=== PATIENT | female | born 1970 | race Hispanic/Latino ===

== ENCOUNTER 2018-03-02 02:35 | Emergency (ER) | payer OTHER ==
[~2018-03-02] VITALS: Ht 160 cm; Wt 77.1 kg
--- OUTSIDE RECORDS SUMMARY | 2018-03-02 02:37 | XMS REPORT ---
[facility] Unknown Phone Unavailable Care Team Providers Care Riding Double Name Role Phone Unavailable Unavailable Problems This patient has no known problems. Allergies, Adverse Reactions, Alerts This patient has no known allergies or adverse reactions. Medications This patient has no known medications. Encounters Start Date/Time End Date/Time Encounter Type Admission Type Attending [facility] Care Department Encounter ID 2016-11-28 15:31:27 Inpatient [facility] [id number] 2016-11-28 12:55:59 Inpatient [facility] [id number] 2016-11-28 01:31:51 Inpatient [facility] [id number] 2016-11-27 15:48:52 Inpatient [facility] [id number] 2014-09-29 19:57:12 Inpatient [id number] 2016-12-25 14:12:13 2016-12-25 14:12:13 Outpatient [facility] [id number] 2016-12-24 08:21:22 2016-12-24 08:21:22 Outpatient [facility] [id number] 2016-11-27 00:24:06 2016-11-27 00:24:06 Emergency [facility] [id number]
== END 2018-03-02 03:22 | disposition home or self-care (01) ==
LOC: ER 02:35
DX: S91.101A Unspecified open wound of right great toe without damage to nail, initial encounter (principal); W22.09XA Striking against other stationary object, initial encounter; Y92.008 Other place in unspecified non-institutional (private) residence as the place of occurrence of the external cause; I10 Essential (primary) hypertension; E11.9 Type 2 diabetes mellitus without complications
CPT/HCPCS: 99283

== ENCOUNTER → 2018-04-29 | Outpatient (CLI) | payer OTHER ==
--- NOTE | 2018-04-29 15:05 | Diagnostic Imaging Report ---
PROCEDURE:X-RAY RIGHT FOOT, COMPLETE COMPARISON:None. 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 Bandage material overlies the first digit. There are erosive changes of the subungual tuft of the distal phalanx. Remaining osseous structures are intact. Joint spaces are well-maintained with scattered degenerative changes throughout the midfoot.. No gross soft tissue defect of the first digit. CONCLUSION: Acute osteomyelitis of the subungual tuft of the first distal phalanx. Dictated by: Everardo Jackson M.D. on 04/29/2018 at 10:49 Electronically approved by: Everarod Jackson M.D. on 04/29/2018 at 10:49
== END ==
LOC: RAD 09:41
PROVIDERS: ATTEND Podiatrist Foot & Ankle Surgery
DX: E11.621 Type 2 diabetes mellitus with foot ulcer (principal); L97.411 Non-pressure chronic ulcer of right heel and midfoot limited to breakdown of skin

== ENCOUNTER → 2018-05-27 | Outpatient (RCR) | payer OTHER ==
[~2018-05-27] MED LIST: LIDOCAINE VISC 2% SOLN 15 ML UDC ONE
== END ==
LOC: WCC 04-29 07:46
PROVIDERS: ATTEND Podiatrist Foot & Ankle Surgery
DX: E10.65 Type 1 diabetes mellitus with hyperglycemia (principal); E10.21 Type 1 diabetes mellitus with diabetic nephropathy; E10.621 Type 1 diabetes mellitus with foot ulcer; E11.621 Type 2 diabetes mellitus with foot ulcer; L97.414 Non-pressure chronic ulcer of right heel and midfoot with necrosis of bone; L97.411 Non-pressure chronic ulcer of right heel and midfoot limited to breakdown of skin; M86.671 Other chronic osteomyelitis, right ankle and foot; L27.9 Dermatitis due to unspecified substance taken internally; I10 Essential (primary) hypertension; D50.8 Other iron deficiency anemias; E78.2 Mixed hyperlipidemia

== ENCOUNTER 2018-06-24 07:39 | Outpatient (RCR) | payer OTHER ==
[~2018-06-24 07:39] MED LIST changes: +MUPIROCIN 2% OINT 22 GM TUBE ONE
[2018-06-24] MEDS ORDERED: LIDOCAINE VISC 2% SOLN 15 ML UDC ONE (11:35)
[2018-06-24] MEDS ORDERED: MINERAL OIL/PETROLAT/GLYCERI 6OZ BTL ONE (11:35)
== END 2018-06-27 ==
LOC: WCC 07:39
PROVIDERS: ATTEND Family Medicine Adult Medicine
DX: E11.621 Type 2 diabetes mellitus with foot ulcer (principal); E10.621 Type 1 diabetes mellitus with foot ulcer; E10.65 Type 1 diabetes mellitus with hyperglycemia; L97.521 Non-pressure chronic ulcer of other part of left foot limited to breakdown of skin; L97.411 Non-pressure chronic ulcer of right heel and midfoot limited to breakdown of skin; L27.9 Dermatitis due to unspecified substance taken internally; I10 Essential (primary) hypertension; D50.8 Other iron deficiency anemias; E78.2 Mixed hyperlipidemia

== ENCOUNTER 2018-07-22 09:14 | Outpatient (RCR) | payer OTHER | END 2018-07-27 | LOC: WCC 09:14 | PROVIDERS: ATTEND Family Medicine Adult Medicine | DX: E11.621 Type 2 diabetes mellitus with foot ulcer (principal); E11.622 Type 2 diabetes mellitus with other skin ulcer; E10.21 Type 1 diabetes mellitus with diabetic nephropathy; E10.65 Type 1 diabetes mellitus with hyperglycemia; E10.621 Type 1 diabetes mellitus with foot ulcer; L97.521 Non-pressure chronic ulcer of other part of left foot limited to breakdown of skin; L97.311 Non-pressure chronic ulcer of right ankle limited to breakdown of skin; L97.411 Non-pressure chronic ulcer of right heel and midfoot limited to breakdown of skin; L98.491 Non-pressure chronic ulcer of skin of other sites limited to breakdown of skin; L27.9 Dermatitis due to unspecified substance taken internally; D50.8 Other iron deficiency anemias; E78.2 Mixed hyperlipidemia; I10 Essential (primary) hypertension ==

== ENCOUNTER 2018-08-26 09:15 | Outpatient (RCR) | payer OTHER | END 2018-08-27 | LOC: WCC 09:15 | PROVIDERS: ATTEND Family Medicine Adult Medicine | DX: E11.621 Type 2 diabetes mellitus with foot ulcer (principal); E11.622 Type 2 diabetes mellitus with other skin ulcer; E10.21 Type 1 diabetes mellitus with diabetic nephropathy; E10.65 Type 1 diabetes mellitus with hyperglycemia; E10.621 Type 1 diabetes mellitus with foot ulcer; L97.521 Non-pressure chronic ulcer of other part of left foot limited to breakdown of skin; L97.411 Non-pressure chronic ulcer of right heel and midfoot limited to breakdown of skin; L98.491 Non-pressure chronic ulcer of skin of other sites limited to breakdown of skin; L27.9 Dermatitis due to unspecified substance taken internally; I10 Essential (primary) hypertension; D50.8 Other iron deficiency anemias; E78.2 Mixed hyperlipidemia | CPT/HCPCS: 36415; 82948 ==

== ENCOUNTER 2018-08-29 13:36 | Observation (INO) | payer OTHER ==
[~2018-08-29] VITALS: Ht 160 cm; Wt 87.5 kg
--- OUTSIDE RECORDS SUMMARY | 2018-08-29 13:39 | XMS REPORT | Clinical Summary ---
Author Author [facility] Address Unknown Phone Unavailable Care Team Providers Care Inside Outside Sales Representative Name Role Phone Romel Davis MD PCP Allergies Active Allergy Reactions Severity Noted Date Comments Vancomycin Rash Low 05/07/2018 Current Medications Prescription Sig. Disp. Refills Start End Date Status Date venlafaxine (EFFEXOR) Take 37.5 mg by mouth Active 37.5 MG tablet daily. metoprolol succinate XL Take 25 mg by mouth Active (TOPROL-XL) 25 mg 24 hr daily. tablet gabapentin (NEURONTIN) Take 600 mg by mouth 3 Active 600 mg tablet (three) times a day. lisinopril Take 20 mg by mouth 2 Active (PRINIVIL,ZESTRIL) 20 mg (two) times a day. tablet simvastatin (ZOCOR) 40 MG Take 40 mg by mouth Active tablet nightly. INSULIN ASPART, Inject 50 Units under the Active NIACINAMIDE, SUBQ skin 2 (two) times a day. TRESIBA FLEXTOUCH U-200 03/29/20 Active 200 unit/mL (3 mL) 18 insulin pen ferrous sulfate 325 (65 Take 325 mg by mouth Active FE) MG tablet daily with breakfast. aspirin (ECOTRIN) 81 MG Take 81 mg by mouth Active enteric coated tablet nightly. amLODIPine (NORVASC) 5 mg Take 1 tablet (5 mg 30 tablet 0 05/09/20 06/08/20 tablet total) by mouth daily for 18 18 30 days. Active Problems Problem Noted Date Hyperglycemia 05/04/2018 Encounters Date Type Specialty Care Team Description 05/07/2018 Procedure Pass Procedural Cardiology 05/07/2018 Surgery Procedural Cardiology Liu Urrutia Aortagram abdomen w tanner Gutierrez MD with selective to SFA, angiogram on Rt angiogram [95307 (CPT)] 05/06/2018 Procedure Pass Procedural Cardiology 05/04/2018 [facility] Conrado Pham MD Hyperglycemia (Primary - Encounter Vito Pineda MD Dx); 05/08/2018 Hyponatremia; Lactic acidemia after 08/28/2017 Family History Medical History Relation Name Comments Liver cancer Father Relation Name Status Comments Father Social History Tobacco Use Types Packs/Day Years Used Date Never Smoker Smokeless Tobacco: Never Used Alcohol Use Drinks/Week oz/Week Comments No Sex Assigned at Date Recorded Not on file Last Filed Vital Signs Vital Sign Reading Time Taken Blood Pressure 152/70 05/08/2018 11:38 AM CDT Pulse 79 05/08/2018 11:38 AM CDT Temperature 36.5 C (97.7 F) 05/08/2018 11:38 AM CDT Respiratory Rate 18 05/08/2018 11:38 AM CDT Oxygen Saturation 95% 05/08/2018 11:38 AM CDT Inhaled Oxygen - - Concentration Weight 86.5 kg (190 lb 12.8 oz) 05/04/2018 11:28 AM CDT Height 160 cm (5' 3") 05/04/2018 11:28 AM CDT Body Mass Index 33.8 05/04/2018 11:28 AM CDT Plan of Treatment Health Maintenance Due Date Last Done Comments CERVICAL CANCER SCREENING 1989 INFLUENZA VACCINE 05/28/2018 BREAST CANCER SCREENING 2018 COLON CANCER SCREENING 2018 SHINGRIX VACCINE (#1) 2018 Implants Implanted 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 POC GLUCOSE Routine 05/08/2018 Results for this 7:33 AM CDT procedure are in the results section. ZZESTIMATED GFR Routine 05/08/2018 Results for this 5:00 AM CDT procedure are in the results section. BASIC METABOLIC PANEL Routine 05/08/2018 Results for this 5:00 AM CDT procedure are in the results section. POC GLUCOSE Routine 05/07/2018 Results for this 9:18 PM CDT procedure are in the results section. AORTAGRAM ABDOMEN WITH Routine 05/07/2018 Results for this RUN OFF 6:06 PM CDT procedure are in the results section. POC GLUCOSE Routine 05/07/2018 Results for this 11:40 AM CDT procedure are in the results section. POC GLUCOSE Routine 05/07/2018 Results for this 7:37 AM CDT procedure are in the results section. ZZESTIMATED GFR Routine 05/07/2018 Results for this 5:18 AM CDT procedure are in the results section. BASIC METABOLIC PANEL Routine 05/07/2018 Results for this 5:18 AM CDT procedure are in the results section. VANCOMYCIN LEVEL, RANDOM Routine 05/07/2018 Results for this 5:18 AM CDT procedure are in the results section. OSMOLALITY, URINE Routine 05/06/2018 Results for this 9:35 PM CDT procedure are in the results section. SODIUM LEVEL, URINE, Routine 05/06/2018 Results for this RANDOM 9:35 PM CDT procedure are in the results section. CREATININE LEVEL, URINE, Routine 05/06/2018 Results for this RANDOM 9:35 PM CDT procedure are in the results section. POC GLUCOSE Routine 05/06/2018 Results for this 9:13 PM CDT procedure are in the results section. US RENAL Routine 05/06/2018 Results for this 7:46 PM CDT procedure are in the results section. POC GLUCOSE Routine 05/06/2018 Results for this 6:08 PM CDT procedure are in the results section. POC GLUCOSE Routine 05/06/2018 Results for this 12:02 PM CDT procedure are in the results section. ECHOCARDIOGRAM 2D Routine 05/06/2018 Results for this COMPLETE W MMODE SPECTRAL 8:30 AM CDT procedure are in the COLOR DOPPLER (17896) results section. POC GLUCOSE Routine 05/06/2018 Results for this 8:09 AM CDT procedure are in the results section. VANCOMYCIN LEVEL, TROUGH Timed 05/06/2018 Results for this 5:16 AM CDT procedure are in the results section. ZZESTIMATED GFR Routine 05/06/2018 Results for this 5:16 AM CDT procedure are in the results section. BASIC METABOLIC PANEL Routine 05/06/2018 Results for this 5:16 AM CDT procedure are in the results section. POC GLUCOSE Routine 05/05/2018 Results for this 7:51 PM CDT procedure are in the results section. POC GLUCOSE Routine 05/05/2018 Results for this 6:23 PM CDT procedure are in the results section. US DUPLEX ARTERIAL LOWER Routine 05/05/2018 Results for this EXTREMITY BILATERAL 4:05 PM CDT procedure are in the results section. POC GLUCOSE Routine 05/05/2018 Results for this 12:35 PM CDT procedure are in the results section. POC GLUCOSE Routine 05/05/2018 Results for this 8:18 AM CDT procedure are in the results section. POC GLUCOSE Routine 05/04/2018 Results for this 8:19 PM CDT procedure are in the results section. POC GLUCOSE Routine 05/04/2018 Results for this 4:38 PM CDT procedure are in the results section. POC GLUCOSE Routine 05/04/2018 Results for this 12:11 PM CDT procedure are in the results section. POC GLUCOSE Routine 05/04/2018 Results for this 7:30 AM CDT procedure are in the results section. LACTIC ACID LEVEL, SEPSIS Timed 05/04/2018 Results for this - NOW AND REPEAT 2X EVERY 5:55 AM CDT procedure are in the 3 HOURS results section. POC GLUCOSE Routine 05/04/2018 Results for this 5:37 AM CDT procedure are in the results section. POC GLUCOSE Routine 05/04/2018 Results for this 4:56 AM CDT procedure are in the results section. POC GLUCOSE Routine 05/04/2018 Results for this 4:15 AM CDT procedure are in the results section. POC GLUCOSE Routine 05/04/2018 Results for this 2:43 AM CDT procedure are in the results section. LACTIC ACID LEVEL, SEPSIS Timed 05/04/2018 Results for this - NOW AND REPEAT 2X EVERY 2:15 AM CDT procedure are in the 3 HOURS results section. XR FOOT 3+ VW LEFT STAT 05/04/2018 Results for this 1:57 AM CDT procedure are in the results section. XR FOOT 3+ VW RIGHT STAT 05/04/2018 Results for this 1:56 AM CDT procedure are in the results section. POC GLUCOSE Routine 05/04/2018 Results for this 1:38 AM CDT procedure are in the results section. BLOOD CULTURE, AEROBIC & Routine 05/04/2018 Results for this ANAEROBIC 12:55 AM CDT procedure are in the results section. BLOOD CULTURE, AEROBIC & Routine 05/04/2018 Results for this ANAEROBIC 12:40 AM CDT procedure are in the results section. URINALYSIS SCREEN AND Routine 05/04/2018 Results for this MICROSCOPY, WITH REFLEX 12:30 AM CDT procedure are in the TO CULTURE results section. URINE CULTURE Routine 05/04/2018 Results for this 12:30 AM CDT procedure are in the results section. LACTIC ACID LEVEL Routine 05/04/2018 Results for this 12:25 AM CDT procedure are in the results section. ZZESTIMATED GFR STAT 05/04/2018 Results for this 12:25 AM CDT procedure are in the results section. BETA HYDROXYBUTYRATE Routine 05/04/2018 Results for this 12:25 AM CDT procedure are in the results section. VENOUS BLOOD GAS Routine 05/04/2018 Results for this 12:25 AM CDT procedure are in the results section. COMPREHENSIVE METABOLIC STAT 05/04/2018 Results for this PANEL 12:25 AM CDT procedure are in the results section. HC COMPLETE BLD COUNT STAT 05/04/2018 Results for this W/AUTO DIFF 12:25 AM CDT procedure are in the results section. [place] [facility], E/M Routine 05/04/2018 Results for this 30-74 MINUTES 12:20 AM CDT procedure are in the results section. ECG 12-LEAD STAT 05/04/2018 Results for this 12:15 AM CDT procedure are in the results section. POC GLUCOSE Routine 05/04/2018 Results for this 12:02 AM CDT procedure are in the results section. after 08/28/2017 Results * POC glucose (05/08/2018 11:37 AM) Only the most recent of 23 results within the time period is included. POC glucose 249 (H) 65 - 99 mg/dL [facility] DEPARTMENT OF Comment: PATHOLOGY AND Meter ID: [id number] [employer] [facility] Vinyl Cutter: Isadora Landaverde Performing Organization Address City/State/Zipcode Phone Number [place] [phone] [facility] [address] [place] [address] PATHOLOGY AND GENOMIC MEDICINE * Estimated GFR (05/08/2018 5:00 AM) Only the most recent of 4 results within the time period is included. GFR Non Af Amer 37 (A) mL/min/1.[address] [facility] OF PATHOLOGY AND GENOMIC MEDICINE GFR Af Amer 45 (A) mL/min/1.[address] [facility] OF Comment: PATHOLOGY AND Chronic kidney disease: <60 GENOMIC MEDICINE mL/min/1.73m2 Kidney failure: <15 mL/min/1.73m2 The estimated GFR is calculated from the IDMS-traceable Modification of Diet in Renal Disease Equation. The accuracy of the calculation is poor when the creatinine is normal. Calculated values >90 mL/min/1.73m2 are not reported. This equation has not been validated in children (<18 years), women, the elderly (>70 years), or ethnic groups other than Caucasians and Americans. Specimen Plasma specimen Performing Organization Address [facility] Phone Number [address] [place], [place] [id number] [facility] [employer] * Basic metabolic panel (05/08/2018 5:00 AM) Only the most recent of 3 results within the time period is included. Sodium 136 135 - 148 mEq/L [facility] PATHOLOGY AND [employer] [facility] Potassium 4.1 3.5 - 5.0 mEq/L [facility] OF PATHOLOGY AND [employer] [facility] Chloride 102 99 - 109 mEq/L [facility] OF PATHOLOGY AND [employer] [facility] CO2 25 24 - 31 mEq/L [facility] PATHOLOGY AND [employer] [facility] Anion gap 9@ANIO 7 - 15 mEq/L [facility] OF PATHOLOGY AND [employer] [facility] BUN 22 8 - 24 mg/dL [facility] OF PATHOLOGY AND [employer] [facility] Creatinine 1.5 0.5 - 1.5 mg/dL [facility] PATHOLOGY AND [employer] [facility] Glucose 255 (H) 65 - 99 mg/dL [facility] PATHOLOGY AND [employer] [facility] Calcium 8.7 8.6 - 10.6 mg/dL [facility] PATHOLOGY AND [employer] Specimen Plasma specimen Performing Organization Address City/[facility] Phone Number [facility] [phone] [place] [address]. [address] [place] [phone] [employer] * Cv invasive peripheral vascular procedure (05/07/2018 6:06 PM) Narrative Performed At [facility] DATE OF PROCEDURE:05/07/2018 Procedures performed: Right lower extremity angiogram with contralateral access Indications: PAD with non healing wound Consent obtained. Pt prepped and draped in standard manner. 5F left groin arterial access obtained Omniflush used to engage the right external iliac and then catheter was exchanged for a glide catheter. Torreon catheter was advanced into the right SFA over a wire. Then right lower extremity angiogram was performed. Then the catheter was advanced into the right SFA followed by a pull back recording from the right SFA till the access sheath No gradients were noted. Mynx used for arterial closure Complications:None EBL: < 10 ml Sedation: Conscious sedation under direct supervision and hemodynamic monitoring > 15 mins Findings: No hemodynamic gradients noted in the iliac system bilaterally Rt SFA patent without any gradients. Rt popliteal patent. Rt TYRELL patent beyond the ankle.Dorsalis pedis with focal lesion in proximal foot. Rt Tibioperoneal trunk patent Rt peroneal 70% 10-12 mm diseased area in the mid to distal segment. 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 Foot vasculature appears heavily collateralized with good blush No complications Total dye appox 32 cc Conclusion: PAD as described above Plan: Hydration; mucomyst Bmp am Continue wound care and antibiotics. Feel she has adequate circulatation large vessel circulation at this time.Will discuss and review angiographic findings with Dr. Lupe Urrutia MD Performing Organization Address [facility] Phone Number [facility] [address] [place] [address] * Vancomycin level, random (05/07/2018 5:18 AM) Vancomycin, random 16.2 ug/mL [facility] OF Comment: PATHOLOGY AND Therapeutic Ranges: GENOMIC MEDICINE Peak 30.0 - 40.0 ug/mL Mvyjnl35.0 - 20.0 ug/mL Specimen Blood Performing Organization Address [facility] [place] [address] PATHOLOGY AND GENOMIC MEDICINE * Sodium level, urine, random (05/06/2018 9:35 PM) Sodium, urine, random 80 mEQ/L [facility] OF PATHOLOGY AND GENOMIC MEDICINE Specimen Urine Performing Organization Address [facility] [place] [address] PATHOLOGY AND GENOMIC MEDICINE * Osmolality, urine (05/06/2018 9:35 PM) Osmolality, urine 232 50 - 1,400 mOsm/kg [facility] OF PATHOLOGY AND GENOMIC MEDICINE Specimen Urine Performing Organization Address [facility] Phone Number [facility] [phone] [place], [place] [address]y. [address] [place] [address] PATHOLOGY AND GENOMIC MEDICINE * Creatinine level, urine, random (05/06/2018 9:35 PM) Creatinine, urine, random 17 mg/dL [facility] OF PATHOLOGY AND GENOMIC MEDICINE Specimen Urine Performing Organization Address [facility] Phone Number [facility] [phone] [place], [place] [address]y. [address] [place] [phone] PATHOLOGY AND GENOMIC MEDICINE * US Renal (05/06/2018 7:46 PM) Narrative Performed At EXAMINATION:US RENAL [facility] CLINICAL HISTORY:Eleveted Creatinine COMPARISON:None. TECHNIQUE:Ultrasound evaluation of the kidneys and bladder. Findings: 1.The right kidney measures 12.4 x 5.9 x 5.9 cm.The left kidney measures 13.9 x 7.2 x 6.7 cm.Normal renal cortical echogenicity. 2.No hydronephrosis or solid mass lesions. 3.Bladder is unremarkable. IMPRESSION: 1.Unremarkable renal ultrasound. [id number] Procedure Note Interface, Radiology Results Incoming - 05/06/2018 9:56 PM CDT EXAMINATION: US RENAL CLINICAL HISTORY: Eleveted Creatinine COMPARISON: None. TECHNIQUE: Ultrasound evaluation of the kidneys and bladder. Findings: 1. The right kidney measures 12.4 x 5.9 x 5.9 cm. The left kidney measures 13.9 x 7.2 x 6.7 cm. Normal renal cortical echogenicity. 2. No hydronephrosis or solid mass lesions. 3. Bladder is unremarkable. IMPRESSION: 1. Unremarkable renal ultrasound. [id number] Performing Organization Address [facility] Phone Number [facility] [address] [place] [address] * Echocardiogram complete w contrast and 3D if needed (05/06/2018 8:30 AM) AoV Area, Vmax 2.37 cm2 [facility] AoV Area, VTI 2.60 cm2 [facility] AoV Mean PG 5.00 mmHg [facility] AoV Peak PG 8.00 mmHg [facility] AoV Vmax 1.39 m/s [facility] AoV VTI 0.28 m [facility] IVS,d 1.20 cm [facility] IVS/LVPW,2D 0.92 [facility] Left Atrium Dimension 3.30 cm [facility] Anterior LV,d 4.60 cm [facility] LV EF,2D 74.90 % [facility] LV,s 2.90 cm [facility] LVOT area 3.14 cm2 [facility] LVOT Diam,S 2.00 cm [facility] LVOT Vmax 1.05 m/s [facility] LVOT VTI 0.23 m [facility] LVPWD,d 1.30 cm [facility] MV E A ratio 0.80 mmHg [facility] E wave decelartion time 92.00 msec [facility] MV Peak A Abdias 0.95 m/s [facility] MV Peak E Abdias 0.78 m/s [facility] AV LVOT peak gradient 4.00 mmHg [facility] Ao Root,d,2D 2.90 cm [facility] LV SYS VOL 32.20 ml [facility] LV RAMOS VOL 97.30 ml [facility] LV SV Teich 2D 65.10 ml [facility] AoV Vmn 1.03 [facility] LV FS Teich 2D 37.00 [facility] LV FS Cube 2D 37.00 [facility] LVOT Vmn 0.76 [facility] LVOT mean grad 3.00 mmHg [facility] LV SV Cube 2D 72.90 ml [facility] LV vol d cube 2D 97.30 ml [facility] LV vol s cube 2D 24.40 ml [facility] Velocity Ratio (V1/V2) 0.76 m/s [facility] EF 66.91 % [facility] E/A ratio 0.82 [facility] LA Vol MOD A4C 44.15 ml [facility] Narrative Performed At [facility] Technically adequate study There is mild left ventricular concentric hypertrophy. Left Ventricular ejection fraction is 55 - 60%. Left ventricular systolic function is normal Spectral Doppler shows impaired relaxation pattern of left ventricular diastolic filling. No pericardial effusion seen. Performing Organization Address City/State/Zipcode Phone Number [facility] [address] [place] [address] * Vancomycin level, trough (05/06/2018 5:16 AM) Vancomycin, trough 27.3 (HH) 10.0 - 20.0 ug/mL [facility] OF Comment: PATHOLOGY AND Therapeutic Ranges: GENOMIC MEDICINE Peak 30.0 - 40.0 ug/mL Aawwzm76.0 - 20.0 ug/mL Final results called to and read back by Tanisha Mackye [id number]/06/2018 06:21 [email or web address] Specimen Blood Performing Organization Address City/State/Zipcode Phone Number [facility] [address] [facility] [place] [address] PATHOLOGY AND GENOMIC MEDICINE * Pv duplex arterial lower extremity (05/05/2018 4:05 PM) Narrative Performed At EXAM: US DUPLEX ARTERIAL LOWER EXTREMITY BILATERAL [facility] HISTORY: peripheral arterial occlusive disease TECHNIQUE: Real-time as well as pulsed and color Doppler evaluation of bilateral common femoral, femoral, popliteal, posterior tibial, anterior tibial, and dorsalis pedis arteries are evaluated. The examination includes a full duplex Doppler scan of the blood vessels (real-time P mode grayscale, Doppler spectral analysis, and Doppler color flow imaging). COMPARISON: None. IMPRESSION: 1.Some loss of phasicity in the right lower extremity anterior tibial artery. No velocity gradient identified to suggest flow-limiting stenosis. Waveforms possible secondary to inflammatory mediated vasodilation. 2.Velocities and waveforms are otherwise within normal limits throughout the bilateral lower extremity arteries FINDINGS: RIGHT LEG: PEAK SYSTOLIC VELOCITIES ARE FOLLOWS (CM/S): COMMON FEMORAL:111 FEMORAL: Proximal: 112 Mid:145 Distal:111 POPLITEAL: Proximal:156 Mid:86 Distal: 97 POSTERIOR TIBIAL: Proximal: 64 Mid:61 Distal:59 ANTERIOR TIBIAL: Proximal: 115 Mid:122 Distal:123 DORSALIS PEDIS: 154 DOPPLER WAVEFORMS: COMMON FEMORAL: Triphasic FEMORAL Proximal: Triphasic Mid: Triphasic Distal: Triphasic POPLITEAL Proximal: Triphasic Mid: Triphasic Distal: Triphasic POSTERIOR TIBIAL Proximal: Triphasic Mid: Triphasic Distal: Triphasic ANTERIOR TIBIAL Proximal: Monophasic Mid: Monophasic Distal: Monophasic DORSALIS PEDIS: Monophasic LEFT LEG: PEAK SYSTOLIC VELOCITIES ARE FOLLOWS: COMMON FEMORAL:99 FEMORAL: Proximal: 127 Mid:129 Distal:120 POPLITEAL: Proximal: 118 Mid:74 Distal: 77 POSTERIOR TIBIAL: Proximal: 78 Mid:125 Distal:97 ANTERIOR TIBIAL: Proximal:63 Mid:81 Distal: 61 DORSALIS PEDIS:22 DOPPLER WAVEFORMS: COMMON FEMORAL: Triphasic FEMORAL Proximal: Triphasic Mid: Triphasic Distal: Triphasic POPLITEAL Proximal: Triphasic Mid: Triphasic Distal: Triphasic POSTERIOR TIBIAL Proximal: Triphasic Mid: Triphasic Distal: Triphasic ANTERIOR TIBIAL Proximal: Triphasic Mid: Triphasic Distal: Triphasic DORSALIS PEDIS: Triphasic [id number] Procedure Note Interface, Radiology Results Incoming - 05/05/2018 4:14 PM CDT EXAM: US DUPLEX ARTERIAL LOWER EXTREMITY BILATERAL HISTORY: peripheral arterial occlusive disease TECHNIQUE: Real-time as well as pulsed and color Doppler evaluation of bilateral common femoral, femoral, popliteal, posterior tibial, anterior tibial, and dorsalis pedis arteries are evaluated. The examination includes a full duplex Doppler scan of the blood vessels (real-time P mode grayscale, Doppler spectral analysis, and Doppler color flow imaging). COMPARISON: None. IMPRESSION: 1. Some loss of phasicity in the right lower extremity anterior tibial artery. No velocity gradient identified to suggest flow-limiting stenosis. Waveforms possible secondary to inflammatory mediated vasodilation. 2. Velocities and waveforms are otherwise within normal limits throughout the bilateral lower extremity arteries FINDINGS: RIGHT LEG: PEAK SYSTOLIC VELOCITIES ARE FOLLOWS (CM/S): COMMON FEMORAL: 111 FEMORAL: Proximal: 112 Mid: 145 Distal: 111 POPLITEAL: Proximal: 156 Mid: 86 Distal: 97 POSTERIOR TIBIAL: Proximal: 64 Mid: 61 Distal: 59 ANTERIOR TIBIAL: Proximal: 115 Mid: 122 Distal: 123 DORSALIS PEDIS: 154 DOPPLER WAVEFORMS: COMMON FEMORAL: Triphasic FEMORAL Proximal: Triphasic Mid: Triphasic Distal: Triphasic POPLITEAL Proximal: Triphasic Mid: Triphasic Distal: Triphasic POSTERIOR TIBIAL Proximal: Triphasic Mid: Triphasic Distal: Triphasic ANTERIOR TIBIAL Proximal: Monophasic Mid: Monophasic Distal: Monophasic DORSALIS PEDIS: Monophasic LEFT LEG: PEAK SYSTOLIC VELOCITIES ARE FOLLOWS: COMMON FEMORAL: 99 FEMORAL: Proximal: 127 Mid: 129 Distal: 120 POPLITEAL: Proximal: 118 Mid: 74 Distal: 77 POSTERIOR TIBIAL: Proximal: 78 Mid: 125 Distal: 97 ANTERIOR TIBIAL: Proximal: 63 Mid: 81 Distal: 61 DORSALIS PEDIS: 22 DOPPLER WAVEFORMS: COMMON FEMORAL: Triphasic FEMORAL Proximal: Triphasic Mid: Triphasic Distal: Triphasic POPLITEAL Proximal: Triphasic Mid: Triphasic Distal: Triphasic POSTERIOR TIBIAL Proximal: Triphasic Mid: Triphasic Distal: Triphasic ANTERIOR TIBIAL Proximal: Triphasic Mid: Triphasic Distal: Triphasic DORSALIS PEDIS: Triphasic [facility]-[id number] Performing Organization Address City/State/Zipcode Phone Number TOBY ALTAMIRANO [address] [place] [address] * Lactic acid level, SEPSIS - Now and repeat 2x every 3 hours (05/04/2018 5:55 AM) Only the most recent of 2 results within the time period is included. Lactic acid 2.2 0.5 - 2.2 mmol/L [facility] OF PATHOLOGY AND GENOMIC MEDICINE Specimen Blood Performing Organization Address [facility]/Zipcode Phone Number [place] [phone] [facility] [address] [place] [address] PATHOLOGY AND GENOMIC MEDICINE * XR Foot 3+ Vw Left (05/04/2018 1:57 AM) Narrative Performed At EXAMINATION:XR FOOT 3VW LEFT [facility] CLINICAL HISTORY:R O OSTEO COMPARISON:None. 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 There is swelling and irregularity of overlying soft tissues. Otherwise, no evidence of acute left foot fracture or dislocation. No definite radiographic evidence of osteomyelitis. [id number] Procedure Note Interface, Radiology Results Incoming - 05/04/2018 2:15 AM CDT EXAMINATION: XR FOOT 3 VW LEFT CLINICAL HISTORY: R O OSTEO COMPARISON: None. 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 There is swelling and irregularity of overlying soft tissues. Otherwise, no evidence of acute left foot fracture or dislocation. No definite radiographic evidence of osteomyelitis. [id number] Performing Organization Address [facility]code Phone Number ADARSH [address] [place] [address] * XR Foot 3+ Vw Right (05/04/2018 1:56 AM) Narrative Performed At Examination:XR FOOT 3VW RIGHT RADIANT Clinical History: R O OSTEO Comparison: None. Findings: 3 views of the right foot are obtained. Amputation of the right mid fifth metatarsal bone is noted. Posterior and inferior calcaneal spurring is noted. No acute fracture or dislocation is seen. No cortical bone loss is seen. IMPRESSION: 1. Amputation of the right mid fifth metatarsal bone. 2. No radiographic evidence for osteomyelitis. [id number] Procedure Note Interface, Radiology Results Incoming - 05/04/2018 2:04 AM CDT Examination: XR FOOT 3 VW RIGHT Clinical History: R O OSTEO Comparison: None. Findings: 3 views of the right foot are obtained. Amputation of the right mid fifth metatarsal bone is noted. Posterior and inferior calcaneal spurring is noted. No acute fracture or dislocation is seen. No cortical bone loss is seen. IMPRESSION: 1. Amputation of the right mid fifth metatarsal bone. 2. No radiographic evidence for osteomyelitis. [id number] Performing Organization Address City/[facility]/Zipcode Phone Number [facility] [address] [place] [address] * Blood culture, aerobic & anaerobic (05/04/2018 12:55 AM) Only the most recent of 2 results within the time period is included. Blood culture isolate No growth after 5 days of [facility] DEPARTMENT OF incubation. PATHOLOGY AND Comment: GENOMIC MEDICINE Specimen Information Specimen Source: Blood Specimen Site: Hand, right Specimen Blood - Hand, right Performing Organization Address City/[facility] Phone Number [facility] DEPARTMENT OF [address] [place] [address] PATHOLOGY AND GENOMIC MEDICINE * Urinalysis screen and microscopy, with reflex to culture (05/04/2018 12:30 AM) Specimen site Clean catch [facility] DE[facility] GENOMIC MEDICINE Color, UA Yellow YELLOW [facility] DE[facility] OF PATHOLOGY AND GENOMIC MEDICINE Appearance, UA Clear Clear [facility] DE[facility]MENT OF PATHOLOGY AND GENOMIC MEDICINE Specific gravity, UA 1.022 1.005 - 1.[address] [facility] DEPARTMENT OF PATHOLOGY AND GENOMIC MEDICINE pH, UA 6.0 5.0 - 8.[address] [facility] DEPARTMENT OF PATHOLOGY AND GENOMIC MEDICINE Protein, UA 3+ (A) Negative [facility] DE[facility]MENT OF PATHOLOGY AND GENOMIC MEDICINE Glucose, UA 3+ (A) Negative [facility] DEPARTMENT OF PATHOLOGY AND GENOMIC MEDICINE Ketones, UA Negative Negative [facility] DE[facility]MENT OF PATHOLOGY AND GENOMIC MEDICINE Bilirubin, UA Negative Negative [facility] DEPARTMENT OF PATHOLOGY AND GENOMIC MEDICINE Blood, UA Small (A) Negative [facility] DEPARTMENT OF PATHOLOGY AND GENOMIC MEDICINE Nitrite, UA Negative NEGATIVE [facility] DEPARTMENT OF PATHOLOGY AND GENOMIC MEDICINE Urobilinogen, UA <2.0 <2.0 E.U./dL [facility] DEPARTMENT OF PATHOLOGY AND GENOMIC MEDICINE Leukocyte esterase, UA Negative Negative [facility] DEPARTMENT OF PATHOLOGY AND GENOMIC MEDICINE Epithelial cells, UA <1 0 - 15 /HPF [facility] DEPARTMENT OF PATHOLOGY AND GENOMIC MEDICINE WBC, UA 2 0 - 5 /Hpf [facility] DEPARTMENT OF PATHOLOGY AND GENOMIC MEDICINE RBC, UA <1 0 - 5 /HPF [facility] DEPARTMENT OF PATHOLOGY AND GENOMIC MEDICINE Bacteria, UA None seen None seen [facility] DEPARTMENT OF PATHOLOGY AND GENOMIC MEDICINE Yeast, UA None seen None Seen [facility] DEPARTMENT OF PATHOLOGY AND GENOMIC MEDICINE Yeast with pseudohyphae, None seen [facility] DEPARTMENT OF UA PATHOLOGY AND GENOMIC MEDICINE Specimen Urine Performing Organization Address City/[facility]/[place] [address] PATHOLOGY AND GENOMIC MEDICINE * Urine culture (05/04/2018 12:30 AM) Urine culture SEE COMMENTComment: [facility] DEPARTMENT OF Bacteriuria screen negative. PATHOLOGY AND GENOMIC MEDICINE Specimen Urine Performing Organization Address City/[facility] [place] [address] PATHOLOGY AND GENOMIC MEDICINE * Beta hydroxybutyrate (05/04/2018 12:25 AM) Beta hydroxybutyrate 0.18 0.02 - 0.27 mmol/L [facility] DEPARTMENT OF PATHOLOGY AND GENOMIC MEDICINE Specimen Serum Performing Organization Address City/[facility] [place] [address] PATHOLOGY AND GENOMIC MEDICINE * CBC with platelet and differential (05/04/2018 12:25 AM) WBC 9.1 4.5 - 11.0 k/uL [facility] DEPARTMENT OF PATHOLOGY AND GENOMIC MEDICINE RBC 3.66 (L) 4.20 - 5.50 M/uL [facility] DEPARTMENT OF PATHOLOGY AND GENOMIC MEDICINE HGB 11.1 (L) 14.0 - 18.0 g/dL [facility] DEPARTMENT OF PATHOLOGY AND GENOMIC MEDICINE HCT 32.1 (L) 37.0 - 47.0 % [facility] DEPARTMENT OF PATHOLOGY AND GENOMIC MEDICINE MCV 87.7 82.0 - 100.[address] [facility] DEPARTMENT OF PATHOLOGY AND GENOMIC MEDICINE MCH 30.3 27.0 - 34.[address] [facility] DEPARTMENT OF PATHOLOGY AND GENOMIC MEDICINE MCHC 34.6 31.0 - 37.0 g/dL [facility] DEPARTMENT OF PATHOLOGY AND GENOMIC MEDICINE RDW - SD 39.8 37.0 - 55.[address] [facility] DEPARTMENT OF PATHOLOGY AND GENOMIC MEDICINE MPV 10.7 8.8 - 13.[address] [facility] DEPARTMENT OF PATHOLOGY AND GENOMIC MEDICINE Platelet count 261 150 - 400 K/uL [facility] DEPARTMENT OF PATHOLOGY AND GENOMIC MEDICINE Nucleated RBC 0.00 /[address] [facility] DEPARTMENT OF PATHOLOGY AND GENOMIC MEDICINE Neutrophils 56.9 39.0 - 69.0 % [facility] DEPARTMENT OF PATHOLOGY AND GENOMIC MEDICINE Lymphocytes 34.6 25.0 - 45.0 % [facility] DEPARTMENT OF PATHOLOGY AND GENOMIC MEDICINE Monocytes 6.1 0.0 - 10.0 % [facility] DEPARTMENT OF PATHOLOGY AND GENOMIC MEDICINE Eosinophils 1.8 0.0 - 5.0 % [facility] DEPARTMENT OF PATHOLOGY AND GENOMIC MEDICINE Basophils 0.2 0.0 - 1.0 % [facility] DEPARTMENT OF PATHOLOGY AND GENOMIC MEDICINE Immature granulocytes 0.4Comment: "Immature 0.0 - 1.0 % [facility] DEPARTMENT OF granulocytes" (promyelocytes, PATHOLOGY AND myelocytes, metamyelocytes) GENOMIC MEDICINE Specimen Blood Performing Organization Address City/[facility] [place] [address] PATHOLOGY [facility] [employer] [facility] * Lactic acid level (05/04/2018 12:25 AM) Lactic acid 3.0 (H) 0.5 - 2.2 mmol/L [facility] PATHOLOGY AND GENOMIC MEDICINE Specimen Blood Performing Organization Address City/[facility] [place] [address] PATHOLOGY [facility] [employer] [facility] * Venous blood gas (05/04/2018 12:25 AM) pH, venous 7.31 (L) 7.32 - 7.[address] [facility] DEPARTMENT OF PATHOLOGY AND GENOMIC MEDICINE pCO2, venous 56 (H) 45 - [address] [facility] DEPARTMENT OF PATHOLOGY AND GENOMIC MEDICINE pO2, venous 25 25 - [address] [facility] DEPARTMENT OF PATHOLOGY AND GENOMIC MEDICINE Base excess, venous 1 -2 - 2 mEq/L [facility] DEPARTMENT OF PATHOLOGY AND GENOMIC MEDICINE O2 saturation, venous 40 40 - 70 % [facility] DEPARTMENT OF PATHOLOGY AND GENOMIC MEDICINE Bicarbonate, venous 27.7 21.0 - 28.[address] [facility] DEPARTMENT PATHOLOGY AND GENOMIC MEDICINE Specimen Blood Performing Organization Address City/[facility] [place] [address] PATHOLOGY [facility] [employer] [facility] * Comprehensive metabolic panel (05/04/2018 12:25 AM) Sodium 131 (L) 135 - 148 mEq/L [facility] OF PATHOLOGY AND GENOMIC MEDICINE Potassium 3.9 3.5 - 5.0 mEq/L [facility] DEPARTMENT OF PATHOLOGY AND GENOMIC MEDICINE Chloride 93 (L) 99 - 109 mEq/L [facility] OF PATHOLOGY AND GENOMIC MEDICINE CO2 28 24 - 31 mEq/L [facility] OF PATHOLOGY AND GENOMIC MEDICINE Anion gap 10@ANIO 7 - 15 mEq/L [facility] DEPARTMENT OF PATHOLOGY AND GENOMIC MEDICINE BUN 29 (H) 8 - 24 mg/dL [facility] DEPARTMENT OF PATHOLOGY AND GENOMIC MEDICINE Creatinine 1.3 0.5 - 1.5 mg/dL [facility] DEPARTMENT OF PATHOLOGY AND GENOMIC MEDICINE Glucose 518 (HH) 65 - 99 mg/dL [facility] DEPARTMENT OF Comment: PATHOLOGY AND Final results called to and GENOMIC MEDICINE read back by Dr. Lei/BROOKS at01:30 05/04/2018 ml. Calcium 9.4 8.6 - 10.6 mg/dL [facility] DEPARTMENT OF PATHOLOGY AND GENOMIC MEDICINE Protein 6.6 6.3 - 8.2 g/dL [facility] DEPARTMENT OF PATHOLOGY AND GENOMIC MEDICINE Albumin 1.8 (L) 3.5 - 5.0 g/dL [facility] DEPARTMENT OF PATHOLOGY AND GENOMIC MEDICINE A/G ratio 0.38 (L) 0.70 - 3.[address] [facility] DEPARTMENT OF PATHOLOGY AND GENOMIC MEDICINE Alkaline phosphatase 115 30 - 115 U/L [facility] DEPARTMENT OF PATHOLOGY AND GENOMIC MEDICINE AST SEE COMMENT 15 - 46 U/L [facility] DEPARTMENT OF Comment: PATHOLOGY AND No report GENOMIC MEDICINE Specimen markedly lipemic. Notified Dr. Lei/BROOKS at01: [facility]. ALT SEE COMMENT 10 - 55 U/L [facility] DEPARTMENT OF Comment: PATHOLOGY AND No report GENOMIC MEDICINE Specimen markedly lipemic. Notified Dr. Lei/BROOKS at01: [facility]. Total bilirubin <0.2 0.2 - 1.2 mg/dL [facility] OF PATHOLOGY AND GENOMIC MEDICINE Specimen Plasma specimen Performing Organization Address City/State/Zipcode Phone Number [address] [place] [address] PATHOLOGY AND [employer] MEDICINE * CRITICAL CARE (05/04/2018 12:20 AM) Narrative Performed At Odilia Li NP 05/04/20187:37 AM Critical Care Performed by: ODILIA LI Authorized by: CONRADO PHAM Critical care provider statement: Critical care time (minutes):45 Critical care was necessary to treat or prevent imminent or life-threatening deterioration of the following conditions:Circulatory failure, HA[employer]TER failure or compromise, dehydration, metabolic crisis, sepsis, respiratory failure and renal failure Critical care was time spent personally by me on the following activities:Development of treatment plan with patient or surrogate, discussions with consultants, obtaining history from patient or surrogate, examination of patient, evaluation of patient's response to treatment, review of old charts, re-evaluation of patient's condition, ordering and review of laboratory studies, ordering and review of radiographic studies and ordering and performing treatments and interventions Ozzie 'yes' if you are taking over critical care for this patient from another provider.: no * ECG 12 lead (05/04/2018 12:15 AM) Ventricular rate 98 [facility] Atrial rate 98 [facility] [place] interval 144 [facility] QRSD interval 98 [facility] QT interval 368 [facility] QTC interval 469 [facility] P axis 1 31 [facility] QRS axis 1 -35 [facility] T wave axis 33 [facility] EKG impression Normal sinus rhythm-Left axis [facility] deviation-Incomplete right bundle branch block-Voltage criteria for left ventricular hypertrophy-Abnormal ECG-No previous ECGs available- Performing Organization Address City/State/Zipcode Phone Number [facility] MUSE [address] [place] [address] after 08/28/2017 Insurance Payer Benefit Subscriber ID Type Phone Address Plan / Group [employer] xxxxxxxxx O [facility]
[2018-08-29] MEDS ORDERED: SODIUM CHLORIDE 0.9% 1000ML 1,000 ML IV STA (13:55)
[2018-08-29] MEDS ORDERED: SODIUM CHLORIDE 0.9% 1000ML 2,000 ML ONE (13:57)
--- NOTE | 2018-08-29 14:24 | Diagnostic Imaging Report ---
Examination: Single AP view of the chest. COMPARISON: None. INDICATION: Abdominal pain DISCUSSION: Lines/tubes: None. Lungs: The lungs are well inflated and clear. No pneumonia or pulmonary edema. Pleura: No pleural effusion or pneumothorax. Heart and mediastinum: The heart and the mediastinum are unremarkable. Bones and soft tissues: No acute bony abnormalities. IMPRESSION: 1. No acute cardiopulmonary abnormalities. Signed by: Dr. Landry Smith M.D. on 08/29/2018 2:21 PM
[2018-08-29 14:32] LABS: BASOPHILS % 0.1 % (0.0-1.0); EOSINOPHILS # (AUTO) 0.2 (0.0-0.4); EOSINOPHILS % 1.5 % (0.0-6.0); HEMATOCRIT 36.9 % (34.2-44.1); HEMOGLOBIN 12.6 g/dL (12.0-16.0); LYMPHOCYTES # (AUTO) 4.6 (1.0-3.2); MEAN CORPUSCULAR HEMOGLOBIN 28.8 pg (28-32); MEAN CORPUSCULAR HGB CONC 34.1 g/dL (31-35); MEAN CORPUSCULAR VOLUME 84.4 fL (81-99); MONOCYTES # (AUTO) 0.8 (0.2-0.8); MONOCYTES % 6.2 % (4.4-11.3); NEUTROPHILS # (AUTO) 7.7 (2.1-6.9); NEUTROPHILS % 57.5 % (38.7-80.0); PLATELET COUNT 449 x10e3/uL (140-360); RED BLOOD COUNT 4.37 x10e6/uL (3.6-5.1); RED CELL DISTRIBUTION WIDTH 11.9 % (11.7-14.4)
[2018-08-29 14:40] LABS: INR 0.89; PROTHROMBIN TIME 12.9 seconds (11.9-14.5)
[2018-08-29 14:41] LABS: PARTIAL THROMBOPLASTIN TIME 23.3 seconds (23.8-35.5)
[2018-08-29 14:46] LABS: ALBUMIN 3.7 g/dL (3.5-5.0); ALBUMIN/GLOBULIN RATIO 0.8 (0.8-2.0); ANION GAP 18.6 mmol/L (8-16); CALCIUM 11.5 mg/dL (8.4-10.2); CREATININE, SERUM 2.06 mg/dL (0.57-1.11); POTASSIUM 3.6 mmol/L (3.5-5.1)
[2018-08-29 14:52] LABS: CREATINE KINASE MB 9.3 ng/mL (0-5.0)
[2018-08-29] MEDS ORDERED: DIATRIZOATE MEGL/DIATRIZOA SOD 30 ML BTL PO ONE (15:04)
[2018-08-29 15:20] LABS: BILIRUBIN,URINE NEGATIVE (NEGATIVE); CLARITY,URINE SL CLOUDY (CLEAR); COLOR,URINE YELLOW (YELLOW); KETONES,URINE NEGATIVE (NEGATIVE); LEUKOCYTE ESTERASE ,URINE TRACE (NEGATIVE); NITRITE,URINE NEGATIVE (NEGATIVE); PROTEIN,URINE DIPSTICK 2+ (NEGATIVE); URINE UROBILINOGEN 0.2 mg/dL (0.2 - 1)
[2018-08-29 15:27] LABS: BACTERIA,URINE FEW /HPF
[2018-08-29 15:28] LABS: AMORPHOUS SEDIMENT,URINE MODERATE (FEW)
[2018-08-29] MEDS: CEFTRIAXONE SOD 1 GM VIAL IV SCH (15:59)
[2018-08-29] MEDS ORDERED: ONDANSETRON HCL INJ 2 MG/ML VIAL IV ONE (16:00)
[2018-08-29] MEDS ORDERED: MOTRIN800 MG PO (16:37)
[2018-08-29] MEDS ORDERED: FENOFIBRATE145 MG PO (16:37)
[2018-08-29] MEDS ORDERED: GABAPENTIN600 MG PO (16:37)
[2018-08-29] MEDS ORDERED: OMEGA-3 FISH1000 MG PO (16:37)
[2018-08-29] MEDS ORDERED: METOPROLOL SUCC25 MG PO (16:37)
[2018-08-29] MEDS ORDERED: ASPIRIN CHEW81 MG PO (16:37)
[2018-08-29] MEDS ORDERED: LISINOPRIL20 MG PO (16:37)
[2018-08-29] MEDS ORDERED: BIOTIN800 MCG PO (16:37)
--- NOTE | 2018-08-29 17:33 | Diagnostic Imaging Report ---
EXAMINATION: CT of the abdomen and pelvis without contrast. TECHNIQUE: Spiral CT images of the abdomen and pelvis were performed from the lung bases to the lesser trochanters. No intravenous contrast was given due to history of renal failure. Oral dilute Gastrografin was given. Coronal and sagittal reformatted images were obtained. COMPARISON: CT abdomen and pelvis with contrast 06/02/2009 CLINICAL HISTORY:Abdominal pain DISCUSSION: ABSENCE OF INTRAVENOUS CONTRAST DECREASES SENSITIVITY FOR DETECTION OF FOCAL LESIONS AND VASCULAR PATHOLOGY. ABDOMEN/PELVIS: LOWER THORAX: Minimal bilateral lower lobe dependent atelectasis. 5-6 mm perifissural nodule in the left major fissure (series 2, image 1). HEPATOBILIARY: Hepatic steatosis predominantly involving the right lobe. No focal lesions. No intra or extrahepatic biliary ductal dilation. GALLBLADDER: Cholecystectomy clips. SPLEEN: No splenomegaly. PANCREAS: No focal masses or ductal dilatation. ADRENALS: No adrenal nodules. KIDNEYS/URETERS: No hydronephrosis, stones, or solid mass lesions. PELVIC ORGANS/BLADDER: Bladder is decompressed and there is a Flores catheter in place. No focal lesions. Uterus is unremarkable. No adnexal masses. PERITONEUM/RETROPERITONEUM: No free air or fluid. LYMPH NODES: No intra-abdominal,retroperitoneal, pelvic or inguinal lymphadenopathy. VESSELS: Mild atherosclerotic calcification of the distal abdominal aorta and proximal vessels. GI TRACT: No bowel dilation or evidence of obstruction. No pericolonic inflammatory changes. Stomach is unremarkable. BONES AND SOFT TISSUES: No aggressive lytic lesions. Degenerative disc changes in the lower thoracic and lumbosacral spine, worse at L5-S1. Soft tissues are grossly unremarkable. IMPRESSION: 1. No acute abdominal pelvic abnormalities. No bowel dilation or evidence of obstruction. 2. Hepatic tendinosis, predominantly involving the right lobe. No focal lesions. Signed by: Dr. Isaias Bazzi M.D. on 08/29/2018 5:30 PM
[2018-08-29] MEDS ORDERED: PANTOPRAZOLE 40 MG 10ML VIAL IV ONE (18:21)
[2018-08-29] MEDS ORDERED: MORPHINE SULFATE 2 MG/ML SYR IV PRN (18:30)
[2018-08-29] MEDS ORDERED: ONDANSETRON HCL INJ 2 MG/ML VIAL IV PRN (18:30)
[2018-08-29] MEDS ORDERED: MORPHINE SULFATE INJ 4 MG/ML INJ IV PRN (18:45)
--- OUTSIDE RECORDS SUMMARY | 2018-08-29 18:58 | XMS REPORT | Clinical Summary ---
Author Author [facility] Address Unknown Phone Unavailable Care Team Providers Care Vascular Tech Name Role Phone Romel Davis MD PCP [...] selective to SFA, angiogram on Rt angiogram [96469 (CPT)] 05/06/2018 Procedure Pass Procedural Cardiology 05/04/2018 [facility] General Internal Medicine Conrado Pham MD Hyperglycemia [...] VACCINE (#1) 2018 Implants Implanted Type Area Us Administrative Law Judge Device Expiration Model / Identifier Date Serial / Lot Device Vasclr Clsr Baln Cath 10ml Cardiovasc N/A: N/A CARDINAL 04/26/2020 [id number] / Lkng Syr 6fr [facility] [id number] Implants [id number] Implanted: 05/07/2018 (Quantity not on file) Procedures [...] CDT procedure are in the COLOR DOPPLER (17871) results section. POC GLUCOSE Routine 05/06/2018 Results [...] CDT procedure are in the results section. [place] CRITICAL CARE, E/M Routine 05/04/2018 Results for [...] glucose 249 (H) 65 - 99 mg/dL [facility] DEPARTMENT OF Comment: PATHOLOGY AND Meter ID: [id number] [employer] MEDICINE Fitter And Turner: Isadora Landaverde Performing Organization Address City/State/Zipcode Phone Number [place] [phone] [facility]. [address] [place] [address] PATHOLOGY AND GENOMIC MEDICINE * Estimated GFR (05/08/2018 5:00 AM) Only the most recent of 4 results within the time period is included. GFR Non Af Amer 37 (A) mL/min/1.73 m2 [facility] DEPARTMENT OF PATHOLOGY AND GENOMIC MEDICINE GFR Af Amer 45 (A) mL/min/1.73 m2 [facility] DEPARTMENT OF Comment: PATHOLOGY AND Chronic kidney [...] Americans. Specimen Plasma specimen Performing Organization Address [facility] Phone Number [address] [place], [place] [phone] [facility] [employer] (Wayin) * Basic metabolic panel (05/08/2018 5:00 AM) Only the most recent of 3 results within the time period is included. Sodium 136 135 - 148 mEq/L [facility] PATHOLOGY AND [employer] MEDICINE Potassium 4.1 3.5 - 5.0 mEq/L [facility] OF PATHOLOGY AND [employer] MEDICINE Chloride 102 99 - 109 mEq/L [facility] OF PATHOLOGY AND [employer] MEDICINE CO2 25 24 - 31 mEq/L [facility] PATHOLOGY AND [employer] MEDICINE Anion gap 9@ANIO 7 - 15 mEq/L [facility] OF PATHOLOGY AND [employer] MEDICINE BUN 22 8 - 24 mg/dL [facility] OF PATHOLOGY AND [employer] MEDICINE Creatinine 1.5 0.5 - 1.5 mg/dL [facility] PATHOLOGY AND [employer] MEDICINE Glucose 255 (H) 65 - 99 mg/dL [facility] PATHOLOGY AND [employer] MEDICINE Calcium 8.7 8.6 - 10.6 mg/dL [facility] PATHOLOGY AND [employer] (Wayin) Specimen Plasma specimen Performing Organization Address City/[facility] Phone Number [facility] [id number] [place] [address]. [address] [place] [phone] [employer] * Cv invasive peripheral vascular procedure (05/07/2018 6:06 PM) Narrative Performed At CUP[facility] DATE OF PROCEDURE:05/07/2018 Procedures performed: Right lower extremity angiogram with contralateral access Indications: PAD with non healing wound Consent obtained. Pt prepped and draped in standard manner. 5F left groin arterial access obtained Omniflush used to engage the right external iliac and then catheter was exchanged for a glide catheter. Stanfield catheter was advanced into the right SFA [...] from peroneal and bridging collaterals for proximal RAILROAD CONDUCTOR. Foot vasculature appears heavily collateralized with good blush No complications Total dye appox 32 cc Conclusion: PAD as described above Plan: Hydration; mucomyst Bmp am Continue wound care and antibiotics. Feel she has adequate circulatation large vessel circulation at this time.Will discuss and review angiographic findings with Dr. Lupe Urrutia MD Performing Organization Address [facility] Phone Number [facility] [address] [place] [address] * Vancomycin level, random (05/07/2018 5:18 AM) Vancomycin, random 16.2 ug/mL [facility] DEPARTMENT OF Comment: PATHOLOGY AND Therapeutic Ranges: GENOMIC MEDICINE Peak 30.0 - 40.0 ug/mL Mrxkgj14.0 - 20.0 ug/mL Specimen Blood Performing Organization Address [facility] [place] [address] PATHOLOGY AND GENOMIC MEDICINE * Sodium level, urine, random (05/06/2018 9:35 PM) Sodium, urine, random 80 mEQ/L [facility] DEPARTMENT OF PATHOLOGY AND GENOMIC MEDICINE Specimen Urine Performing Organization Address [facility] [place] [address] PATHOLOGY AND GENOMIC MEDICINE * Osmolality, urine (05/06/2018 9:35 PM) Osmolality, urine 232 50 - 1,400 mOsm/kg [facility] DEPARTMENT OF PATHOLOGY AND GENOMIC MEDICINE Specimen Urine Performing Organization Address [facility] Phone Number [facility] DEPARTMENT [phone] [place], [place] [address]y. [address] [place] [address] PATHOLOGY AND GENOMIC MEDICINE * Creatinine level, urine, random (05/06/2018 9:35 PM) Creatinine, urine, random 17 mg/dL [facility] DEPARTMENT OF PATHOLOGY AND GENOMIC MEDICINE Specimen Urine Performing Organization Address [facility] Phone Number [facility] [id number] [place], [place] [address]y. [address] [place] [phone] PATHOLOGY AND GENOMIC MEDICINE * US Renal (05/06/2018 7:46 PM) Narrative Performed At EXAMINATION:US RENAL [facility] CLINICAL HISTORY:Eleveted Creatinine COMPARISON:None. TECHNIQUE:Ultrasound evaluation of the kidneys and bladder. Findings: 1.The right kidney measures 12.4 x 5.9 x 5.9 cm.The left kidney measures 13.9 x 7.2 x 6.7 cm.Normal renal cortical echogenicity. 2.No hydronephrosis or solid mass lesions. 3.Bladder is unremarkable. IMPRESSION: 1.Unremarkable renal ultrasound. [facility]-[id number] Procedure Note Interface, Radiology Results Incoming - [...] is unremarkable. IMPRESSION: 1. Unremarkable renal ultrasound. [facility]-[id number] Performing Organization Address [facility] Phone Number [facility] [address] [place] [address] * Echocardiogram complete w contrast and 3D [...] City/State/Zipcode Phone Number [facility] [address] [place] [address] * Vancomycin level, trough (05/06/2018 5:16 AM) Vancomycin, trough 27.3 (HH) 10.0 - 20.0 ug/mL [facility] DEPARTMENT OF Comment: PATHOLOGY AND Therapeutic Ranges: GENOMIC MEDICINE Peak 30.0 - 40.0 ug/mL Ocrnfw66.0 - 20.0 ug/mL Final results called to and read back by Tanisha Mackey RN/[email or web address]/06/2018 06:21 [email or web address] Specimen Blood Performing Organization Address City/State/Zipcode Phone Number [facility] [address] [facility]. [address] [place] [address] PATHOLOGY AND GENOMIC MEDICINE * Pv duplex [...] Mid: Triphasic Distal: Triphasic DORSALIS PEDIS: Triphasic [id number] Procedure Note Interface, Radiology Results Incoming - [...] Mid: Triphasic Distal: Triphasic DORSALIS PEDIS: Triphasic [facility]-[id number] Performing Organization Address City/State/Zipcode Phone Number TOBY ALTAMIRANO [address] [place] [address] * Lactic acid level, SEPSIS - Now and repeat 2x every 3 hours (05/04/2018 5:55 AM) Only the most recent of 2 results within the time period is included. Lactic acid 2.2 0.5 - 2.2 mmol/L [facility] DEPARTMENT OF PATHOLOGY AND GENOMIC MEDICINE Specimen Blood Performing Organization Address [facility]/Zipcode Phone Number [place] [phone] [facility] [address] [place] [address] PATHOLOGY AND GENOMIC MEDICINE * XR Foot [...] dislocation. No definite radiographic evidence of osteomyelitis. [facility]-[id number] Procedure Note Interface, Radiology Results Incoming - [...] dislocation. No definite radiographic evidence of osteomyelitis. [facility]-[id number] Performing Organization Address [facility] Phone Number ADARSH [address] [place] [address] * XR Foot 3+ Vw Right (05/04/2018 [...] bone. 2. No radiographic evidence for osteomyelitis. [facility]-[id number] Procedure Note Interface, Radiology Results Incoming - [...] bone. 2. No radiographic evidence for osteomyelitis. [facility]-[id number] Performing Organization Address City/[facility]/Zipcode Phone Number [facility] [address] [place] [address] * Blood culture, aerobic & anaerobic (05/04/2018 12:55 AM) Only the most recent of 2 results within the time period is included. Blood culture isolate No growth after 5 days of [facility] DEPARTMENT OF incubation. PATHOLOGY AND Comment: GENOMIC MEDICINE Specimen Information Specimen Source: Blood Specimen Site: Hand, right Specimen Blood - Hand, right Performing Organization Address City/[facility] Phone Number [facility] DEPARTMENT OF [address] [place] [address] PATHOLOGY AND GENOMIC MEDICINE * Urinalysis screen and microscopy, with reflex to culture (05/04/2018 12:30 AM) Specimen site Clean catch [facility] AND GENOMIC MEDICINE Color, UA Yellow YELLOW [facility] DE[facility] OF PATHOLOGY AND GENOMIC MEDICINE Appearance, UA Clear Clear [facility] DE[facility] OF PATHOLOGY AND GENOMIC MEDICINE Specific gravity, UA 1.022 1.005 - 1.030 [facility] DEPARTMENT OF PATHOLOGY AND GENOMIC MEDICINE pH, UA 6.0 5.0 - 8.0 [facility] DEPARTMENT OF PATHOLOGY AND GENOMIC MEDICINE Protein, UA 3+ (A) Negative [facility] PATHOLOGY AND GENOMIC MEDICINE Glucose, UA 3+ (A) Negative [facility] DE[facility] OF PATHOLOGY AND GENOMIC MEDICINE Ketones, UA Negative Negative [facility] DE[facility] OF PATHOLOGY AND GENOMIC MEDICINE Bilirubin, UA Negative Negative [facility] DE[facility] OF PATHOLOGY AND GENOMIC MEDICINE Blood, UA Small (A) Negative [facility] DE[facility] OF PATHOLOGY AND GENOMIC MEDICINE Nitrite, UA Negative NEGATIVE [facility] DE[facility] OF PATHOLOGY AND GENOMIC MEDICINE Urobilinogen, UA <2.0 <2.0 E.U./dL [facility] DEPARTMENT OF PATHOLOGY AND GENOMIC MEDICINE Leukocyte esterase, UA Negative Negative [facility] DE[facility] OF PATHOLOGY AND GENOMIC MEDICINE Epithelial cells, UA <1 0 - 15 /HPF [facility] DEPARTMENT OF PATHOLOGY AND GENOMIC MEDICINE WBC, UA 2 0 - 5 /Hpf [facility] DEPARTMENT OF PATHOLOGY AND GENOMIC MEDICINE RBC, UA <1 0 - 5 /HPF [facility] DEPARTMENT OF PATHOLOGY AND GENOMIC MEDICINE Bacteria, UA None seen None seen [facility] DEPARTMENT OF PATHOLOGY AND GENOMIC MEDICINE Yeast, UA None seen None Seen [facility] DEPARTMENT OF PATHOLOGY AND GENOMIC MEDICINE Yeast with pseudohyphae, None seen [facility] DEPARTMENT OF UA PATHOLOGY AND GENOMIC MEDICINE Specimen Urine Performing Organization Address City/[facility]/[place] [address] PATHOLOGY AND GENOMIC MEDICINE * Urine culture (05/04/2018 12:30 AM) Urine culture SEE COMMENTComment: [facility] DEPARTMENT OF Bacteriuria screen negative. PATHOLOGY AND GENOMIC MEDICINE Specimen Urine Performing Organization Address City/[facility] [place] [address] PATHOLOGY AND GENOMIC MEDICINE * Beta hydroxybutyrate (05/04/2018 12:25 AM) Beta hydroxybutyrate 0.18 0.02 - 0.27 mmol/L [facility] DEPARTMENT OF PATHOLOGY AND GENOMIC MEDICINE Specimen Serum Performing Organization Address City/[facility] [place] [address] PATHOLOGY AND GENOMIC MEDICINE * CBC with platelet and differential (05/04/2018 12:25 AM) WBC 9.1 4.5 - 11.0 k/uL [facility] DEPARTMENT OF PATHOLOGY AND GENOMIC MEDICINE RBC 3.66 (L) 4.20 - 5.50 M/uL [facility] DEPARTMENT OF PATHOLOGY AND GENOMIC MEDICINE HGB 11.1 (L) 14.0 - 18.0 g/dL [facility] DEPARTMENT OF PATHOLOGY AND GENOMIC MEDICINE HCT 32.1 (L) 37.0 - 47.0 % [facility] DEPARTMENT OF PATHOLOGY AND GENOMIC MEDICINE MCV 87.7 82.0 - 100.0 fL [facility] DEPARTMENT OF PATHOLOGY AND GENOMIC MEDICINE MCH 30.3 27.0 - 34.0 pg [facility] DEPARTMENT OF PATHOLOGY AND GENOMIC MEDICINE MCHC 34.6 31.0 - 37.0 g/dL [facility] DEPARTMENT OF PATHOLOGY AND GENOMIC MEDICINE RDW - SD 39.8 37.0 - 55.0 fL [facility] DEPARTMENT OF PATHOLOGY AND GENOMIC MEDICINE MPV 10.7 8.8 - 13.2 fL [facility] DEPARTMENT OF PATHOLOGY AND GENOMIC MEDICINE Platelet count 261 150 - 400 K/uL [facility] DEPARTMENT OF PATHOLOGY AND GENOMIC MEDICINE Nucleated RBC 0.00 /100 WBC [facility] DEPARTMENT OF PATHOLOGY AND GENOMIC MEDICINE Neutrophils 56.9 39.0 - 69.0 % [facility] DEPARTMENT OF PATHOLOGY AND GENOMIC MEDICINE Lymphocytes 34.6 25.0 - 45.0 % [facility] DEPARTMENT OF PATHOLOGY AND GENOMIC MEDICINE Monocytes 6.1 0.0 - 10.0 % [facility] DEPARTMENT OF PATHOLOGY AND GENOMIC MEDICINE Eosinophils 1.8 0.0 - 5.0 % [facility] DEPARTMENT OF PATHOLOGY AND GENOMIC MEDICINE Basophils 0.2 0.0 - 1.0 % [facility] DEPARTMENT OF PATHOLOGY AND GENOMIC MEDICINE Immature granulocytes 0.4Comment: "Immature 0.0 - 1.0 % [facility] DEPARTMENT OF granulocytes" (promyelocytes, PATHOLOGY AND myelocytes, metamyelocytes) GENOMIC MEDICINE Specimen Blood Performing Organization Address City/[facility] [place] [address] PATHOLOGY [employer] [facility] [employer] [facility] * Lactic acid level (05/04/2018 12:25 AM) Lactic acid 3.0 (H) 0.5 - 2.2 mmol/L [facility] PATHOLOGY AND GENOMIC MEDICINE Specimen Blood Performing Organization Address City/[facility] [place] [address] PATHOLOGY [employer] [facility] [employer] [facility] [facility] [employer] [facility] * Venous blood gas (05/04/2018 12:25 AM) pH, venous 7.31 (L) 7.32 - 7.42 [facility] DEPARTMENT OF PATHOLOGY AND GENOMIC MEDICINE pCO2, venous 56 (H) 45 - 51 mmHg [facility] DEPARTMENT OF PATHOLOGY AND GENOMIC MEDICINE pO2, venous 25 25 - 40 mmHg [facility] DEPARTMENT OF PATHOLOGY AND GENOMIC MEDICINE Base excess, venous 1 -2 - 2 mEq/L [facility] DEPARTMENT OF PATHOLOGY AND GENOMIC MEDICINE O2 saturation, venous 40 40 - 70 % [facility] DEPARTMENT OF PATHOLOGY AND GENOMIC MEDICINE Bicarbonate, venous 27.7 21.0 - 28.0 [facility] DEPARTMENT PATHOLOGY AND GENOMIC MEDICINE Specimen Blood Performing Organization Address City/[facility] [place] [address] PATHOLOGY [employer] [facility] [facility] [employer] [facility] * Comprehensive metabolic panel (05/04/2018 12:25 AM) Sodium 131 (L) 135 - 148 mEq/L [facility] OF PATHOLOGY AND GENOMIC MEDICINE Potassium 3.9 3.5 - 5.0 mEq/L [facility] DEPARTMENT OF PATHOLOGY AND GENOMIC MEDICINE Chloride 93 (L) 99 - 109 mEq/L [facility] OF PATHOLOGY AND GENOMIC MEDICINE CO2 28 24 - 31 mEq/L [facility] OF PATHOLOGY AND GENOMIC MEDICINE Anion gap 10@ANIO 7 - 15 mEq/L [facility] DEPARTMENT OF PATHOLOGY AND GENOMIC MEDICINE BUN 29 (H) 8 - 24 mg/dL [facility] DEPARTMENT OF PATHOLOGY AND GENOMIC MEDICINE Creatinine 1.3 0.5 - 1.5 mg/dL [facility] DEPARTMENT OF PATHOLOGY AND GENOMIC MEDICINE Glucose 518 (HH) 65 - 99 mg/dL [facility] DEPARTMENT OF Comment: PATHOLOGY AND Final results called to and GENOMIC MEDICINE read back by Dr. Lei/BROOKS at01:30 05/04/2018 ml. Calcium 9.4 8.6 - 10.6 mg/dL [facility] DEPARTMENT OF PATHOLOGY AND GENOMIC MEDICINE Protein 6.6 6.3 - 8.2 g/dL [facility] DEPARTMENT OF PATHOLOGY AND GENOMIC MEDICINE Albumin 1.8 (L) 3.5 - 5.0 g/dL [facility] DEPARTMENT OF PATHOLOGY AND GENOMIC MEDICINE A/G ratio 0.38 (L) 0.70 - 3.80 [facility] DEPARTMENT OF PATHOLOGY AND GENOMIC MEDICINE Alkaline phosphatase 115 30 - 115 U/L [facility] DEPARTMENT OF PATHOLOGY AND GENOMIC MEDICINE AST SEE COMMENT 15 - 46 U/L [facility] DEPARTMENT OF Comment: PATHOLOGY AND No report GENOMIC MEDICINE Specimen markedly lipemic. Notified Dr. Lei/BROOKS at01: [facility]. ALT SEE COMMENT 10 - 55 U/L [facility] DEPARTMENT OF Comment: PATHOLOGY AND No report GENOMIC MEDICINE Specimen markedly lipemic. Notified Dr. Lei/BROOKS at01: [facility]. Total bilirubin <0.2 0.2 - 1.2 mg/dL [facility] OF PATHOLOGY AND GENOMIC MEDICINE Specimen Plasma specimen Performing Organization Address City/State/Zipcode Phone Number [address] [place] [address] PATHOLOGY AND [employer] MEDICINE * CRITICAL CARE (05/04/2018 12:20 AM) Narrative Performed At Odilia Li NP 05/04/20187:37 AM Critical Care Performed by: ODILIA LI Authorized by: CONRADO PHAM Critical care provider statement: Critical care time (minutes):45 Critical care was necessary to treat or prevent imminent or life-threatening deterioration of the following conditions:Circulatory failure, CLINICAL DERMATOLOGIST failure or compromise, dehydration, metabolic crisis, sepsis, [...] [facility] Atrial rate 98 [facility] VT interval 144 [facility] QRSD interval 98 [...] available- Performing Organization Address City/State/Zipcode Phone Number [facility] M[facility] [address] [place] [address] after 08/28/2017 Insurance Payer Benefit Subscriber ID Type Phone Address Plan / Group [employer] TEX[employer] xxxxxxxxx O [facility]
[2018-08-29] MEDS: SODIUM CHLORIDE 0.9% 1000ML 1,000 ML IV SCH (19:28)
[2018-08-29 19:44] VITALS: BP 174/74
[2018-08-29 20:09] VITALS: BP 174/74
[2018-08-29] MEDS ORDERED: ATORVASTATIN CA20 MG PO (20:48)
[2018-08-29] MEDS ORDERED: NOVOLIN N100 UNIT/1 SQ (20:50)
[2018-08-29] MEDS ORDERED: NOVOLIN R100 UNIT/1 (20:50)
[2018-08-29 20:55] VITALS: BP 155/70
[2018-08-29] MEDS: ACETAMINOPHEN 325 MG TAB PO PRN (21:01)
[2018-08-29] MEDS ORDERED: DEXTROSE 50% SYRINGE 50 ML IV PRN (23:00)
[2018-08-29 23:47] LABS: CREATINE KINASE MB 9.8 ng/mL (0-5.0)
[2018-08-29] MEDS: NPH, HUMAN INSULIN ISOPHANE 100 UNIT/1 ML 3ML VIAL SQ SCH (23:48)
[2018-08-29] MEDS: METOPROLOL SUCCINATE 25 MG TAB XL PO SCH (23:50)
[2018-08-29] MEDS: LISINOPRIL 20 MG TAB PO SCH (23:50)
[2018-08-30] VITALS (9 sets, daily range): BP systolic 93–147; BP diastolic 50–66
[2018-08-30] MEDS: CEFTRIAXONE SOD 1 GM VIAL IV SCH ×2 (04:41→16:32)
[2018-08-30 05:32] LABS: BASOPHILS % 0.2 % (0.0-1.0); EOSINOPHILS # (AUTO) 0.2 (0.0-0.4); EOSINOPHILS % 1.8 % (0.0-6.0); HEMOGLOBIN 10.8 g/dL (12.0-16.0); LYMPHOCYTES # (AUTO) 1.8 (1.0-3.2); LYMPHOCYTES % 17.3 % (18.0-39.1); MEAN CORPUSCULAR HEMOGLOBIN 29.2 pg (28-32); MEAN CORPUSCULAR HGB CONC 33.8 g/dL (31-35); MEAN CORPUSCULAR VOLUME 86.5 fL (81-99); MONOCYTES # (AUTO) 0.7 (0.2-0.8); MONOCYTES % 7.1 % (4.4-11.3); NEUTROPHILS # (AUTO) 7.5 (2.1-6.9); NEUTROPHILS % 73.2 % (38.7-80.0); PLATELET COUNT 301 x10e3/uL (140-360)
[2018-08-30 05:49] LABS: ALBUMIN 2.8 g/dL (3.5-5.0); CREATININE, SERUM 1.83 mg/dL (0.57-1.11)
[2018-08-30 06:08] LABS: CREATINE KINASE MB 6.8 ng/mL (0-5.0)
[2018-08-30 06:20] LABS: ALBUMIN/GLOBULIN RATIO 0.7 (0.8-2.0); ANION GAP 13.5 mmol/L (8-16); CALCIUM 9.5 mg/dL (8.4-10.2); POTASSIUM 4.5 mmol/L (3.5-5.1)
[2018-08-30] MEDS: LISINOPRIL 20 MG TAB PO SCH ×2 (08:52→17:00)
[2018-08-30] MEDS: SODIUM CHLORIDE 0.9% 1000ML 1,000 ML IV SCH (08:52)
[2018-08-30] MEDS: INSULIN REGULAR, HUMAN 100 UNIT/1 ML 3ML VIAL SQ SCH ×4 (08:53→21:49)
[2018-08-30] MEDS ORDERED: PANTOPRAZOLE 40 MG 10ML VIAL IV SCH (09:00)
[2018-08-30] MEDS: NPH, HUMAN INSULIN ISOPHANE 100 UNIT/1 ML 3ML VIAL SQ SCH ×2 (11:18→22:30)
[2018-08-30] MEDS: ACETAMINOPHEN 325 MG TAB PO PRN (11:20)
[2018-08-30] MEDS: METOCLOPRAMIDE HCL 10 MG TAB PO SCH ×3 (11:30→21:12)
--- NOTE | 2018-08-30 13:08 | History and Physical ---
Patient is in observation. CHIEF COMPLAINT: Abdominal pain, dehydration, and abdominal spasm. HISTORY OF PRESENT ILLNESS: A 48 years of female, disabled, due to profound diabetes with complication. The patient has osteomyelitis on the right foot, recently finished antibiotics approximately 1 week ago. She also has bilateral plantar surface diabetic pressure ulcer clean and dry. No sign of infection surrounding the ulcer. She came in with severe abdominal spasm and pain affecting in the lower quadrant area with her lower extremity spasm as well. The patient was dehydrated. BUN and creatinine on admission was elevated. The BUN was 47, creatinine was 2.0. The patient's calcium level was 11.5. Magnesium was 2.5. Patient is otherwise stable. because of her spasm. The patient is comfortable on IV fluids, antibiotics given. Urinalysis showed 2+ protein, 2+ glucose, and trace leukocyte esterase with WBC of 20. Patient is otherwise stable. PAST MEDICAL HISTORY: History of diabetes type II on insulin therapy with multiple complication, peripheral vascular disease, multiple pressure ulcers, toe infection, hypertension, dyslipidemia, reflux history, possible early gastroparesis. 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 PHYSICAL EXAMINATION VITAL SIGNS: Temperature is 98. Blood pressure 113/60, pulse rate of , and respirations 18. GENERAL: The patient is not in acute distress. She is awake. HEENT: Normocephalic, atraumatic, anicteric. NECK: Supple grossly. PULMONARY: Clear. CARDIOVASCULAR: Regular rate and rhythm. ABDOMEN: Soft, nontender, and non-distention. EXTREMITIES: No clubbing or cyanosis. Bilateral foot plantar ulcer dry and clean. Multiple toe amputations as described. NEUROLOGIC: Diabetic neuropathy without any focal deficits. LABORATORY DATA: Sodium 137, potassium 4.5, chloride 104, bicarb 24, BUN 44, creatinine 2.06, and glucose 178. WBC is 13.4, hemoglobin 12.6, hematocrit 36.7, and platelets is 449,000. Urinalysis 2+ protein, 2+ glucose, trace leukocyte esterase. IMAGING: Chest x-ray unremarkable. Abdominal and pelvic CT without contrast due to renal insufficiency showing that no acute abdominopelvic abnormality. No bowel dilatation or evidence of obstruction. Hepatic tendinosis. It is predominately in the right lobe. No focal lesion. IMPRESSION 1. Abdominal spasm and pain, most likely possibly secondary to gastroparesis giving long outstanding history of diabetes on insulin and neuropathy with lower extremity multiple pressure ulcer. 2. Dehydration, most likely from diabetes. 3. Stable bilateral diabetic foot ulcer. 4. Recent right foot osteolytic, completion of IV antibiotic treatment. PLAN: IV fluid rehydration. Trial of Reglan. Continue with home medication. Continue with antibiotics for now. Job#: [id number] DWIGHT
[2018-08-30] MEDS: FAMOTIDINE 20 MG TAB PO SCH (16:32)
[2018-08-30] MEDS: METOPROLOL SUCCINATE 25 MG TAB XL PO SCH (21:12)
[2018-08-31 00:16] VITALS: BP 110/56
[2018-08-31] MEDS: SODIUM CHLORIDE 0.9% 1000ML 1,000 ML IV SCH ×4 (00:21→13:47)
[2018-08-31] MEDS: CEFTRIAXONE SOD 1 GM VIAL IV SCH (03:03)
[2018-08-31 04:00] VITALS: BP 107/55
[2018-08-31 05:21] LABS: BASOPHILS % 0.3 % (0.0-1.0); EOSINOPHILS # (AUTO) 0.3 (0.0-0.4); EOSINOPHILS % 3.8 % (0.0-6.0); HEMATOCRIT 29.1 % (34.2-44.1); HEMOGLOBIN 9.7 g/dL (12.0-16.0); LYMPHOCYTES # (AUTO) 2.4 (1.0-3.2); LYMPHOCYTES % 35.8 % (18.0-39.1); MEAN CORPUSCULAR HEMOGLOBIN 29.1 pg (28-32); MEAN CORPUSCULAR HGB CONC 33.3 g/dL (31-35); MEAN CORPUSCULAR VOLUME 87.4 fL (81-99); MONOCYTES # (AUTO) 0.6 (0.2-0.8); MONOCYTES % 8.9 % (4.4-11.3); NEUTROPHILS # (AUTO) 3.4 (2.1-6.9); NEUTROPHILS % 50.9 % (38.7-80.0); PLATELET COUNT 254 x10e3/uL (140-360); RED BLOOD COUNT 3.33 x10e6/uL (3.6-5.1)
[2018-08-31 05:35] LABS: ANION GAP 12.3 mmol/L (8-16); CALCIUM 8.6 mg/dL (8.4-10.2); CREATININE, SERUM 1.38 mg/dL (0.57-1.11); POTASSIUM 4.3 mmol/L (3.5-5.1)
[2018-08-31 08:07] VITALS: BP 168/70
[2018-08-31] MEDS: FAMOTIDINE 20 MG TAB PO SCH (08:07)
[2018-08-31] MEDS: INSULIN REGULAR, HUMAN 100 UNIT/1 ML 3ML VIAL SQ SCH ×2 (08:07→12:15)
[2018-08-31] MEDS: METOCLOPRAMIDE HCL 10 MG TAB PO SCH ×2 (08:07→12:12)
[2018-08-31] MEDS: LISINOPRIL 20 MG TAB PO SCH (08:07)
[2018-08-31 08:21] VITALS: BP 168/70
[2018-08-31] MEDS: NPH, HUMAN INSULIN ISOPHANE 100 UNIT/1 ML 3ML VIAL SQ SCH (12:14)
[2018-08-31 12:27] VITALS: BP 176/80
[2018-08-31] MEDS ORDERED: CIPRO500 MG PO (14:29)
[2018-08-31] MEDS ORDERED: REGLAN5 MG PO (14:30)
[2018-08-31] MEDS ORDERED: INFLUENZA VIRUS VAC SPLIT INJ 0.5 ML SYR IM NR (15:00)
--- NOTE | 2018-09-01 00:30 | Discharge Summary ---
PCP: Dr. Romel Davis FINAL DIAGNOSES 1. Status post abdominal pain, dehydration. 2. Mild urinary tract infection. 3. Baseline multiple medical problems including diabetes type 2, on insulin therapy with diabetic neuropathy and diabetic foot ulcer. SUMMARY: A 48-year-old female had a sudden onset of abdominal spasm and pain. CT scan of abdomen and pelvis showed no acute abdominopelvic abnormalities. Patient is, otherwise, stable. She did have a slight elevation of WBC of 13.4 and down to 6.200 thousand today. The patient is stable. Urinalysis showed 1+ blood, 2+ glucose, 2+ protein, trace leukocyte esterase. Few bacteria. Microbiology was not done. The patient is otherwise stable. Pain resolved. Dehydration resolved with IV fluid. The patient will go home today with Cipro 500 mg twice a day for 7 days and Reglan 5 mg before meals as needed for nausea. Patient will resume her home medication. Patient stable. Discharged home today. Job#: [id number] CQ
== END 2018-08-31 15:07 | disposition home or self-care (01) ==
LOC: ER 13:36 → ERHOLD 18:54 → MED/SURG 19:46
PROVIDERS: ADMIT Internal Medicine; ATTEND Internal Medicine
DX: E86.0 Dehydration (principal); R10.13 Epigastric pain; N17.9 Acute kidney failure, unspecified; E83.52 Hypercalcemia; R07.9 Chest pain, unspecified; Z87.891 Personal history of nicotine dependence; I10 Essential (primary) hypertension; E11.69 Type 2 diabetes mellitus with other specified complication; M86.8X7 Other osteomyelitis, ankle and foot; Z79.4 Long term (current) use of insulin; R25.2 Cramp and spasm; E11.42 Type 2 diabetes mellitus with diabetic polyneuropathy; E11.621 Type 2 diabetes mellitus with foot ulcer; L97.419 Non-pressure chronic ulcer of right heel and midfoot with unspecified severity; L97.429 Non-pressure chronic ulcer of left heel and midfoot with unspecified severity; N39.0 Urinary tract infection, site not specified
CPT/HCPCS: 36415 ×3; 51700; 71045; 74176; 80048; 80053 ×2; 81001; 82150; 82550 ×2; 82553 ×2; 82948 ×3; 83690; 83735; 84484 ×2; 85025 ×3; 85610; 85730; 93005; 99284; G0378 ×3; J0696 ×3; J1817; J2405; J7030 ×3; Q9663

== ENCOUNTER 2018-09-16 07:35 | Outpatient (RCR) | payer OTHER ==
[~2018-09-16 07:35] MED LIST changes: +ASPIRIN CHEW81 MG PO; +ATORVASTATIN CA20 MG PO; +BIOTIN800 MCG PO; +CIPRO500 MG PO; +FENOFIBRATE145 MG PO; +GABAPENTIN600 MG PO; -LIDOCAINE VISC 2% SOLN 15 ML UDC ONE; +LISINOPRIL20 MG PO; +METOPROLOL SUCC25 MG PO; +MOTRIN800 MG PO; -MUPIROCIN 2% OINT 22 GM TUBE ONE; +NOVOLIN N100 UNIT/1 SQ; +NOVOLIN R100 UNIT/1; +OMEGA-3 FISH1000 MG PO; +REGLAN5 MG PO
[2018-09-21] MEDS ORDERED: ATORVASTATIN CA20 MG PO (01:08)
[2018-09-21] MEDS ORDERED: LEVAQUIN500 MG PO (01:08)
== END 2018-09-26 ==
LOC: WCC 07:35
PROVIDERS: ATTEND Family Medicine Adult Medicine
DX: E11.621 Type 2 diabetes mellitus with foot ulcer (principal); E10.621 Type 1 diabetes mellitus with foot ulcer; E10.21 Type 1 diabetes mellitus with diabetic nephropathy; E10.65 Type 1 diabetes mellitus with hyperglycemia; L97.521 Non-pressure chronic ulcer of other part of left foot limited to breakdown of skin; L97.411 Non-pressure chronic ulcer of right heel and midfoot limited to breakdown of skin; L27.9 Dermatitis due to unspecified substance taken internally; I10 Essential (primary) hypertension; D50.8 Other iron deficiency anemias; E78.2 Mixed hyperlipidemia
CPT/HCPCS: 87071; 87075; 87186; 87205

== ENCOUNTER 2018-09-20 14:32 | Inpatient (IN) | payer OTHER ==
[~2018-09-20] VITALS: Ht 157.5 cm; Wt 88.1 kg
--- OUTSIDE RECORDS SUMMARY | 2018-09-20 14:34 | XMS REPORT | Clinical Summary ---
Author Author [facility] Organization [facility] Address Unknown Phone Unavailable Care Team Providers Care Utility Locator Name Role Phone Romel Davis MD PCP Allergies Comments Active Allergy Reactions Severity Noted Date Vancomycin Rash Low 05/07/2018 Medications End Date Status Medication Sig Dispensed Refills Start Date Active venlafaxine (EFFEXOR) Take 37.5 mg 0 37.5 MG tablet by mouth daily. Active metoprolol succinate XL Take 25 mg by 0 (TOPROL-XL) 25 mg 24 hr mouth daily. tablet Active gabapentin (NEURONTIN) Take 600 mg 0 600 mg tablet by mouth 3 (three) times a day. Active lisinopril Take 20 mg by 0 (PRINIVIL,ZESTRIL) 20 mg mouth 2 (two) tablet times a day. Active simvastatin (ZOCOR) 40 MG Take 40 mg by 0 tablet mouth nightly. Active INSULIN ASPART, Inject 50 0 NIACINAMIDE, SUBQ Units under the skin 2 (two) times a day. Active TRESIBA FLEXTOUCH U-200 0 200 unit/mL (3 mL) 8 insulin pen Active ferrous sulfate 325 (65 Take 325 mg 0 FE) MG tablet by mouth daily with breakfast. Active aspirin (ECOTRIN) 81 MG Take 81 mg by 0 enteric coated tablet mouth nightly. 06/08/2018 amLODIPine (NORVASC) 5 mg Take 1 tablet 30 tablet 0 tablet (5 mg total) 8 by mouth daily for 30 days. Active Problems Problem Noted Date Hyperglycemia 05/04/2018 Encounters Care Team Description Date Type Specialty Liu Urrutia MD Aortagram abdomen w run with selective to SFA, angiogram on Rt angiogram [75883 (CPT)] 05/07/2018 Surgery Procedural Cardiology Vero, MD Miriam Jaramillo Imran Sattar, MD Hyperglycemia (Primary Dx); Hyponatremia; Lactic acidemia 05/04/2018 [facility] General Internal Medicine - Encounter 05/08/2018 after 09/19/2017 Family History Medical History Relation Name Comments Liver cancer Father Relation Name Status Comments Father Social History Date Tobacco Use Types Packs/Day Years Used Never Smoker Smokeless Tobacco: Never Used Alcohol Use Drinks/Week oz/Week Comments No Sex Assigned at Date Recorded Not on file Industry Job Start Date Occupation Not on file Not on file Not on file Travel End Travel History Travel Start No recent travel history available. Last Filed Vital Signs Time Taken Vital Sign Reading 05/08/2018 11:38 AM CDT Blood Pressure 152/70 05/08/2018 11:38 AM CDT Pulse 79 05/08/2018 11:38 AM CDT Temperature 36.5 C (97.7 F) 05/08/2018 11:38 AM CDT Respiratory Rate 18 05/08/2018 11:38 AM CDT Oxygen Saturation 95% - Inhaled Oxygen - Concentration 05/04/2018 11:28 AM CDT Weight 86.5 kg (190 lb 12.8 oz) 05/04/2018 11:28 AM CDT Height 160 cm (5' 3") 05/04/2018 11:28 AM CDT Body Mass Index 33.8 Plan of Treatment Health Maintenance Due Date Last Done Comments MMR VACCINES (1 of - 1969 Standard series) VARICELLA VACCINES (1 of 1981 2 - 2-dose adolescent series) CERVICAL CANCER SCREENING 1989 INFLUENZA VACCINE 05/28/2018 BREAST CANCER SCREENING 2018 COLON CANCER SCREENING 2018 SHINGRIX VACCINE (1 of 2) 2018 HEPATITIS B VACCINES Aged Out No longer eligible based on patient's age to complete this topic IPV VACCINES Aged Out No longer eligible based on patient's age to complete this topic MENINGOCOCCAL VACCINE Aged Out No longer eligible based on patient's age to complete this topic Implants Device Identifier Shelf Expiration Date Model / Serial / Lot Implanted Type Area Manufactur er 04/26/2020 [id number] / / [id number] Device Vasclr Clsr Baln Cath 10ml Cardiovasc N/A: N/A CARDINAL Lkng Syr 6fr 7fr nxip [facility] [id number] Implants Implanted: 05/07/2018 (Quantity not on file) Procedures Comments Procedure Name Priority Date/Time Associated Diagnosis POC GLUCOSE Routine 05/08/2018 11:37 AM CDT POC GLUCOSE Routine 05/08/2018 7:33 AM CDT ZZESTIMATED GFR Routine 05/08/2018 5:00 AM CDT BASIC METABOLIC PANEL Routine 05/08/2018 5:00 AM CDT POC GLUCOSE Routine 05/07/2018 9:18 PM CDT AORTAGRAM ABDOMEN WITH Routine 05/07/2018 RUN OFF 6:06 PM CDT POC GLUCOSE Routine 05/07/2018 11:40 AM CDT POC GLUCOSE Routine 05/07/2018 7:37 AM CDT ZZESTIMATED GFR Routine 05/07/2018 5:18 AM CDT BASIC METABOLIC PANEL Routine 05/07/2018 5:18 AM CDT VANCOMYCIN LEVEL, RANDOM Routine 05/07/2018 5:18 AM CDT OSMOLALITY, URINE Routine 05/06/2018 9:35 PM CDT SODIUM LEVEL, URINE, Routine 05/06/2018 RANDOM 9:35 PM CDT CREATININE LEVEL, URINE, Routine 05/06/2018 RANDOM 9:35 PM CDT POC GLUCOSE Routine 05/06/2018 9:13 PM CDT US RENAL Routine 05/06/2018 7:46 PM CDT POC GLUCOSE Routine 05/06/2018 6:08 PM CDT POC GLUCOSE Routine 05/06/2018 12:02 PM CDT ECHOCARDIOGRAM 2D Routine 05/06/2018 COMPLETE W MMODE SPECTRAL 8:30 AM CDT COLOR DOPPLER (77219) POC GLUCOSE Routine 05/06/2018 8:09 AM CDT VANCOMYCIN LEVEL, TROUGH Timed 05/06/2018 5:16 AM CDT ZZESTIMATED GFR Routine 05/06/2018 5:16 AM CDT BASIC METABOLIC PANEL Routine 05/06/2018 5:16 AM CDT POC GLUCOSE Routine 05/05/2018 7:51 PM CDT POC GLUCOSE Routine 05/05/2018 6:23 PM CDT US DUPLEX ARTERIAL LOWER Routine 05/05/2018 EXTREMITY BILATERAL 4:05 PM CDT POC GLUCOSE Routine 05/05/2018 12:35 PM CDT POC GLUCOSE Routine 05/05/2018 8:18 AM CDT POC GLUCOSE Routine 05/04/2018 8:19 PM CDT POC GLUCOSE Routine 05/04/2018 4:38 PM CDT POC GLUCOSE Routine 05/04/2018 12:11 PM CDT POC GLUCOSE Routine 05/04/2018 7:30 AM CDT LACTIC ACID LEVEL, SEPSIS Timed 05/04/2018 - NOW AND REPEAT 2X EVERY 5:55 AM CDT 3 HOURS POC GLUCOSE Routine 05/04/2018 5:37 AM CDT POC GLUCOSE Routine 05/04/2018 4:56 AM CDT POC GLUCOSE Routine 05/04/2018 4:15 AM CDT POC GLUCOSE Routine 05/04/2018 2:43 AM CDT LACTIC ACID LEVEL, SEPSIS Timed 05/04/2018 - NOW AND REPEAT 2X EVERY 2:15 AM CDT 3 HOURS XR FOOT 3+ VW LEFT STAT 05/04/2018 1:57 AM CDT XR FOOT 3+ VW RIGHT STAT 05/04/2018 1:56 AM CDT POC GLUCOSE Routine 05/04/2018 1:38 AM CDT BLOOD CULTURE, AEROBIC & Routine 05/04/2018 ANAEROBIC 12:55 AM CDT BLOOD CULTURE, AEROBIC & Routine 05/04/2018 ANAEROBIC 12:40 AM CDT URINALYSIS SCREEN AND Routine 05/04/2018 MICROSCOPY, WITH REFLEX 12:30 AM CDT TO CULTURE URINE CULTURE Routine 05/04/2018 12:30 AM CDT LACTIC ACID LEVEL Routine 05/04/2018 12:25 AM CDT ZZESTIMATED GFR STAT 05/04/2018 12:25 AM CDT BETA HYDROXYBUTYRATE Routine 05/04/2018 12:25 AM CDT VENOUS BLOOD GAS Routine 05/04/2018 12:25 AM CDT COMPREHENSIVE METABOLIC STAT 05/04/2018 PANEL 12:25 AM CDT HC COMPLETE BLD COUNT STAT 05/04/2018 W/AUTO DIFF 12:25 AM CDT NM CRITICAL CARE, E/M Routine 05/04/2018 30-74 MINUTES 12:20 AM CDT ECG 12-LEAD STAT 05/04/2018 12:15 AM CDT POC GLUCOSE Routine 05/04/2018 12:02 AM CDT after 09/19/2017 Results * POC glucose (05/08/2018 11:37 AM CDT) Only the most recent of 23 results within the time period is included. POC glucose 249 (H) 65 - 99 mg/dL [facility] DEPARTMENT OF Comment: PATHOLOGY AND Meter ID: [id number] [employer] MEDICINE Finish Saw Operator: Isadora GarciaAustynREDUCING SALON ATTENDANT Performing Organization Address [facility] Centercode Phone Number [address] [place], [place] [id number] PATHOLOGY AND [employer] [facility] * Estimated GFR (05/08/2018 5:00 AM CDT) Only the most recent of 4 results within the time period is included. GFR Non Af Amer 37 (A) mL/min/1.73 m2 [facility] DEPARTMENT OF PATHOLOGY AND [employer] MEDICINE GFR Af Amer 45 (A) mL/min/1.73 m2 [facility] DEPARTMENT OF Comment: PATHOLOGY AND Chronic kidney [...] Americans. Specimen Plasma specimen Performing Organization Address [facility] Centercode Phone Number [address] [place], [place] [id number] PATHOLOGY AND [employer] [facility] * Basic metabolic panel (05/08/2018 5:00 AM CDT) Only the most recent of 3 results within the time period is included. Sodium 136 135 - 148 mEq/L [facility] DEPARTMENT OF PATHOLOGY AND [employer] MEDICINE Potassium 4.1 3.5 - 5.0 mEq/L [facility] DEPARTMENT OF PATHOLOGY AND GENOMIC MEDICINE Chloride 102 99 - 109 mEq/L [facility] DEPARTMENT OF PATHOLOGY AND GENOMIC MEDICINE CO2 25 24 - 31 mEq/L [facility] DEPARTMENT OF PATHOLOGY AND GENOMIC MEDICINE Anion gap 9@ANIO 7 - 15 mEq/L [facility] DEPARTMENT OF PATHOLOGY AND GENOMIC MEDICINE BUN 22 8 - 24 mg/dL [facility] DEPARTMENT OF PATHOLOGY AND GENOMIC MEDICINE Creatinine 1.5 0.5 - 1.5 mg/dL [facility] DEPARTMENT OF PATHOLOGY AND GENOMIC MEDICINE Glucose 255 (H) 65 - 99 mg/dL [facility] DEPARTMENT OF PATHOLOGY AND GENOMIC MEDICINE Calcium 8.7 8.6 - 10.6 mg/dL [facility] DEPARTMENT OF PATHOLOGY AND [employer] MEDICINE Specimen Plasma specimen Performing Organization Address City/[facility]/Zipcode Phone Number [address] [place] [address] PATHOLOGY AND GENOMIC MEDICINE * Cv invasive peripheral vascular procedure (05/07/2018 6:06 PM CDT) Narrative Performed At [facility] DATE OF PROCEDURE:05/07/2018 Procedures performed: Right lower extremity angiogram with contralateral access Indications: PAD with non healing wound Consent obtained. Pt prepped and draped in standard manner. 5F left groin arterial access obtained Omniflush used to engage the right external iliac and then catheter was exchanged for a glide catheter. 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 Foot vasculature appears heavily collateralized with good blush No complications Total dye appox 32 cc Conclusion: PAD as described above Plan: Hydration; mucomyst Bmp am Continue wound care and antibiotics. Feel she has adequate circulatation large vessel circulation at this time.Will discuss and review angiographic findings with Dr. Lupe Urrutia MD Performing Organization Address City/[facility]/Zipcode Phone Number [facility] [address] [place] [address] * Vancomycin level, random (05/07/2018 5:18 AM CDT) Vancomycin, random 16.2 ug/mL [facility] DEPARTMENT OF Comment: PATHOLOGY AND Therapeutic Ranges: GENOMIC MEDICINE Peak 30.0 - 40.0 ug/mL Dnoeot35.0 - 20.0 ug/mL Specimen Blood Performing Organization Address City/[facility]/Zipcode Phone Number [place] [phone] [facility]. [address] [place] [address] PATHOLOGY AND GENOMIC MEDICINE * Sodium level, urine, random (05/06/2018 9:35 PM CDT) Sodium, urine, random 80 mEQ/L [facility] DEPARTMENT OF PATHOLOGY AND GENOMIC MEDICINE Specimen Urine Performing Organization Address City/[facility] Centercode Phone Number [facility]PART[facility] [address] [place] [address] PATHOLOGY AND GENOMIC MEDICINE * Osmolality, urine (05/06/2018 9:35 PM CDT) Osmolality, urine 232 50 - 1,400 mOsm/kg [facility] DEPARTMENT OF PATHOLOGY AND GENOMIC MEDICINE Specimen Urine Performing Organization Address City/[facility] Centercode Phone Number [facility] [place] [address] PATHOLOGY AND GENOMIC MEDICINE * Creatinine level, urine, random (05/06/2018 9:35 PM CDT) Creatinine, urine, random 17 mg/dL [facility] DEPARTMENT OF PATHOLOGY AND GENOMIC MEDICINE Specimen Urine Performing Organization Address [facility] [place] [address] PATHOLOGY AND GENOMIC MEDICINE * US Renal (05/06/2018 7:46 PM CDT) Narrative Performed At EXAMINATION:US RENAL [facility] CLINICAL HISTORY:Eleveted Creatinine COMPARISON:None. TECHNIQUE:Ultrasound evaluation of the kidneys and bladder. Findings: 1.The right kidney measures 12.4 x 5.9 x 5.9 cm.The left kidney measures 13.9 x 7.2 x 6.7 cm.Normal renal cortical echogenicity. 2.No hydronephrosis or solid mass lesions. 3.Bladder is unremarkable. IMPRESSION: 1.Unremarkable renal ultrasound. [facility]-[id number] Procedure Note Interface, Radiology Results Incoming - [...] is unremarkable. IMPRESSION: 1. Unremarkable renal ultrasound. [facility]-[id number] Performing Organization Address City/[facility]/Zipcode Phone Number [facility] [address] [place] [address] * Echocardiogram complete w contrast and 3D if needed (05/06/2018 8:30 AM CDT) AoV Area, Vmax 2.37 cm2 [facility] [...] seen. Performing Organization Address City/State/Zipcode Phone Number [facility] [address] [place] [address] * Vancomycin level, trough (05/06/2018 5:16 AM CDT) Vancomycin, trough 27.3 (HH) 10.0 - 20.0 ug/mL [facility] DEPARTMENT OF Comment: PATHOLOGY AND Therapeutic Ranges: GENOMIC MEDICINE Peak 30.0 - 40.0 ug/mL Mewgtn76.0 - 20.0 ug/mL Final results called to and read back by Tanisha Mackey RN/[id number]/06/2018 06:21 [email or web address] Specimen Blood Performing Organization Address [facility] Centercode Phone Number [facility] [address] [facility]. [address] [place] [address] PATHOLOGY AND GENOMIC MEDICINE * Pv duplex arterial lower extremity (05/05/2018 4:05 PM CDT) Narrative Performed At EXAM: US DUPLEX ARTERIAL LOWER EXTREMITY BILATERAL [facility] HISTORY: peripheral arterial occlusive disease TECHNIQUE: [...] Mid: Triphasic Distal: Triphasic DORSALIS PEDIS: Triphasic [id number] Procedure Note Hm Interface, Radiology Results Incoming - 05/05/2018 4:14 [...] Mid: Triphasic Distal: Triphasic DORSALIS PEDIS: Triphasic [facility]-[id number] Performing Organization Address [facility] Centerconv Phone Number [facility] [address] [place] [address] * Lactic acid level, SEPSIS - Now and repeat 2x every 3 hours (05/04/2018 5:55 AM CDT) Only the most recent of 2 results within the time period is included. Lactic acid 2.2 0.5 - 2.2 mmol/L [facility] DEPARTMENT OF PATHOLOGY AND GENOMIC MEDICINE Specimen Blood Performing Organization Address [facility] Phone Number [address] [place] [address] PATHOLOGY AND GENOMIC MEDICINE * XR Foot 3+ Vw Left (05/04/2018 1:57 AM CDT) Narrative Performed At EXAMINATION:XR FOOT 3VW LEFT [facility] CLINICAL HISTORY:R O OSTEO COMPARISON:None. 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 There is swelling and irregularity of overlying soft tissues. Otherwise, no evidence of acute left foot fracture or dislocation. No definite radiographic evidence of osteomyelitis. [facility]-[id number] Procedure Note Interface, Radiology Results Incoming - [...] dislocation. No definite radiographic evidence of osteomyelitis. [facility]-[id number] Performing Organization Address [facility] Centerconv Phone Number [facility] [address] [place] [address] * XR Foot 3+ Vw Right (05/04/2018 1:56 AM CDT) Narrative Performed At Examination:XR FOOT 3VW RIGHT [...] bone. 2. No radiographic evidence for osteomyelitis. [facility]-[id number] Procedure Note Interface, Radiology Results Incoming - [...] bone. 2. No radiographic evidence for osteomyelitis. [facility]-[id number] Performing Organization Address City/[facility] Centercode Phone Number [facility] [address] [place] [address] * Blood culture, aerobic & anaerobic (05/04/2018 12:55 AM CDT) Only the most recent of 2 results within the time period is included. Blood culture isolate No growth after 5 days of [facility] DEPARTMENT OF incubation. PATHOLOGY AND Comment: GENOMIC MEDICINE Specimen Information Specimen Source: Blood Specimen Site: Hand, right Specimen Blood - Hand, right Performing Organization Address [facility] Centercode Phone Number [facility] DEPARTMENT OF [address] [place] [address] PATHOLOGY AND GENOMIC MEDICINE * Urinalysis screen and microscopy, with reflex to culture (05/04/2018 12:30 AM CDT) Specimen site Clean catch [facility] DEPARTMENT OF PATHOLOGY AND GENOMIC MEDICINE Color, UA Yellow YELLOW [facility] DEPARTMENT OF PATHOLOGY AND GENOMIC MEDICINE Appearance, UA Clear Clear [facility] DEPARTMENT OF PATHOLOGY AND GENOMIC MEDICINE Specific gravity, UA 1.022 1.005 - 1.030 [facility] AND GENOMIC MEDICINE pH, UA 6.0 5.0 - 8.0 [facility] DE[facility] OF PATHOLOGY AND GENOMIC MEDICINE Protein, UA 3+ (A) Negative [facility] DEPARTMENT OF PATHOLOGY AND GENOMIC MEDICINE Glucose, UA 3+ (A) Negative [facility] DEPARTMENT OF PATHOLOGY AND GENOMIC MEDICINE Ketones, UA Negative Negative [facility] DEPARTMENT OF PATHOLOGY AND GENOMIC MEDICINE Bilirubin, UA Negative Negative [facility] DEPARTMENT OF PATHOLOGY AND GENOMIC MEDICINE Blood, UA Small (A) Negative [facility] DEPARTMENT OF PATHOLOGY AND GENOMIC MEDICINE Nitrite, UA Negative NEGATIVE [facility] DEPARTMENT OF PATHOLOGY AND GENOMIC MEDICINE Urobilinogen, UA <2.0 <2.0 E.U./dL [facility] DEPARTMENT OF PATHOLOGY AND GENOMIC MEDICINE Leukocyte esterase, UA Negative Negative [facility] DEPARTMENT OF PATHOLOGY AND GENOMIC MEDICINE Epithelial cells, UA <1 0 - 15 /HPF [facility] DEPARTMENT OF PATHOLOGY AND GENOMIC MEDICINE WBC, UA 2 0 - 5 /Hpf [facility] DEPARTMENT OF PATHOLOGY AND GENOMIC MEDICINE RBC, UA <1 0 - 5 /HPF [facility] DEPARTMENT OF PATHOLOGY AND GENOMIC MEDICINE Bacteria, UA None seen None seen [facility] DEPARTMENT OF PATHOLOGY AND GENOMIC MEDICINE Yeast, UA None seen None Seen [facility] DEPARTMENT OF PATHOLOGY AND GENOMIC MEDICINE Yeast with pseudohyphae, None seen [facility] DEPARTMENT OF UA PATHOLOGY AND GENOMIC MEDICINE Specimen Urine Performing Organization Address City/[facility] [place] [address] PATHOLOGY AND GENOMIC MEDICINE * Urine culture (05/04/2018 12:30 AM CDT) Urine culture SEE COMMENTComment: [facility] DEPARTMENT OF Bacteriuria screen negative. PATHOLOGY AND GENOMIC MEDICINE Specimen Urine Performing Organization Address [facility] [place] [address] PATHOLOGY AND GENOMIC [facility] * Beta hydroxybutyrate (05/04/2018 12:25 AM CDT) Beta hydroxybutyrate 0.18 0.02 - 0.27 mmol/L [facility] OF PATHOLOGY AND GENOMIC MEDICINE Specimen Serum Performing Organization Address City/[facility] [place] [address] PATHOLOGY AND GENOMIC MEDICINE * CBC with platelet and differential (05/04/2018 12:25 AM CDT) WBC 9.1 4.5 - 11.0 k/uL [facility] DEPARTMENT OF PATHOLOGY AND GENOMIC MEDICINE RBC 3.66 (L) 4.20 - 5.50 M/uL [facility] DEPARTMENT OF PATHOLOGY AND GENOMIC MEDICINE HGB 11.1 (L) 14.0 - 18.0 g/dL [facility] DEPARTMENT OF PATHOLOGY AND GENOMIC MEDICINE HCT 32.1 (L) 37.0 - 47.0 % [facility] DEPARTMENT OF PATHOLOGY AND GENOMIC MEDICINE MCV 87.7 82.0 - 100.0 fL [facility] DEPARTMENT OF PATHOLOGY AND GENOMIC MEDICINE MCH 30.3 27.0 - 34.0 pg [facility] DEPARTMENT OF PATHOLOGY AND GENOMIC MEDICINE MCHC 34.6 31.0 - 37.0 g/dL [facility] DEPARTMENT OF PATHOLOGY AND GENOMIC MEDICINE RDW - SD 39.8 37.0 - 55.0 fL [facility] DEPARTMENT OF PATHOLOGY AND GENOMIC MEDICINE MPV 10.7 8.8 - 13.2 fL [facility] DEPARTMENT OF PATHOLOGY AND GENOMIC MEDICINE Platelet count 261 150 - 400 K/uL [facility] DEPARTMENT OF PATHOLOGY AND GENOMIC MEDICINE Nucleated RBC 0.00 /100 WBC [facility] DEPARTMENT OF PATHOLOGY AND GENOMIC MEDICINE Neutrophils 56.9 39.0 - 69.0 % [facility] DEPARTMENT OF PATHOLOGY AND GENOMIC MEDICINE Lymphocytes 34.6 25.0 - 45.0 % [facility] DEPARTMENT OF PATHOLOGY AND GENOMIC MEDICINE Monocytes 6.1 0.0 - 10.0 % [facility] DEPARTMENT OF PATHOLOGY AND GENOMIC MEDICINE Eosinophils 1.8 0.0 - 5.0 % [facility] DEPARTMENT OF PATHOLOGY AND GENOMIC MEDICINE Basophils 0.2 0.0 - 1.0 % [facility] DEPARTMENT OF PATHOLOGY AND GENOMIC MEDICINE Immature granulocytes 0.4Comment: "Immature 0.0 - 1.0 % [facility] DEPARTMENT OF granulocytes" (promyelocytes, PATHOLOGY AND myelocytes, metamyelocytes) [facility] MEDICINE Specimen Blood Performing Organization Address City/[facility]/[place] [address] PATHOLOGY AND GENOMIC [facility] * Lactic acid level (05/04/2018 12:25 AM CDT) Lactic acid 3.0 (H) 0.5 - 2.2 mmol/L [facility] OF PATHOLOGY AND GENOMIC MEDICINE Specimen Blood Performing Organization Address [facility]/[place] [address] PATHOLOGY AND GENOMIC [facility] * Venous blood gas (05/04/2018 12:25 AM CDT) pH, venous 7.31 (L) 7.32 - 7.42 [facility] DEPARTMENT OF PATHOLOGY AND GENOMIC MEDICINE pCO2, venous 56 (H) 45 - 51 mmHg [facility] DEPARTMENT OF PATHOLOGY AND GENOMIC MEDICINE pO2, venous 25 25 - 40 mmHg [facility] DEPARTMENT OF PATHOLOGY AND GENOMIC MEDICINE Base excess, venous 1 -2 - 2 mEq/L [facility] DEPARTMENT OF PATHOLOGY AND GENOMIC MEDICINE O2 saturation, venous 40 40 - 70 % [facility] DEPARTMENT OF PATHOLOGY AND GENOMIC MEDICINE Bicarbonate, venous 27.7 21.0 - 28.[address] [facility] PATHOLOGY AND GENOMIC MEDICINE Specimen Blood Performing Organization Address City/State/Zipcode Phone Number [facility] [address] [facility] [address] [place] [address] PATHOLOGY AND GENOMIC MEDICINE * Comprehensive metabolic panel (05/04/2018 12:25 AM CDT) Sodium 131 (L) 135 - 148 mEq/L [facility] DEPARTMENT OF PATHOLOGY AND GENOMIC MEDICINE Potassium 3.9 3.5 - 5.0 mEq/L [facility] DEPARTMENT OF PATHOLOGY AND GENOMIC MEDICINE Chloride 93 (L) 99 - 109 mEq/L [facility] DEPARTMENT OF PATHOLOGY AND GENOMIC MEDICINE CO2 28 24 - 31 mEq/L [facility] DEPARTMENT OF PATHOLOGY AND GENOMIC MEDICINE Anion gap 10@ANIO 7 - 15 mEq/L [facility] DEPARTMENT OF PATHOLOGY AND GENOMIC MEDICINE BUN 29 (H) 8 - 24 mg/dL [facility] DEPARTMENT OF PATHOLOGY AND GENOMIC MEDICINE Creatinine 1.3 0.5 - 1.5 mg/dL [facility] DEPARTMENT PATHOLOGY AND GENOMIC MEDICINE Glucose 518 (HH) 65 - 99 mg/dL [facility] DEPARTMENT OF Comment: PATHOLOGY AND Final results called to and GENOMIC MEDICINE read back by Dr. Lei/BROOKS at01:30 05/04/2018 ml. Calcium 9.4 8.6 - 10.6 mg/dL [facility] DEPARTMENT OF PATHOLOGY AND GENOMIC MEDICINE Protein 6.6 6.3 - 8.2 g/dL [facility] DEPARTMENT OF PATHOLOGY AND GENOMIC MEDICINE Albumin 1.8 (L) 3.5 - 5.0 g/dL [facility] DEPARTMENT OF PATHOLOGY AND GENOMIC MEDICINE A/G ratio 0.38 (L) 0.70 - 3.80 [facility] DEPARTMENT OF PATHOLOGY AND GENOMIC MEDICINE Alkaline phosphatase 115 30 - 115 U/L [facility] DEPARTMENT OF PATHOLOGY AND GENOMIC MEDICINE AST SEE COMMENT 15 - 46 U/L [facility] DEPARTMENT OF Comment: PATHOLOGY AND No report GENOMIC MEDICINE Specimen markedly lipemic. Notified Dr. Lei/BROOKS at01: [facility]. ALT SEE COMMENT 10 - 55 U/L [facility] DEPARTMENT OF Comment: PATHOLOGY AND No report GENOMIC MEDICINE Specimen markedly lipemic. Notified Dr. Lei/BROOKS at01: [facility]. Total bilirubin <0.2 0.2 - 1.2 mg/dL [facility] DEPARTMENT OF PATHOLOGY AND GENOMIC MEDICINE Specimen Plasma specimen Performing Organization Address [facility] Centercode Phone Number [place] [phone] [facility] [address] [place] [address] PATHOLOGY AND GENOMIC MEDICINE * CRITICAL CARE (05/04/2018 12:20 AM CDT) Narrative Performed At Odilia Li NP 05/04/20187:37 AM Critical Care Performed by: ODILIA LI Authorized by: JUAN RANDALL Critical care provider statement: Critical care time (minutes):45 Critical care was necessary to treat or prevent imminent or life-threatening deterioration of the following conditions:Circulatory failure, BONE CHAR OPERATOR failure or compromise, dehydration, metabolic crisis, sepsis, [...] no * ECG 12 lead (05/04/2018 12:15 AM CDT) Ventricular rate 98 [facility] Atrial rate 98 [facility] NM interval 144 [facility] QRSD interval 98 [facility] QT interval 368 [facility] QTC interval 469 [facility] P axis 1 31 [facility] QRS axis 1 -35 [facility] T wave axis 33 [facility] EKG impression Normal sinus rhythm-Left axis [facility] deviation-Incomplete right bundle branch block-Voltage criteria for left ventricular hypertrophy-Abnormal ECG-No previous ECGs available- Performing Organization Address City/[facility] Centercode Phone Number [facility] MUSE [address] [place] [address] after 09/19/2017 Insurance Payer Benefit Subscriber ID Type Phone Address Plan / Group TEXANPLUS TEXANPLUS xxxxxxxxx O [facility] Advance Directives Patient has advance care planning documents on file. For more information, raul mane contact: Avinash Allison [address] [place] [address]
[2018-09-20] MEDS ORDERED: SODIUM CHLORIDE 0.9% 1000ML 1,000 ML IV STA (15:27)
[2018-09-20] MEDS ORDERED: CEFEPIME HCL 2 GM VIAL IV ONE (16:00)
[2018-09-20] MEDS ORDERED: CLINDAMYCIN PHOS 900MG/ 50ML 50 ML IV ONE (16:00)
[2018-09-20] MEDS ORDERED: ACETAMINOPHEN 325 MG TAB PO ONE (16:00)
[2018-09-20 16:07] LABS: BASOPHILS % 0.2 % (0.0-1.0); EOSINOPHILS # (AUTO) 0.2 (0.0-0.4); EOSINOPHILS % 1.3 % (0.0-6.0); HEMATOCRIT 29.9 % (34.2-44.1); LYMPHOCYTES # (AUTO) 2.4 (1.0-3.2); LYMPHOCYTES % 19.4 % (18.0-39.1); MEAN CORPUSCULAR HGB CONC 33.4 g/dL (31-35); MEAN CORPUSCULAR VOLUME 86.7 fL (81-99); MONOCYTES # (AUTO) 0.9 (0.2-0.8); MONOCYTES % 6.9 % (4.4-11.3); NEUTROPHILS % 71.9 % (38.7-80.0); PLATELET COUNT 363 x10e3/uL (140-360); RED BLOOD COUNT 3.45 x10e6/uL (3.6-5.1)
[2018-09-20 16:26] LABS: ALBUMIN 2.8 g/dL (3.5-5.0); ALBUMIN/GLOBULIN RATIO 0.5 (0.8-2.0); ANION GAP 14.9 mmol/L (8-16); CALCIUM 9.8 mg/dL (8.4-10.2); CREATININE, SERUM 1.45 mg/dL (0.57-1.11); POTASSIUM 3.9 mmol/L (3.5-5.1)
[2018-09-20 17:44] LABS: CLARITY,URINE HAZY (CLEAR); COLOR,URINE YELLOW (YELLOW)
--- NOTE | 2018-09-20 17:44 | Diagnostic Imaging Report ---
Examination: Single AP view of the chest. COMPARISON: AP chest 08/29/2018 INDICATION: Status post fall, chest pain IMPRESSION: 1. Lines and Tubes: None 2. Lungs are grossly clear. No consolidation or effusion. 3. Cardiomediastinal silhouette is normal. Pulmonary vasculature is normal. 4. No acute bony abnormalities. Signed by: Dr. Isaias Bazzi M.D. on 09/20/2018 5:40 PM
[2018-09-20 17:45] LABS: BILIRUBIN,URINE NEGATIVE (NEGATIVE); KETONES,URINE NEGATIVE (NEGATIVE); LEUKOCYTE ESTERASE ,URINE NEGATIVE (NEGATIVE); NITRITE,URINE NEGATIVE (NEGATIVE); PROTEIN,URINE DIPSTICK 3+ (NEGATIVE); URINE UROBILINOGEN 0.2 mg/dL (0.2 - 1)
[2018-09-20 17:56] LABS: BACTERIA,URINE MODERATE /HPF; EPITHELIAL CELLS,URINE MODERATE /LPF; WBC,URINE (MAN) 0-5 /HPF (0-5)
[2018-09-20] MEDS ORDERED: ZOLPIDEM TARTRATE 5 MG TAB PO PRN (18:15)
[2018-09-20] MEDS ORDERED: ONDANSETRON HCL INJ 2 MG/ML VIAL IV PRN ×2 (18:15)
[2018-09-20] MEDS ORDERED: IBUPROFEN 200 MG TAB PO PRN (18:15)
[2018-09-20] MEDS ORDERED: ENALAPRILAT IV INJ 1.25 MG/ML VIAL IV PRN (18:15)
[2018-09-20] MEDS ORDERED: MORPHINE SULFATE INJ 4 MG/ML INJ IV PRN (18:15)
[2018-09-20] MEDS ORDERED: DEXTROSE 50% SYRINGE 50 ML IV PRN (18:15)
[2018-09-20] MEDS: CEFEPIME HCL 2 GM VIAL IV SCH (18:38)
--- OUTSIDE RECORDS SUMMARY | 2018-09-20 19:31 | XMS REPORT | Clinical Summary ---
Author Author [facility] Organization [facility] Address Unknown Phone Unavailable Care Team Providers Care Strategy Associate Name Role Phone Romel Davis MD PCP [...] selective to SFA, angiogram on Rt angiogram [51083 (CPT)] 05/07/2018 Surgery Procedural Cardiology Vero, MD Miriam Jaramillo Imran Sattar, MD Hyperglycemia (Primary Dx); Hyponatremia; Lactic acidemia 05/04/2018 [facility] General Internal Medicine - Encounter 05/08/2018 after [...] Lot Implanted Type Area Manufactur er 04/26/2020 [id number] / / [id number] Device Vasclr Clsr Baln Cath 10ml Cardiovasc N/A: N/A CARDINAL Lkng Syr 6fr 7fr nxip [facility] [id number] Implants Implanted: 05/07/2018 (Quantity not on file) [...] MMODE SPECTRAL 8:30 AM CDT COLOR DOPPLER ([id number]) POC GLUCOSE Routine 05/06/2018 8:09 AM CDT [...] STAT 05/04/2018 W/AUTO DIFF 12:25 AM CDT MD CRITICAL CARE, E/M Routine 05/04/2018 30-74 MINUTES 12:20 AM CDT ECG 12-LEAD STAT 05/04/2018 12:15 AM CDT POC GLUCOSE Routine 05/04/2018 12:02 AM CDT after 09/19/2017 Results * POC glucose (05/08/2018 11:37 AM CDT) Only the most recent of 23 results within the time period is included. POC glucose 249 (H) 65 - 99 mg/dL [facility] DEPARTMENT OF Comment: PATHOLOGY AND Meter ID: [id number] [employer] MEDICINE Dredge Worker: Isadora GarciaAustynDEICER FINISHER Performing Organization Address [facility] Centercode Phone Number [address] [place], [place] [id number] PATHOLOGY AND ProspX [facility] * Estimated GFR (05/08/2018 5:00 AM CDT) Only the most recent of 4 results within the time period is included. GFR Non Af Amer 37 (A) mL/min/1.73 m2 [facility] DEPARTMENT OF PATHOLOGY AND [employer] MEDICINE GFR Af Amer 45 (A) mL/min/1.73 m2 [facility] DEPARTMENT OF Comment: PATHOLOGY AND Chronic kidney [...] Americans. Specimen Plasma specimen Performing Organization Address [facility] Centercode Phone Number [address] [place], [place] [id number] PATHOLOGY AND ProspX [facility] * Basic metabolic panel (05/08/2018 5:00 AM CDT) Only the most recent of 3 results within the time period is included. Sodium 136 135 - 148 mEq/L [facility] DEPARTMENT OF PATHOLOGY AND [employer] MEDICINE Potassium 4.1 3.5 - 5.0 mEq/L [facility] DEPARTMENT OF PATHOLOGY AND GENOMIC MEDICINE Chloride 102 99 - 109 mEq/L [facility] DEPARTMENT OF PATHOLOGY AND GENOMIC MEDICINE CO2 25 24 - 31 mEq/L [facility] DEPARTMENT OF PATHOLOGY AND GENOMIC MEDICINE Anion gap 9@ANIO 7 - 15 mEq/L [facility] DEPARTMENT OF PATHOLOGY AND GENOMIC MEDICINE BUN 22 8 - 24 mg/dL [facility] DEPARTMENT OF PATHOLOGY AND GENOMIC MEDICINE Creatinine 1.5 0.5 - 1.5 mg/dL [facility] DEPARTMENT OF PATHOLOGY AND GENOMIC MEDICINE Glucose 255 (H) 65 - 99 mg/dL [facility] DEPARTMENT OF PATHOLOGY AND GENOMIC MEDICINE Calcium 8.7 8.6 - 10.6 mg/dL [facility] DEPARTMENT OF PATHOLOGY AND [employer] MEDICINE Specimen Plasma specimen Performing Organization Address City/[facility]/Zipcode Phone Number [address] [place] [address] PATHOLOGY AND GENOMIC MEDICINE * Cv invasive [...] catheter was exchanged for a glide catheter. Valdez catheter was advanced into the right SFA [...] from peroneal and bridging collaterals for proximal HEALTH AND WELLNESS MANAGER. Foot vasculature appears heavily collateralized with good blush No complications Total dye appox 32 cc Conclusion: PAD as described above Plan: Hydration; mucomyst Bmp am Continue wound care and antibiotics. Feel she has adequate circulatation large vessel circulation at this time.Will discuss and review angiographic findings with Dr. Lupe Urrutia MD Performing Organization Address City/[facility]/Zipcode Phone Number [place] [address] [place] [address] * Vancomycin level, random (05/07/2018 5:18 AM CDT) Vancomycin, random 16.2 ug/mL [facility] DEPARTMENT OF Comment: PATHOLOGY AND Therapeutic Ranges: GENOMIC MEDICINE Peak 30.0 - 40.0 ug/mL Sdsarh38.0 - 20.0 ug/mL Specimen Blood Performing Organization Address City/[facility]/Zipcode Phone Number [place] [phone] [facility]. [address] [place] [address] PATHOLOGY AND GENOMIC MEDICINE * Sodium level, urine, random (05/06/2018 9:35 PM CDT) Sodium, urine, random 80 mEQ/L [facility] DEPARTMENT OF PATHOLOGY AND GENOMIC MEDICINE Specimen Urine Performing Organization Address City/[facility] Centercode Phone Number [facility] DEPARTMENT [address] [place] [address] PATHOLOGY AND GENOMIC MEDICINE * Osmolality, urine (05/06/2018 9:35 PM CDT) Osmolality, urine 232 50 - 1,400 mOsm/kg [facility] DEPARTMENT OF PATHOLOGY AND GENOMIC MEDICINE Specimen Urine Performing Organization Address City/[facility] Centercode Phone Number [facility] [place] [address] PATHOLOGY AND GENOMIC MEDICINE * Creatinine level, urine, random (05/06/2018 9:35 PM CDT) Creatinine, urine, random 17 mg/dL [facility] DEPARTMENT OF PATHOLOGY AND GENOMIC MEDICINE Specimen Urine Performing Organization Address [facility] [place] [address] PATHOLOGY AND GENOMIC MEDICINE * US Renal (05/06/2018 7:46 PM CDT) Narrative Performed At EXAMINATION:US RENAL [facility] CLINICAL HISTORY:Eleveted Creatinine COMPARISON:None. TECHNIQUE:Ultrasound evaluation of the kidneys and bladder. Findings: 1.The right kidney measures 12.4 x 5.9 x 5.9 cm.The left kidney measures 13.9 x 7.2 x 6.7 cm.Normal renal cortical echogenicity. 2.No hydronephrosis or solid mass lesions. 3.Bladder is unremarkable. IMPRESSION: 1.Unremarkable renal ultrasound. [facility]-[id number] Procedure Note Interface, Radiology Results Incoming - [...] is unremarkable. IMPRESSION: 1. Unremarkable renal ultrasound. [facility]-[id number] Performing Organization Address City/[facility]/Zipcode Phone Number [facility] [address] [place] [address] * Echocardiogram complete w contrast and 3D [...] City/State/Zipcode Phone Number [place] [address] [place] [address] * Vancomycin level, trough (05/06/2018 5:16 AM CDT) Vancomycin, trough 27.3 (HH) 10.0 - 20.0 ug/mL [facility] DEPARTMENT OF Comment: PATHOLOGY AND Therapeutic Ranges: GENOMIC MEDICINE Peak 30.0 - 40.0 ug/mL Ehvczz32.0 - 20.0 ug/mL Final results called to and read back by Tanisha Mackey [id number]/[email or web address]/06/2018 06:21 [email or web address] Specimen Blood Performing Organization Address [facility] Centercode Phone Number [facility] [address] [facility]. [address] [place] [address] PATHOLOGY AND GENOMIC MEDICINE * Pv duplex [...] Mid: Triphasic Distal: Triphasic DORSALIS PEDIS: Triphasic [id number] Procedure Note Hm Interface, Radiology Results Incoming [...] Mid: Triphasic Distal: Triphasic DORSALIS PEDIS: Triphasic [facility]-[id number] Performing Organization Address [facility] Centercomn Phone Number [facility] [address] [place] [address] * Lactic acid level, SEPSIS - Now and repeat 2x every 3 hours (05/04/2018 5:55 AM CDT) Only the most recent of 2 results within the time period is included. Lactic acid 2.2 0.5 - 2.2 mmol/L [facility] DEPARTMENT OF PATHOLOGY AND GENOMIC MEDICINE Specimen Blood Performing Organization Address [facility] Phone Number [address] [place] [address] PATHOLOGY AND GENOMIC MEDICINE * XR Foot [...] dislocation. No definite radiographic evidence of osteomyelitis. [facility]-[id number] Procedure Note Interface, Radiology Results Incoming - [...] dislocation. No definite radiographic evidence of osteomyelitis. [facility]-[id number] Performing Organization Address [facility] Centercomn Phone Number [facility] [address] [place] [address] * XR Foot 3+ Vw Right (05/04/2018 [...] bone. 2. No radiographic evidence for osteomyelitis. [facility]-[id number] Procedure Note Interface, Radiology Results Incoming - [...] bone. 2. No radiographic evidence for osteomyelitis. [facility]-[id number] Performing Organization Address City/[facility] Centercode Phone Number [facility] [address] [place] [address] * Blood culture, aerobic & anaerobic (05/04/2018 12:55 AM CDT) Only the most recent of 2 results within the time period is included. Blood culture isolate No growth after 5 days of [facility] DEPARTMENT OF incubation. PATHOLOGY AND Comment: GENOMIC MEDICINE Specimen Information Specimen Source: Blood Specimen Site: Hand, right Specimen Blood - Hand, right Performing Organization Address [facility] Centercode Phone Number [facility] DEPARTMENT OF [address] [place] [phone] PATHOLOGY AND GENOMIC MEDICINE * Urinalysis screen and microscopy, with reflex to culture (05/04/2018 12:30 AM CDT) Specimen site Clean catch [facility] DEPARTMENT OF PATHOLOGY AND GENOMIC MEDICINE Color, UA Yellow YELLOW [facility] DEPARTMENT OF PATHOLOGY AND GENOMIC MEDICINE Appearance, UA Clear Clear [facility] DEPARTMENT OF PATHOLOGY AND GENOMIC MEDICINE Specific gravity, UA 1.022 1.005 - 1.030 [facility] DE[facility] OF PATHOLOGY AND GENOMIC MEDICINE pH, UA 6.0 5.0 - 8.0 [facility] DEPARTMENT OF PATHOLOGY AND GENOMIC MEDICINE Protein, UA 3+ (A) Negative [facility] DEPARTMENT OF PATHOLOGY AND GENOMIC MEDICINE Glucose, UA 3+ (A) Negative [facility] DEPARTMENT OF PATHOLOGY AND GENOMIC MEDICINE Ketones, UA Negative Negative [facility] DEPARTMENT OF PATHOLOGY AND GENOMIC MEDICINE Bilirubin, UA Negative Negative [facility] DEPARTMENT OF PATHOLOGY AND GENOMIC MEDICINE Blood, UA Small (A) Negative [facility] DEPARTMENT OF PATHOLOGY AND GENOMIC MEDICINE Nitrite, UA Negative NEGATIVE [facility] DEPARTMENT OF PATHOLOGY AND GENOMIC MEDICINE Urobilinogen, UA <2.0 <2.0 E.U./dL [facility] DEPARTMENT OF PATHOLOGY AND GENOMIC MEDICINE Leukocyte esterase, UA Negative Negative [facility] DEPARTMENT OF PATHOLOGY AND GENOMIC MEDICINE Epithelial cells, UA <1 0 - 15 /HPF [facility] DEPARTMENT OF PATHOLOGY AND GENOMIC MEDICINE WBC, UA 2 0 - 5 /Hpf [facility] DEPARTMENT OF PATHOLOGY AND GENOMIC MEDICINE RBC, UA <1 0 - 5 /HPF [facility] DEPARTMENT OF PATHOLOGY AND GENOMIC MEDICINE Bacteria, UA None seen None seen [facility] DEPARTMENT OF PATHOLOGY AND GENOMIC MEDICINE Yeast, UA None seen None Seen [facility] DEPARTMENT OF PATHOLOGY AND GENOMIC MEDICINE Yeast with pseudohyphae, None seen [facility] DEPARTMENT OF UA PATHOLOGY AND GENOMIC MEDICINE Specimen Urine Performing Organization Address City/[facility] [place] [address] PATHOLOGY AND GENOMIC MEDICINE * Urine culture (05/04/2018 12:30 AM CDT) Urine culture SEE COMMENTComment: [facility] DEPARTMENT OF Bacteriuria screen negative. PATHOLOGY AND GENOMIC MEDICINE Specimen Urine Performing Organization Address [facility] [place] [address] PATHOLOGY AND GENOMIC [facility] * Beta hydroxybutyrate (05/04/2018 12:25 AM CDT) Beta hydroxybutyrate 0.18 0.02 - 0.27 mmol/L [facility] OF PATHOLOGY AND GENOMIC MEDICINE Specimen Serum Performing Organization Address City/[facility] [place] [address] PATHOLOGY AND GENOMIC MEDICINE * CBC with platelet and differential (05/04/2018 12:25 AM CDT) WBC 9.1 4.5 - 11.0 k/uL [facility] DEPARTMENT OF PATHOLOGY AND GENOMIC MEDICINE RBC 3.66 (L) 4.20 - 5.50 M/uL [facility] DEPARTMENT OF PATHOLOGY AND GENOMIC MEDICINE HGB 11.1 (L) 14.0 - 18.0 g/dL [facility] DEPARTMENT OF PATHOLOGY AND GENOMIC MEDICINE HCT 32.1 (L) 37.0 - 47.0 % [facility] DEPARTMENT OF PATHOLOGY AND GENOMIC MEDICINE MCV 87.7 82.0 - 100.0 fL [facility] DEPARTMENT OF PATHOLOGY AND GENOMIC MEDICINE MCH 30.3 27.0 - 34.0 pg [facility] DEPARTMENT OF PATHOLOGY AND GENOMIC MEDICINE MCHC 34.6 31.0 - 37.0 g/dL [facility] DEPARTMENT OF PATHOLOGY AND GENOMIC MEDICINE RDW - SD 39.8 37.0 - 55.0 fL [facility] DEPARTMENT OF PATHOLOGY AND GENOMIC MEDICINE MPV 10.7 8.8 - 13.2 fL [facility] DEPARTMENT OF PATHOLOGY AND GENOMIC MEDICINE Platelet count 261 150 - 400 K/uL [facility] DEPARTMENT OF PATHOLOGY AND GENOMIC MEDICINE Nucleated RBC 0.00 /100 WBC [facility] DEPARTMENT OF PATHOLOGY AND GENOMIC MEDICINE Neutrophils 56.9 39.0 - 69.0 % [facility] DEPARTMENT OF PATHOLOGY AND GENOMIC MEDICINE Lymphocytes 34.6 25.0 - 45.0 % [facility] DEPARTMENT OF PATHOLOGY AND GENOMIC MEDICINE Monocytes 6.1 0.0 - 10.0 % [facility] DEPARTMENT OF PATHOLOGY AND GENOMIC MEDICINE Eosinophils 1.8 0.0 - 5.0 % [facility] DEPARTMENT OF PATHOLOGY AND GENOMIC MEDICINE Basophils 0.2 0.0 - 1.0 % [facility] DEPARTMENT OF PATHOLOGY AND GENOMIC MEDICINE Immature granulocytes 0.4Comment: "Immature 0.0 - 1.0 % [facility] DEPARTMENT OF granulocytes" (promyelocytes, PATHOLOGY AND myelocytes, metamyelocytes) [facility] MEDICINE Specimen Blood Performing Organization Address City/[facility]/[place] [address] PATHOLOGY AND GENOMIC [facility] * Lactic acid level (05/04/2018 12:25 AM CDT) Lactic acid 3.0 (H) 0.5 - 2.2 mmol/L [facility] OF PATHOLOGY AND GENOMIC MEDICINE Specimen Blood Performing Organization Address [facility]/[place] [address] PATHOLOGY AND GENOMIC [facility] * Venous blood gas (05/04/2018 12:25 AM CDT) pH, venous 7.31 (L) 7.32 - 7.42 [facility] DEPARTMENT OF PATHOLOGY AND GENOMIC MEDICINE pCO2, venous 56 (H) 45 - 51 mmHg [facility] DEPARTMENT OF PATHOLOGY AND GENOMIC MEDICINE pO2, venous 25 25 - 40 mmHg [facility] DEPARTMENT OF PATHOLOGY AND GENOMIC MEDICINE Base excess, venous 1 -2 - 2 mEq/L [facility] DEPARTMENT OF PATHOLOGY AND GENOMIC MEDICINE O2 saturation, venous 40 40 - 70 % [facility] DEPARTMENT OF PATHOLOGY AND GENOMIC MEDICINE Bicarbonate, venous 27.7 21.0 - 28.0 [facility] PATHOLOGY AND GENOMIC MEDICINE Specimen Blood Performing Organization Address City/State/Zipcode Phone Number [facility] [address] [facility] [address] [place] [address] PATHOLOGY AND GENOMIC MEDICINE * Comprehensive metabolic panel (05/04/2018 12:25 AM CDT) Sodium 131 (L) 135 - 148 mEq/L [facility] DEPARTMENT OF PATHOLOGY AND GENOMIC MEDICINE Potassium 3.9 3.5 - 5.0 mEq/L [facility] DEPARTMENT OF PATHOLOGY AND GENOMIC MEDICINE Chloride 93 (L) 99 - 109 mEq/L [facility] DEPARTMENT OF PATHOLOGY AND GENOMIC MEDICINE CO2 28 24 - 31 mEq/L [facility] DEPARTMENT OF PATHOLOGY AND GENOMIC MEDICINE Anion gap 10@ANIO 7 - 15 mEq/L [facility] DEPARTMENT OF PATHOLOGY AND GENOMIC MEDICINE BUN 29 (H) 8 - 24 mg/dL [facility] DEPARTMENT OF PATHOLOGY AND GENOMIC MEDICINE Creatinine 1.3 0.5 - 1.5 mg/dL [facility] DEPARTMENT PATHOLOGY AND GENOMIC MEDICINE Glucose 518 (HH) 65 - 99 mg/dL [facility] DEPARTMENT OF Comment: PATHOLOGY AND Final results called to and GENOMIC MEDICINE read back by Dr. Lei/BROOKS at01:30 05/04/2018 ml. Calcium 9.4 8.6 - 10.6 mg/dL [facility] DEPARTMENT OF PATHOLOGY AND GENOMIC MEDICINE Protein 6.6 6.3 - 8.2 g/dL [facility] DEPARTMENT OF PATHOLOGY AND GENOMIC MEDICINE Albumin 1.8 (L) 3.5 - 5.0 g/dL [facility] DEPARTMENT OF PATHOLOGY AND GENOMIC MEDICINE A/G ratio 0.38 (L) 0.70 - 3.80 [facility] DEPARTMENT OF PATHOLOGY AND GENOMIC MEDICINE Alkaline phosphatase 115 30 - 115 U/L [facility] DEPARTMENT OF PATHOLOGY AND GENOMIC MEDICINE AST SEE COMMENT 15 - 46 U/L [facility] DEPARTMENT OF Comment: PATHOLOGY AND No report GENOMIC MEDICINE Specimen markedly lipemic. Notified Dr. Lei/BROOKS at01: [facility]. ALT SEE COMMENT 10 - 55 U/L [facility] DEPARTMENT OF Comment: PATHOLOGY AND No report GENOMIC MEDICINE Specimen markedly lipemic. Notified Dr. Lei/BROOKS at01: [facility]. Total bilirubin <0.2 0.2 - 1.2 mg/dL [facility] DEPARTMENT OF PATHOLOGY AND GENOMIC MEDICINE Specimen Plasma specimen Performing Organization Address [facility] Centercode Phone Number [place] [phone] [facility]. 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 [employer] STORAGE failure or compromise, dehydration, metabolic crisis, sepsis, [...] [facility] Atrial rate 98 [facility] MD interval 144 [facility] QRSD interval 98 [facility] QT interval 368 [facility] QTC interval 469 [facility] P axis 1 31 [facility] QRS axis 1 -35 [facility] T wave axis 33 [facility] EKG impression Normal sinus rhythm-Left axis [facility] deviation-Incomplete right bundle branch block-Voltage criteria for left ventricular hypertrophy-Abnormal ECG-No previous ECGs available- Performing Organization Address City/[facility] Centercode Phone Number [facility] MUSE [address] [place] [address] after 09/19/2017 Insurance Payer Benefit Subscriber ID Type Phone Address Plan / Group [employer] TEX[employer] xxxxxxxxx O [facility] Guarantor Name Account Relation to Date of Phone Billing Address Type Patient ClintonJavid walsh Personal/F Self 1970 [address] [facility] (Home) [place] [address] Advance Directives Patient has advance care planning documents on file. For more information, raul mane contact: Avinash Allison [address] [place] [address]
[2018-09-20 21:55] VITALS: BP 186/78
[2018-09-20] MEDS: CLINDAMYCIN PHOS 900MG/ 50ML 50 ML IV SCH ×2 (22:00→23:05)
[2018-09-20] MEDS: INSULIN REGULAR, HUMAN 100 UNIT/1 ML 3ML VIAL SQ SCH (22:35)
[2018-09-20 22:45] VITALS: BP 186/78
[2018-09-20] MEDS: CLONIDINE HCL 0.1 MG TAB PO PRN (22:50)
[2018-09-20 23:00] VITALS: BP 186/78
[2018-09-20] MEDS ORDERED: SODIUM CHLORIDE 0.9% 250ML 250 ML ONE (23:24)
[2018-09-21] VITALS (7 sets, daily range): BP systolic 98–179; BP diastolic 52–75
[2018-09-21] MEDS ORDERED: LEVAQUIN500 MG PO (01:08)
[2018-09-21] MEDS ORDERED: ATORVASTATIN CA20 MG PO (01:08)
[2018-09-21 05:45] LABS: BASOPHILS % 0.1 % (0.0-1.0); EOSINOPHILS # (AUTO) 0.2 (0.0-0.4); EOSINOPHILS % 2.1 % (0.0-6.0); HEMATOCRIT 25.3 % (34.2-44.1); HEMOGLOBIN 8.3 g/dL (12.0-16.0); LYMPHOCYTES # (AUTO) 1.2 (1.0-3.2); LYMPHOCYTES % 14.6 % (18.0-39.1); MEAN CORPUSCULAR HEMOGLOBIN 28.8 pg (28-32); MEAN CORPUSCULAR HGB CONC 32.8 g/dL (31-35); MEAN CORPUSCULAR VOLUME 87.8 fL (81-99); MONOCYTES # (AUTO) 0.7 (0.2-0.8); MONOCYTES % 9.1 % (4.4-11.3); NEUTROPHILS # (AUTO) 5.9 (2.1-6.9); NEUTROPHILS % 73.6 % (38.7-80.0); PLATELET COUNT 304 x10e3/uL (140-360); RED BLOOD COUNT 2.88 x10e6/uL (3.6-5.1); RED CELL DISTRIBUTION WIDTH 12.1 % (11.7-14.4)
[2018-09-21 05:59] LABS: CALCIUM 9.1 mg/dL (8.4-10.2); CREATININE, SERUM 1.42 mg/dL (0.57-1.11)
[2018-09-21] MEDS: CEFEPIME HCL 2 GM VIAL IV SCH ×2 (06:15→18:19)
[2018-09-21] MEDS: CLINDAMYCIN PHOS 900MG/ 50ML 50 ML IV SCH ×3 (06:30→22:00)
[2018-09-21] MEDS: INSULIN REGULAR, HUMAN 100 UNIT/1 ML 3ML VIAL SQ SCH ×4 (08:00→21:00)
[2018-09-21] MEDS: FAMOTIDINE 20 MG TAB PO SCH ×2 (08:00→16:45)
[2018-09-21] MEDS ORDERED: METOCLOPRAMIDE HCL 10 MG TAB PO PRN (12:30)
[2018-09-21] MEDS ORDERED: NPH, HUMAN INSULIN ISOPHANE 100 UNIT/1 ML 3ML VIAL SQ SCH (13:00)
--- NOTE | 2018-09-21 13:53 | History and Physical ---
PRIMARY CARE PROVIDER: Dr. Romel Davis. CHIEF COMPLAINT: Left greater toe swelling. HISTORY OF PRESENT ILLNESS: Patient is a 48-year-old female, basically has a left greater toe swelling and some redness. Apparently, as per the patient, hit her left foot. There is no gross drainage. She does have a diabetic foot ulcer dry and clean on both foot. One is on the under surface of the left greater toe and then the other one near the heel area on the right foot. Patient is otherwise stable. No fever. WBC is normal. Patient had an MRI of the left foot done, pending result. The imaging of the chest x-ray is negative. PAST MEDICAL HISTORY 1. Diabetes type 2 on insulin therapy with multiple diabetic complications including peripheral vascular disease, multiple pressure wounds in toe and foot wounds. 2. Hypertension. 3. Dyslipidemia. 4. Reflux. 5. Early gastroparesis. PAST SURGICAL HISTORY 1. Appendectomy. 2. Cholecystectomy. 3. Tonsillectomy. 4. Multiple toe amputation on both foot. 5. Diabetic foot ulcer management. SOCIAL HISTORY: Patient does not smoke or use alcohol. ALLERGIES: TO VANCOMYCIN, BACTRIM, AND HYDROXYZINE. HOME MEDICATIONS: List is reviewed. REVIEW OF SYSTEMS: As mentioned. PHYSICAL EXAMINATION VITAL SIGNS: Temperature is 97, blood pressure 98/52, pulse rate is 72, respirations 18. GENERAL: Patient is not in acute distress. She is awake. HEENT: Normocephalic, atraumatic, anicteric. NECK: Supple grossly. PULMONARY: Diminished breath sounds without any wheezing or rales. CARDIOVASCULAR: S1 and S2. Regular rate and rhythm. ABDOMEN: Soft. Positive bowel sounds. Grossly nontender, nondistended. EXTREMITIES: Left greater toe, some swelling and distal redness, but no pus, no drainage. The ulcer of the left greater toe on the bottom seem clean without any drainage. No redness. Right foot diabetic ulcer also seem clean without any infection. IMPRESSION 1. Left greater toe which was amputated previously with some swelling, but nontender. The patient does have severe neuropathy, however. MRI of the left foot is pending at this time. 2. Diabetes with insulin therapy. 3. Multiple chronic ulcer without any sign of infection of the ulcers themselves. PLAN: Continue with the management for now. Observation. MRI of the left greater toe. We will follow up with Dr. Blu Lau on his recommendations. There is no fever, no drainage, and no elevation of WBC. Job#: [id number] PUN
[2018-09-21] MEDS: GABAPENTIN 300 MG CAP PO SCH ×2 (15:02→20:45)
[2018-09-21] MEDS: METOPROLOL SUCCINATE 25 MG TAB XL PO SCH (16:46)
[2018-09-21] MEDS: LISINOPRIL 20 MG TAB PO SCH (18:19)
[2018-09-21] MEDS: ACETAMINOPHEN 325 MG TAB PO PRN (19:38)
[2018-09-21] MEDS: NPH, HUMAN INSULIN ISOPHANE 100 UNIT/1 ML 3ML VIAL SQ SCH (20:30)
[2018-09-21] MEDS: FENOFIBRATE 145 MG TAB PO SCH (20:45)
[2018-09-21] MEDS: ATORVASTATIN 20 MG TAB PO SCH (20:45)
[2018-09-21] MEDS: CLONIDINE HCL 0.1 MG TAB PO PRN (20:46)
[2018-09-22] VITALS (7 sets, daily range): BP systolic 95–189; BP diastolic 52–96
[2018-09-22] MEDS: CLINDAMYCIN PHOS 900MG/ 50ML 50 ML IV SCH ×3 (06:00→22:25)
[2018-09-22] MEDS: CEFEPIME HCL 2 GM VIAL IV SCH ×2 (06:08→17:06)
--- NOTE | 2018-09-22 07:49 | Consultation ---
DATE OF CONSULTATION: September 22, 2018 REASON FOR CONSULTATION: Infected left foot ulcer. HISTORY OF PRESENT ILLNESS: Thank you, Dr. Pandey, for this consultation. This is a 48-year-old female. She is well known to me from the wound care center. She presented to the emergency room with a 1-week history of worsening swelling, redness and drainage along her left foot wound. The patient states on Saturday she fell and injured her left knee as well. Her left great toe has been swollen for the past week. She was seen in my office last Saturday. She was prescribed oral Bactrim. White blood cell count in the emergency room was 12.45. She denies any nausea or vomiting. No fever or chills. She had a chronic wound along her left and right foot for the past 4-5 months. She was recently treated with IV antibiotics due to osteomyelitis along her left foot. PAST MEDICAL HISTORY: Diabetes mellitus, hypertension, hyperlipidemia, GERD. PAST SURGICAL HISTORY: Appendectomy, cholecystectomy, tonsillectomy, multiple toe amputations. ALLERGIES: VANCOMYCIN, BACTRIM AND HYDROXYZINE. SOCIAL HISTORY: Patient lives along. No alcohol, tobacco or illicit drug use. FAMILY HISTORY: Noncontributory. REVIEW OF SYSTEMS: All systems were reviewed and negative, except as above. PHYSICAL EXAMINATION VITAL SIGNS: Temperature was 96.3, heart rate 62, respiratory rate 18, blood pressure 106/54. GENERAL: The patient is alert and oriented times 3 and in no acute distress. EXTREMITIES: Dorsalis pedis and posterior tibial pulses were palpable. Cap refill time is less than 3 seconds. Skin warm to touch. History of partial left great toe amputation. Ulcer on the plantar aspect of the left great toe amputation stump site with a granular layer of fibrotic base. Tunneling about 7-8 mm. Draining with some seropurulent discharge. Severe erythema and edema. Ulcer on the plantar lateral aspect of the right foot with a granular fibrotic base. No discharge. No elevation. Light touch and pinprick sensation is reduced. History of multiple toe amputations. LABS: White blood cells 7.95, hemoglobin 8.3, hematocrit 25.3, and platelets 304,000. ASSESSMENT 1. Infected ulceration, left great toe amputation stump site. 2. Cellulitis, left foot. 3. Chronic neuropathic ulceration, right foot. 4. Diabetes mellitus with peripheral neuropathy. PLAN: I discussed with the nursing staff. Get wound cultures, aerobic and anaerobic for culture and sensitivity of the left foot wound. I did discuss with radiology as well. Awaiting MRI results of the left foot. Radiology to call me this morning with the results. Local care along the left and right foot wounds with Aquacel IV. Continue IV antibiotics of cefepime and clindamycin. P.o. gabapentin for neuropathic pain. Will check the sed rate. Will follow clinically. Thank you for letting me assist in the patient's care. Job#: [id number] GLADYS
--- NOTE | 2018-09-22 08:08 | Diagnostic Imaging Report ---
TECHNIQUE: Magnetic resonance imaging of the LEFT foot was performed WITHOUT injected contrast. HISTORY: Left foot infection COMPARISON: None available. DISCUSSION: Prior amputation across the first through third metatarsal heads. Soft tissue ulceration with sinus tract extending distal to the first metatarsal.. Ill-defined soft tissue phlegmon/abscess measuring approximately 3.8 cm in greatest dimension. Bone marrow edema and mild T1 replacement involving the medial sesamoid and distal tip of the metatarsal stump. The remainder of the bone marrow signal is unremarkable. Atrophy of the foot musculature. IMPRESSION: Soft tissue phlegmon/abscess distal to the first metatarsal stump. Probable osteomyelitis involving the medial sesamoid and tip of the first metatarsal stump. Signed by: Dr. Landry Smith M.D. on 09/22/2018 8:04 AM
[2018-09-22] MEDS: GABAPENTIN 300 MG CAP PO SCH ×3 (09:12→20:33)
[2018-09-22] MEDS: ASPIRIN 81 MG CHEW TAB PO SCH (09:12)
[2018-09-22] MEDS: FAMOTIDINE 20 MG TAB PO SCH ×2 (09:12→17:06)
[2018-09-22] MEDS: METOPROLOL SUCCINATE 25 MG TAB XL PO SCH (09:13)
[2018-09-22] MEDS: LISINOPRIL 20 MG TAB PO SCH ×2 (09:13→17:06)
[2018-09-22] MEDS: INSULIN REGULAR, HUMAN 100 UNIT/1 ML 3ML VIAL SQ SCH ×4 (09:20→20:32)
[2018-09-22] MEDS: NPH, HUMAN INSULIN ISOPHANE 100 UNIT/1 ML 3ML VIAL SQ SCH ×2 (09:20→20:32)
[2018-09-22] MEDS: ATORVASTATIN 20 MG TAB PO SCH (20:33)
[2018-09-22] MEDS: FENOFIBRATE 145 MG TAB PO SCH (20:33)
[2018-09-22] MEDS: ACETAMINOPHEN 325 MG TAB PO PRN (20:33)
[2018-09-23] VITALS (7 sets, daily range): BP systolic 113–182; BP diastolic 57–94
[2018-09-23] MEDS: CEFEPIME HCL 2 GM VIAL IV SCH (05:31)
[2018-09-23] MEDS: CLINDAMYCIN PHOS 900MG/ 50ML 50 ML IV SCH ×2 (05:31→14:10)
[2018-09-23] MEDS: MUPIROCIN 2% OINT 22 GM TUBE TOP SCH (08:35)
[2018-09-23] MEDS: GABAPENTIN 300 MG CAP PO SCH ×3 (08:35→20:45)
[2018-09-23] MEDS: FAMOTIDINE 20 MG TAB PO SCH ×2 (08:35→16:58)
[2018-09-23] MEDS: ASPIRIN 81 MG CHEW TAB PO SCH (08:35)
[2018-09-23] MEDS: LISINOPRIL 20 MG TAB PO SCH ×2 (08:35→17:13)
[2018-09-23] MEDS: INSULIN REGULAR, HUMAN 100 UNIT/1 ML 3ML VIAL SQ SCH ×4 (08:36→20:30)
[2018-09-23] MEDS: METOPROLOL SUCCINATE 25 MG TAB XL PO SCH (08:36)
[2018-09-23] MEDS: NPH, HUMAN INSULIN ISOPHANE 100 UNIT/1 ML 3ML VIAL SQ SCH ×2 (08:37→20:30)
--- NOTE | 2018-09-23 08:53 | Progress Note ---
DATE: September 23, 2018 SUBJECTIVE: Patient was seen for a followup this morning for infected left foot ulcer. She is very anxious. She had an MRI done yesterday. Denies any nausea or vomiting. No fever or chills. OBJECTIVE VITAL SIGNS: Temperature 97.4, heart rate 62, respiratory rate 18, blood pressure 113/57. GENERAL: The patient is alert and oriented times 3. No acute distress. EXTREMITIES: Dorsalis pedis and posterior tibials are palpable. Skin is warm to touch. Infected ulcer on the plantar aspect of the left great toe amputation stump site with some erythema and edema. Some fluctuance. Some seropurulent discharge. Ulcer along the plantar lateral aspect of the right foot with a granular fibrotic base. Light touch and pinprick sensation is reduced. MRI of the left foot showed a soft tissue phlegmon abscess distal to the 1st metatarsal stump. Osteomyelitis along the medial sesamoid tip of the 1st metatarsal stump. ASSESSMENT 1. Infected ulceration, left great toe amputation stump site with acute osteomyelitis. 2. Abscess and cellulitis of left foot. 3. Chronic neuropathic ulceration, right foot. 4. Diabetes mellitus with peripheral neuropathy. PLAN: Discussed MRI results with the patient. Decision for surgery was made. Will plan on debridement and washout of the infected ulcer and bone of the left foot tomorrow. All questions were answered to the patient's satisfaction. All risks and benefits of the procedure were explained. No guarantees were given. Informed consent was obtained. N.p.o. after midnight. Continue IV antibiotics. Consult infectious disease for likely long-term IV antibiotics. Will see the patient for surgery tomorrow. Job#: [id number] [place]
[2018-09-23] MEDS: ACETAMINOPHEN 325 MG TAB PO PRN (14:29)
--- NOTE | 2018-09-23 16:19 | Consultation ---
DATE OF CONSULTATION: REASON FOR CONSULTATION: Osteomyelitis of the 1st metatarsal. This patient is a 48-year-old female with history of diabetes mellitus and history of neuropathy. She is known to Dr. Ginny Kauffman as an outpatient. History of diabetes mellitus type 2, hypertension, hyperlipidemia, reflux disease, gastroparesis, neuropathy. Past surgical history of appendectomy, cholecystectomy, tonsillectomy, multiple toe amputations on both feet, status post right 1st toe amputation. Patient was recently on IV antibiotic and finished 6 weeks plus 2 weeks of oral. The patient comes into the hospital with an ulcer at the base of her 1st toe on the left foot toe at the site of the amputation of the left 1st toe. There is an ulcer which has been draining for the last few days. The patient has redness and swelling along her left foot wound. The patient is being admitted. The patient has a history of diabetes mellitus, hypertension, hyperlipidemia, appendectomy, cholecystectomy, multiple toe amputations followed by IV antibiotics. She had an x-ray and MRI. Her white count on admission was 12.45, today 7.95. Hemoglobin 8.3. That was on September 21. Her sodium is 139, potassium 4.0, creatinine 1.42 with calcium 9.1. Glucose 132. Patient is on Neurontin, Tylenol, clindamycin, Prinivil, aspirin and cefepime. Patient had an MRI of the foot that showed phlegmon of the 1st metatarsal stump with osteomyelitis. The wound grew Staphylococcus aureus. Sensitivity is still pending. PHYSICAL EXAMINATION GENERAL: She is currently alert and oriented, does not seem to be in acute distress. VITALS: Stable, afebrile. HEENT: She does not appear icteric. NECK: Supple. CHEST: Clear. HEART: S1 and S2. No S3 or S4. No murmur. ABDOMEN: Soft. Bowel sounds present. No tenderness. EXTREMITIES: On the foot, there are erythema and edema of the left foot at the big toe site amputation. There is an ulcer at the plantar aspect. IMPRESSION AND PLAN 1. Abscess at the metatarsal site. The patient is status post amputation of the big toe due to osteomyelitis. ALLERGIC TO VANCOMYCIN. Will put her on linezolid, or Zyvox, 600 mg IV piggyback q.12 h. Discontinue clindamycin and cefepime. 2. Chronic kidney disease. 3. Diabetes mellitus with neuropathy. 4. Patient is going for surgery tomorrow. Hopefully, we can get culture and sensitivity. 5. Anemia of chronic disease. 6. Will follow. Job#: [id number]
[2018-09-23] MEDS: LINEZOLID 600 MG/D5W 300ML 300 ML IV SCH (16:58)
[2018-09-23] MEDS: FENOFIBRATE 145 MG TAB PO SCH (20:45)
[2018-09-23] MEDS: ATORVASTATIN 20 MG TAB PO SCH (20:45)
[2018-09-23] MEDS: CLONIDINE HCL 0.1 MG TAB PO PRN (20:45)
[2018-09-24] VITALS (8 sets, daily range): BP systolic 108–195; BP diastolic 52–83
[2018-09-24] MEDS: LINEZOLID 600 MG/D5W 300ML 300 ML IV SCH ×2 (04:30→17:11)
[2018-09-24 04:59] LABS: BASOPHILS % 0.2 % (0.0-1.0); EOSINOPHILS # (AUTO) 0.3 (0.0-0.4); EOSINOPHILS % 3.4 % (0.0-6.0); HEMOGLOBIN 8.8 g/dL (12.0-16.0); LYMPHOCYTES # (AUTO) 2.8 (1.0-3.2); LYMPHOCYTES % 34.1 % (18.0-39.1); MEAN CORPUSCULAR HEMOGLOBIN 28.4 pg (28-32); MEAN CORPUSCULAR HGB CONC 32.6 g/dL (31-35); MEAN CORPUSCULAR VOLUME 87.1 fL (81-99); MONOCYTES # (AUTO) 0.7 (0.2-0.8); MONOCYTES % 8.9 % (4.4-11.3); NEUTROPHILS # (AUTO) 4.3 (2.1-6.9); NEUTROPHILS % 52.3 % (38.7-80.0); PLATELET COUNT 363 x10e3/uL (140-360); RED CELL DISTRIBUTION WIDTH 11.9 % (11.7-14.4)
[2018-09-24 05:40] LABS: ANION GAP 10.1 mmol/L (8-16); CALCIUM 9.5 mg/dL (8.4-10.2); CREATININE, SERUM 1.5 mg/dL (0.57-1.11); POTASSIUM 4.1 mmol/L (3.5-5.1)
[2018-09-24] MEDS: INSULIN REGULAR, HUMAN 100 UNIT/1 ML 3ML VIAL SQ SCH ×4 (07:30→21:00)
[2018-09-24] MEDS: NPH, HUMAN INSULIN ISOPHANE 100 UNIT/1 ML 3ML VIAL SQ SCH ×2 (08:00→21:00)
[2018-09-24] MEDS: ASPIRIN 81 MG CHEW TAB PO SCH (08:24)
[2018-09-24] MEDS: FAMOTIDINE 20 MG TAB PO SCH ×2 (08:24→17:11)
[2018-09-24] MEDS: METOPROLOL SUCCINATE 25 MG TAB XL PO SCH (08:25)
[2018-09-24] MEDS: LISINOPRIL 20 MG TAB PO SCH ×2 (08:25→16:38)
[2018-09-24] MEDS: GABAPENTIN 300 MG CAP PO SCH ×3 (08:25→20:37)
[2018-09-24] MEDS: MUPIROCIN 2% OINT 22 GM TUBE TOP SCH (08:26)
[2018-09-24] MEDS ORDERED: FENTANYL CITRATE/PF 100MCG/2 ML INJ ONE ×2 (09:01→17:51)
[2018-09-24] MEDS ORDERED: BACITRACIN 50,000 UNIT VIAL ONE (13:19)
[2018-09-24] MEDS ORDERED: BUPIVACAINE HCL 0.5% INJ 30 ML VIAL INJ ONE (13:19)
--- NOTE | 2018-09-24 15:01 | Operative Report ---
DATE OF PROCEDURE: September 24, 2018 VIDEO NEWS EDITOR: None. PREOPERATIVE DIAGNOSES 1. Infected ulceration, left great toe amputation stump site with acute osteomyelitis. 2. Abscess, cellulitis left foot. 3. Diabetes mellitus with peripheral neuropathy. POSTOPERATIVE DIAGNOSES 1. Infected ulceration, left great toe amputation stump site with acute osteomyelitis. 2. Abscess, cellulitis left foot. 3. Diabetes mellitus with peripheral neuropathy. PROCEDURE PERFORMED: Incisional and excisional debridement and washout of infected ulceration, left foot, including subcutaneous tissue, fascia, muscle and bone measuring 60 mm x 25 mm. ANESTHESIA: General. HEMOSTASIS: Achieved with ankle tourniquet inflated to 250 mmHg. ESTIMATED BLOOD LOSS: Minimal. MATERIALS USED: 3-0 nylon. INJECTABLES: None. PATHOLOGY: Bone, left foot. MICROBIOLOGY: Wound culture, aerobic, anaerobic for culture and sensitivity. ANTIBIOTICS: Patient currently on Zyvox. INDICATIONS FOR PROCEDURE: This is a 48-year-old female. She came to the emergency room with worsening infected left foot ulcer. MRI of the left foot revealed osteomyelitis along the distal stump with soft tissue phlegmon and abscess. We discussed surgical options. We decided on bringing the patient to the operating room today for debridement and washout. All questions were answered to the patient's satisfaction. All risks and benefits of the procedure were explained. No guarantees were given. Informed consent was obtained. DESCRIPTION OF PROCEDURE: After the patient's preop workup was completed, the patient was brought into the operating room, placed in the supine position upon the surgical table, and at this time general anesthesia was administered. The patient's left foot was prepped and draped in the usual sterile manner. After an appropriate time out was performed, we were ready to begin our surgical procedure. Attention was directed to the left lower extremity which was elevated to a 45-degree angle. The pneumatic ankle tourniquet was inflated. Attention was directed to the plantar aspect of the left foot. A full thickness ulcer along the left great toe amputation stump site was draining with some seropurulent discharge. Utilizing a #15 blade, I was able to make an incision proximal and distal to the wound cavity. The incision was about 60 mm. The wound was about 25 mm in width. Incision was carried down to the subfascial and muscle tissue. I was able to obtain the wound cultures at this time. Some serosanguineous discharge was expressed and drained. At this time, utilizing depression between the blade I was able to sharply debride and excise all devitalized fibrotic tissue including subcutaneous tissue, fascia, muscle, and tendon. I was able to sharply debride some of the first metatarsal bone for pathological studies. At this time, utilizing the pulse sql programmer analyst machine I used about 3 liters of normal sterile saline mixed with 78916 units Bacitracin to irrigate the wound cavity. At this time, no further purulent discharge was expressed or drained. The wound cavity was now free of any kind of devitalized tissue. The most proximal and distal portions of the wound were reapproximated utilizing 3-0 nylon in a simple interrupted suture technique. The central portion was left open for any residual drainage. This was packed with 0.25 inch Iodoform. The left foot was then dressed with 4 x 4 gauze, Kerlix and Migel bandage. The pneumatic ankle tourniquet was deflated and normal vascular status returned to the left foot. The patient was noted to have tolerated the procedure and the anesthesia well. At no time was there a break in sterility. The patient was transferred from the operating room to the recovery room with vital signs stable and neurovascular status intact. After a brief period in the recovery room, the patient was to be discharged back to the floor. COMPLICATIONS: None. All sponge, needle and instrument counts were correct. I was present through all aspects of this procedure. Job#: [id number] GH MTDD
[2018-09-24] MEDS ORDERED: ONDANSETRON HCL INJ 2 MG/ML VIAL ONE (17:46)
[2018-09-24] MEDS ORDERED: LIDOCAINE HCL 2% LOCAL INJ 5 ML SDV VIAL INJ ONE (17:46)
[2018-09-24] MEDS ORDERED: PROPOFOL IV EMULSION 10 MG/ML 20 ML VIAL ONE (17:46)
[2018-09-24] MEDS ORDERED: SEVOFLURANE INHAL SOLN 250 ML PEN BTL ONE (17:46)
[2018-09-24] MEDS ORDERED: MIDAZOLAM HCL 2 MG/2 ML VIAL ONE (17:51)
[2018-09-24] MEDS: FENOFIBRATE 145 MG TAB PO SCH (20:37)
[2018-09-24] MEDS: CLONIDINE HCL 0.1 MG TAB PO PRN (20:37)
[2018-09-24] MEDS: ATORVASTATIN 20 MG TAB PO SCH (20:37)
[2018-09-25] VITALS: BP 195/83
[2018-09-25] MEDS: LINEZOLID 600 MG/D5W 300ML 300 ML IV SCH ×2 (03:55→17:24)
[2018-09-25 04:00] VITALS: BP 103/54
[2018-09-25 07:45] VITALS: BP 121/59
[2018-09-25] MEDS: NPH, HUMAN INSULIN ISOPHANE 100 UNIT/1 ML 3ML VIAL SQ SCH ×2 (08:00→21:30)
[2018-09-25] MEDS: GABAPENTIN 300 MG CAP PO SCH ×3 (08:59→21:22)
[2018-09-25] MEDS: FAMOTIDINE 20 MG TAB PO SCH ×2 (08:59→17:24)
[2018-09-25] MEDS: LISINOPRIL 20 MG TAB PO SCH ×2 (08:59→17:24)
[2018-09-25] MEDS: ASPIRIN 81 MG CHEW TAB PO SCH (08:59)
[2018-09-25] MEDS: METOPROLOL SUCCINATE 25 MG TAB XL PO SCH (09:00)
[2018-09-25] MEDS: MUPIROCIN 2% OINT 22 GM TUBE TOP SCH (09:00)
[2018-09-25] MEDS: INSULIN REGULAR, HUMAN 100 UNIT/1 ML 3ML VIAL SQ SCH ×4 (09:01→21:30)
--- NOTE | 2018-09-25 10:44 | Progress Note ---
DATE: September 25, 2018 SUBJECTIVE: The patient is seen for a followup this morning, status post left foot debridement. She is resting comfortably. Pain is controlled. States she did change her dressing herself yesterday. OBJECTIVE VITAL SIGNS: Temperature was 98.2, heart rate 74, respiratory rate 15, blood pressure 121/59. GENERAL: The patient is alert and oriented times 3. In no acute distress. EXTREMITIES: Dorsalis pedis and posterior tibial pulses were palpable. Skin is warm to touch. Infected ulcer on the plantar aspect of the left great toe with some serous drainage. No purulent discharge. Ulcer on the lateral aspect of the right foot with a granular fibrotic base. Light touch and pinprick sensation were reduced. ASSESSMENT 1. Infected ulceration, left great toe amputation stump site with acute osteomyelitis. 2. Cellulitis, left foot. 3. Chronic neuropathic ulceration, right foot. 4. Diabetes mellitus with peripheral neuropathy. PLAN: Awaiting pathology and microbiology. Wound culture of the left foot upon admission positive for MRSA. Discussed with Dr. Pandey and Dr. Farley. Will order PICC line. Will need long-term IV antibiotics. Local care with Iodoform packing. Nonweightbearing on the left foot. Job#: [id number] GLADYS
[2018-09-25 11:35] VITALS: BP 141/67
[2018-09-25] MEDS ORDERED: SODIUM CHLORIDE 0.9% 1000ML 1,000 ML ONE (15:08)
[2018-09-25] MEDS ORDERED: HEPARIN SOD/SOD CHLORIDE 1,000 ML ONE (15:08)
[2018-09-25] MEDS ORDERED: FENTANYL CITRATE/PF 100MCG/2 ML INJ ONE (15:08)
[2018-09-25] MEDS ORDERED: MIDAZOLAM HCL 2 MG/2 ML VIAL ONE (15:08)
[2018-09-25] MEDS ORDERED: LIDOCAINE HCL 2% LOCAL 20 ML VIAL ONE (15:08)
[2018-09-25] MEDS ORDERED: SODIUM CHLORIDE 0.9% 500ML 500 ML ONE (15:27)
[2018-09-25 15:54] VITALS: BP 157/72
[2018-09-25 20:00] VITALS: BP 164/71
[2018-09-25] MEDS: FENOFIBRATE 145 MG TAB PO SCH (21:22)
[2018-09-25] MEDS: ATORVASTATIN 20 MG TAB PO SCH (21:22)
[2018-09-26] VITALS (7 sets, daily range): BP systolic 98–174; BP diastolic 52–77
[2018-09-26] MEDS: LINEZOLID 600 MG/D5W 300ML 300 ML IV SCH (03:54)
[2018-09-26] MEDS: ACETAMINOPHEN 325 MG TAB PO PRN (03:55)
[2018-09-26] MEDS: FAMOTIDINE 20 MG TAB PO SCH ×2 (07:30→17:00)
[2018-09-26] MEDS: INSULIN REGULAR, HUMAN 100 UNIT/1 ML 3ML VIAL SQ SCH ×4 (08:15→21:00)
[2018-09-26] MEDS: NPH, HUMAN INSULIN ISOPHANE 100 UNIT/1 ML 3ML VIAL SQ SCH ×2 (08:16→21:00)
[2018-09-26] MEDS: ASPIRIN 81 MG CHEW TAB PO SCH (08:28)
[2018-09-26] MEDS: METOPROLOL SUCCINATE 25 MG TAB XL PO SCH (08:29)
[2018-09-26] MEDS: LISINOPRIL 20 MG TAB PO SCH ×2 (08:29→17:01)
[2018-09-26] MEDS: GABAPENTIN 300 MG CAP PO SCH ×3 (08:29→21:08)
[2018-09-26] MEDS: MUPIROCIN 2% OINT 22 GM TUBE TOP SCH (08:29)
[2018-09-26] MEDS ORDERED: DIPHENHYDRAMINE HCL 25 MG CAP PO SCH (11:45)
[2018-09-26] MEDS: VANCOMYCIN 1GM/NS 250 ML 250 ML IV SCH (12:58)
[2018-09-26] MEDS: FENOFIBRATE 145 MG TAB PO SCH (21:08)
[2018-09-26] MEDS: ATORVASTATIN 20 MG TAB PO SCH (21:08)
[2018-09-27] VITALS (7 sets, daily range): BP systolic 114–168; BP diastolic 55–75
[2018-09-27] MEDS: FAMOTIDINE 20 MG TAB PO SCH ×2 (08:19→15:24)
[2018-09-27] MEDS: ASPIRIN 81 MG CHEW TAB PO SCH (08:19)
[2018-09-27] MEDS: GABAPENTIN 300 MG CAP PO SCH ×3 (08:19→21:18)
[2018-09-27] MEDS: INSULIN REGULAR, HUMAN 100 UNIT/1 ML 3ML VIAL SQ SCH ×4 (08:20→21:29)
[2018-09-27] MEDS: NPH, HUMAN INSULIN ISOPHANE 100 UNIT/1 ML 3ML VIAL SQ SCH ×2 (08:21→21:29)
[2018-09-27] MEDS: LISINOPRIL 20 MG TAB PO SCH ×2 (08:34→17:12)
[2018-09-27] MEDS: METOPROLOL SUCCINATE 25 MG TAB XL PO SCH (08:35)
[2018-09-27] MEDS: MUPIROCIN 2% OINT 22 GM TUBE TOP SCH (08:35)
[2018-09-27] MEDS: DIPHENHYDRAMINE HCL INJ 50 MG/ML VIAL IV PRN ×2 (10:02→19:45)
[2018-09-27] MEDS: DIPHENHYDRAMINE HCL 25 MG CAP PO SCH (12:50)
[2018-09-27] MEDS: VANCOMYCIN 1GM/NS 250 ML 250 ML IV SCH (13:23)
[2018-09-27] MEDS: FENOFIBRATE 145 MG TAB PO SCH (21:18)
[2018-09-27] MEDS: ATORVASTATIN 20 MG TAB PO SCH (21:18)
[2018-09-28] VITALS (7 sets, daily range): BP systolic 95–192; BP diastolic 54–74
[2018-09-28 06:57] LABS: BASOPHILS % 0.3 % (0.0-1.0); EOSINOPHILS # (AUTO) 0.3 (0.0-0.4); EOSINOPHILS % 3.5 % (0.0-6.0); HEMOGLOBIN 9.3 g/dL (12.0-16.0); LYMPHOCYTES # (AUTO) 2.7 (1.0-3.2); LYMPHOCYTES % 33.5 % (18.0-39.1); MEAN CORPUSCULAR HEMOGLOBIN 28.6 pg (28-32); MEAN CORPUSCULAR HGB CONC 32.1 g/dL (31-35); MEAN CORPUSCULAR VOLUME 89.2 fL (81-99); MONOCYTES # (AUTO) 0.7 (0.2-0.8); MONOCYTES % 8.7 % (4.4-11.3); NEUTROPHILS # (AUTO) 4.2 (2.1-6.9); NEUTROPHILS % 53.1 % (38.7-80.0); PLATELET COUNT 436 x10e3/uL (140-360); RED BLOOD COUNT 3.25 x10e6/uL (3.6-5.1)
[2018-09-28 07:06] LABS: ANION GAP 12.5 mmol/L (8-16); CALCIUM 9.9 mg/dL (8.4-10.2); CREATININE, SERUM 1.56 mg/dL (0.57-1.11); POTASSIUM 4.5 mmol/L (3.5-5.1)
[2018-09-28] MEDS: GABAPENTIN 300 MG CAP PO SCH ×3 (08:06→22:41)
[2018-09-28] MEDS: FAMOTIDINE 20 MG TAB PO SCH ×2 (08:06→16:22)
[2018-09-28] MEDS: LISINOPRIL 20 MG TAB PO SCH ×2 (08:06→16:46)
[2018-09-28] MEDS: ASPIRIN 81 MG CHEW TAB PO SCH (08:06)
[2018-09-28] MEDS: MUPIROCIN 2% OINT 22 GM TUBE TOP SCH (08:07)
[2018-09-28] MEDS: METOPROLOL SUCCINATE 25 MG TAB XL PO SCH (08:07)
[2018-09-28] MEDS: INSULIN REGULAR, HUMAN 100 UNIT/1 ML 3ML VIAL SQ SCH ×4 (08:07→22:44)
[2018-09-28] MEDS: NPH, HUMAN INSULIN ISOPHANE 100 UNIT/1 ML 3ML VIAL SQ SCH ×2 (08:08→22:44)
[2018-09-28] MEDS: DIPHENHYDRAMINE HCL 25 MG CAP PO SCH (11:54)
[2018-09-28] MEDS: VANCOMYCIN 1GM/NS 250 ML 250 ML IV SCH (13:16)
[2018-09-28] MEDS: DIPHENHYDRAMINE HCL INJ 50 MG/ML VIAL IV PRN ×2 (19:17→19:39)
[2018-09-28] MEDS: ATORVASTATIN 20 MG TAB PO SCH (22:41)
[2018-09-28] MEDS: FENOFIBRATE 145 MG TAB PO SCH (22:41)
[2018-09-29 00:40] VITALS: BP 151/63
[2018-09-29 06:06] VITALS: BP 132/62
[2018-09-29] MEDS: INSULIN REGULAR, HUMAN 100 UNIT/1 ML 3ML VIAL SQ SCH ×3 (07:30→16:30)
[2018-09-29] MEDS: NPH, HUMAN INSULIN ISOPHANE 100 UNIT/1 ML 3ML VIAL SQ SCH ×2 (08:00→20:00)
[2018-09-29 08:10] VITALS: BP 156/70
--- NOTE | 2018-09-29 08:21 | Progress Note ---
DATE: September 29, 2018 SUBJECTIVE: Patient is seen for followup this morning. States her face has been swollen with the antibiotics. She is on Benadryl. Denies any shortness of breath. OBJECTIVE VITAL SIGNS: Temperature is 96.7, heart rate 68, respiratory rate 18, blood pressure 132/62. GENERAL: The patient is alert and oriented times 3. In no acute distress. EXTREMITIES: Dorsalis pedis and posterior tibials were palpable. Skin is warm to touch. Ulcer on the plantar aspect of the left great toe with sutures in place. No discharge. No edema. Ulcer on the lateral aspect of the right foot with a granular fibrotic base. Light touch and pinprick sensation reduced. Wound culture of the left foot positive for MRSA. Pathology pending. ASSESSMENT 1. Infected ulceration, left great toe stump site with acute osteomyelitis. 2. Cellulitis, left foot. 3. Chronic neuropathic ulceration, right foot. 4. Diabetes mellitus with peripheral neuropathy. PLAN: Awaiting pathology. Discharge planning. Local care with Iodoform packing. Nonweightbearing on the left foot. Continue IV antibiotics. Job#: [id number] [place]
[2018-09-29 08:45] VITALS: BP 156/70
[2018-09-29] MEDS: FAMOTIDINE 20 MG TAB PO SCH ×2 (09:38→16:48)
[2018-09-29] MEDS: MUPIROCIN 2% OINT 22 GM TUBE TOP SCH (09:38)
[2018-09-29] MEDS: METOPROLOL SUCCINATE 25 MG TAB XL PO SCH (09:38)
[2018-09-29] MEDS: GABAPENTIN 300 MG CAP PO SCH ×2 (09:38→16:48)
[2018-09-29] MEDS: ASPIRIN 81 MG CHEW TAB PO SCH (09:38)
[2018-09-29] MEDS: LISINOPRIL 20 MG TAB PO SCH ×2 (09:38→16:48)
[2018-09-29] MEDS ORDERED: IBUPROFEN 400 MG TAB PO PRN (12:00)
[2018-09-29 12:21] VITALS: BP 195/84
[2018-09-29] MEDS: DIPHENHYDRAMINE HCL 25 MG CAP PO SCH (13:05)
[2018-09-29] MEDS: CLONIDINE HCL 0.1 MG TAB PO PRN ×2 (13:05→18:29)
[2018-09-29] MEDS: DIPHENHYDRAMINE HCL INJ 50 MG/ML VIAL IV PRN (13:55)
[2018-09-29] MEDS: VANCOMYCIN 1GM/NS 250 ML 250 ML IV SCH (13:55)
[2018-09-29] MEDS ORDERED: DAPTOMYCIN 500 MG in SODIUM CHLORIDE 0.9% 100 ML IV SCH ×2 (15:30→18:00)
[2018-09-29 17:12] VITALS: BP 165/73
--- NOTE | 2018-09-30 16:12 | Diagnostic Imaging Report ---
PROCEDURE: PLACEMENT OF RIGHT IJ TUNNELED SMALL BORE CATHETER WITH FLUOROSCOPIC GUIDANCE INDICATION: Requiring roasterman IV access. OPERATORS: Philip Allen MD RADIATION EXPOSURE: Fluoroscopy Time: 0.5 min, Dose Area Product: 75.5 cGycm2 CONSENT: The patient was informed of the nature of the proposed procedure. The purposes, alternatives, risks, and benefits were explained and discussed. All questions were answered and written consent was obtained. ANESTHESIA: Local sedation. Continuous hemodynamic and respiratory monitoring was performed, including the use of pulse oximetry. MEDICATIONS: 15 cc of 1% subcutaneous lidocaine TECHNIQUE: The patient was brought to the angiography suite, and the right neck and upper chest were prepped and draped in standard sterile fashion. All elements of maximal sterile barrier technique were followed including cap and mask, sterile gown, sterile gloves, large sterile sheet, hand hygiene and 2% chlorhexidine for cutaneous antisepsis. Pre-procedure time-out confirmed the patient identity and the procedure to be performed. Using standard sterile technique, 1 % lidocaine was administered subcutaneously for local anesthesia. Ultrasound demonstrated that the right internal jugular was patent and compressible. Under continuous sonographic guidance, the right internal jugular vein was accessed using a 21 G micropuncture needle. An .018'' microwire was placed to secure access and confirming venous access by advancement into the IVC. A needle was exchanged for the peel away sheath. Appropriate measurements were made using the microwire. Attention was then turned towards the subcutaneous tunnel. After administration of 1% lidocaine subcutaneously for local anesthesia, a 6 Fr cm double lumen tunneled small bore catheter was tunneled in an antegrade direction from skin exit site to venotomy site. The catheter was cut to length. The catheter was then advanced through the peel-away sheath into the superior vena cava. After confirming appropriate position with fluoroscopy the catheter tip at the cavoatrial junction, the peel-away sheath was removed, and the lumen was aspirated, check flushed, and terminally flushed with heparin solution. The catheter was secured using 3-0 Ethilon pursestring suture at the catheter exit site and also 3-0 Ethilon sutures at the catheter hub. The venotomy site was closed with Dermabond and steri-strips. Sterile dressings were applied. The patient tolerated the procedure well without immediate complication and was transported back to the floor in stable condition. FINDINGS: 1. Patent and compressible right IJV accessed with continuous ultrasound guidance. 2. Placement of 6 Fr cm double lumen tunneled right IJV small bore catheter. 3. Post-procedure intraprocedural chest radiograph showed catheter tip at the cavoatrial junction, no kinks along course of catheter, and no pneumothorax. Catheter is ready for use. IMPRESSION: Placement of right IJ tunneled double lumen small bore catheter. Catheter is ready for immediate use. Signed by: Dr. Philip Allen MD on 09/30/2018 4:09 PM
== END 2018-09-29 20:24 | disposition home or self-care (01) | DRG 504 ==
LOC: ER 14:32 → ERHOLD 19:29 → MED/SURG2 21:55
PROVIDERS: ADMIT Internal Medicine; ATTEND Internal Medicine
PROC: 0QBP0ZZ Excision of Left Metatarsal, Open Approach (ICD-10-PCS; principal; 2018-09-24 13:00)
PROC: 02HV33Z Insertion of Infusion Device into Superior Vena Cava, Percutaneous Approach (ICD-10-PCS; 2018-09-25)
PROC: B5181ZA Fluoroscopy of Superior Vena Cava using Low Osmolar Contrast, Guidance (ICD-10-PCS; 2018-09-25)
DX: T87.44 Infection of amputation stump, left lower extremity (principal); T81.42XA Infection following a procedure, deep incisional surgical site, initial encounter; L97.419 Non-pressure chronic ulcer of right heel and midfoot with unspecified severity; L02.612 Cutaneous abscess of left foot; L03.116 Cellulitis of left lower limb; M86.172 Other acute osteomyelitis, left ankle and foot; E11.69 Type 2 diabetes mellitus with other specified complication; E11.628 Type 2 diabetes mellitus with other skin complications; E11.621 Type 2 diabetes mellitus with foot ulcer; L08.89 Other specified local infections of the skin and subcutaneous tissue; N18.9 Chronic kidney disease, unspecified; L97.529 Non-pressure chronic ulcer of other part of left foot with unspecified severity; E11.40 Type 2 diabetes mellitus with diabetic neuropathy, unspecified; E11.22 Type 2 diabetes mellitus with diabetic chronic kidney disease; I12.9 Hypertensive chronic kidney disease with stage 1 through stage 4 chronic kidney disease, or unspecified chronic kidney disease; E78.5 Hyperlipidemia, unspecified; K21.9 Gastro-esophageal reflux disease without esophagitis; E11.43 Type 2 diabetes mellitus with diabetic autonomic (poly)neuropathy; K31.84 Gastroparesis; Z88.1 Allergy status to other antibiotic agents; Z88.8 Allergy status to other drugs, medicaments and biological substances; Z79.4 Long term (current) use of insulin; Z89.412 Acquired absence of left great toe; Z89.422 Acquired absence of other left toe(s); Z89.421 Acquired absence of other right toe(s); B95.62 Methicillin resistant Staphylococcus aureus infection as the cause of diseases classified elsewhere; B96.20 Unspecified Escherichia coli [E. coli] as the cause of diseases classified elsewhere
CPT/HCPCS: 36415; 36558; 71045; 74470; 80048; 80053; 80202; 81001; 82948; 84702; 85025; 85651; 87040; 87071; 87075; 87086; 87186; 87205; 87400; 88305; 88307; 88311; 93005; 99284; J0692; J1200; J2001; J2020; J2250; J2405; J3370; J7030; J7040; J7050

== ENCOUNTER → 2018-10-27 | Outpatient (RCR) | payer OTHER ==
[~2018-10-27] MED LIST changes: +LEVAQUIN500 MG PO
== END ==
LOC: WCC 09-30 10:28
PROVIDERS: ATTEND Podiatrist Foot & Ankle Surgery
DX: E11.621 Type 2 diabetes mellitus with foot ulcer (principal); E10.21 Type 1 diabetes mellitus with diabetic nephropathy; E10.65 Type 1 diabetes mellitus with hyperglycemia; E10.621 Type 1 diabetes mellitus with foot ulcer; L97.521 Non-pressure chronic ulcer of other part of left foot limited to breakdown of skin; L97.411 Non-pressure chronic ulcer of right heel and midfoot limited to breakdown of skin; L27.9 Dermatitis due to unspecified substance taken internally; I10 Essential (primary) hypertension; D50.8 Other iron deficiency anemias; E78.2 Mixed hyperlipidemia

== ENCOUNTER → 2018-11-18 | Outpatient (CLI) | payer OTHER ==
[~2018-11-18] MED LIST changes: +LIDOCAINE HCL 1% LOCAL INJ 20 ML VIAL ONE
--- NOTE | 2018-11-18 15:30 | Diagnostic Imaging Report ---
PROCEDURE: Removal of right IJ tunneled small bore catheter INDICATION: Status post antibiotics for osteomyelitis, no longer requiring central venous access. OPERATORS: Philip Allen MD RADIATION EXPOSURE: None. CONSENT: The patient was informed of the nature of the proposed procedure. The purposes, alternatives, risks, and benefits were explained and discussed. All questions were answered and written consent was obtained. ANESTHESIA: Local sedation MEDICATIONS: 5 cc of 1% subcutaneous lidocaine. TECHNIQUE/FINDINGS: Procedure was performed in the Radiology nursing area. The right neck neck and upper chest were prepped and draped in standard sterile fashion. All elements of maximal sterile barrier technique were followed including cap and mask, sterile gown, sterile gloves, large sterile sheet, hand hygiene and 2% chlorhexidine for cutaneous antisepsis. Pre-procedure time-out confirmed the patient identity and the procedure to be performed. Using standard sterile technique, 1 % lidocaine was administered subcutaneously for local anesthesia. The sutures were cut and with gentle traction, the right IJ tunneled small bore catheter was removed. The catheter was removed intact. Hemostasis was achieved with 2 minutes of manual compression. Sterile dressing was applied. The patient tolerated the procedure well without immediate complication and was discharged in stable condition. IMPRESSION: Removal of right IJ tunneled small bore catheter as above. Signed by: Dr. Philip Allen MD on 11/18/2018 3:27 PM
== END ==
LOC: DX 08:08
PROVIDERS: ATTEND Internal Medicine Infectious Disease
DX: M86.172 Other acute osteomyelitis, left ankle and foot (principal)
CPT/HCPCS: 36589; J2001

== ENCOUNTER 2018-11-25 08:53 | Outpatient (RCR) | payer OTHER ==
[~2018-11-25 08:53] MED LIST changes: -LIDOCAINE HCL 1% LOCAL INJ 20 ML VIAL ONE
== END 2018-11-27 ==
LOC: WCC 08:53
PROVIDERS: ATTEND Podiatrist Foot & Ankle Surgery
DX: E11.621 Type 2 diabetes mellitus with foot ulcer (principal); E10.21 Type 1 diabetes mellitus with diabetic nephropathy; E10.65 Type 1 diabetes mellitus with hyperglycemia; E10.621 Type 1 diabetes mellitus with foot ulcer; L97.526 Non-pressure chronic ulcer of other part of left foot with bone involvement without evidence of necrosis; L97.411 Non-pressure chronic ulcer of right heel and midfoot limited to breakdown of skin; L27.9 Dermatitis due to unspecified substance taken internally; D50.8 Other iron deficiency anemias; E78.2 Mixed hyperlipidemia
CPT/HCPCS: 87071; 87075; 87205

== ENCOUNTER 2018-12-08 15:34 | Inpatient (IN) | payer MEDICARE, OTHER ==
[~2018-12-08] VITALS: Ht 157.5 cm; Wt 88.1 kg
--- OUTSIDE RECORDS SUMMARY | 2018-12-08 15:37 | XMS REPORT | Clinical Summary ---
Author Author [facility] Organization [facility] Address Unknown Phone Unavailable Care Team Providers Care Operating Room Surgical Technologist Name Role Phone Romel Davis MD PCP [...] selective to SFA, angiogram on Rt angiogram [88170 (CPT)] 05/07/2018 Surgery Procedural Cardiology Vero, MD Miriam Jaramillo Imran Sattar, MD Hyperglycemia (Primary Dx); Hyponatremia; Lactic acidemia 05/04/2018 [facility] General Internal Medicine - Encounter 05/08/2018 after 12/07/2017 Family History Medical History Relation Name Comments [...] CANCER SCREENING 2018 COLON CANCER SCREENING 2018 SHINGLES VACCINES (1 of 2018 2) Implants Device Identifier Shelf Expiration Date Model / Serial / Lot Implanted Type Area Manufactur er 04/26/2020 [id number] / / [id number] Device Vasclr Clsr Baln Cath 10ml Cardiovasc N/A: N/A CARDINAL Lkng Syr 6fr 7fr [facility] [id number] Implants Implanted: 05/07/2018 (Quantity not on file) [...] MMODE SPECTRAL 8:30 AM CDT COLOR DOPPLER ([id number]) POC GLUCOSE Routine 05/06/2018 8:09 AM CDT [...] STAT 05/04/2018 W/AUTO DIFF 12:25 AM CDT CA CRITICAL CARE, E/M Routine 05/04/2018 30-74 MINUTES 12:20 AM CDT ECG 12-LEAD STAT 05/04/2018 12:15 AM CDT POC GLUCOSE Routine 05/04/2018 12:02 AM CDT after 12/07/2017 Results * POC glucose (05/08/2018 11:37 AM CDT) Only the most recent of 23 results within the time period is included. POC glucose 249 (H) 65 - 99 mg/dL [facility] DEPARTMENT OF Comment: PATHOLOGY AND Meter ID: [id number] GENOMIC MEDICINE Shipping Specialist: Isadora Landaverde Performing Organization Address City/State/Zipcode Phone Number [facility] [address] [facility] [address] [place] [address] PATHOLOGY AND GENOMIC MEDICINE * Estimated GFR (05/08/2018 5:00 AM CDT) Only the most recent of 4 results within the time period is included. GFR Non Af Amer 37 (A) mL/min/1.[address] [facility] PATHOLOGY AND DICOM Grid MEDICINE GFR Af Amer 45 (A) mL/min/1.73 m2 [facility]MENT OF Comment: PATHOLOGY AND Chronic kidney [...] Americans. Specimen Plasma specimen Performing Organization Address City/[facility]/Zipcode Phone Number [address] [place] [id number] [facility] [employer] * Basic metabolic panel (05/08/2018 5:00 AM CDT) Only the most recent of 3 results within the time period is included. Sodium 136 135 - 148 mEq/L [facility] OF PATHOLOGY AND DICOM Grid MEDICINE Potassium 4.1 3.5 - 5.0 mEq/L [facility] OF PATHOLOGY AND DICOM Grid MEDICINE Chloride 102 99 - 109 mEq/L [facility] PATHOLOGY AND [employer] CO2 25 24 - 31 mEq/L [facility] PATHOLOGY AND [employer] Anion gap 9@ANIO 7 - 15 mEq/L [facility] OF PATHOLOGY AND DICOM Grid MEDICINE BUN 22 8 - 24 mg/dL [facility] OF PATHOLOGY AND DICOM Grid MEDICINE Creatinine 1.5 0.5 - 1.5 mg/dL [facility] PATHOLOGY AND [employer] Glucose 255 (H) 65 - 99 mg/dL [facility] PATHOLOGY AND [employer] Calcium 8.7 8.6 - 10.6 mg/dL [facility] PATHOLOGY AND [employer] Specimen Plasma specimen Performing Organization Address City/[facility]/Zipcode Phone Number [address] [place] [address] [employer] * Cv invasive peripheral vascular procedure (05/07/2018 [...] catheter was exchanged for a glide catheter. Jasper catheter was advanced into the right SFA [...] from peroneal and bridging collaterals for proximal MANAGER SUPPLY CHAIN. Foot vasculature appears heavily collateralized with good blush No complications Total dye appox 32 cc Conclusion: PAD as described above Plan: Hydration; mucomyst Bmp am Continue wound care and antibiotics. Feel she has adequate circulatation large vessel circulation at this time.Will discuss and review angiographic findings with Dr. Lupe Urrutia MD Performing Organization Address [facility] Phone Number [facility] [address] [place] [address] * Vancomycin level, random (05/07/2018 5:18 AM CDT) Vancomycin, random 16.2 ug/mL [facility]MENT OF Comment: PATHOLOGY AND Therapeutic Ranges: GENOMIC MEDICINE Peak 30.0 - 40.0 ug/mL Cukxbj46.0 - 20.0 ug/mL Specimen Blood Performing Organization Address [facility] [place] [address] PATHOLOGY AND GENOMIC MEDICINE * Sodium level, urine, random (05/06/2018 9:35 PM CDT) Sodium, urine, random 80 mEQ/L [facility] OF PATHOLOGY AND GENOMIC MEDICINE Specimen Urine Performing Organization Address [facility] Phone Number [address] [place] [phone] PATHOLOGY AND GENOMIC MEDICINE * Osmolality, urine (05/06/2018 9:35 PM CDT) Osmolality, urine 232 50 - 1,400 mOsm/kg [facility] OF PATHOLOGY AND GENOMIC MEDICINE Specimen Urine Performing Organization Address [facility] Phone Number [address] [place] [address] PATHOLOGY AND GENOMIC MEDICINE * Creatinine level, urine, random (05/06/2018 9:35 PM CDT) Creatinine, urine, random 17 mg/dL [facility] PATHOLOGY AND GENOMIC MEDICINE Specimen Urine Performing Organization Address [facility] Phone Number [address] [place] [address] PATHOLOGY AND GENOMIC MEDICINE * US Renal (05/06/2018 7:46 PM CDT) Narrative Performed At EXAMINATION:US RENAL [facility] CLINICAL HISTORY:Eleveted Creatinine COMPARISON:None. TECHNIQUE:Ultrasound evaluation of the kidneys and bladder. Findings: 1.The right kidney measures 12.4 x 5.9 x 5.9 cm.The left kidney measures 13.9 x 7.2 x 6.7 cm.Normal renal cortical echogenicity. 2.No hydronephrosis or solid mass lesions. 3.Bladder is unremarkable. IMPRESSION: 1.Unremarkable renal ultrasound. [facility]-[id number] Procedure Note Hm Interface, Radiology Results Incoming - 05/06/2018 9:56 [...] is unremarkable. IMPRESSION: 1. Unremarkable renal ultrasound. [facility]-[id number] Performing Organization Address [facility] Cent[facility] Phone Number [facility] [address] [place] [address] * Echocardiogram complete w contrast and 3D if needed (05/06/2018 8:30 AM CDT) AoV Area, Vmax 2.37 cm2 [facility] AoV Area, VTI 2.60 cm2 [facility] AoV Mean PG 5.00 mmHg HM [...] Address City/State/Zipcode Phone Number [facility] [address] [place] [address] * Vancomycin level, trough (05/06/2018 5:16 AM CDT) Vancomycin, trough 27.3 () 10.0 - 20.0 ug/mL [facility]MENT OF Comment: PATHOLOGY AND Therapeutic Ranges: GENOMIC MEDICINE Peak 30.0 - 40.0 ug/mL Pjklvd68.0 - 20.0 ug/mL Final results called to and read back by Tanisha Mackey RN/WN6W05/06/2018 06:21 [email or web address] Specimen Blood Performing Organization Address City/State/Zipcode Phone Number [facility] [address] [facility] [address] [place] [address] PATHOLOGY AND GENOMIC MEDICINE * Pv duplex [...] Mid: Triphasic Distal: Triphasic DORSALIS PEDIS: Triphasic [id number] Procedure Note Hm Interface, Radiology Results Incoming [...] Mid: Triphasic Distal: Triphasic DORSALIS PEDIS: Triphasic [id number] Performing Organization Address [facility] Phone Number [facility] [address] [place] [address] * Lactic acid level, SEPSIS - Now and repeat 2x every 3 hours (05/04/2018 5:55 AM CDT) Only the most recent of 2 results within the time period is included. Lactic acid 2.2 0.5 - 2.2 mmol/L [facility] OF PATHOLOGY AND GENOMIC MEDICINE Specimen Blood Performing Organization Address [facility] Cent[facility]ode Phone [place] [address] [place] [address] PATHOLOGY AND GENOMIC MEDICINE * XR Foot [...] dislocation. No definite radiographic evidence of osteomyelitis. [facility]-[id number] Procedure Note Hm Interface, Radiology Results Incoming - 05/04/2018 2:15 [...] dislocation. No definite radiographic evidence of osteomyelitis. [facility]-[id number] Performing Organization Address [facility] Phone Number [facility] [address] [place] [address] * XR Foot 3+ Vw Right (05/04/2018 [...] bone. 2. No radiographic evidence for osteomyelitis. [facility]-[id number] Procedure Note Interface, Radiology Results Incoming - [...] bone. 2. No radiographic evidence for osteomyelitis. [facility]-[id number] Performing Organization Address [facility] Phone Number [facility] [address] [place] [id number] * Blood culture, aerobic & anaerobic (05/04/2018 12:55 AM CDT) Only the most recent of 2 results within the time period is included. Blood culture isolate No growth after 5 days of [facility] DEPARTMENT OF incubation. PATHOLOGY AND Comment: GENOMIC MEDICINE Specimen Information Specimen Source: Blood Specimen Site: Hand, right Specimen Blood - Hand, right Performing Organization Address [facility] [place] Phone Number [facility] DEPARTMENT OF [address] [place] [address] PATHOLOGY AND GENOMIC MEDICINE * Urinalysis screen and microscopy, with reflex to culture (05/04/2018 12:30 AM CDT) Specimen site Clean catch [facility] OF PATHOLOGY AND GENOMIC MEDICINE Color, UA Yellow YELLOW [facility] GENOMIC MEDICINE Appearance, UA Clear Clear [facility] PATHOLOGY AND GENOMIC MEDICINE Specific gravity, UA 1.022 1.005 - 1.030 [facility] DE[facility] OF PATHOLOGY AND GENOMIC MEDICINE pH, UA 6.0 5.0 - 8.0 [facility] OF PATHOLOGY AND GENOMIC MEDICINE Protein, UA 3+ (A) Negative [facility] OF PATHOLOGY AND GENOMIC MEDICINE Glucose, UA 3+ (A) Negative [facility] DEPARTMENT OF PATHOLOGY AND GENOMIC MEDICINE Ketones, UA Negative Negative [facility] OF PATHOLOGY AND GENOMIC MEDICINE Bilirubin, UA Negative Negative [facility] DE[facility] OF PATHOLOGY AND GENOMIC MEDICINE Blood, UA Small (A) Negative [facility] OF PATHOLOGY AND GENOMIC MEDICINE Nitrite, UA Negative NEGATIVE [facility] DE[facility] OF PATHOLOGY AND GENOMIC MEDICINE Urobilinogen, UA <2.0 <2.0 E.U./dL [facility] DEPARTMENT OF PATHOLOGY AND GENOMIC MEDICINE Leukocyte esterase, UA Negative Negative [facility] OF PATHOLOGY AND GENOMIC MEDICINE Epithelial cells, UA <1 0 - 15 /HPF [facility] DE[facility]MENT OF PATHOLOGY AND GENOMIC MEDICINE WBC, UA 2 0 - 5 /Hpf [facility]MENT OF PATHOLOGY AND GENOMIC MEDICINE RBC, UA <1 0 - 5 /HPF [facility]MENT OF PATHOLOGY AND GENOMIC MEDICINE Bacteria, UA None seen None seen [facility]MENT OF PATHOLOGY AND GENOMIC MEDICINE Yeast, UA None seen None Seen [facility]MENT OF PATHOLOGY AND GENOMIC MEDICINE Yeast with pseudohyphae, None seen [facility] OF UA PATHOLOGY AND GENOMIC MEDICINE Specimen Urine Performing Organization Address City/State/Zipcode Phone Number [address] [place] [address] PATHOLOGY AND GENOMIC MEDICINE * Urine culture (05/04/2018 12:30 AM CDT) Urine culture SEE COMMENTComment: [facility] DEPARTMENT OF Bacteriuria screen negative. PATHOLOGY AND GENOMIC MEDICINE Specimen Urine Performing Organization Address [facility] [place] [address] PATHOLOGY AND GENOMIC MEDICINE * Beta hydroxybutyrate (05/04/2018 12:25 AM CDT) Beta hydroxybutyrate 0.18 0.02 - 0.27 mmol/L [facility] OF PATHOLOGY AND GENOMIC MEDICINE Specimen Serum Performing Organization Address City/[facility] Phone Number [address] [place] [address] PATHOLOGY AND GENOMIC MEDICINE * CBC with platelet and differential (05/04/2018 12:25 AM CDT) WBC 9.1 4.5 - 11.0 k/uL [facility] DEPARTMENT OF PATHOLOGY AND GENOMIC MEDICINE RBC 3.66 (L) 4.20 - 5.50 M/uL [facility]MENT OF PATHOLOGY AND GENOMIC MEDICINE HGB 11.1 (L) 14.0 - 18.0 g/dL [facility]MENT OF PATHOLOGY AND GENOMIC MEDICINE HCT 32.1 (L) 37.0 - 47.0 % [facility]MENT OF PATHOLOGY AND GENOMIC MEDICINE MCV 87.7 82.0 - 100.0 fL [facility]MENT OF PATHOLOGY AND GENOMIC MEDICINE MCH 30.3 27.0 - 34.0 pg [facility]MENT OF PATHOLOGY AND GENOMIC MEDICINE MCHC 34.6 31.0 - 37.0 g/dL [facility] DE[facility]MENT OF PATHOLOGY AND GENOMIC MEDICINE RDW - SD 39.8 37.0 - 55.0 fL [facility]MENT OF PATHOLOGY AND GENOMIC MEDICINE MPV 10.7 8.8 - 13.2 fL [facility]MENT OF PATHOLOGY AND GENOMIC MEDICINE Platelet count 261 150 - 400 K/uL [facility]MENT OF PATHOLOGY AND GENOMIC MEDICINE Nucleated RBC 0.00 /100 WBC [facility] DE[facility]MENT OF PATHOLOGY AND GENOMIC MEDICINE Neutrophils 56.9 39.0 - 69.0 % [facility]MENT OF PATHOLOGY AND GENOMIC MEDICINE Lymphocytes 34.6 25.0 - 45.0 % [facility]MENT OF PATHOLOGY AND GENOMIC MEDICINE Monocytes 6.1 0.0 - 10.0 % [facility]MENT OF PATHOLOGY AND GENOMIC MEDICINE Eosinophils 1.8 0.0 - 5.0 % [facility]MENT OF PATHOLOGY AND GENOMIC MEDICINE Basophils 0.2 0.0 - 1.0 % [facility]MENT OF PATHOLOGY AND GENOMIC MEDICINE Immature granulocytes 0.4Comment: "Immature 0.0 - 1.0 % [facility]MENT OF granulocytes" (promyelocytes, PATHOLOGY AND myelocytes, metamyelocytes) GENOMIC MEDICINE Specimen Blood Performing Organization Address City/[facility] [place] [address] PATHOLOGY [facility] DICOM Grid [facility] * Lactic acid level (05/04/2018 12:25 AM CDT) Lactic acid 3.0 (H) 0.5 - 2.2 mmol/L [facility] OF PATHOLOGY AND GENOMIC MEDICINE Specimen Blood Performing Organization Address [facility] [place] [address] PATHOLOGY [facility] DICOM Grid [facility] * Venous blood gas (05/04/2018 12:25 AM CDT) pH, venous 7.31 (L) 7.32 - 7.42 [facility]MENT OF PATHOLOGY AND GENOMIC MEDICINE pCO2, venous 56 (H) 45 - 51 mmHg [facility]MENT OF PATHOLOGY AND GENOMIC MEDICINE pO2, venous 25 25 - 40 mmHg [facility] OF PATHOLOGY AND GENOMIC MEDICINE Base excess, venous 1 -2 - 2 mEq/L [facility]MENT OF PATHOLOGY AND GENOMIC MEDICINE O2 saturation, venous 40 40 - 70 % [facility]MENT OF PATHOLOGY AND GENOMIC MEDICINE Bicarbonate, venous 27.7 21.0 - 28.0 [facility] PATHOLOGY AND GENOMIC MEDICINE Specimen Blood Performing Organization Address [facility] [place] [address] PATHOLOGY AND GENOMIC MEDICINE * Comprehensive metabolic panel (05/04/2018 12:25 AM CDT) Sodium 131 (L) 135 - 148 mEq/L [facility]MENT OF PATHOLOGY AND GENOMIC MEDICINE Potassium 3.9 3.5 - 5.0 mEq/L [facility]MENT OF PATHOLOGY AND GENOMIC MEDICINE Chloride 93 (L) 99 - 109 mEq/L [facility]MENT OF PATHOLOGY AND GENOMIC MEDICINE CO2 28 24 - 31 mEq/L [facility]MENT OF PATHOLOGY AND GENOMIC MEDICINE Anion gap 10@ANIO 7 - 15 mEq/L [facility] DEPARTMENT OF PATHOLOGY AND GENOMIC MEDICINE BUN 29 (H) 8 - 24 mg/dL [facility]MENT OF PATHOLOGY AND GENOMIC MEDICINE Creatinine 1.3 0.5 - 1.5 mg/dL [facility]MENT OF PATHOLOGY AND GENOMIC MEDICINE Glucose 518 (HH) 65 - 99 mg/dL [facility] DEPARTMENT OF Comment: PATHOLOGY AND Final results called to and GENOMIC MEDICINE read back by Dr. Lei/BROOKS at01:30 05/04/2018 ml. Calcium 9.4 8.6 - 10.6 mg/dL [facility]PARTMENT OF PATHOLOGY AND GENOMIC MEDICINE Protein 6.6 6.3 - 8.2 g/dL [facility]MENT OF PATHOLOGY AND GENOMIC MEDICINE Albumin 1.8 (L) 3.5 - 5.0 g/dL [facility]MENT OF PATHOLOGY AND GENOMIC MEDICINE A/G ratio 0.38 (L) 0.70 - 3.80 [facility] OF PATHOLOGY AND GENOMIC MEDICINE Alkaline phosphatase 115 30 - 115 U/L [facility] DEPARTMENT OF PATHOLOGY AND GENOMIC MEDICINE AST SEE COMMENT 15 - 46 U/L [facility] DEPARTMENT OF Comment: PATHOLOGY AND No report GENOMIC MEDICINE Specimen markedly lipemic. Notified Dr. Lei/BROOKS at01: mlhc. ALT SEE COMMENT 10 - 55 U/L [facility] DEPARTMENT OF Comment: PATHOLOGY AND No report GENOMIC MEDICINE Specimen markedly lipemic. Notified Dr. Trammell at01: ml. Total bilirubin <0.2 0.2 - 1.2 mg/dL [facility] DEPARTMENT OF PATHOLOGY AND GENOMIC MEDICINE Specimen Plasma specimen Performing Organization Address City/State/Zipcode Phone Number 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 For more information, raul e contact: Avinash Allison [address] [place] [address]
--- NOTE | 2018-12-08 17:48 | NUR ---
PATIENT TO ROOM 6
[2018-12-08 18:17] LABS: BASOPHILS % 0.2 % (0.0-1.0); EOSINOPHILS # (AUTO) 0.4 (0.0-0.4); EOSINOPHILS % 3.1 % (0.0-6.0); HEMATOCRIT 29.8 % (34.2-44.1); HEMOGLOBIN 9.7 g/dL (12.0-16.0); LYMPHOCYTES # (AUTO) 2.6 (1.0-3.2); LYMPHOCYTES % 21.1 % (18.0-39.1); MEAN CORPUSCULAR HEMOGLOBIN 28.8 pg (28-32); MEAN CORPUSCULAR HGB CONC 32.6 g/dL (31-35); MEAN CORPUSCULAR VOLUME 88.4 fL (81-99); MONOCYTES # (AUTO) 0.7 (0.2-0.8); MONOCYTES % 5.5 % (4.4-11.3); NEUTROPHILS # (AUTO) 8.6 (2.1-6.9); NEUTROPHILS % 69.5 % (38.7-80.0); PLATELET COUNT 551 x10e3/uL (140-360); RED BLOOD COUNT 3.37 x10e6/uL (3.6-5.1); RED CELL DISTRIBUTION WIDTH 13.8 % (11.7-14.4)
[2018-12-08] MEDS ORDERED: NIFEDIPINE 10 MG CAP PO ONE ×2 (18:23→18:25)
[2018-12-08 18:32] LABS: ALBUMIN 2.9 g/dL (3.5-5.0); ALBUMIN/GLOBULIN RATIO 0.6 (0.8-2.0); ANION GAP 15.2 mmol/L (8-16); CALCIUM 9.8 mg/dL (8.4-10.2); CREATININE, SERUM 1.5 mg/dL (0.57-1.11); POTASSIUM 4.2 mmol/L (3.5-5.1)
--- NOTE | 2018-12-08 18:45 | NUR ---
DR. LUGO AT BEDSIDE EVALUATING PATIENT
[2018-12-08] MEDS ORDERED: DEXTROSE 50% SYRINGE 50 ML IV PRN (19:15)
[2018-12-08] MEDS ORDERED: MORPHINE SULFATE 2 MG/ML SYR 1ML IV PRN (19:15)
--- NOTE | 2018-12-08 19:19 | NUR ---
REPORT TO KIERSTEN Bolanos
--- OUTSIDE RECORDS SUMMARY | 2018-12-08 19:32 | XMS REPORT | Clinical Summary ---
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 Name Role Phone Romel Davis MD PCP [...] selective to SFA, angiogram on Rt angiogram [12389 (CPT)] 05/07/2018 Surgery Procedural Cardiology Vero, MD Miriam Jaramillo Imran Sattar, MD Hyperglycemia (Primary Dx); Hyponatremia; Lactic acidemia 05/04/2018 [facility] General Internal Medicine - Encounter 05/08/2018 [...] Lot Implanted Type Area Manufactur er 04/26/2020 [id number] / / [id number] Device Vasclr Clsr Baln Cath 10ml Cardiovasc N/A: N/A CARDINAL Lkng Syr 6fr 7fr [facility] [id number] Implants Implanted: 05/07/2018 (Quantity not on file) [...] MMODE SPECTRAL 8:30 AM CDT COLOR DOPPLER ([id number]) POC GLUCOSE Routine 05/06/2018 8:09 AM CDT [...] STAT 05/04/2018 W/AUTO DIFF 12:25 AM CDT MA CRITICAL CARE, E/M Routine 05/04/2018 30-74 MINUTES 12:20 AM CDT ECG 12-LEAD STAT 05/04/2018 12:15 AM CDT POC GLUCOSE Routine 05/04/2018 12:02 AM CDT after 12/07/2017 Results * POC glucose (05/08/2018 11:37 AM CDT) Only the most recent of 23 results within the time period is included. POC glucose 249 (H) 65 - 99 mg/dL [facility] DEPARTMENT OF Comment: PATHOLOGY AND Meter ID: [id number] GENOMIC MEDICINE Core Winder Machine Operator: Isadora Landaverde Performing Organization Address City/State/Zipcode Phone Number [facility] [address] [place] [address] PATHOLOGY AND GENOMIC MEDICINE * Estimated GFR (05/08/2018 5:00 AM CDT) Only the most recent of 4 results within the time period is included. GFR Non Af Amer 37 (A) mL/min/1.73 m2 [facility] PATHOLOGY AND [employer] MEDICINE GFR Af Amer 45 (A) mL/min/1.73 m2 [facility] DEPARTMENT OF Comment: PATHOLOGY AND Chronic [...] Americans. Specimen Plasma specimen Performing Organization Address City/[facility]/Zipcode Phone Number [address] [place] [phone] [facility] trend.ly * Basic metabolic panel (05/08/2018 5:00 AM CDT) Only the most recent of 3 results within the time period is included. Sodium 136 135 - 148 mEq/L [facility] OF PATHOLOGY AND [employer] MEDICINE Potassium 4.1 3.5 - 5.0 mEq/L [facility] OF PATHOLOGY AND [employer] MEDICINE Chloride 102 99 - 109 mEq/L [facility] PATHOLOGY AND [employer] CO2 25 24 - 31 mEq/L [facility] PATHOLOGY AND trend[employer]ly Anion gap 9@ANIO 7 - 15 mEq/L [facility] OF PATHOLOGY AND [employer] MEDICINE BUN 22 8 - 24 mg/dL [facility] OF PATHOLOGY AND [employer] MEDICINE Creatinine 1.5 0.5 - 1.5 mg/dL [facility] PATHOLOGY AND [employer] Glucose 255 (H) 65 - 99 mg/dL [facility] PATHOLOGY AND [employer]ly Calcium 8.7 8.6 - 10.6 mg/dL [facility] PATHOLOGY AND [employer]ly Specimen Plasma specimen Performing Organization Address City/[facility]/Zipcode Phone Number [address] [place] [address] [place] * Cv invasive peripheral vascular procedure (05/07/2018 [...] catheter was exchanged for a glide catheter. 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 Foot vasculature appears heavily collateralized with good blush No complications Total dye appox 32 cc Conclusion: PAD as described above Plan: Hydration; mucomyst Bmp am Continue wound care and antibiotics. Feel she has adequate circulatation large vessel circulation at this time.Will discuss and review angiographic findings with Dr. Lupe Urrutia MD Performing Organization Address [facility] Phone Number [facility] [address] [place] [address] * Vancomycin level, random (05/07/2018 5:18 AM CDT) Vancomycin, random 16.2 ug/mL [facility] DEPARTMENT OF Comment: PATHOLOGY AND Therapeutic Ranges: GENOMIC MEDICINE Peak 30.0 - 40.0 ug/mL Ztznsg67.0 - 20.0 ug/mL Specimen Blood Performing Organization Address [facility] [place] [address] PATHOLOGY AND GENOMIC MEDICINE * Sodium level, urine, random (05/06/2018 9:35 PM CDT) Sodium, urine, random 80 mEQ/L [facility] DEPARTMENT OF PATHOLOGY AND GENOMIC MEDICINE Specimen Urine Performing Organization Address [facility] Phone Number [address] [place] [phone] PATHOLOGY AND GENOMIC MEDICINE * Osmolality, urine (05/06/2018 9:35 PM CDT) Osmolality, urine 232 50 - 1,400 mOsm/kg [facility] DEPARTMENT OF PATHOLOGY AND GENOMIC MEDICINE Specimen Urine Performing Organization Address [facility] Phone Number [address] [place] [address] PATHOLOGY AND GENOMIC MEDICINE * Creatinine level, urine, random (05/06/2018 9:35 PM CDT) Creatinine, urine, random 17 mg/dL [facility] DEPARTMENT PATHOLOGY AND GENOMIC MEDICINE Specimen Urine Performing Organization Address [facility] Phone Number [address] [place] [address] PATHOLOGY AND GENOMIC MEDICINE * US Renal [...] 3.Bladder is unremarkable. IMPRESSION: 1.Unremarkable renal ultrasound. [facility]-[id number] Procedure Note Hm Interface, Radiology Results Incoming [...] is unremarkable. IMPRESSION: 1. Unremarkable renal ultrasound. [facility]-[id number] Performing Organization Address [facility] Phone Number [facility] [address] [place] [address] * Echocardiogram complete w contrast and 3D [...] Address City/State/Zipcode Phone Number [facility] [address] [place] [address] * Vancomycin level, trough (05/06/2018 5:16 AM CDT) Vancomycin, trough 27.3 () 10.0 - 20.0 ug/mL [facility] DEPARTMENT OF Comment: PATHOLOGY AND Therapeutic Ranges: GENOMIC MEDICINE Peak 30.0 - 40.0 ug/mL Mlqklo78.0 - 20.0 ug/mL Final results called to and read back by Tanisha Mackey RN/WN6W05/06/2018 06:21 [email or web address] Specimen Blood Performing Organization Address City/State/Zipcode Phone Number [facility] [address] [place] [address] PATHOLOGY AND GENOMIC MEDICINE * Pv duplex [...] Mid: Triphasic Distal: Triphasic DORSALIS PEDIS: Triphasic [id number] Procedure Note Hm Interface, Radiology Results Incoming [...] Mid: Triphasic Distal: Triphasic DORSALIS PEDIS: Triphasic [id number] Performing Organization Address [facility] Phone Number ADARSH [address] [place] [address] * Lactic acid level, SEPSIS - Now and repeat 2x every 3 hours (05/04/2018 5:55 AM CDT) Only the most recent of 2 results within the time period is included. Lactic acid 2.2 0.5 - 2.2 mmol/L [facility] DEPARTMENT OF PATHOLOGY AND GENOMIC MEDICINE Specimen Blood Performing Organization Address [facility] Phone Number [facility] [place] [place] [address] [place] [address] PATHOLOGY AND GENOMIC MEDICINE * XR Foot [...] dislocation. No definite radiographic evidence of osteomyelitis. [facility]-[id number] Procedure Note Hm Interface, Radiology Results Incoming [...] dislocation. No definite radiographic evidence of osteomyelitis. [facility]-[id number] Performing Organization Address [facility] Phone Number ADARSH [address] [place] [address] * XR Foot 3+ Vw Right (05/04/2018 [...] bone. 2. No radiographic evidence for osteomyelitis. [facility]-[id number] Procedure Note Interface, Radiology Results Incoming - [...] bone. 2. No radiographic evidence for osteomyelitis. [facility]-[id number] Performing Organization Address [facility] Phone Number [facility] [address] [place] [phone] * Blood culture, aerobic & anaerobic (05/04/2018 12:55 AM CDT) Only the most recent of 2 results within the time period is included. Blood culture isolate No growth after 5 days of [facility] DEPARTMENT OF incubation. PATHOLOGY AND Comment: GENOMIC MEDICINE Specimen Information Specimen Source: Blood Specimen Site: Hand, right Specimen Blood - Hand, right Performing Organization Address [facility] Phone Number [facility] DEPARTMENT OF [address] [place] [address] PATHOLOGY AND GENOMIC MEDICINE * Urinalysis screen and microscopy, with reflex to culture (05/04/2018 12:30 AM CDT) Specimen site Clean catch [facility] DEPARTMENT OF PATHOLOGY AND GENOMIC MEDICINE Color, UA Yellow YELLOW [facility] AND GENOMIC MEDICINE Appearance, UA Clear Clear [facility] DE[facility] PATHOLOGY AND GENOMIC MEDICINE Specific gravity, UA 1.022 1.005 - 1.030 [facility] DE[facility] OF PATHOLOGY AND GENOMIC MEDICINE pH, UA 6.0 5.0 - 8.0 [facility] DE[facility] PATHOLOGY AND GENOMIC MEDICINE Protein, UA 3+ (A) Negative [facility] DE[facility] PATHOLOGY AND GENOMIC MEDICINE Glucose, UA 3+ (A) Negative [facility] DEPARTMENT OF PATHOLOGY AND GENOMIC MEDICINE Ketones, UA Negative Negative [facility] PATHOLOGY AND GENOMIC MEDICINE Bilirubin, UA Negative Negative [facility] DE[facility] OF PATHOLOGY AND GENOMIC MEDICINE Blood, UA Small (A) Negative [facility] DE[facility] OF PATHOLOGY AND GENOMIC MEDICINE Nitrite, UA Negative NEGATIVE [facility] DE[facility] OF PATHOLOGY AND GENOMIC MEDICINE Urobilinogen, UA <2.0 <2.0 E.U./dL [facility] DEPARTMENT OF PATHOLOGY AND GENOMIC MEDICINE Leukocyte esterase, UA Negative Negative [facility] DEPARTMENT OF PATHOLOGY AND GENOMIC MEDICINE Epithelial cells, UA <1 0 - 15 /HPF [facility] DEPARTMENT OF PATHOLOGY AND GENOMIC MEDICINE WBC, UA 2 0 - 5 /Hpf [facility] DEPARTMENT OF PATHOLOGY AND GENOMIC MEDICINE RBC, UA <1 0 - 5 /HPF [facility] DEPARTMENT OF PATHOLOGY AND GENOMIC MEDICINE Bacteria, UA None seen None seen [facility] DEPARTMENT OF PATHOLOGY AND GENOMIC MEDICINE Yeast, UA None seen None Seen [facility] DEPARTMENT OF PATHOLOGY AND GENOMIC MEDICINE Yeast with pseudohyphae, None seen [facility] DEPARTMENT OF UA PATHOLOGY AND GENOMIC MEDICINE Specimen Urine Performing Organization Address City/State/Zipcode Phone Number [address] [place] [address] PATHOLOGY AND GENOMIC MEDICINE * Urine culture (05/04/2018 12:30 AM CDT) Urine culture SEE COMMENTComment: [facility] DEPARTMENT OF Bacteriuria screen negative. PATHOLOGY AND GENOMIC MEDICINE Specimen Urine Performing Organization Address [facility] [place] [address] PATHOLOGY AND GENOMIC MEDICINE * Beta hydroxybutyrate (05/04/2018 12:25 AM CDT) Beta hydroxybutyrate 0.18 0.02 - 0.27 mmol/L [facility] DEPARTMENT OF PATHOLOGY AND GENOMIC MEDICINE Specimen Serum Performing Organization Address City/[facility] Phone Number [address] [place] [address] PATHOLOGY AND GENOMIC MEDICINE * CBC with platelet and differential (05/04/2018 12:25 AM CDT) WBC 9.1 4.5 - 11.0 k/uL [facility] DEPARTMENT OF PATHOLOGY AND GENOMIC MEDICINE RBC 3.66 (L) 4.20 - 5.50 M/uL [facility] DEPARTMENT OF PATHOLOGY AND GENOMIC MEDICINE HGB 11.1 (L) 14.0 - 18.0 g/dL [facility] DEPARTMENT OF PATHOLOGY AND GENOMIC MEDICINE HCT 32.1 (L) 37.0 - 47.0 % [facility] DEPARTMENT OF PATHOLOGY AND GENOMIC MEDICINE MCV 87.7 82.0 - 100.0 fL [facility] DEPARTMENT OF PATHOLOGY AND GENOMIC MEDICINE MCH 30.3 27.0 - 34.0 pg [facility] DEPARTMENT OF PATHOLOGY AND GENOMIC MEDICINE MCHC 34.6 31.0 - 37.0 g/dL [facility] DEPARTMENT OF PATHOLOGY AND GENOMIC MEDICINE RDW - SD 39.8 37.0 - 55.0 fL [facility] DEPARTMENT OF PATHOLOGY AND GENOMIC MEDICINE MPV 10.7 8.8 - 13.2 fL [facility] DEPARTMENT OF PATHOLOGY AND GENOMIC MEDICINE Platelet count 261 150 - 400 K/uL [facility] DEPARTMENT OF PATHOLOGY AND GENOMIC MEDICINE Nucleated RBC 0.00 /100 WBC [facility] DEPARTMENT OF PATHOLOGY AND GENOMIC MEDICINE Neutrophils 56.9 39.0 - 69.0 % [facility] DEPARTMENT OF PATHOLOGY AND GENOMIC MEDICINE Lymphocytes 34.6 25.0 - 45.0 % [facility] DEPARTMENT OF PATHOLOGY AND GENOMIC MEDICINE Monocytes 6.1 0.0 - 10.0 % [facility] DEPARTMENT OF PATHOLOGY AND GENOMIC MEDICINE Eosinophils 1.8 0.0 - 5.0 % [facility] DEPARTMENT OF PATHOLOGY AND GENOMIC MEDICINE Basophils 0.2 0.0 - 1.0 % [facility] DEPARTMENT OF PATHOLOGY AND GENOMIC MEDICINE Immature granulocytes 0.4Comment: "Immature 0.0 - 1.0 % [facility] DEPARTMENT OF granulocytes" (promyelocytes, PATHOLOGY AND myelocytes, metamyelocytes) GENOMIC MEDICINE Specimen Blood Performing Organization Address City/[facility] [place] [address] PATHOLOGY [employer] [facility] * Lactic acid level (05/04/2018 12:25 AM CDT) Lactic acid 3.0 (H) 0.5 - 2.2 mmol/L [facility] DEPARTMENT OF PATHOLOGY AND GENOMIC MEDICINE Specimen Blood Performing Organization Address [facility] [place] [address] PATHOLOGY [employer] [facility] * Venous blood gas (05/04/2018 12:25 AM CDT) pH, venous 7.31 (L) 7.32 - 7.42 [facility] DEPARTMENT OF PATHOLOGY AND GENOMIC MEDICINE pCO2, venous 56 (H) 45 - 51 mmHg [facility] DEPARTMENT OF PATHOLOGY AND GENOMIC MEDICINE pO2, venous 25 25 - 40 mmHg [facility] DEPARTMENT OF PATHOLOGY AND GENOMIC MEDICINE Base excess, venous 1 -2 - 2 mEq/L [facility] DEPARTMENT OF PATHOLOGY AND GENOMIC MEDICINE O2 saturation, venous 40 40 - 70 % [facility] DEPARTMENT OF PATHOLOGY AND GENOMIC MEDICINE Bicarbonate, venous 27.7 21.0 - 28.0 [facility] DEPARTMENT PATHOLOGY AND GENOMIC MEDICINE Specimen Blood Performing Organization Address [facility] [place] [address] PATHOLOGY AND GENOMIC MEDICINE * Comprehensive metabolic panel (05/04/2018 12:25 AM CDT) Sodium 131 (L) 135 - 148 mEq/L [facility] DEPARTMENT OF PATHOLOGY AND GENOMIC MEDICINE Potassium 3.9 3.5 - 5.0 mEq/L [facility] DEPARTMENT OF PATHOLOGY AND GENOMIC MEDICINE Chloride 93 (L) 99 - 109 mEq/L [facility] DEPARTMENT OF PATHOLOGY AND GENOMIC MEDICINE CO2 28 24 - 31 mEq/L [facility] DEPARTMENT OF PATHOLOGY AND GENOMIC MEDICINE Anion gap 10@ANIO 7 - 15 mEq/L [facility] DEPARTMENT OF PATHOLOGY AND GENOMIC MEDICINE BUN 29 (H) 8 - 24 mg/dL [facility] DEPARTMENT OF PATHOLOGY AND GENOMIC MEDICINE Creatinine 1.3 0.5 - 1.5 mg/dL [facility] DEPARTMENT OF PATHOLOGY AND GENOMIC MEDICINE Glucose 518 (HH) 65 - 99 mg/dL [facility] DEPARTMENT OF Comment: PATHOLOGY AND Final results called to and GENOMIC MEDICINE read back by Dr. Lei/BROOKS at01:30 05/04/2018 ml. Calcium 9.4 8.6 - 10.6 mg/dL [facility] DEPARTMENT OF PATHOLOGY AND GENOMIC MEDICINE Protein 6.6 6.3 - 8.2 g/dL [facility] DEPARTMENT OF PATHOLOGY AND GENOMIC MEDICINE Albumin 1.8 (L) 3.5 - 5.0 g/dL [facility] DEPARTMENT OF PATHOLOGY AND GENOMIC MEDICINE A/G ratio 0.38 (L) 0.70 - 3.80 [facility] DEPARTMENT OF PATHOLOGY AND GENOMIC MEDICINE Alkaline phosphatase 115 30 - 115 U/L [facility] DEPARTMENT OF PATHOLOGY AND GENOMIC MEDICINE AST SEE COMMENT 15 - 46 U/L [facility] DEPARTMENT OF Comment: PATHOLOGY AND No report GENOMIC MEDICINE Specimen markedly lipemic. Notified Dr. Lei/BROOKS at01: mlhc. ALT SEE COMMENT 10 - 55 U/L [facility] DEPARTMENT OF Comment: PATHOLOGY AND No report GENOMIC MEDICINE Specimen markedly lipemic. Notified Dr. Trammell at01: ml. Total bilirubin <0.2 0.2 - 1.2 mg/dL [facility] DEPARTMENT OF PATHOLOGY AND GENOMIC MEDICINE Specimen Plasma specimen Performing Organization Address City/State/Zipcode Phone Number 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 For more information, raul e contact: Avinash Allison [address] [place] [address]
[2018-12-08] MEDS: LINEZOLID 600 MG/D5W 300ML 300 ML IV SCH (20:18)
[2018-12-08] MEDS: SODIUM CHLORIDE 0.9% 1000ML 1,000 ML IV SCH (20:47)
[2018-12-08 21:00] VITALS: BP 157/68
[2018-12-08 21:30] VITALS: BP 157/68
[2018-12-08] MEDS: INSULIN REGULAR, HUMAN 100 UNIT/1 ML 3ML VIAL SQ SCH (21:30)
--- NOTE | 2018-12-08 21:45 | NUR ---
Patient received via stretcher from ER. Admission history obtained and Initial Physical assessment conducted. Patient is AAO x 3. Patient had no complaints of pain. Respirations even and non-labored. Patient oriented to room, call light and plan of care. Bed locked and in lowest position. Bed rails up x 3. Patient instructed to call for assistance when needed. Call light within reach. Addendum: 12/09/18 at 0353 by Jaylan James RN Bed rails up x 2 not x 3.
[2018-12-08] MEDS: MORPHINE SULFATE INJ 4 MG/ML INJ 1ML IV PRN (22:20)
--- NOTE | 2018-12-08 22:30 | NUR ---
Dressing to left foot changed. Moderate serous drainage noted underneath site of amputated great toe. Patient tolerated well.
[2018-12-08] MEDS: PIPER-TAZ 3.375 GM 50 ML IV SCH (22:50)
[2018-12-09] VITALS: BP 141/64
[2018-12-09] MEDS: PIPER-TAZ 3.375 GM 50 ML IV SCH ×4 (03:17→21:45)
[2018-12-09] MEDS: SODIUM CHLORIDE 0.9% 1000ML 1,000 ML IV SCH (03:17)
[2018-12-09 04:00] VITALS: BP 130/61
[2018-12-09 05:10] LABS: BASOPHILS % 0.2 % (0.0-1.0); EOSINOPHILS # (AUTO) 0.4 (0.0-0.4); EOSINOPHILS % 3.9 % (0.0-6.0); HEMATOCRIT 25.4 % (34.2-44.1); HEMOGLOBIN 8.2 g/dL (12.0-16.0); LYMPHOCYTES # (AUTO) 3.1 (1.0-3.2); LYMPHOCYTES % 33.3 % (18.0-39.1); MEAN CORPUSCULAR HEMOGLOBIN 28.7 pg (28-32); MEAN CORPUSCULAR HGB CONC 32.3 g/dL (31-35); MEAN CORPUSCULAR VOLUME 88.8 fL (81-99); MONOCYTES # (AUTO) 0.7 (0.2-0.8); MONOCYTES % 7.2 % (4.4-11.3); NEUTROPHILS # (AUTO) 5.1 (2.1-6.9); PLATELET COUNT 441 x10e3/uL (140-360); RED BLOOD COUNT 2.86 x10e6/uL (3.6-5.1); RED CELL DISTRIBUTION WIDTH 13.8 % (11.7-14.4)
[2018-12-09 05:28] LABS: PARTIAL THROMBOPLASTIN TIME 37.2 seconds (23.8-35.5); PROTHROMBIN TIME 14.1 seconds (11.9-14.5)
[2018-12-09 05:40] LABS: ANION GAP 13.6 mmol/L (8-16); CREATININE, SERUM 1.42 mg/dL (0.57-1.11); POTASSIUM 4.6 mmol/L (3.5-5.1)
--- NOTE | 2018-12-09 06:11 | NUR ---
Dr. Magalys Jaimes notified of "Routine Consult:. Reason for Consultation: Chest Pain. Addendum: 12/09/18 at 0615 by Jaylan James RN Disregard note. Entry for wrong patient.
--- NOTE | 2018-12-09 06:15 | NUR ---
Dr. Elvira Lau paged twice for notification of "Stat Consult" for DFU but was not available.
--- NOTE | 2018-12-09 07:02 | NUR ---
Received patient mid fowlers position, side rails upx2, call light within reach. AAOX4 to time, person,place, situation. Respirations even and unlabored. Dressing to bilateral feet clean, dry, and intact. Instructed patient to use call light for assistance. Voiced understanding.
[2018-12-09] MEDS: INSULIN REGULAR, HUMAN 100 UNIT/1 ML 3ML VIAL SQ SCH ×4 (07:30→21:00)
[2018-12-09 08:00] VITALS: BP 141/65
[2018-12-09] MEDS: LINEZOLID 600 MG/D5W 300ML 300 ML IV SCH (08:01)
[2018-12-09] MEDS: ONDANSETRON HCL INJ 2MG/ML 2ML 2 MG/ML VIAL IV PRN ×3 (08:01→22:16)
[2018-12-09] MEDS: METOPROLOL SUCCINATE 25 MG TAB XL PO SCH (09:21)
[2018-12-09] MEDS: GABAPENTIN 300 MG CAP PO SCH ×3 (09:21→21:45)
[2018-12-09] MEDS: NIFEDIPINE CR 30 MG TAB PO SCH (09:21)
[2018-12-09] MEDS: NPH, HUMAN INSULIN ISOPHANE 100 UNIT/1 ML 3ML VIAL SQ SCH ×2 (09:22→21:00)
--- NOTE | 2018-12-09 12:12 | Diagnostic Imaging Report ---
MRI of the left forefoot without contrast. History: Cellulitis. Osteomyelitis. Diabetes. Ulcer left ball of the foot. Decreased range of motion. Technique: Multiplanar multisequence MRI of the foot without contrast Comparison: MRI 09/21/2018 Findings: Prior amputation across the first through third metatarsal heads. Soft tissue ulceration with sinus tract extending distal to the first metatarsal. Ill-defined soft tissue phlegmon measuring approximately 2.0 cm previously 3.8 cm in greatest dimension. Bone marrow edema and mild T1 replacement involving the medial sesamoid and distal tip of the metatarsal stump. This is slightly worse when compared with the prior exam predominantly at the medial sesamoid bone. The remainder of the bone marrow signal is unremarkable. Atrophy of the foot musculature. IMPRESSION: Interval decrease in size of the previously seen phlegmon distal to the first metatarsal stump. Probable osteomyelitis involving the medial sesamoid and tip of the first metatarsal stump. This is slightly worse when compared with the prior exam predominantly at the medial sesamoid bone. Signed by: Dr. Eduardo Ling M.D. on 12/09/2018 12:08 PM
--- NOTE | 2018-12-09 12:29 | NUR ---
aware stool occult blood positive. No new orders
--- NOTE | 2018-12-09 14:26 | NUR ---
WOUND CARE CONSULTATION-INITIAL EVALUATION Patient admitted to ER for worsening wounds to Left Foot. 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 - Patient well known by Dr. Sid Hurt DPM - Admit Dx: Cellulitis of Left Foot and OM+, Exposed bone. - Gilles Score 20 - Conservative PUP active LABS: WBC9.19 HGB8.2 HCT25.4 NEUT%55 [id number] ALB2.5 Wound Culture: Gram + Cocci in clusters, Reincubation required. Patient Visit: - Patient in bed in good spirits. Daugther at bedside. - Patient states foot started swelling at home with new open areas to lateral aspect and blister forming at 4th toe. - [facility], she called in and was advised to admt to ER. for ABX therapy and WC - Patient states she wants TMA at this time and she wants to discuss with podiatry what the next step is. - Dr. Hagan in to see patient eariler but patient was in procedure. Unable to see today and likely to follow tomorrow. - Temporary dressing applied until evaluated by Dr. Braxton / Dr. Lau - Dr. Braxton aware of current temporary treatment and agreeable. - Patient states redness has improved and swelling has improved since antibiotics started. Impression: 1. Left Foot 1st Met Head - Infected DFU Grade 3 - Present On Admission 2. Left Latera Foot - Infected DFU Grade 2 - Present On Admission 3. Left foot 4th Toe Bullae- closed/scabbed, DFU present on admission RECOMMENDATION: 1. Left Foot 1st Met Head - DFU Grade 3 - - Cleanse wound with NS and 4x4 gauze - Pack Wound bed with Drawtex Strip - Overlay with Maxsorb Ag+ - Cover with 4x4 gauze and wrap with Kerlix daily. 2. Left Foot Lateral - DFU- Grade 2 - Cleanse wound with NS and 4x4 gauze. - Apply Maxsorb Ag+ and Wrap with Kerlix Daily Thank you for consulting with Wound Care. Addendum: 12/09/18 at 1437 by Jose Montes RN Amended: Links added. Addendum: 12/09/18 at 1603 by Jose Montes RN RIGHT FOOT - DFU Grade 2 - Partial Thickness 2 x1.5 x 0.5 cm. Edges Rolled. 100% granulation. Draining serosanguineous fluid. - Area Cleansed and Applied Drawtex cut to fit and covered with 4x4 GAUZE and secured with hypafix tape.
--- NOTE | 2018-12-09 14:45 | NUR ---
Visit made by the Spiritual Care Department Pastoral Visitor, Usha Gonsalves. Pt sleeping soundly and no family present. Pastoral Visitor left a card describing availability of continuous improvement lead and instructions on how to contact a continuous improvement lead. GAUTAM KIRBY Warehouse Receiving Supervisor Spiritual Care Department O: [phone] Pager: [phone] ([phone] number calling from)
--- NOTE | 2018-12-09 15:08 | NUR ---
paged (who is oncall for ) to notify of MRI left foot results
[2018-12-09 16:00] VITALS: BP 128/60
--- NOTE | 2018-12-09 19:25 | NUR ---
Walking rounds done, bedside report given. NO s/s of acute distress noted.
[2018-12-09 20:00] VITALS: BP 189/79
[2018-12-09] MEDS: FENOFIBRATE 145 MG TAB PO SCH (21:45)
[2018-12-09] MEDS: ATORVASTATIN 20 MG TAB PO SCH (21:45)
[2018-12-09] MEDS: MORPHINE SULFATE INJ 4 MG/ML INJ 1ML IV PRN (22:50)
[2018-12-10] VITALS (9 sets, daily range): BP systolic 112–187; BP diastolic 56–87
[2018-12-10] MEDS: PIPER-TAZ 3.375 GM 50 ML IV SCH ×4 (02:33→21:00)
[2018-12-10 05:46] LABS: MAGNESIUM 2.3 MG/DL (1.3-2.1); PHOSPHORUS 4.1 MG/DL (2.3-4.7)
[2018-12-10 06:08] LABS: THYROID STIMULATING HORMONE 1.817 uIU/mL (0.350-4.940)
[2018-12-10] MEDS: METOPROLOL SUCCINATE 25 MG TAB XL PO SCH (08:42)
[2018-12-10] MEDS: NIFEDIPINE CR 30 MG TAB PO SCH (08:42)
[2018-12-10] MEDS: GABAPENTIN 300 MG CAP PO SCH ×3 (08:42→21:00)
--- NOTE | 2018-12-10 09:10 | NUR ---
CASE MANAGEMENT ASSESSMENT Local Hazmat Driver to bedside to discuss plan of care with patient/family. CM/SW role and care transitions discussed. Anticipated discharge plan discussed along with duration of care. CM/SW discussed patients right to make decisions in care. CM/SW work hours given. Patient lives: with boyfriend Admit/Transfer: thru ED Hospital/ER visits since last admit: last admitted in August 2018, no ED visits POA/Emergency contact: daughter Kelsy Cochran [phone] Current/Previous Home Health: none PCP/Follow-up Care: PCP - Dr. Romel Davis, ID - Dr. Kauffman, podiatry - Dr. Lau Current/Previous DME: has walker, wheelchair, electric wheelchair, crutches Medications (referring to index hospitalization or the first time you were in the hospital) a. Were changes made in your medications when you were in the hospital on [date of index hospitalization]? yes; IV abx b. Did you understand the changes? yes c. Were you able to obtain your new medications right away? yes d. Were you able to take your medications like the doctor wanted you to? yes e. Did the hospital give you an accurate, easy to understand list of medications when you left? yes Scale of 1-10 how comfortable does patient feel with disease management in outpatient settin Other Services: wound care in Dr. Lau's office every Saturday Employment Status: unemployed Areas of Concerns: non healing cellulitis / foot ulcer x 8 months; pt states she wants to have transmetatarsal amputation. She will talk to Dr. Lau Referral Needs: may need IV abx, wound care on discharge Education Needs: wound care IMM/RIVERA given and signed (if applicable): IMM letter delivered and explained to pt. She verbalized understanding. Signed copy placed in chart. Copy to pt. Goal for discharge: home CM/SW left business card at the bedside with contact information. Name and number was also written on the patients whiteboard. Patient verbalized understanding of discussion. CM will follow-up with ongoing discharge and transition of care needs.
[2018-12-10] MEDS: INSULIN REGULAR, HUMAN 100 UNIT/1 ML 3ML VIAL SQ SCH ×4 (09:17→21:00)
[2018-12-10] MEDS: NPH, HUMAN INSULIN ISOPHANE 100 UNIT/1 ML 3ML VIAL SQ SCH ×2 (09:18→21:00)
--- NOTE | 2018-12-10 15:02 | Consultation ---
DATE OF CONSULTATION: December 10, 2018 GASTROENTEROLOGY CONSULTATION REFERRING PHYSICIAN: Darius Pandey MD REASON FOR CONSULTATION: Anemia with hem-positive stool. HISTORY OF PRESENT ILLNESS: This 48-year-old, very pleasant, white female has never had any upper endoscopy or colonoscopy. She got admitted to the hospital for left foot wound. She needs inpatient intravenous antibiotic therapy. Blood work revealed hemoglobin of 8.2, hematocrit 25.4 with MCV 88.8. GI has been consulted to evaluate anemia. Stool was noted positive for occult blood. Patient denies any GI symptoms. REVIEW OF SYSTEMS: On 12-point system review, symptomatology is limited as per HPI. PAST MEDICAL HISTORY: Insulin-dependent diabetes, hypertension, hyperlipidemia. PAST SURGICAL HISTORY: Appendectomy, cholecystectomy, tonsillectomy, left multiple toe amputations. FAMILY HISTORY: Negative for any GI or DIRECTOR OF EXHIBITS malignancies. SOCIAL HISTORY: No smoking, alcohol or any illicit drug use. ALLERGIES: SULFA, VANCOMYCIN, HYDROXYZINE. OUTPATIENT MEDICATIONS: Aspirin, atorvastatin, fenofibrate, gabapentin, insulin, lisinopril, metoprolol, omega-3 fatty acid. INPATIENT MEDICATIONS: Reviewed as per MAR. PHYSICAL EXAMINATION VITAL SIGNS: Temperature 98.2, pulse 72, respirations 18, blood pressure 124/58. Oxygen saturation 95% on room air. GENERAL: Not in any acute distress. Oral mucosa is moist. Anicteric sclerae. CVS: S1 and S2 regular. LUNGS: Bilaterally grossly clear. ABDOMEN: Soft, nondistended, nontender. No mass or hernia. Positive bowel sounds. EXTREMITIES: Warm, leg edema. Left foot is in surgical dressing. LABS: WBC 9.19, hemoglobin 8.2, hematocrit 25.4, MCV 88.8, platelet count 441. Sodium 137, potassium 4.6, chloride 103, bicarb 25, BUN 29, creatinine 1.42, glucose 116. PT 14.1, INR 1.0, PTT 37.2. Serum iron 46, TIBC 186, iron saturation 25. Foot MRI showed interval decrease in size of previously seen phlegmon distal to the 1st metatarsal stump. Probable osteomyelitis involving the medial sesamoid and tip of the 1st metatarsal stump. This is slightly worse when compared with the prior exam predominantly at medial sesamoid bone. IMPRESSION: Normocytic anemia with Hemoccult-positive stool. No gross gastrointestinal bleeding. Iron profile not consistent with iron deficiency. Total iron-binding capacity is low. However, the patient can have a mixed picture. Will keep the patient NPO after midnight to proceed with upper endoscopy first. If needed, then the patient can get a colonoscopy electively as an outpatient or, alternatively, patient can get both procedures electively as an outpatient. Job#: [id number]
--- NOTE | 2018-12-10 19:30 | NUR ---
Patient received sitting up in bed. AAO x 4. Patient had no complaints of pain. Respirations even and unlabored. Fall precautions in place. Dressing to bilateral feet intact. Call light within reach.
--- NOTE | 2018-12-10 19:39 | NUR ---
Patient's BP elevated (190/78) with a heart rate of 90. Dr. Nitin Pandey paged. New order received.
[2018-12-10] MEDS ORDERED: NIFEDIPINE 10 MG CAP PO NR (19:43)
[2018-12-10] MEDS: ATORVASTATIN 20 MG TAB PO SCH (21:00)
[2018-12-10] MEDS: FENOFIBRATE 145 MG TAB PO SCH (21:00)
[2018-12-11] VITALS (8 sets, daily range): BP systolic 103–198; BP diastolic 54–87
[2018-12-11] MEDS: PIPER-TAZ 3.375 GM 50 ML IV SCH ×2 (03:23→09:02)
--- NOTE | 2018-12-11 06:29 | NUR ---
Patient complained of having diarrhea ( a total of 4 BMs between 3:30 am and 6:[address]). Dr Lenore Pandey paged. Awaiting call back.
--- NOTE | 2018-12-11 07:00 | NUR ---
Dr. Nitin Pandey called back . No new order received for patient's diarrhea. Dr. Pandey stated he would see patient later today.
--- NOTE | 2018-12-11 07:03 | NUR ---
Walking rounds done. Shift report given to oncoming nurse.
[2018-12-11] MEDS: GABAPENTIN 300 MG CAP PO SCH ×3 (09:02→21:58)
[2018-12-11] MEDS: NIFEDIPINE CR 30 MG TAB PO SCH (09:02)
[2018-12-11] MEDS: METOPROLOL SUCCINATE 25 MG TAB XL PO SCH (09:03)
[2018-12-11] MEDS: INSULIN REGULAR, HUMAN 100 UNIT/1 ML 3ML VIAL SQ SCH ×4 (09:09→21:45)
[2018-12-11] MEDS: NPH, HUMAN INSULIN ISOPHANE 100 UNIT/1 ML 3ML VIAL SQ SCH (09:09)
[2018-12-11] MEDS ORDERED: PNEUMOCOCCAL VACCINE POLYVALENT 23 MCG/0.5 ML VIAL IM ONE (10:00)
[2018-12-11] MEDS ORDERED: VANCOMYCIN 1GM/NS 250 ML 250 ML IV SCH (10:00)
--- NOTE | 2018-12-11 10:40 | NUR ---
paged to clarify vancomycin orders due to patient allergy. awaiting return call.
--- NOTE | 2018-12-11 13:09 | Consultation ---
DATE OF CONSULTATION: December 11, 2018 REASON FOR ADMISSION: Diabetic foot infection. HISTORY OF PRESENT ILLNESS: Mrs. Clinton is a very pleasant female. She follows up with Dr. Lau on an outpatient basis regarding her foot. Her wound per her account worsened, and she was sent for further inpatient management and make further decisions perhaps underlying surgical intervention. PAST MEDICAL HISTORY: Remarkable for diabetes mellitus, type 1, gastroparesis, diabetic peripheral neuropathy, history of previous partial foot amputations or digital amputations, left foot particularly. SURGICAL HISTORY: Cholecystectomy, tonsillectomy. FAMILY HISTORY: Diabetes. SOCIAL HISTORY: Noncontributory. REVIEW OF SYSTEMS: Negative. ALLERGIES: NO KNOWN DRUG ALLERGIES. MEDICATIONS: Please see MAR for current medication list. PHYSICAL EXAMINATION VITAL SIGNS: Stable. She is afebrile. GENERAL: A and O times 3. NAD. HEENT: Normocephalic and atraumatic. Anicteric. ABDOMEN: Soft, nontender and nondistended. RESPIRATORY: Symmetrical expansion. No distress. PSYCHIATIC: Normal affect. EXTREMITIES: Lacking productive sensation. Bilateral feet has partial digital amputations and partial foot amputation, left foot. Has a lesion on the plantar aspect of the same toe, 1st metatarsal head region with some drainage emanating from the site. The area seems to be probing the bone with having significant amount of tunneling as well with what appears to be also clearly visible bone to the area. ASSESSMENT 1. Diabetic foot wound, albeit More grade 3, left foot. 2. Diabetic peripheral neuropathy. 3. High suspicion for osteomyelitis. PLAN: In the interim, may continue with local wound care. The area in the foot seems to be relatively stable, although may need more definitive surgical intervention in the not so distant future. This has been Dr. Gabriel Hanson covering for Dr. Lau. Dr. Lau will resume care shortly. Job#: [id number] MS
--- NOTE | 2018-12-11 13:15 | NUR ---
2nd page to , awaiting return call.
--- NOTE | 2018-12-11 13:55 | NUR ---
WOUND CARE CONSULTATION-FOLLOW UP Patient admitted to ER for worsening wounds to Left Foot. - [facility], she called in and was advised to admt to ER. for ABX therapy and WC - HX: HTN, DM, Hyperlipidemia, Left foot 1st& 2nd toe amputation. - Patient well known by Dr. Sid Hurt DPM - Admit Dx: Cellulitis of Left Foot and OM+, Exposed bone. - Gilles Score 20 - Conservative PUP active LABS: WBC9.19 HGB8.2 HCT25.4 NEUT%55 SEV449 ALB2.9 IrH7j15 Wound Culture: Gram + Rhods MRI = OM + Patient Visit: - Patient in bed in good spirits. - Voices Dr. Hanson in today covering for Dr. Lau. They discussed plan of care and will discuss with Dr. Lau patient wishes for TMA. - Bilateral foot wounds improving, not draining as much. - Pending Consult today for ID to manage IV ABX. Impression: 1. Left Foot 1st Met Head - Infected DFU Grade 3 - Present On Admission- HEALING 2. Left Latera Foot - Infected DFU Grade 2 - Present On Admission - HEALING 3. Left foot 4th Toe Bullae- closed/scabbed, DFU present on admission HEALING 4. Right Foot - DFU Grade 2 - Partial Thickness - HEALING RECOMMENDATION:CONTINUE CURRENT TREATMENT PLAN: 1. Left Foot 1st Met Head - DFU Grade 3 - - Cleanse wound with NS and 4x4 gauze - Pack Wound bed with Drawtex Strip - Overlay with Maxsorb Ag+ - Cover with 4x4 gauze and wrap with Kerlix daily. 2. Left Foot Lateral - DFU- Grade 2 - Cleanse wound with NS and 4x4 gauze. - Apply Maxsorb Ag+ and Wrap with Kerlix Daily 3. Right Foot - DFU Grade 2 - Drawtex cut to fit and cover with 4x4 GAUZE and secure with Hypafix tape. Addendum: 12/11/18 at 1407 by Jose Montes RN Amended: Links added.
--- NOTE | 2018-12-11 14:00 | NUR ---
verified orders with AUSTIN Johnson to continue oral Vancomycin and D/C IV vancomycin. will also consult .
[2018-12-11] MEDS: VANCOMYCIN 250MG/5ML ORAL SOLN PO SCH ×2 (14:13→21:59)
[2018-12-11] MEDS: CHOLESTYRAMINE 4 GM PACKET PO PRN ×2 (17:00→23:22)
--- NOTE | 2018-12-11 19:00 | NUR ---
Received patient from day nurse, patient is alert and oriented x 3, shift change done with day nurse and i introduced myself to patient, safety and fall precautions maintained as per hospital protocol: bed in lowest position and locked, needed items beside bed and call hernandez placed close to patient, patient instructed to use it to call nurses for any assistance needed and patient verbalized understanding, yellow socks on patient and bed alarm activated, patient is currently stable will continue to monitor.
--- NOTE | 2018-12-11 21:07 | NUR ---
Dr. Katherin adams for elevated bp, left
[2018-12-11] MEDS: FENOFIBRATE 145 MG TAB PO SCH (21:58)
[2018-12-11] MEDS: ATORVASTATIN 20 MG TAB PO SCH (21:58)
[2018-12-12] VITALS (8 sets, daily range): BP systolic 131–188; BP diastolic 70–84
[2018-12-12] MEDS: NPH, HUMAN INSULIN ISOPHANE 100 UNIT/1 ML 3ML VIAL SQ SCH ×3 (05:53→21:00)
[2018-12-12] MEDS: VANCOMYCIN 250MG/5ML ORAL SOLN PO SCH ×3 (06:42→21:38)
[2018-12-12] MEDS: INSULIN REGULAR, HUMAN 100 UNIT/1 ML 3ML VIAL SQ SCH ×4 (07:30→21:00)
[2018-12-12] MEDS: GABAPENTIN 300 MG CAP PO SCH ×3 (08:57→21:30)
--- NOTE | 2018-12-12 09:18 | NUR ---
IMM letter delivered and explained to pt. She verbalized understanding. Signed copy placed in chart. Copy to pt.
[2018-12-12] MEDS: NIFEDIPINE CR 30 MG TAB PO SCH (09:20)
[2018-12-12] MEDS: METOPROLOL SUCCINATE 25 MG TAB XL PO SCH (09:21)
[2018-12-12] MEDS: HYDRALAZINE HCL 25 MG TAB PO PRN ×2 (11:23→21:29)
--- NOTE | 2018-12-12 17:41 | Consultation ---
DATE OF CONSULTATION: REASON FOR CONSULTATION: Osteomyelitis. This patient who is known to me from before. She does have history of osteomyelitis of her foot. The patient has been IV antibiotics before. The patient has been having problems with her foot for several months now. She has lost several toes. She still has the left big toe. However, there is drainage from the base of the left big toe. She was here in the hospital on IV antibiotics. She had vancomycin and she had a reaction. We had to change to daptomycin. The patient is coming back with redness and swelling from the base of the toe. She started on Zosyn. She had diarrhea so that stopped. She was given oral vancomycin. Her C. diff has been negative. I am asked to see to discuss her antibiotics. Patient is currently in bed. She tells me that she had this problem for several months. She is willing to do a TMA. She is currently laying in bed. I reviewed her laboratory data and the chart. Also, discussed with Dr. Lau and her application packager. PAST MEDICAL HISTORY: As above. PAST SURGICAL HISTORY: As above. ALLERGIES: NKA. SOCIAL HISTORY: There is no smoking, drug abuse or alcohol abuse. FAMILY HISTORY: Otherwise unremarkable. The patient does have diabetes mellitus and neuropathy. PHYSICAL EXAMINATION GENERAL: She is currently alert and oriented. Does not seem to be in acute distress. VITALS: Stable. Currently afebrile. HEENT: She is not icteric. NECK: Supple. CHEST: Clear. ABDOMEN: Soft. Bowel sounds present. EXTREMITIES: No edema. On the foot, there is erythema and edema. There is drainage. IMPRESSION 1. Chronic osteomyelitis in a patient who failed antibiotics: Agree with transmetatarsal amputation. Will put her on Zyvox since she had a problem with vancomycin before and cefepime. Discussed with Dr. Lau. She is going to have a transmetatarsal amputation on Saturday. 2. Diarrhea from antibiotics: Will observe. 3. Obesity. 4. Diabetes mellitus. 5. Neuropathy. 6. Will follow with you. Job#: [id number] PA
[2018-12-12] MEDS ORDERED: LIDOCAINE HCL 2% LOCAL INJ 5 ML SDV VIAL INJ ONE (18:07)
[2018-12-12] MEDS ORDERED: PROPOFOL IV EMULSION 10 MG/ML 20 ML VIAL ONE (18:07)
[2018-12-12] MEDS ORDERED: SODIUM CHLORIDE 0.9% 250ML 250 ML ONE (18:46)
[2018-12-12] MEDS: CEFEPIME 1GM/NS 0.9% 50 ML 50 ML IV SCH (18:52)
--- NOTE | 2018-12-12 19:24 | NUR ---
Patient received sitting up in bed. AAO x 4. No c/o pain. No signs of respiratory distress. Call light within reach.
[2018-12-12] MEDS: ATORVASTATIN 20 MG TAB PO SCH (21:30)
[2018-12-12] MEDS: LINEZOLID 600 MG/D5W 300ML 300 ML IV SCH (21:30)
[2018-12-12] MEDS: FENOFIBRATE 145 MG TAB PO SCH (21:30)
[2018-12-13] VITALS (8 sets, daily range): BP systolic 140–188; BP diastolic 64–88
[2018-12-13] MEDS: CHOLESTYRAMINE 4 GM PACKET PO PRN (00:03)
[2018-12-13 05:20] LABS: BASOPHILS % 0.3 % (0.0-1.0); EOSINOPHILS # (AUTO) 0.2 (0.0-0.4); EOSINOPHILS % 2.5 % (0.0-6.0); HEMATOCRIT 29.2 % (34.2-44.1); HEMOGLOBIN 9.3 g/dL (12.0-16.0); LYMPHOCYTES # (AUTO) 1.7 (1.0-3.2); LYMPHOCYTES % 18.7 % (18.0-39.1); MEAN CORPUSCULAR HEMOGLOBIN 28.2 pg (28-32); MEAN CORPUSCULAR HGB CONC 31.8 g/dL (31-35); MEAN CORPUSCULAR VOLUME 88.5 fL (81-99); MONOCYTES # (AUTO) 0.7 (0.2-0.8); MONOCYTES % 7.9 % (4.4-11.3); NEUTROPHILS # (AUTO) 6.3 (2.1-6.9); NEUTROPHILS % 69.8 % (38.7-80.0); PLATELET COUNT 561 x10e3/uL (140-360); RED CELL DISTRIBUTION WIDTH 13.7 % (11.7-14.4)
[2018-12-13] MEDS: VANCOMYCIN 250MG/5ML ORAL SOLN PO SCH (05:30)
[2018-12-13] MEDS: CEFEPIME 1GM/NS 0.9% 50 ML 50 ML IV SCH ×2 (05:30→16:47)
[2018-12-13 05:53] LABS: ANION GAP 16.1 mmol/L (8-16); CALCIUM 10.1 mg/dL (8.4-10.2); CREATININE, SERUM 2.13 mg/dL (0.57-1.11); POTASSIUM 5.1 mmol/L (3.5-5.1)
[2018-12-13] MEDS: LINEZOLID 600 MG/D5W 300ML 300 ML IV SCH ×2 (07:15→17:28)
[2018-12-13] MEDS ORDERED: PANTOPRAZOLE SOD 40 MG TABEC PO SCH (07:30)
[2018-12-13] MEDS: NIFEDIPINE CR 30 MG TAB PO SCH (08:29)
[2018-12-13] MEDS: INSULIN REGULAR, HUMAN 100 UNIT/1 ML 3ML VIAL SQ SCH ×4 (08:29→20:59)
[2018-12-13] MEDS: NPH, HUMAN INSULIN ISOPHANE 100 UNIT/1 ML 3ML VIAL SQ SCH ×2 (08:29→21:00)
[2018-12-13] MEDS: GABAPENTIN 300 MG CAP PO SCH ×3 (08:29→20:52)
[2018-12-13] MEDS: METOPROLOL SUCCINATE 25 MG TAB XL PO SCH (08:29)
[2018-12-13] MEDS: SUCRALFATE 1 GM/10 ML SUSP NG SCH ×2 (16:47→20:52)
[2018-12-13] MEDS: PANTOPRAZOLE SOD 40 MG TABEC PO SCH (18:07)
--- NOTE | 2018-12-13 19:33 | NUR ---
Patient received lying in bed. Sister at bedside. Patient had no complaints of pain. Respirations even and non-labored. Fall precautions maintained. Call light within reach.
[2018-12-13] MEDS: HYDRALAZINE HCL 25 MG TAB PO PRN (20:52)
[2018-12-13] MEDS: FENOFIBRATE 145 MG TAB PO SCH (20:52)
[2018-12-13] MEDS: ATORVASTATIN 20 MG TAB PO SCH (20:52)
[2018-12-13] MEDS ORDERED: PNEUMOCOCCAL VACCINE POLYVALENT 23 MCG/0.5 ML VIAL IM ONE (21:00)
--- NOTE | 2018-12-13 23:18 | NUR ---
Patient given Pneumovax -3 vaccination IM on R Deltoid. Patient tolerated well.
[2018-12-14] VITALS (7 sets, daily range): BP systolic 105–160; BP diastolic 60–78
[2018-12-14] MEDS: CEFEPIME 1GM/NS 0.9% 50 ML 50 ML IV SCH ×2 (05:00→16:30)
[2018-12-14 05:05] LABS: ANION GAP 14.4 mmol/L (8-16); CALCIUM 9.9 mg/dL (8.4-10.2); CREATININE, SERUM 2.23 mg/dL (0.57-1.11); POTASSIUM 4.4 mmol/L (3.5-5.1)
[2018-12-14] MEDS: PANTOPRAZOLE SOD 40 MG TABEC PO SCH ×2 (05:53→18:08)
[2018-12-14] MEDS: LINEZOLID 600 MG/D5W 300ML 300 ML IV SCH ×2 (05:53→17:11)
[2018-12-14] MEDS: SUCRALFATE 1 GM/10 ML SUSP NG SCH ×4 (07:38→21:07)
[2018-12-14] MEDS: INSULIN REGULAR, HUMAN 100 UNIT/1 ML 3ML VIAL SQ SCH ×4 (07:40→21:00)
[2018-12-14] MEDS: CHOLESTYRAMINE 4 GM PACKET PO PRN (08:55)
[2018-12-14] MEDS: NPH, HUMAN INSULIN ISOPHANE 100 UNIT/1 ML 3ML VIAL SQ SCH ×2 (09:55→21:00)
[2018-12-14] MEDS: METOPROLOL SUCCINATE 25 MG TAB XL PO SCH (09:55)
[2018-12-14] MEDS: NIFEDIPINE CR 30 MG TAB PO SCH (09:55)
[2018-12-14] MEDS: GABAPENTIN 300 MG CAP PO SCH ×3 (09:55→21:07)
--- NOTE | 2018-12-14 14:30 | NUR ---
Visit made by the Spiritual Care Department Pastoral Visitor, Alessandra Tena. PV provided pastoral presence, prayer, hospitality, and supportive listening. Pastoral Visitor informed pt/family of the scope of Merchandise Supervisor Services and availability. GAUTAM KIRBY [facility] Spiritual Care Department O: [phone] Pager: [phone] ([phone] number calling from)
--- NOTE | 2018-12-14 19:35 | NUR ---
Patient received sitting up in bed. AAO x 4. No c/o pain. No signs of respiratory distress. Fall precautions in place. Call light within reach.
[2018-12-14] MEDS: ATORVASTATIN 20 MG TAB PO SCH (21:07)
[2018-12-14] MEDS: FENOFIBRATE 145 MG TAB PO SCH (21:07)
[2018-12-15] VITALS (9 sets, daily range): BP systolic 114–160; BP diastolic 57–76
[2018-12-15] MEDS: CEFEPIME 1GM/NS 0.9% 50 ML 50 ML IV SCH ×2 (05:00→16:53)
[2018-12-15] MEDS: PANTOPRAZOLE SOD 40 MG TABEC PO SCH ×2 (05:25→17:19)
[2018-12-15] MEDS: LINEZOLID 600 MG/D5W 300ML 300 ML IV SCH ×2 (05:45→17:00)
--- NOTE | 2018-12-15 07:00 | NUR ---
RCD PT AT BED PT IS ALERT AND ORIENTED PT RESTING ON BED NO SIGNS OF ANY DISTRESS NOTED IV PATENT PT NPO FOR PROCEDURE FAMILY AT BED SIDE BED LOW AND LOCKED CALL LIGHT IN REACH
--- NOTE | 2018-12-15 07:19 | NUR ---
Walking rounds done. Shift report given to oncoming nurse.
[2018-12-15] MEDS: SUCRALFATE 1 GM/10 ML SUSP NG SCH ×4 (07:30→21:01)
[2018-12-15] MEDS: INSULIN REGULAR, HUMAN 100 UNIT/1 ML 3ML VIAL SQ SCH ×4 (07:30→20:58)
[2018-12-15] MEDS: GABAPENTIN 300 MG CAP PO SCH ×3 (09:00→21:01)
[2018-12-15] MEDS: NIFEDIPINE CR 30 MG TAB PO SCH ×2 (09:00→16:30)
[2018-12-15] MEDS: METOPROLOL SUCCINATE 25 MG TAB XL PO SCH ×2 (09:00→16:30)
[2018-12-15] MEDS: NPH, HUMAN INSULIN ISOPHANE 100 UNIT/1 ML 3ML VIAL SQ SCH ×2 (09:00→20:58)
--- NOTE | 2018-12-15 10:57 | NUR ---
Pt to go for debridement of ulcer/bone today. IMM letter delivered and explained to pt. She verbalized understanding. Signed copy placed in chart. Copy to pt.
--- NOTE | 2018-12-15 13:01 | NUR ---
PT WENT TO PROCEDURE IN SAFE CONDITION
[2018-12-15] MEDS ORDERED: LIDOCAINE HCL 1% LOCAL INJ 20 ML VIAL ONE (13:49)
[2018-12-15] MEDS ORDERED: BUPIVACAINE 0.25% 30ML SDV INJ ONE (13:49)
[2018-12-15] MEDS ORDERED: BACITRACIN 50,000 UNIT VIAL ONE (13:50)
--- NOTE | 2018-12-15 15:20 | NUR ---
PATIENT BACK AFTER PROCEDURE PT IS ALERT AND ORIENTED VITALS CHECKED PT RESTING ON BED NO SIGNS OF ANY BLEEDING ON THE SURGICAL SITE LEFT FOOT BED LOW AND LOCKED CALL LIGHT IN REACH
--- NOTE | 2018-12-15 15:50 | Operative Report ---
DATE OF PROCEDURE: December 15, 2018 PREOPERATIVE DIAGNOSES 1. Infected full-thickness ulceration plantar left foot with acute osteomyelitis. 2. Diabetes mellitus with peripheral neuropathy. POSTOPERATIVE DIAGNOSES 1. Infected full-thickness ulceration plantar left foot with acute osteomyelitis. 1. Diabetes mellitus with peripheral neuropathy. OPERATION PERFORMED: Transmetatarsal amputation left foot. SUPERVISOR SPECIAL EDUCATION: None. ANESTHESIA: Monitored anesthesia care. HEMOSTASIS: Achieved with an ankle tourniquet inflated to 250 mmHg. ESTIMATED BLOOD LOSS: Minimal. MATERIALS USED: 3-0 Vicryl, 3-0 nylon. INJECTABLES: 10 mL of a one-to-one mixture of 1% lidocaine plain with 0.25% Marcaine plain injected preoperatively. MICROBIOLOGY: Wound cultures aerobic and anaerobic for culture and sensitivity left foot wound. PATHOLOGY: Distal left forefoot. ANTIBIOTICS: The patient is currently on scheduled antibiotics. INDICATION FOR PROCEDURE: This is a 48-year-old female. She presented to the hospital with a nonhealing infected left foot ulcer. MRI of the left foot showed osteomyelitis on the medial sesamoid and 1st metatarsal stump. I discussed several options with the patient preoperatively. I discussed debriding the infected bone versus transmetatarsal amputation. Patient already has multiple toe amputations on her left foot. She has already had a partial left great toe amputation, total 2nd toe amputation. I did discuss in detail with the patient and the mother. We decided on moving forward with the transmetatarsal amputation. All questions were answered to the patient's satisfaction. All risks and benefits of the procedure were explained. No guarantees were given. Informed consent was obtained. DETAILS OF PROCEDURE: After patient's preoperative workup was completed, patient was brought into the operating room and placed in the supine position upon the surgical table, at which time intravenous sedation and hydration were administered. Patient's left foot was prepped and draped in the usual sterile manner. After an appropriate time out was performed, we were ready to begin our surgical procedure. Attention was then directed to the left lower extremity, which was elevated to a 45-degree angle. A pneumatic ankle tourniquet was then inflated. Attention was directed to the distal aspect of the left forefoot. There was a full-thickness ulcer on the plantar aspect along the left great toe amputation stump site which was probing all the way down to bone. Toes 2 and 3 were already amputated. Utilizing a number 15 blade, I was able to make a semi-elliptical incision along the left forefoot along the metatarsophalangeal joints. The plantar incision was made more distal for a flap closure. The incision was carried down into the subcutaneous tissue. All bleeders were cauterized and ligated as necessary. The incision was carried down through capsular and periosteal tissue. Toes 1, 4 and 5 were then completely disarticulated and passed off the surgical field for pathological studies. Utilizing a corral elevator, I was able to denude the periosteum and soft tissue off of metatarsals 1, 2, 3, 4 and 5 of the left foot. Utilizing a sagittal bone saw, I was able to make an osteotomy from dorsal distal to plantar proximal along metatarsals 1, 2, 3, 4 and 5 of the left foot. The metatarsals were beveled. All bony spicules were then smoothened with a hand rasp. The wound cavity was then irrigated with the pulse break up worker machine using 3 liters of normal sterile saline and 50,000 units of Bacitracin. At this time the plantar soft tissue was then debulked for closure. The pneumatic ankle tourniquet was then deflated. All bleeders were cauterized or ligated as necessary. The deep subcutaneous tissue was then reapproximated utilizing 3-0 Vicryl. The superficial subcutaneous tissue was reapproximated utilizing 3-0 Vicryl. Skin was then reapproximated utilized 3-0 nylon in a simple interrupted suture technique. The left foot was then dressed with Adaptic, 4 x 4 gauze, Kerlix and Migel bandage. The patient was noted to have tolerated the procedure and anesthesia well. At no time was there a break in sterility. The patient was then transferred from the operating room to the recovery room with vital signs stable and neurovascular status intact. After a brief period in the recovery room, patient was able to be discharged back to the floor. COMPLICATIONS: None. All sponge, needle and instrument counts were correct. I was present through all aspects of this procedure. Job#: [id number] ANGEL
--- NOTE | 2018-12-15 16:32 | NUR ---
Nutrition Screen Note RD Recommendation for Physician: -Continue ADA diet as ordered Plan of Care: RD following, monitoring for tolerance and adequacy Nutrition reason for involvement: LOS Primary Diagnose(s): Chronic osteomyelitis PMH: diabetes mellitus, type 1, gastroparesis, diabetic peripheral neuropathy, history of previous partial foot amputations or digital amputations, left foot particularly. Ht: 62in Wt: 194.19lb BMI: 35.5kg/m2 IBW: 110lb RD Assessment: (12/15) Chart reviewed. Labs and meds reviewed. 48yo F, who was admitted for diabetic foot ulcer. HbA1c at 10%. BG 150 200. Visited pt in room who denied significant wt loss, denied decrease in appetite OBSTETRICIAN GYNECOLOGIST. Pt denied chewing/swallowing problems and nausea/vomiting. RN recorded 75 100% meal intake since admission. LBM 12/15. Planned for R foot debridement today. Currently on IV abx. Pt was not interested in diabetic education. Will continue to monitor and follow. Current Diet: ADA diet Malnutrition Evaluation (12/15/2018) The patient does not meet criteria for a specified degree of malnutrition at this time. Will re-evaluate at follow-up as appropriate. Diet Education Needs Assessment: Diet education not indicated. Nutrition Care Level: low Signed: Cassidy Mcclain, MS, RD, LD
[2018-12-15] MEDS: MORPHINE SULFATE INJ 4 MG/ML INJ 1ML IV PRN (16:47)
[2018-12-15] MEDS: ONDANSETRON HCL INJ 2MG/ML 2ML 2 MG/ML VIAL IV PRN (16:48)
[2018-12-15] MEDS ORDERED: FENTANYL CITRATE/PF 100MCG/2 ML INJ ONE (17:52)
[2018-12-15] MEDS ORDERED: MIDAZOLAM HCL 2 MG/2 ML VIAL ONE (17:52)
[2018-12-15] MEDS ORDERED: PROPOFOL IV EMULSION 10 MG/ML 20 ML VIAL ONE (18:07)
[2018-12-15] MEDS ORDERED: LIDOCAINE HCL 2% LOCAL INJ 5 ML SDV VIAL INJ ONE (18:07)
--- NOTE | 2018-12-15 19:04 | NUR ---
PT RESTING ON BED NO SIGNS OF BLEEDING ON THE SURGICAL SITE LEFT FOOT BED SIDE REPORT GIVEN TO ONCOMING NURSE
[2018-12-15] MEDS: ATORVASTATIN 20 MG TAB PO SCH (21:01)
[2018-12-15] MEDS: FENOFIBRATE 145 MG TAB PO SCH (21:01)
[2018-12-16 04:00] VITALS: BP 100/55
[2018-12-16] MEDS: CEFEPIME 1GM/NS 0.9% 50 ML 50 ML IV SCH ×2 (05:08→16:14)
[2018-12-16] MEDS: PANTOPRAZOLE SOD 40 MG TABEC PO SCH ×2 (05:50→18:00)
[2018-12-16] MEDS: LINEZOLID 600 MG/D5W 300ML 300 ML IV SCH ×2 (05:50→16:40)
--- NOTE | 2018-12-16 07:00 | NUR ---
RCD PT AT BED PT IS ALERT AND ORIENTED PT RESTING ON BED NO SIGNS OF ANY DISTRESS NOTED IV PATENT DRESSING INTACT ON LEFT FOOT FAMILY AT BED SIDE BED LOW AND LOCKED CALL LIGHT IN REACH
[2018-12-16] MEDS: INSULIN REGULAR, HUMAN 100 UNIT/1 ML 3ML VIAL SQ SCH ×4 (07:30→21:30)
[2018-12-16] MEDS: SUCRALFATE 1 GM/10 ML SUSP NG SCH ×4 (07:30→21:37)
[2018-12-16 07:43] VITALS: BP 114/57
[2018-12-16] MEDS: GABAPENTIN 300 MG CAP PO SCH ×3 (08:47→21:37)
[2018-12-16] MEDS: METOPROLOL SUCCINATE 25 MG TAB XL PO SCH (08:48)
[2018-12-16] MEDS: NIFEDIPINE CR 30 MG TAB PO SCH (08:48)
[2018-12-16] MEDS: NPH, HUMAN INSULIN ISOPHANE 100 UNIT/1 ML 3ML VIAL SQ SCH ×2 (08:50→21:30)
[2018-12-16 09:00] VITALS: BP 114/57
[2018-12-16 11:32] VITALS: BP 143/63
[2018-12-16 16:15] VITALS: BP 138/64
--- NOTE | 2018-12-16 19:17 | NUR ---
PT RESTING ON BED BED SIDE REPORT GIVEN TO ONCOMING NURSE
[2018-12-16 20:00] VITALS: BP 180/73
[2018-12-16] MEDS: ATORVASTATIN 20 MG TAB PO SCH (21:37)
[2018-12-16] MEDS: FENOFIBRATE 145 MG TAB PO SCH (21:37)
[2018-12-16] MEDS: HYDRALAZINE HCL 25 MG TAB PO PRN (21:37)
[2018-12-17] VITALS: BP 137/71
[2018-12-17 04:00] VITALS: BP 122/58
[2018-12-17] MEDS: CEFEPIME 1GM/NS 0.9% 50 ML 50 ML IV SCH (04:14)
[2018-12-17] MEDS: LINEZOLID 600 MG/D5W 300ML 300 ML IV SCH (04:51)
[2018-12-17] MEDS: PANTOPRAZOLE SOD 40 MG TABEC PO SCH (05:30)
--- NOTE | 2018-12-17 07:00 | NUR ---
Received patient mid fowlers position, side rails upx2, call light within reach. AAOX4 to time, person, place, situation. Respirations even and unlabored. Dressing to bilateral feet clean, dry, and intact. Instructed to use call light for assistance. Voiced understanding.
--- NOTE | 2018-12-17 07:15 | NUR ---
Left foot dressing changed by
[2018-12-17 07:55] VITALS: BP 168/72
[2018-12-17 08:00] VITALS: BP 168/72
[2018-12-17] MEDS ORDERED: doxycycline PO (08:55)
[2018-12-17] MEDS ORDERED: TYLENOL WITH C1 EACH PO (08:56)
[2018-12-17] MEDS ORDERED: PANTOPRAZOLE SO40 MG PO (08:56)
[2018-12-17] MEDS ORDERED: CARAFATE1 GM/10 ML PO (08:56)
[2018-12-17] MEDS ORDERED: NIFEDIPINE ER30 M1 PO (08:57)
[2018-12-17] MEDS ORDERED: RELISTOR PO (08:58)
[2018-12-17] MEDS: GABAPENTIN 300 MG CAP PO SCH (09:00)
[2018-12-17] MEDS: INSULIN REGULAR, HUMAN 100 UNIT/1 ML 3ML VIAL SQ SCH ×2 (09:00→12:17)
[2018-12-17] MEDS: METOPROLOL SUCCINATE 25 MG TAB XL PO SCH (09:00)
[2018-12-17] MEDS ORDERED: ACETAMINOPHEN/CODEINE 300MG - 30MG TAB PO PRN ×2 (09:00→09:15)
[2018-12-17] MEDS: SUCRALFATE 1 GM/10 ML SUSP NG SCH ×2 (09:00→12:16)
[2018-12-17] MEDS: NIFEDIPINE CR 30 MG TAB PO SCH (09:00)
[2018-12-17] MEDS: NPH, HUMAN INSULIN ISOPHANE 100 UNIT/1 ML 3ML VIAL SQ SCH (09:00)
--- NOTE | 2018-12-17 09:16 | NUR ---
IMM delivered and explained to pt. She verbalized understanding. Signed copy placed in chart. Copy to pt. Pt to discharge home today. Will discharge with PO abx and pt states she will follow up with Dr. Elvira Lau in office on Saturday.
[2018-12-17] MEDS: HYDRALAZINE HCL 25 MG TAB PO PRN (11:05)
[2018-12-17 12:00] VITALS: BP 155/70
--- NOTE | 2018-12-17 12:21 | NUR ---
left AC IV discontinued. No signs of infiltration. 2x2 gauze and tape place. Taken via wheelchair to personal car. AAOX4 to time, person, place, situation. Respirations even and unlabored. Dressings to bilateral feet clean, dry, and intact. RX, discharge instructions, and all personal belongings taken with patient.
--- NOTE | 2018-12-18 07:42 | Discharge Summary ---
RECYCLABLE MATERIALS SORTER: 1. Eloisa Farley MD. 2. Blu Lau DPM. 3. Bogdan Garcia MD. PRIMARY CARE PHYSICIAN: Romel Davis MD. FINAL DIAGNOSES: 1. Acute blood loss anemia secondary to acute gastric ulcer, status post EGD. 2. Left foot diabetic foot ulcer, failed outpatient treatment, status post TMA. 3. Baseline diabetes type 2, on insulin treatment. SUMMARY: This is a 48-year-old female with chronic left foot osteomyelitis, diabetic foot ulcer, did not resolve with multiple admissions and outpatient antibiotic and wound care treatment. The patient was admitted. While she was admitted, she has a significant blood loss anemia where she subsequently underwent EGD, found to have acute gastric ulcer. The patient is otherwise stable, however. No blood transfusion needed. She subsequently underwent the transmetatarsal amputation of the left foot. Postoperatively, the patient is stable. No complications. The patient will go home today, continue with doxycycline twice a day for 14 days. The doxycycline is orally. She will take Carafate suspension 1 g before meals and at bedtime for 3 months, Protonix 40 mg daily for 3 months, Tylenol No. 3 as needed for pain, nifedipine ER 30 mg daily for blood pressure, and 150 mg twice a day as needed for constipation. The patient will also discontinue the lisinopril for now along with aspirin or any NSAID. The patient is otherwise stable, discharged home today. Follow up with family doctor and Dr. Blu Lau within 1 to 2 weeks. MD EDUARDA Chan/CAMILOL /[id number]
== END 2018-12-17 12:21 | disposition home or self-care (01) | DRG 616 ==
LOC: ER 15:34 → ERHOLD 19:27 → MED/SURG2 21:03
PROVIDERS: ADMIT Internal Medicine; ATTEND Internal Medicine
PROC: 0DB98ZX Excision of Duodenum, Via Natural or Artificial Opening Endoscopic, Diagnostic (ICD-10-PCS; 2018-12-12)
PROC: 0DB78ZX Excision of Stomach, Pylorus, Via Natural or Artificial Opening Endoscopic, Diagnostic (ICD-10-PCS; 2018-12-12)
PROC: 0Y6N0ZD Detachment at Left Foot, Partial 4th Ray, Open Approach (ICD-10-PCS; 2018-12-15)
PROC: 0Y6N0ZF Detachment at Left Foot, Partial 5th Ray, Open Approach (ICD-10-PCS; 2018-12-15)
PROC: 0Y6N0Z9 Detachment at Left Foot, Partial 1st Ray, Open Approach (ICD-10-PCS; principal; 2018-12-15 13:30)
DX: E11.69 Type 2 diabetes mellitus with other specified complication (principal); K25.0 Acute gastric ulcer with hemorrhage; M86.8X7 Other osteomyelitis, ankle and foot; D62 Acute posthemorrhagic anemia; E11.621 Type 2 diabetes mellitus with foot ulcer; L97.524 Non-pressure chronic ulcer of other part of left foot with necrosis of bone; Z79.4 Long term (current) use of insulin; E11.42 Type 2 diabetes mellitus with diabetic polyneuropathy; Z89.422 Acquired absence of other left toe(s); R19.5 Other fecal abnormalities; D50.9 Iron deficiency anemia, unspecified; K44.9 Diaphragmatic hernia without obstruction or gangrene
CPT/HCPCS: 36415; 43239; 80048; 80053; 82270; 82948; 83036; 83540; 83735; 84100; 84443; 84466; 85025; 85610; 85730; 87040; 87071; 87075; 87186; 87205; 87493; 88305; 88311; 88312; 90732; 99284; J0692; J2001; J2020; J2250; J2270; J2405; J2543; J7030; J7050

== ENCOUNTER 2018-12-23 07:17 | Outpatient (RCR) | payer OTHER ==
[~2018-12-23 07:17] MED LIST changes: +CARAFATE1 GM/10 ML PO; +NIFEDIPINE ER30 M1 PO; +PANTOPRAZOLE SO40 MG PO; +RELISTOR PO; +TYLENOL WITH C1 EACH PO; +doxycycline PO
== END 2018-12-25 ==
LOC: WCC 07:17
PROVIDERS: ATTEND Podiatrist Foot & Ankle Surgery
DX: E11.621 Type 2 diabetes mellitus with foot ulcer (principal); E10.21 Type 1 diabetes mellitus with diabetic nephropathy; E10.65 Type 1 diabetes mellitus with hyperglycemia; E10.621 Type 1 diabetes mellitus with foot ulcer; L97.526 Non-pressure chronic ulcer of other part of left foot with bone involvement without evidence of necrosis; L97.411 Non-pressure chronic ulcer of right heel and midfoot limited to breakdown of skin; L27.9 Dermatitis due to unspecified substance taken internally; I10 Essential (primary) hypertension; D50.8 Other iron deficiency anemias; E78.2 Mixed hyperlipidemia; Z01.810 Encounter for preprocedural cardiovascular examination; Z01.811 Encounter for preprocedural respiratory examination

== ENCOUNTER 2019-01-20 09:08 | Outpatient (RCR) | payer MEDICARE ==
[~2019-01-20 09:08] MED LIST changes: +LIDOCAINE VISC 2% SOLN 15 ML UDC ONE; +MINERAL OIL/PETROLAT/GLYCERI 2OZ CRM ONE
== END 2019-01-25 ==
LOC: WCC 09:08
PROVIDERS: ATTEND Podiatrist Foot & Ankle Surgery
DX: E11.621 Type 2 diabetes mellitus with foot ulcer (principal); E10.21 Type 1 diabetes mellitus with diabetic nephropathy; E10.65 Type 1 diabetes mellitus with hyperglycemia; E10.621 Type 1 diabetes mellitus with foot ulcer; L97.429 Non-pressure chronic ulcer of left heel and midfoot with unspecified severity; L97.411 Non-pressure chronic ulcer of right heel and midfoot limited to breakdown of skin; L27.9 Dermatitis due to unspecified substance taken internally; I10 Essential (primary) hypertension; B95.2 Enterococcus as the cause of diseases classified elsewhere; D50.8 Other iron deficiency anemias; E78.2 Mixed hyperlipidemia; Z01.810 Encounter for preprocedural cardiovascular examination; Z01.811 Encounter for preprocedural respiratory examination

== ENCOUNTER 2019-02-03 10:26 | Outpatient (RCR) | payer MEDICARE ==
[~2019-02-03 10:26] MED LIST changes: -LIDOCAINE VISC 2% SOLN 15 ML UDC ONE; -MINERAL OIL/PETROLAT/GLYCERI 2OZ CRM ONE
== END 2019-02-24 ==
LOC: WCC 10:26
PROVIDERS: ATTEND Podiatrist Foot & Ankle Surgery
DX: E11.621 Type 2 diabetes mellitus with foot ulcer (principal); E10.21 Type 1 diabetes mellitus with diabetic nephropathy; E10.65 Type 1 diabetes mellitus with hyperglycemia; E10.621 Type 1 diabetes mellitus with foot ulcer; L97.421 Non-pressure chronic ulcer of left heel and midfoot limited to breakdown of skin; L97.411 Non-pressure chronic ulcer of right heel and midfoot limited to breakdown of skin; L27.9 Dermatitis due to unspecified substance taken internally; I10 Essential (primary) hypertension; D50.8 Other iron deficiency anemias; E78.2 Mixed hyperlipidemia; Z01.810 Encounter for preprocedural cardiovascular examination; Z01.811 Encounter for preprocedural respiratory examination
CPT/HCPCS: 87071; 87075; 87205

== ENCOUNTER 2021-05-22 16:43 | Inpatient (IN) | payer MEDICARE ==
[~2021-05-22] VITALS: Ht 157.5 cm; Wt 88.0 kg
[2021-05-22 17:13] LABS: BASOPHILS % 0.3 % (0.0-1.0); EOSINOPHILS # (AUTO) 0.2 (0.0-0.4); EOSINOPHILS % 2.3 % (0.0-6.0); HEMATOCRIT 34.1 % (34.2-44.1); LYMPHOCYTES # (AUTO) 2.4 (1.0-3.2); LYMPHOCYTES % 25.9 % (18.0-39.1); MEAN CORPUSCULAR HEMOGLOBIN 27.2 pg (28-32); MEAN CORPUSCULAR HGB CONC 32.3 g/dL (31-35); MEAN CORPUSCULAR VOLUME 84.4 fL (81-99); MONOCYTES # (AUTO) 0.6 (0.2-0.8); MONOCYTES % 6.2 % (4.4-11.3); NEUTROPHILS # (AUTO) 5.9 (2.1-6.9); NEUTROPHILS % 64.3 % (38.7-80.0); PLATELET COUNT 320 x10e3/uL (140-360); RED BLOOD COUNT 4.04 x10e6/uL (3.6-5.1); RED CELL DISTRIBUTION WIDTH 14.4 % (11.7-14.4)
[2021-05-22 17:23] LABS: PARTIAL THROMBOPLASTIN TIME 24.6 seconds (23.8-35.5)
[2021-05-22 17:26] LABS: INR 0.93
[2021-05-22 17:31] LABS: ALBUMIN 2.8 g/dL (3.5-5.0); ALBUMIN/GLOBULIN RATIO 0.6 (0.8-2.0); ANION GAP 17.6 mmol/L (8-16); CALCIUM 9.4 mg/dL (8.4-10.2); CREATININE, SERUM 2.87 mg/dL (0.57-1.11); POTASSIUM 4.6 mmol/L (3.5-5.1)
[2021-05-22 17:37] LABS: CREATINE KINASE MB 3.7 ng/mL (0-5.0)
[2021-05-22] MEDS ORDERED: ASPIRIN 325 MG TAB PO ONE (19:00)
[2021-05-23] VITALS (7 sets, daily range): BP systolic 143–148; BP diastolic 63–66
[2021-05-23] MEDS ORDERED: ASPIRIN81 MG PO (09:48)
[2021-05-23] MEDS ORDERED: FUROSEMIDE40 MG PO (09:48)
[2021-05-23] MEDS ORDERED: NOVOLIN N100 UNIT/1 SQ (09:48)
[2021-05-23] MEDS ORDERED: VITAMIN D3-ALO1 EACH PO (09:48)
[2021-05-23] MEDS ORDERED: PANTOPRAZOLE SO40 MG PO (09:48)
[2021-05-23] MEDS ORDERED: SODIUM BICARBO650 MG PO (09:48)
[2021-05-23] MEDS ORDERED: TRICOR145 MG PO (09:48)
[2021-05-23] MEDS ORDERED: LEXAPRO10 MG PO (09:48)
[2021-05-23] MEDS ORDERED: NEURONTIN100 MG PO (09:48)
[2021-05-23] MEDS ORDERED: LISINOPRIL2.5 MG PO (09:48)
[2021-05-23] MEDS ORDERED: VITAMIN D31 GM PO (09:49)
[2021-05-23] MEDS ORDERED: ERGOCALCIFEROL 50,000 UNIT CAP PO SCH (13:30)
[2021-05-23] MEDS ORDERED: METOPROLOL SUCCINATE 50 MG TAB XL PO SCH (17:00)
[2021-05-23] MEDS: GABAPENTIN 100 MG CAP PO SCH ×2 (17:08→21:00)
[2021-05-23] MEDS: SODIUM BICARBONATE 650 MG TAB PO SCH (17:08)
[2021-05-23] MEDS: NPH, HUMAN INSULIN ISOPHANE 100 UNIT/1 ML 3ML VIAL SQ SCH (17:09)
[2021-05-23] MEDS: ASPIRIN 81 MG CHEW TAB PO SCH (21:00)
[2021-05-24] VITALS (7 sets, daily range): BP systolic 121–152; BP diastolic 43–66
[2021-05-24 05:10] LABS: HEMATOCRIT 32.2 % (34.2-44.1); HEMOGLOBIN 10.4 g/dL (12.0-16.0); MEAN CORPUSCULAR HEMOGLOBIN 27.4 pg (28-32); MEAN CORPUSCULAR HGB CONC 32.3 g/dL (31-35); MEAN CORPUSCULAR VOLUME 84.7 fL (81-99); PLATELET COUNT 278 x10e3/uL (140-360); RED CELL DISTRIBUTION WIDTH 14.5 % (11.7-14.4)
[2021-05-24 05:32] LABS: ALBUMIN 2.4 g/dL (3.5-5.0); ALBUMIN/GLOBULIN RATIO 0.6 (0.8-2.0); ANION GAP 13.6 mmol/L (8-16); CALCIUM 8.9 mg/dL (8.4-10.2); CREATININE, SERUM 3.22 mg/dL (0.57-1.11); POTASSIUM 4.6 mmol/L (3.5-5.1)
[2021-05-24] MEDS: NPH, HUMAN INSULIN ISOPHANE 100 UNIT/1 ML 3ML VIAL SQ SCH ×2 (09:00→17:16)
[2021-05-24] MEDS ORDERED: LISINOPRIL 2.5 MG TAB PO SCH (09:00)
[2021-05-24] MEDS ORDERED: FENOFIBRATE 145 MG TAB PO SCH (09:00)
[2021-05-24] MEDS ORDERED: FUROSEMIDE 40 MG TAB PO SCH (09:00)
[2021-05-24] MEDS: GABAPENTIN 100 MG CAP PO SCH ×3 (09:56→21:00)
[2021-05-24] MEDS: ESCITALOPRAM OXALATE 10 MG TAB PO SCH (09:56)
[2021-05-24] MEDS: CLOPIDOGREL BISULFATE 75 MG TAB PO SCH (09:56)
[2021-05-24] MEDS: PANTOPRAZOLE SOD 40 MG TABEC PO SCH (09:57)
[2021-05-24] MEDS: SODIUM BICARBONATE 650 MG TAB PO SCH ×2 (09:57→17:14)
[2021-05-24] MEDS ORDERED: METOPROLOL SUCCINATE 50 MG TAB XL PO ONE (10:00)
[2021-05-24] MEDS: SODIUM CHLORIDE 0.9% 1000ML 1,000 ML IV SCH ×2 (11:46→21:00)
[2021-05-24] MEDS ORDERED: DEXTROSE 50% SYRINGE 50 ML IV PRN (16:00)
[2021-05-24] MEDS: METOPROLOL SUCCINATE 50 MG TAB XL PO SCH (17:14)
[2021-05-24] MEDS: INSULIN REGULAR, HUMAN 100 UNIT/1 ML SQ SCH ×2 (17:15→21:00)
[2021-05-24] MEDS: ASPIRIN 81 MG CHEW TAB PO SCH (21:00)
[2021-05-24] MEDS ORDERED: MELATONIN 5 MG TABLET PO PRN (21:00)
[2021-05-25] VITALS (7 sets, daily range): BP systolic 144–164; BP diastolic 58–89
[2021-05-25] MEDS: SODIUM CHLORIDE 0.9% 1000ML 1,000 ML IV SCH (02:45)
[2021-05-25 05:40] LABS: HEMOGLOBIN 9.3 g/dL (12.0-16.0); MEAN CORPUSCULAR HEMOGLOBIN 27.4 pg (28-32); MEAN CORPUSCULAR HGB CONC 32.1 g/dL (31-35); MEAN CORPUSCULAR VOLUME 85.3 fL (81-99); PLATELET COUNT 234 x10e3/uL (140-360); RED CELL DISTRIBUTION WIDTH 14.1 % (11.7-14.4)
[2021-05-25 06:09] LABS: ALBUMIN 2.2 g/dL (3.5-5.0); ALBUMIN/GLOBULIN RATIO 0.6 (0.8-2.0); ANION GAP 12.1 mmol/L (8-16); CALCIUM 8.8 mg/dL (8.4-10.2); CREATININE, SERUM 2.45 mg/dL (0.57-1.11); POTASSIUM 4.1 mmol/L (3.5-5.1)
[2021-05-25 06:34] LABS: CHOL/HDL RATIO 6.6 (3.0-3.6); CHOLESTEROL 131 MD/DL (0-199); HDL CHOLESTEROL 20 MG/DL (40-60); TRIGLYCERIDES 439 MG/DL (0-149)
[2021-05-25 06:55] LABS: FREE T4 (FREE THYROXINE) 0.84 ng/dL (0.8-1.8); THYROID STIMULATING HORMONE 1.244 uIU/mL (0.350-4.940)
[2021-05-25] MEDS: INSULIN REGULAR, HUMAN 100 UNIT/1 ML SQ SCH ×4 (07:30→21:14)
[2021-05-25 08:12] LABS: EOSINOPHILS % (MANUAL) 8 % (0-7); LYMPHOCYTES % (MANUAL) 20 % (19-48); MONOCYTES % (MANUAL) 3 % (3.4-9.0); NEUTROPHILS % (MANUAL) 69 % (40-74)
[2021-05-25 08:13] LABS: PLATELET ESTIMATE ADEQUATE; PLATELET MORPHOLOGY COMMENT NORMAL; RBC MORPHOLOGY COMMENT NORMAL
[2021-05-25] MEDS: NPH, HUMAN INSULIN ISOPHANE 100 UNIT/1 ML 3ML VIAL SQ SCH ×2 (09:00→17:23)
[2021-05-25] MEDS: CLOPIDOGREL BISULFATE 75 MG TAB PO SCH (10:02)
[2021-05-25] MEDS: ESCITALOPRAM OXALATE 10 MG TAB PO SCH (10:02)
[2021-05-25] MEDS: GABAPENTIN 100 MG CAP PO SCH ×3 (10:02→21:16)
[2021-05-25] MEDS: METOPROLOL SUCCINATE 50 MG TAB XL PO SCH ×2 (10:03→17:23)
[2021-05-25] MEDS: SODIUM BICARBONATE 650 MG TAB PO SCH ×2 (10:03→17:23)
[2021-05-25] MEDS: PANTOPRAZOLE SOD 40 MG TABEC PO SCH (10:03)
[2021-05-25] MEDS: DEXTROSE 5%/0.45% SOD CHL 1,000 ML IV SCH (13:15)
[2021-05-25] MEDS: ASPIRIN 81 MG CHEW TAB PO SCH (21:16)
[2021-05-26 01:46] VITALS: BP 150/69
[2021-05-26] MEDS: DEXTROSE 5%/0.45% SOD CHL 1,000 ML IV SCH ×2 (02:34→14:44)
[2021-05-26 05:16] VITALS: BP 170/66
[2021-05-26 06:53] LABS: ANION GAP 13.3 mmol/L (8-16); CALCIUM 8.8 mg/dL (8.4-10.2); CREATININE, SERUM 2.23 mg/dL (0.57-1.11); POTASSIUM 4.3 mmol/L (3.5-5.1)
[2021-05-26 07:38] LABS: CLARITY,URINE CLOUDY (CLEAR); COLOR,URINE YELLOW (YELLOW); KETONES,URINE NEGATIVE (NEGATIVE); LEUKOCYTE ESTERASE ,URINE LARGE (NEGATIVE); NITRITE,URINE POSITIVE (NEGATIVE); PROTEIN,URINE DIPSTICK >=300 (NEGATIVE); URINE UROBILINOGEN 0.2 mg/dL (0.2 - 1)
[2021-05-26 08:00] LABS: WBC,URINE (MAN) >50 /HPF (0-5)
[2021-05-26 08:01] LABS: BACTERIA,URINE MANY /HPF; EPITHELIAL CELLS,URINE FEW /LPF
[2021-05-26 08:04] VITALS: BP 173/70
[2021-05-26 08:26] VITALS: BP 173/70
[2021-05-26] MEDS: NPH, HUMAN INSULIN ISOPHANE 100 UNIT/1 ML 3ML VIAL SQ SCH ×2 (09:00→17:00)
[2021-05-26] MEDS: INSULIN REGULAR, HUMAN 100 UNIT/1 ML SQ SCH ×3 (09:00→16:30)
[2021-05-26] MEDS: GABAPENTIN 100 MG CAP PO SCH ×2 (09:44→17:27)
[2021-05-26] MEDS: CLOPIDOGREL BISULFATE 75 MG TAB PO SCH (09:44)
[2021-05-26] MEDS: SODIUM BICARBONATE 650 MG TAB PO SCH (09:44)
[2021-05-26] MEDS: PANTOPRAZOLE SOD 40 MG TABEC PO SCH (09:44)
[2021-05-26] MEDS: ESCITALOPRAM OXALATE 10 MG TAB PO SCH (09:44)
[2021-05-26] MEDS: METOPROLOL SUCCINATE 50 MG TAB XL PO SCH ×2 (09:45→17:28)
[2021-05-26 11:36] VITALS: BP_SYST 167
[2021-05-26 16:14] VITALS: BP 140/60
[2021-05-26] MEDS ORDERED: SODIUM BICARBONATE 650 MG TAB PO SCH (17:00)
[2021-05-26] MEDS ORDERED: SIMVASTATIN40 MG PO (18:10)
[2021-05-26] MEDS ORDERED: SIMVASTATIN 40 MG TAB PO SCH (21:00)
== END 2021-05-26 18:40 | disposition home health service (06) | DRG 65 ==
LOC: ER 17:00 → ERHOLD 19:15 → IMCU 05-23 11:16 → MED/SURG3 05-23 18:49
PROVIDERS: ADMIT Internal Medicine; ATTEND Internal Medicine
DX: I63.81 Other cerebral infarction due to occlusion or stenosis of small artery (principal); N17.9 Acute kidney failure, unspecified; N18.4 Chronic kidney disease, stage 4 (severe); E11.22 Type 2 diabetes mellitus with diabetic chronic kidney disease; I12.9 Hypertensive chronic kidney disease with stage 1 through stage 4 chronic kidney disease, or unspecified chronic kidney disease; E78.5 Hyperlipidemia, unspecified; Z89.512 Acquired absence of left leg below knee; Z86.73 Personal history of transient ischemic attack (TIA), and cerebral infarction without residual deficits; E11.51 Type 2 diabetes mellitus with diabetic peripheral angiopathy without gangrene; Z79.899 Other long term (current) drug therapy; E11.65 Type 2 diabetes mellitus with hyperglycemia; Z20.822 Contact with and (suspected) exposure to COVID-19
CPT/HCPCS: 36415; 70450; 70544; 70547; 70551; 71045; 74230; 76770; 80048; 80053; 80061; 81001; 82550; 82553; 82948; 83036; 84439; 84443; 84484; 84550; 85007; 85025; 85027; 85610; 85730; 92523; 93005; 93306; 93880; 96372; 97139; 99284; J1817; J7030; U0002

== ENCOUNTER 2021-07-24 22:46 | Emergency (ER) | payer MEDICARE, OTHER ==
[~2021-07-24] VITALS: Ht 157.5 cm; Wt 83.9 kg
[~2021-07-24 22:46] MED LIST changes: +ASPIRIN81 MG PO; +FUROSEMIDE40 MG PO; +LEXAPRO10 MG PO; +LISINOPRIL2.5 MG PO; +NEURONTIN100 MG PO; +SIMVASTATIN40 MG PO; +SODIUM BICARBO650 MG PO; +TRICOR145 MG PO; +VITAMIN D3-ALO1 EACH PO; +VITAMIN D31 GM PO
[2021-07-25] MEDS ORDERED: TETANUS/DIPHTHERIA TOX ADULT 0.5 ML SYR IM ONE (00:30)
[2021-07-25] MEDS ORDERED: TETANUS/DIPHTHERIA TOX ADULT 0.5 ML SYR ONE (00:40)
== END 2021-07-25 00:35 | disposition home or self-care (01) ==
LOC: ER 22:48
DX: S61.451A Open bite of right hand, initial encounter (principal); W54.0XXA Bitten by dog, initial encounter; Y92.008 Other place in unspecified non-institutional (private) residence as the place of occurrence of the external cause; E11.40 Type 2 diabetes mellitus with diabetic neuropathy, unspecified; I10 Essential (primary) hypertension; E78.5 Hyperlipidemia, unspecified; K21.9 Gastro-esophageal reflux disease without esophagitis; N18.9 Chronic kidney disease, unspecified; Z89.512 Acquired absence of left leg below knee; I69.328 Other speech and language deficits following cerebral infarction
CPT/HCPCS: 90714; 99283

== ENCOUNTER 2021-12-07 18:40 | Inpatient (IN) | payer MEDICARE ==
[~2021-12-07] VITALS: Ht 157.5 cm; Wt 81.2 kg
[2021-12-07] MEDS ORDERED: HYDROCODONE/APAP 5MG-325MG TAB PO PRN (19:00)
[2021-12-07] MEDS ORDERED: PIPERACILLIN/TAZOBACTAM 3.375 GM in SODIUM CHLORIDE 0.9% 50ML 50 ML IV SCH (19:15)
[2021-12-07] MEDS ORDERED: Morphine 4mg Syringe 4 MG/ML INJ IV PRN (19:15)
[2021-12-07] MEDS ORDERED: ONDANSETRON HCL INJ 2MG/ML 2ML 2 MG/ML VIAL IV PRN (19:15)
[2021-12-07] MEDS ORDERED: SODIUM CHLORIDE FLUSH 10 ML SYR INJ PRN (19:15)
[2021-12-07 19:16] LABS: BASOPHILS % 0.3 % (0.0-1.0); EOSINOPHILS # (AUTO) 0.2 (0.0-0.4); EOSINOPHILS % 1.6 % (0.0-6.0); HEMATOCRIT 27.4 % (34.2-44.1); HEMOGLOBIN 8.7 g/dL (12.0-16.0); LYMPHOCYTES # (AUTO) 2.7 (1.0-3.2); LYMPHOCYTES % 20.1 % (18.0-39.1); MEAN CORPUSCULAR HEMOGLOBIN 28.2 pg (28-32); MEAN CORPUSCULAR HGB CONC 31.8 g/dL (31-35); MONOCYTES # (AUTO) 0.8 (0.2-0.8); MONOCYTES % 5.8 % (4.4-11.3); NEUTROPHILS # (AUTO) 9.7 (2.1-6.9); PLATELET COUNT 397 x10e3/uL (140-360); RED BLOOD COUNT 3.08 x10e6/uL (3.6-5.1); RED CELL DISTRIBUTION WIDTH 13.4 % (11.7-14.4)
[2021-12-07 19:27] LABS: ALBUMIN 1.9 g/dL (3.5-5.0); ALBUMIN/GLOBULIN RATIO 0.4 (0.8-2.0); ANION GAP 15.7 mmol/L (8-16); CALCIUM 8.7 mg/dL (8.4-10.2); CREATININE, SERUM 4.38 mg/dL (0.57-1.11); POTASSIUM 3.7 mmol/L (3.5-5.1)
[2021-12-07] MEDS: SODIUM CHLORIDE 0.9% 1000ML 1,000 ML IV SCH (20:20)
[2021-12-07 20:34] LABS: CLARITY,URINE HAZY (CLEAR); COLOR,URINE YELLOW (YELLOW); KETONES,URINE NEGATIVE (NEGATIVE); LEUKOCYTE ESTERASE ,URINE SMALL (NEGATIVE); NITRITE,URINE NEGATIVE (NEGATIVE); PROTEIN,URINE DIPSTICK >=300 (NEGATIVE); URINE UROBILINOGEN 0.2 mg/dL (0.2 - 1)
[2021-12-07 20:45] LABS: BACTERIA,URINE MANY /HPF; WBC,URINE (MAN) 0-5 /HPF (0-5)
[2021-12-07] MEDS: SIMVASTATIN 40 MG TAB PO SCH (20:50)
[2021-12-07] MEDS: GABAPENTIN 100 MG CAP PO SCH (20:50)
[2021-12-07] MEDS: Clindamycin INJ 300 MG/50 ML 50 ML IV SCH (21:00)
[2021-12-07] MEDS ORDERED: PIPERACILLIN/TAZOBACTAM 2.25 GM in SODIUM CHLORIDE 0.9% 50ML 50 ML IV SCH (21:00)
[2021-12-07 21:20] VITALS: BP 120/45
[2021-12-07 21:35] VITALS: BP 120/45
[2021-12-07 22:00] VITALS: BP 120/45
[2021-12-08] VITALS (9 sets, daily range): BP systolic 115–172; BP diastolic 44–69
[2021-12-08] MEDS: SODIUM CHLORIDE 0.9% 1000ML 1,000 ML IV SCH ×3 (05:05→22:33)
[2021-12-08 05:09] LABS: BASOPHILS % 0.3 % (0.0-1.0); EOSINOPHILS # (AUTO) 0.2 (0.0-0.4); EOSINOPHILS % 2.1 % (0.0-6.0); HEMATOCRIT 25.9 % (34.2-44.1); LYMPHOCYTES # (AUTO) 1.8 (1.0-3.2); MEAN CORPUSCULAR HEMOGLOBIN 27.8 pg (28-32); MEAN CORPUSCULAR HGB CONC 30.9 g/dL (31-35); MEAN CORPUSCULAR VOLUME 89.9 fL (81-99); MONOCYTES # (AUTO) 0.7 (0.2-0.8); MONOCYTES % 6.9 % (4.4-11.3); NEUTROPHILS % 71.5 % (38.7-80.0); PLATELET COUNT 350 x10e3/uL (140-360); RED BLOOD COUNT 2.88 x10e6/uL (3.6-5.1); RED CELL DISTRIBUTION WIDTH 13.3 % (11.7-14.4)
[2021-12-08] MEDS: Clindamycin INJ 300 MG/50 ML 50 ML IV SCH ×3 (05:13→20:45)
[2021-12-08 05:51] LABS: ANION GAP 13.7 mmol/L (8-16); CALCIUM 8.3 mg/dL (8.4-10.2); CREATININE, SERUM 4.31 mg/dL (0.57-1.11); POTASSIUM 3.7 mmol/L (3.5-5.1)
[2021-12-08] MEDS: PIPERACILLIN/TAZOBACTAM 2.25 GM in SODIUM CHLORIDE 0.9% 50ML 50 ML IV SCH ×3 (06:02→22:31)
[2021-12-08] MEDS: NPH, HUMAN INSULIN ISOPHANE 100 UNIT/1 ML 3ML VIAL SQ SCH ×2 (08:00→17:30)
[2021-12-08] MEDS ORDERED: ONDANSETRON HCL 4 MG ORAL DISINTEGRATING TAB PO PRN (08:30)
[2021-12-08] MEDS ORDERED: FENOFIBRATE 145 MG TAB PO SCH (09:00)
[2021-12-08] MEDS ORDERED: SODIUM BICARBONATE 650 MG TAB PO SCH (09:00)
[2021-12-08 13:24] LABS: % IRON SATURATION 27 % (15-50); IRON 43 ug/dL (50-170); TOTAL IRON BINDING CAPACITY 158 ug/dL (261-478); TRANSFERRIN 113 mg/dL (180-382)
[2021-12-08] MEDS: GABAPENTIN 100 MG CAP PO SCH ×3 (14:20→20:45)
[2021-12-08] MEDS: SODIUM BICARBONATE 650 MG TAB PO SCH ×2 (14:20→20:45)
[2021-12-08] MEDS: ESCITALOPRAM OXALATE 10 MG TAB PO SCH (14:20)
[2021-12-08] MEDS: PANTOPRAZOLE SOD 40 MG TABEC PO SCH (14:21)
[2021-12-08] MEDS ORDERED: NOVOLIN R100 UNIT/1 SQ (14:22)
[2021-12-08] MEDS ORDERED: DEXTROSE 50% SYRINGE 50 ML IV PRN (15:45)
[2021-12-08] MEDS: INSULIN REGULAR, HUMAN 100 UNIT/1 ML SQ SCH ×2 (17:30→20:48)
[2021-12-08] MEDS: SIMVASTATIN 40 MG TAB PO SCH (20:45)
[2021-12-09] VITALS (7 sets, daily range): BP systolic 151–186; BP diastolic 58–72
[2021-12-09] MEDS: Clindamycin INJ 300 MG/50 ML 50 ML IV SCH (05:28)
[2021-12-09 05:46] LABS: ALBUMIN 1.6 g/dL (3.5-5.0); ALBUMIN/GLOBULIN RATIO 0.4 (0.8-2.0); ANION GAP 12.7 mmol/L (8-16); CALCIUM 10.4 mg/dL (8.4-10.2); CREATININE, SERUM 3.27 mg/dL (0.57-1.11); POTASSIUM 3.7 mmol/L (3.5-5.1)
[2021-12-09] MEDS: PIPERACILLIN/TAZOBACTAM 2.25 GM in SODIUM CHLORIDE 0.9% 50ML 50 ML IV SCH ×2 (06:19→18:00)
[2021-12-09] MEDS: INSULIN REGULAR, HUMAN 100 UNIT/1 ML SQ SCH ×4 (08:50→21:13)
[2021-12-09] MEDS: GABAPENTIN 100 MG CAP PO SCH ×3 (08:50→20:51)
[2021-12-09] MEDS: NPH, HUMAN INSULIN ISOPHANE 100 UNIT/1 ML 3ML VIAL SQ SCH ×2 (08:50→16:47)
[2021-12-09] MEDS: SODIUM BICARBONATE 650 MG TAB PO SCH ×3 (08:50→20:51)
[2021-12-09] MEDS: PANTOPRAZOLE SOD 40 MG TABEC PO SCH (08:50)
[2021-12-09] MEDS: ESCITALOPRAM OXALATE 10 MG TAB PO SCH (08:50)
[2021-12-09] MEDS ORDERED: FENOFIBRATE 145 MG TAB PO SCH (09:00)
[2021-12-09] MEDS ORDERED: Vancomycin IV 1 GM in SODIUM CHLORIDE 0.9% 250ML 250 ML IV ONE (12:00)
[2021-12-09] MEDS: Doxycycline IV 100 ML IV SCH ×2 (13:05→23:44)
[2021-12-09 15:23] LABS: CREATININE,URINE RANDOM 31.22 mg/dL (47-110)
[2021-12-09] MEDS: SODIUM CHLORIDE 0.9% 1000ML 1,000 ML IV SCH ×2 (15:30→20:51)
[2021-12-09 15:57] LABS: TOTAL PROTEIN, URINE 378.9 mg/dL (1-14)
[2021-12-09 16:30] LABS: TOTAL PROTEIN 24HR, URINE 14587.6 mg/24hr (50-100)
[2021-12-09] MEDS: SIMVASTATIN 40 MG TAB PO SCH (20:51)
[2021-12-09] MEDS: METOPROLOL TARTRATE 25 MG TAB PO SCH (21:58)
[2021-12-10] VITALS (8 sets, daily range): BP systolic 143–190; BP diastolic 57–73
[2021-12-10] MEDS: PIPERACILLIN/TAZOBACTAM 2.25 GM in SODIUM CHLORIDE 0.9% 50ML 50 ML IV SCH ×2 (05:21→17:31)
[2021-12-10] MEDS: METOPROLOL TARTRATE 25 MG TAB PO SCH ×3 (05:23→20:35)
[2021-12-10 07:33] LABS: BASOPHILS % 0.2 % (0.0-1.0); EOSINOPHILS # (AUTO) 0.2 (0.0-0.4); EOSINOPHILS % 1.8 % (0.0-6.0); HEMATOCRIT 25.2 % (34.2-44.1); HEMOGLOBIN 7.7 g/dL (12.0-16.0); LYMPHOCYTES # (AUTO) 2.3 (1.0-3.2); LYMPHOCYTES % 20.5 % (18.0-39.1); MEAN CORPUSCULAR HEMOGLOBIN 28.1 pg (28-32); MEAN CORPUSCULAR HGB CONC 30.6 g/dL (31-35); MONOCYTES # (AUTO) 0.6 (0.2-0.8); MONOCYTES % 5.5 % (4.4-11.3); NEUTROPHILS # (AUTO) 7.9 (2.1-6.9); NEUTROPHILS % 70.2 % (38.7-80.0); PLATELET COUNT 374 x10e3/uL (140-360); RED BLOOD COUNT 2.74 x10e6/uL (3.6-5.1); RED CELL DISTRIBUTION WIDTH 13.3 % (11.7-14.4)
[2021-12-10 07:50] LABS: ANION GAP 13.2 mmol/L (8-16); POTASSIUM 4.2 mmol/L (3.5-5.1)
[2021-12-10 07:51] LABS: CALCIUM 8.6 mg/dL (8.4-10.2)
[2021-12-10 08:05] LABS: CREATININE, SERUM 2.7 mg/dL (0.57-1.11)
[2021-12-10] MEDS: NPH, HUMAN INSULIN ISOPHANE 100 UNIT/1 ML 3ML VIAL SQ SCH ×2 (08:30→17:00)
[2021-12-10] MEDS: INSULIN REGULAR, HUMAN 100 UNIT/1 ML SQ SCH ×4 (08:30→21:42)
[2021-12-10] MEDS ORDERED: NYSTATIN/TRIAMCINOLONE 15 GM CR TOP SCH (09:00)
[2021-12-10] MEDS: PANTOPRAZOLE SOD 40 MG TABEC PO SCH (09:30)
[2021-12-10] MEDS: ESCITALOPRAM OXALATE 10 MG TAB PO SCH (09:31)
[2021-12-10] MEDS: SODIUM BICARBONATE 650 MG TAB PO SCH ×3 (09:31→20:35)
[2021-12-10] MEDS: GABAPENTIN 100 MG CAP PO SCH ×3 (10:45→20:33)
[2021-12-10] MEDS: Doxycycline IV 100 ML IV SCH (12:10)
[2021-12-10] MEDS: SODIUM CHLORIDE 0.9% 1000ML 1,000 ML IV SCH (14:10)
[2021-12-10] MEDS: RAMIPRIL 5 MG CAP PO SCH (17:31)
[2021-12-10] MEDS: NYSTATIN 100,000 UNITS/GM CRM 30GM TUBE TOP SCH (18:00)
[2021-12-10] MEDS: SIMVASTATIN 40 MG TAB PO SCH (20:35)
[2021-12-11] VITALS (8 sets, daily range): BP systolic 160–188; BP diastolic 61–72
[2021-12-11] MEDS: Doxycycline IV 100 ML IV SCH
[2021-12-11] MEDS: PIPERACILLIN/TAZOBACTAM 2.25 GM in SODIUM CHLORIDE 0.9% 50ML 50 ML IV SCH ×2 (05:12→18:00)
[2021-12-11] MEDS: RAMIPRIL 5 MG CAP PO SCH (05:27)
[2021-12-11] MEDS: NPH, HUMAN INSULIN ISOPHANE 100 UNIT/1 ML 3ML VIAL SQ SCH ×2 (08:36→18:02)
[2021-12-11] MEDS: INSULIN REGULAR, HUMAN 100 UNIT/1 ML SQ SCH ×3 (08:37→18:03)
[2021-12-11] MEDS: PANTOPRAZOLE SOD 40 MG TABEC PO SCH (08:37)
[2021-12-11] MEDS: GABAPENTIN 100 MG CAP PO SCH ×2 (08:38→15:20)
[2021-12-11] MEDS: ESCITALOPRAM OXALATE 10 MG TAB PO SCH (08:38)
[2021-12-11] MEDS: METOPROLOL TARTRATE 25 MG TAB PO SCH (08:38)
[2021-12-11] MEDS: SODIUM BICARBONATE 650 MG TAB PO SCH ×2 (08:38→15:20)
[2021-12-11] MEDS: NYSTATIN 100,000 UNITS/GM CRM 30GM TUBE TOP SCH (08:39)
[2021-12-11] MEDS ORDERED: SODIUM BICARBO650 MG PO (08:42)
[2021-12-11] MEDS ORDERED: ALTACE5 MG PO (08:42)
[2021-12-11] MEDS ORDERED: ACETAMINOPHEN650 M1 PO (08:46)
[2021-12-11] MEDS ORDERED: ASPIRIN81 MG PO (08:46)
[2021-12-11] MEDS ORDERED: RAMIPRIL 5 MG CAP PO SCH (09:00)
[2021-12-11] MEDS ORDERED: DOXYCYCLINE HYCLATE TABLET 100 MG TAB PO SCH (12:45)
[2021-12-11] MEDS: SODIUM CHLORIDE 0.9% 1000ML 1,000 ML IV SCH ×2 (13:27)
[2021-12-11] MEDS ORDERED: LABETALOL HCL 5 MG/ML 20ML VIAL IV ONE (18:07)
== END 2021-12-11 22:00 | disposition home or self-care (01) | DRG 854 ==
LOC: ER 18:45 → ERHOLD 19:04 → MED/SURG2 21:08
PROVIDERS: ADMIT Internal Medicine; ATTEND Internal Medicine
PROC: 3E03329 Introduction of Other Anti-infective into Peripheral Vein, Percutaneous Approach (ICD-10-PCS; 2021-12-07)
PROC: 0JBR0ZZ Excision of Left Foot Subcutaneous Tissue and Fascia, Open Approach (ICD-10-PCS; principal; 2021-12-10)
DX: A41.9 Sepsis, unspecified organism (principal); N18.4 Chronic kidney disease, stage 4 (severe); N17.9 Acute kidney failure, unspecified; E10.52 Type 1 diabetes mellitus with diabetic peripheral angiopathy with gangrene; I96 Gangrene, not elsewhere classified; L97.514 Non-pressure chronic ulcer of other part of right foot with necrosis of bone; E10.621 Type 1 diabetes mellitus with foot ulcer; I12.9 Hypertensive chronic kidney disease with stage 1 through stage 4 chronic kidney disease, or unspecified chronic kidney disease; K21.9 Gastro-esophageal reflux disease without esophagitis; E10.43 Type 1 diabetes mellitus with diabetic autonomic (poly)neuropathy; K31.84 Gastroparesis; E10.42 Type 1 diabetes mellitus with diabetic polyneuropathy; E10.22 Type 1 diabetes mellitus with diabetic chronic kidney disease; Z90.49 Acquired absence of other specified parts of digestive tract; Z88.1 Allergy status to other antibiotic agents; Z88.2 Allergy status to sulfonamides; Z88.8 Allergy status to other drugs, medicaments and biological substances; Z89.512 Acquired absence of left leg below knee; B95.61 Methicillin susceptible Staphylococcus aureus infection as the cause of diseases classified elsewhere; B95.1 Streptococcus, group B, as the cause of diseases classified elsewhere; Z83.3 Family history of diabetes mellitus; N25.89 Other disorders resulting from impaired renal tubular function
CPT/HCPCS: 36415; 80048; 80053; 80061; 81001; 81050; 82575; 82728; 82948; 83036; 83540; 84156; 84466; 85025; 87040; 87071; 87075; 87186; 87205; 93925; 94799; 96361; 97139; 99251; 99284; J1817; J2543; J7030; U0002

== ENCOUNTER 2022-03-10 18:19 | Inpatient (IN) | payer MEDICARE ==
[~2022-03-10] VITALS: Ht 157.5 cm; Wt 68.9 kg
[~2022-03-10 18:19] MED LIST changes: +ACETAMINOPHEN650 M1 PO; +ALTACE5 MG PO; +NOVOLIN R100 UNIT/1 SQ
[2022-03-10] MEDS ORDERED: SODIUM CHLORIDE 0.9% 1000ML 1,000 ML IV SCH ×2 (18:30→21:45)
[2022-03-10 19:19] LABS: BASOPHILS # (AUTO) 0.1 (0.0-0.1); BASOPHILS % 0.3 % (0.0-1.0); EOSINOPHILS # (AUTO) 0.1 (0.0-0.4); EOSINOPHILS % 0.5 % (0.0-6.0); HEMATOCRIT 27.1 % (34.2-44.1); HEMOGLOBIN 8.6 g/dL (12.0-16.0); LYMPHOCYTES # (AUTO) 2.3 (1.0-3.2); LYMPHOCYTES % 11.3 % (18.0-39.1); MEAN CORPUSCULAR HEMOGLOBIN 28.6 pg (28-32); MEAN CORPUSCULAR HGB CONC 31.7 g/dL (31-35); MONOCYTES # (AUTO) 0.9 (0.2-0.8); MONOCYTES % 4.5 % (4.4-11.3); NEUTROPHILS # (AUTO) 16.3 (2.1-6.9); NEUTROPHILS % 81.9 % (38.7-80.0); PLATELET COUNT 447 x10e3/uL (140-360); RED BLOOD COUNT 3.01 x10e6/uL (3.6-5.1); RED CELL DISTRIBUTION WIDTH 13.1 % (11.7-14.4)
[2022-03-10] MEDS ORDERED: KETOROLAC TROMETHAMINE 30 MG/ML VIAL IV STA (19:28)
[2022-03-10] MEDS ORDERED: KETOROLAC TROMETHAMINE 30 MG/ML VIAL ONE (19:41)
[2022-03-10 19:44] LABS: ALBUMIN 1.7 g/dL (3.5-5.0); ALBUMIN/GLOBULIN RATIO 0.3 (0.8-2.0); ANION GAP 15.8 mmol/L (8-16); CALCIUM 8.1 mg/dL (8.4-10.2); CREATININE, SERUM 4.05 mg/dL (0.57-1.11); POTASSIUM 3.8 mmol/L (3.5-5.1)
[2022-03-10 20:12] LABS: CLARITY,URINE TURBID (CLEAR); COLOR,URINE YELLOW (YELLOW); KETONES,URINE NEGATIVE (NEGATIVE); LEUKOCYTE ESTERASE ,URINE TRACE (NEGATIVE); NITRITE,URINE NEGATIVE (NEGATIVE); PROTEIN,URINE DIPSTICK >=300 (NEGATIVE); URINE UROBILINOGEN 0.2 mg/dL (0.2 - 1)
[2022-03-10 20:22] LABS: BACTERIA,URINE MANY /HPF; EPITHELIAL CELLS,URINE RARE /LPF; MUCUS,URINE FEW (RARE); RBC,URINE 0-5 /HPF (0-5); WBC,URINE (MAN) 0-5 /HPF (0-5)
[2022-03-10] MEDS: SODIUM CHLORIDE 0.9% 1000ML 1,000 ML IV SCH (23:45)
[2022-03-11] MEDS ORDERED: ACETAMINOPHEN 325 MG TAB PO PRN (04:00)
[2022-03-11] MEDS ORDERED: ACETAMINOPHEN 325 MG TAB ONE (04:06)
[2022-03-11 05:41] LABS: BASOPHILS % 0.2 % (0.0-1.0); EOSINOPHILS # (AUTO) 0.1 (0.0-0.4); EOSINOPHILS % 0.5 % (0.0-6.0); HEMATOCRIT 24.8 % (34.2-44.1); HEMOGLOBIN 7.7 g/dL (12.0-16.0); LYMPHOCYTES # (AUTO) 1.2 (1.0-3.2); LYMPHOCYTES % 6.1 % (18.0-39.1); MEAN CORPUSCULAR HEMOGLOBIN 28.7 pg (28-32); MEAN CORPUSCULAR VOLUME 92.5 fL (81-99); MONOCYTES # (AUTO) 0.8 (0.2-0.8); MONOCYTES % 4.4 % (4.4-11.3); NEUTROPHILS # (AUTO) 16.5 (2.1-6.9); NEUTROPHILS % 87.6 % (38.7-80.0); PLATELET COUNT 403 x10e3/uL (140-360); RED BLOOD COUNT 2.68 x10e6/uL (3.6-5.1); RED CELL DISTRIBUTION WIDTH 13.2 % (11.7-14.4)
[2022-03-11] MEDS: ONDANSETRON HCL INJ 2MG/ML 2ML 2 MG/ML VIAL IV PRN ×4 (05:57→19:58)
[2022-03-11 05:59] LABS: CALCIUM 7.6 mg/dL (8.4-10.2); CREATININE, SERUM 3.97 mg/dL (0.57-1.11)
[2022-03-11] MEDS: SODIUM CHLORIDE 0.9% 1000ML 1,000 ML IV SCH ×3 (06:27→20:00)
[2022-03-11 08:00] VITALS: BP 152/59
[2022-03-11 08:46] VITALS: BP 152/59
[2022-03-11] MEDS ORDERED: DEXTROSE 50% SYRINGE 50 ML IV PRN (09:15)
[2022-03-11] MEDS: NPH, HUMAN INSULIN ISOPHANE 100 UNIT/1 ML 3ML VIAL SQ SCH ×2 (09:15→21:45)
[2022-03-11] MEDS ORDERED: INSULIN LISPRO 100 UNIT/1 ML 3ML VIAL SQ NR (09:45)
[2022-03-11] MEDS: PANTOPRAZOLE SOD 40 MG TABEC PO SCH (09:59)
[2022-03-11 10:37] LABS: % IRON SATURATION 13 % (15-50); IRON 17 ug/dL (50-170); TOTAL IRON BINDING CAPACITY 134 ug/dL (261-478); TRANSFERRIN 96 mg/dL (180-382)
[2022-03-11] MEDS: INSULIN REGULAR, HUMAN 100 UNIT/1 ML SQ SCH ×3 (11:45→21:46)
[2022-03-11] MEDS: Morphine 4mg Syringe 4 MG/ML INJ IV PRN ×2 (11:46→13:39)
[2022-03-11 11:49] VITALS: BP 150/60
[2022-03-11] MEDS ORDERED: MINERAL OIL 132 ML BTL PR PRN (12:00)
[2022-03-11] MEDS ORDERED: FLUCONAZOLE 100 MG TAB PO NR (12:00)
[2022-03-11] MEDS: IRON SUCROSE 100 MG in SODIUM CHLORIDE 0.9% 100 ML 100 ML IV SCH (13:50)
[2022-03-11] MEDS: METRONIDAZOLE 500MG/NS 100ML 100 ML IV SCH ×2 (15:31→21:46)
[2022-03-11] MEDS: GABAPENTIN 100 MG CAP PO SCH ×2 (15:32→21:45)
[2022-03-11] MEDS: SODIUM BICARBONATE 650 MG TAB PO SCH ×2 (15:32→21:45)
[2022-03-11] MEDS: METOPROLOL SUCCINATE 50 MG TAB XL PO SCH (15:47)
[2022-03-11 16:44] VITALS: BP 145/56
[2022-03-11] MEDS ORDERED: FLUCONAZOLE 100 MG TAB ONE (19:30)
[2022-03-11 20:00] VITALS: BP 143/58
[2022-03-11 20:55] VITALS: BP 143/58
[2022-03-12] VITALS (9 sets, daily range): BP systolic 129–160; BP diastolic 55–64
[2022-03-12] MEDS: SODIUM CHLORIDE 0.9% 1000ML 1,000 ML IV SCH ×2 (03:20→16:14)
[2022-03-12] MEDS: METRONIDAZOLE 500MG/NS 100ML 100 ML IV SCH ×3 (05:37→22:00)
[2022-03-12 06:14] LABS: BASOPHILS % 0.2 % (0.0-1.0); EOSINOPHILS # (AUTO) 0.2 (0.0-0.4); EOSINOPHILS % 1.2 % (0.0-6.0); HEMATOCRIT 23.2 % (34.2-44.1); HEMOGLOBIN 7.1 g/dL (12.0-16.0); LYMPHOCYTES # (AUTO) 1.7 (1.0-3.2); MEAN CORPUSCULAR HEMOGLOBIN 28.4 pg (28-32); MEAN CORPUSCULAR HGB CONC 30.6 g/dL (31-35); MEAN CORPUSCULAR VOLUME 92.8 fL (81-99); MONOCYTES # (AUTO) 0.8 (0.2-0.8); MONOCYTES % 5.8 % (4.4-11.3); NEUTROPHILS # (AUTO) 10.2 (2.1-6.9); NEUTROPHILS % 78.9 % (38.7-80.0); PLATELET COUNT 381 x10e3/uL (140-360); RED CELL DISTRIBUTION WIDTH 13.4 % (11.7-14.4)
[2022-03-12 06:37] LABS: ANION GAP 10.9 mmol/L (8-16); CALCIUM 7.8 mg/dL (8.4-10.2); CREATININE, SERUM 3.58 mg/dL (0.57-1.11); POTASSIUM 3.9 mmol/L (3.5-5.1)
[2022-03-12] MEDS: INSULIN REGULAR, HUMAN 100 UNIT/1 ML SQ SCH ×4 (07:30→21:33)
[2022-03-12] MEDS: NPH, HUMAN INSULIN ISOPHANE 100 UNIT/1 ML 3ML VIAL SQ SCH ×2 (09:00→21:33)
[2022-03-12] MEDS: PANTOPRAZOLE SOD 40 MG TABEC PO SCH (09:00)
[2022-03-12] MEDS: GABAPENTIN 100 MG CAP PO SCH ×3 (09:00→21:33)
[2022-03-12] MEDS: ASPIRIN 81 MG CHEW TAB PO SCH (09:00)
[2022-03-12] MEDS: METOPROLOL SUCCINATE 50 MG TAB XL PO SCH ×2 (09:00→17:00)
[2022-03-12] MEDS: ESCITALOPRAM OXALATE 10 MG TAB PO SCH (09:00)
[2022-03-12] MEDS ORDERED: FENOFIBRATE 145 MG TAB PO SCH (09:00)
[2022-03-12] MEDS: SODIUM BICARBONATE 650 MG TAB PO SCH ×3 (09:00→21:33)
[2022-03-12] MEDS ORDERED: SODIUM BICARBONATE 8.4% 150 ML in DEXTROSE 5% 1,000 ML IV SCH (12:00)
[2022-03-12] MEDS: IRON SUCROSE 100 MG in SODIUM CHLORIDE 0.9% 100 ML 100 ML IV SCH (12:14)
[2022-03-12] MEDS ORDERED: PROPOFOL IV EMULSION 10 MG/ML 20 ML VIAL ONE (12:23)
[2022-03-12] MEDS ORDERED: ONDANSETRON HCL INJ 2MG/ML 2ML 2 MG/ML VIAL ONE (12:23)
[2022-03-12] MEDS ORDERED: SEVOFLURANE INHAL SOLN 250 ML PEN BTL ONE (12:23)
[2022-03-12] MEDS ORDERED: LIDOCAINE HCL 2% LOCAL INJ 5 ML SDV VIAL INJ ONE (12:23)
[2022-03-12] MEDS ORDERED: POVIDONE IODINE 0.05% 0.05 % ML PO ONE (12:23)
[2022-03-12] MEDS ORDERED: EPHEDRINE SULFATE INJ 50 MG/ML VIAL ONE (12:23)
[2022-03-12] MEDS ORDERED: MIDAZOLAM HCL 2 MG/2 ML VIAL ONE (12:40)
[2022-03-12] MEDS ORDERED: FENTANYL CITRATE/PF 100MCG/2 ML INJ ONE (12:40)
[2022-03-12] MEDS ORDERED: LIDOCAINE 1% W/EPINEPHRINE 20 ML VIAL ONE (14:36)
[2022-03-13] VITALS: BP 175/67
[2022-03-13 04:00] VITALS: BP 164/68
[2022-03-13 05:43] LABS: BASOPHILS % 0.2 % (0.0-1.0); EOSINOPHILS # (AUTO) 0.3 (0.0-0.4); EOSINOPHILS % 2.2 % (0.0-6.0); HEMATOCRIT 22.8 % (34.2-44.1); LYMPHOCYTES % 17.3 % (18.0-39.1); MEAN CORPUSCULAR HGB CONC 30.7 g/dL (31-35); MEAN CORPUSCULAR VOLUME 91.2 fL (81-99); MONOCYTES # (AUTO) 0.6 (0.2-0.8); MONOCYTES % 5.2 % (4.4-11.3); NEUTROPHILS # (AUTO) 8.3 (2.1-6.9); NEUTROPHILS % 73.6 % (38.7-80.0); PLATELET COUNT 394 x10e3/uL (140-360); RED CELL DISTRIBUTION WIDTH 13.4 % (11.7-14.4)
[2022-03-13] MEDS: METRONIDAZOLE 500MG/NS 100ML 100 ML IV SCH ×3 (06:00→21:35)
[2022-03-13 06:05] LABS: ALBUMIN 1.4 g/dL (3.5-5.0); ALBUMIN/GLOBULIN RATIO 0.3 (0.8-2.0); ANION GAP 11.5 mmol/L (8-16); CALCIUM 7.8 mg/dL (8.4-10.2); CREATININE, SERUM 3.27 mg/dL (0.57-1.11); POTASSIUM 3.5 mmol/L (3.5-5.1)
[2022-03-13] MEDS: INSULIN REGULAR, HUMAN 100 UNIT/1 ML SQ SCH ×4 (07:30→21:00)
[2022-03-13 08:36] VITALS: BP 168/62
[2022-03-13] MEDS: NPH, HUMAN INSULIN ISOPHANE 100 UNIT/1 ML 3ML VIAL SQ SCH ×2 (09:00→21:00)
[2022-03-13] MEDS: GABAPENTIN 100 MG CAP PO SCH ×3 (09:33→21:00)
[2022-03-13] MEDS: PANTOPRAZOLE SOD 40 MG TABEC PO SCH (09:33)
[2022-03-13] MEDS: ESCITALOPRAM OXALATE 10 MG TAB PO SCH (09:33)
[2022-03-13] MEDS: SODIUM BICARBONATE 650 MG TAB PO SCH ×3 (09:34→21:00)
[2022-03-13] MEDS: ASPIRIN 81 MG CHEW TAB PO SCH (09:34)
[2022-03-13] MEDS: METOPROLOL SUCCINATE 50 MG TAB XL PO SCH ×2 (09:34→17:19)
[2022-03-13 11:51] VITALS: BP 172/61
[2022-03-13 13:50] LABS: HEMATOCRIT 23.5 % (34.2-44.1); HEMOGLOBIN 7.5 g/dL (12.0-16.0)
[2022-03-13] MEDS: IRON SUCROSE 100 MG in SODIUM CHLORIDE 0.9% 100 ML 100 ML IV SCH ×2 (14:32→15:00)
[2022-03-13 16:59] VITALS: BP 167/61
[2022-03-13] MEDS: HYDRALAZINE HCL 25 MG TAB PO SCH (17:00)
[2022-03-13 19:19] LABS: CREATININE,URINE RANDOM 26.22 mg/dL (47-110)
[2022-03-13 20:00] VITALS: BP 167/66
[2022-03-14] VITALS (10 sets, daily range): BP systolic 150–193; BP diastolic 62–72
[2022-03-14] MEDS: METRONIDAZOLE 500MG/NS 100ML 100 ML IV SCH (06:00)
[2022-03-14 06:06] LABS: BASOPHILS % 0.3 % (0.0-1.0); EOSINOPHILS # (AUTO) 0.3 (0.0-0.4); EOSINOPHILS % 2.6 % (0.0-6.0); HEMATOCRIT 23.9 % (34.2-44.1); HEMOGLOBIN 7.4 g/dL (12.0-16.0); LYMPHOCYTES # (AUTO) 2.2 (1.0-3.2); LYMPHOCYTES % 22.5 % (18.0-39.1); MEAN CORPUSCULAR VOLUME 90.5 fL (81-99); MONOCYTES # (AUTO) 0.6 (0.2-0.8); NEUTROPHILS # (AUTO) 6.4 (2.1-6.9); NEUTROPHILS % 65.4 % (38.7-80.0); PLATELET COUNT 392 x10e3/uL (140-360); RED BLOOD COUNT 2.64 x10e6/uL (3.6-5.1); RED CELL DISTRIBUTION WIDTH 13.3 % (11.7-14.4)
[2022-03-14 06:31] LABS: ANION GAP 10.4 mmol/L (8-16); CALCIUM 7.6 mg/dL (8.4-10.2); CREATININE, SERUM 3.23 mg/dL (0.57-1.11); POTASSIUM 3.4 mmol/L (3.5-5.1)
[2022-03-14] MEDS: INSULIN REGULAR, HUMAN 100 UNIT/1 ML SQ SCH ×4 (07:30→21:20)
[2022-03-14] MEDS: HYDRALAZINE HCL 25 MG TAB PO SCH ×2 (08:15→17:21)
[2022-03-14] MEDS: SODIUM BICARBONATE 650 MG TAB PO SCH ×3 (08:15→21:20)
[2022-03-14] MEDS: PANTOPRAZOLE SOD 40 MG TABEC PO SCH (08:15)
[2022-03-14] MEDS: ASPIRIN 81 MG CHEW TAB PO SCH (08:15)
[2022-03-14] MEDS: ESCITALOPRAM OXALATE 10 MG TAB PO SCH (08:15)
[2022-03-14] MEDS: GABAPENTIN 100 MG CAP PO SCH ×3 (08:15→21:20)
[2022-03-14] MEDS: METOPROLOL SUCCINATE 50 MG TAB XL PO SCH ×2 (08:16→17:21)
[2022-03-14] MEDS: NPH, HUMAN INSULIN ISOPHANE 100 UNIT/1 ML 3ML VIAL SQ SCH ×2 (08:16→21:20)
[2022-03-14] MEDS ORDERED: POTASSIUM CHLORIDE 20 MEQ TAB CR PO ONE (11:30)
[2022-03-14] MEDS ORDERED: CLONIDINE HCL 0.1 MG TAB PO PRN (11:30)
[2022-03-14] MEDS ORDERED: HYDRALAZINE HCL25 MG PO (11:46)
[2022-03-14] MEDS ORDERED: NORVASC5 MG PO (11:46)
[2022-03-14] MEDS ORDERED: KEFLEX125 MG/5 M PO (11:48)
[2022-03-14] MEDS: AMLODIPINE BESYLATE 5 MG TAB PO SCH ×2 (12:11→21:20)
[2022-03-14] MEDS: METRONIDAZOLE 500 MG TAB PO SCH ×2 (13:12→21:36)
[2022-03-14] MEDS: IRON SUCROSE 100 MG in SODIUM CHLORIDE 0.9% 100 ML 100 ML IV SCH (14:25)
[2022-03-14] MEDS ORDERED: ONDANSETRON HCL 4 MG ORAL DISINTEGRATING TAB PO PRN (15:15)
== END 2022-03-14 21:30 | disposition home health service (06) | DRG 854 ==
LOC: ER 18:30 → ERHOLD 22:24 → MED/SURG2 03-11 08:16
PROVIDERS: ADMIT Internal Medicine; ATTEND Internal Medicine
PROC: 3E03329 Introduction of Other Anti-infective into Peripheral Vein, Percutaneous Approach (ICD-10-PCS; 2022-03-10)
PROC: 0Y950ZZ Drainage of Right Inguinal Region, Open Approach (ICD-10-PCS; principal; 2022-03-12 12:30)
DX: A41.9 Sepsis, unspecified organism (principal); N39.0 Urinary tract infection, site not specified; L03.314 Cellulitis of groin; N18.4 Chronic kidney disease, stage 4 (severe); B37.49 Other urogenital candidiasis; L02.214 Cutaneous abscess of groin; N17.9 Acute kidney failure, unspecified; K21.9 Gastro-esophageal reflux disease without esophagitis; E78.5 Hyperlipidemia, unspecified; E11.22 Type 2 diabetes mellitus with diabetic chronic kidney disease; I12.9 Hypertensive chronic kidney disease with stage 1 through stage 4 chronic kidney disease, or unspecified chronic kidney disease; E11.43 Type 2 diabetes mellitus with diabetic autonomic (poly)neuropathy; K31.84 Gastroparesis; D63.8 Anemia in other chronic diseases classified elsewhere; E11.51 Type 2 diabetes mellitus with diabetic peripheral angiopathy without gangrene; D50.9 Iron deficiency anemia, unspecified; E11.21 Type 2 diabetes mellitus with diabetic nephropathy; B96.1 Klebsiella pneumoniae [K. pneumoniae] as the cause of diseases classified elsewhere; Z90.49 Acquired absence of other specified parts of digestive tract; Z89.512 Acquired absence of left leg below knee; Z88.3 Allergy status to other anti-infective agents; Z88.2 Allergy status to sulfonamides; Z88.8 Allergy status to other drugs, medicaments and biological substances; Z86.73 Personal history of transient ischemic attack (TIA), and cerebral infarction without residual deficits; Z89.421 Acquired absence of other right toe(s); Z80.3 Family history of malignant neoplasm of breast; Z83.3 Family history of diabetes mellitus; Z84.89 Family history of other specified conditions; B95.1 Streptococcus, group B, as the cause of diseases classified elsewhere; B95.4 Other streptococcus as the cause of diseases classified elsewhere
CPT/HCPCS: 36415; 71045; 74176; 80048; 80053; 81001; 82575; 82948; 83036; 83540; 83605; 84466; 85014; 85018; 85025; 86850; 86900; 87040; 87071; 87075; 87086; 87186; 87205; 94799; 99251; 99284; J0696; J1756; J1817; J1885; J2001; J2250; J2270; J2405; J3010; J7030; J7070; U0002

== ENCOUNTER 2022-04-19 14:25 | Emergency (ER) | payer MEDICARE ==
[~2022-04-19] VITALS: Ht 157.5 cm; Wt 68.9 kg
[~2022-04-19 14:25] MED LIST changes: +HYDRALAZINE HCL25 MG PO; +KEFLEX125 MG/5 M PO; +NORVASC5 MG PO
[2022-04-19] MEDS ORDERED: INSULIN REGULAR, HUMAN 100 UNIT/1 ML IV ONE (15:00)
[2022-04-19 15:14] LABS: BASOPHILS % 0.2 % (0.0-1.0); EOSINOPHILS # (AUTO) 0.2 (0.0-0.4); EOSINOPHILS % 1.7 % (0.0-6.0); HEMATOCRIT 27.9 % (34.2-44.1); HEMOGLOBIN 8.8 g/dL (12.0-16.0); LYMPHOCYTES # (AUTO) 2.5 (1.0-3.2); LYMPHOCYTES % 23.5 % (18.0-39.1); MEAN CORPUSCULAR HEMOGLOBIN 29.1 pg (28-32); MEAN CORPUSCULAR HGB CONC 31.5 g/dL (31-35); MEAN CORPUSCULAR VOLUME 92.4 fL (81-99); MONOCYTES # (AUTO) 0.6 (0.2-0.8); MONOCYTES % 5.4 % (4.4-11.3); NEUTROPHILS # (AUTO) 7.2 (2.1-6.9); NEUTROPHILS % 68.5 % (38.7-80.0); PLATELET COUNT 340 x10e3/uL (140-360); RED BLOOD COUNT 3.02 x10e6/uL (3.6-5.1); RED CELL DISTRIBUTION WIDTH 13.7 % (11.7-14.4)
[2022-04-19 15:39] LABS: ALBUMIN 1.9 g/dL (3.5-5.0); ALBUMIN/GLOBULIN RATIO 0.4 (0.8-2.0); ANION GAP 17.4 mmol/L (8-16); CALCIUM 8.2 mg/dL (8.4-10.2); CREATININE, SERUM 4.07 mg/dL (0.57-1.11); POTASSIUM 4.4 mmol/L (3.5-5.1)
[2022-04-19] MEDS ORDERED: MAGNESIUM SULF 1GRAM/DEXTROSE 100 ML IV PRN (16:30)
[2022-04-19] MEDS ORDERED: DEXTROSE 5%/0.45% SOD CHL 1,000 ML IV SCH (16:30)
[2022-04-19] MEDS ORDERED: INSULIN REGULAR, HUMAN 3ML VL 100 UNIT in SODIUM CHLORIDE 0.9% 100 ML IV SCH ×2 (16:30)
[2022-04-19] MEDS ORDERED: SODIUM CHLORIDE 0.9% 1000ML 1,000 ML IV SCH (16:30)
[2022-04-19] MEDS ORDERED: POTASSIUM CHLORIDE 20MEQ/100ML 200 ML IV PRN (16:30)
[2022-04-19] MEDS ORDERED: SODIUM CHLORIDE 0.9% 1000ML 2,000 ML IV ONE (16:30)
[2022-04-19 17:26] LABS: CLARITY,URINE CLOUDY (CLEAR); COLOR,URINE YELLOW (YELLOW); KETONES,URINE NEGATIVE (NEGATIVE); LEUKOCYTE ESTERASE ,URINE SMALL (NEGATIVE); NITRITE,URINE POSITIVE (NEGATIVE); PROTEIN,URINE DIPSTICK >=300 (NEGATIVE); URINE UROBILINOGEN 0.2 mg/dL (0.2 - 1)
[2022-04-19] MEDS ORDERED: CYCLOBENZAPRINE HCL 10 MG TAB PO ONE (17:30)
[2022-04-19 17:46] LABS: BACTERIA,URINE MANY /HPF; EPITHELIAL CELLS,URINE FEW /LPF; WBC,URINE (MAN) >50 /HPF (0-5)
[2022-04-20] MEDS ORDERED: INSULIN REGULAR, HUMAN 3ML VL 100 UNIT in SODIUM CHLORIDE 0.9% 99 ML IV SCH ×2 (02:00)
== END 2022-04-19 20:43 | disposition other institution (70) ==
LOC: ER 14:33
DX: E11.10 Type 2 diabetes mellitus with ketoacidosis without coma (principal); I10 Essential (primary) hypertension; E78.5 Hyperlipidemia, unspecified; N28.9 Disorder of kidney and ureter, unspecified; K21.9 Gastro-esophageal reflux disease without esophagitis; Z89.512 Acquired absence of left leg below knee; Z20.822 Contact with and (suspected) exposure to COVID-19
CPT/HCPCS: 36415; 71045; 80053; 81001; 82948; 84484; 85025; 99284; J1817; J7030; J7050; U0002

== ENCOUNTER 2022-05-20 22:39 | Emergency (ER) | payer MEDICARE ==
[~2022-05-20] VITALS: Ht 157.5 cm; Wt 68.9 kg
== END 2022-05-20 23:25 | disposition home or self-care (01) ==
LOC: ER 22:51
DX: R10.2 Pelvic and perineal pain (principal); B37.89 Other sites of candidiasis; I10 Essential (primary) hypertension; E11.40 Type 2 diabetes mellitus with diabetic neuropathy, unspecified; E78.5 Hyperlipidemia, unspecified; K21.9 Gastro-esophageal reflux disease without esophagitis
CPT/HCPCS: 99282

== ENCOUNTER 2022-06-08 12:47 | Inpatient (IN) | payer MEDICARE ==
[~2022-06-08] VITALS: Ht 157.5 cm; Wt 81.6 kg
[2022-06-08 13:56] LABS: BASOPHILS % 0.2 % (0.0-1.0); EOSINOPHILS # (AUTO) 0.8 (0.0-0.4); EOSINOPHILS % 6.7 % (0.0-6.0); HEMOGLOBIN 8.8 g/dL (12.0-16.0); LYMPHOCYTES # (AUTO) 3.5 (1.0-3.2); LYMPHOCYTES % 27.7 % (18.0-39.1); MEAN CORPUSCULAR HEMOGLOBIN 29.9 pg (28-32); MEAN CORPUSCULAR HGB CONC 31.4 g/dL (31-35); MEAN CORPUSCULAR VOLUME 95.2 fL (81-99); MONOCYTES # (AUTO) 0.7 (0.2-0.8); MONOCYTES % 5.4 % (4.4-11.3); NEUTROPHILS # (AUTO) 7.4 (2.1-6.9); NEUTROPHILS % 59.2 % (38.7-80.0); PLATELET COUNT 337 x10e3/uL (140-360); RED BLOOD COUNT 2.94 x10e6/uL (3.6-5.1); RED CELL DISTRIBUTION WIDTH 13.8 % (11.7-14.4)
[2022-06-08 14:00] LABS: INR 0.88; PROTHROMBIN TIME 12.8 seconds (11.9-14.5)
[2022-06-08 14:10] LABS: ALBUMIN 1.8 g/dL (3.5-5.0); ALBUMIN/GLOBULIN RATIO 0.4 (0.8-2.0); ANION GAP 13.1 mmol/L (8-16); CALCIUM 8.1 mg/dL (8.4-10.2); CREATININE, SERUM 3.41 mg/dL (0.57-1.11); POTASSIUM 4.1 mmol/L (3.5-5.1)
[2022-06-08 14:16] LABS: CREATINE KINASE MB 13.6 ng/mL (0-5.0)
[2022-06-08] MEDS ORDERED: ONDANSETRON HCL INJ 2MG/ML 2ML 2 MG/ML VIAL IV PRN (15:15)
[2022-06-08] MEDS ORDERED: SODIUM CHLORIDE FLUSH 10 ML SYR INJ PRN (15:15)
[2022-06-08 16:00] VITALS: BP 184/86
[2022-06-08 16:17] VITALS: BP 184/86
[2022-06-08 17:00] VITALS: BP 184/86
[2022-06-08] MEDS ORDERED: NOVOLIN R100 UNIT/1 SQ (17:47)
[2022-06-08] MEDS ORDERED: SODIUM BICARBO650 MG PO ×2 (17:47→17:48)
[2022-06-08] MEDS ORDERED: FUROSEMIDE40 MG PO (17:47)
[2022-06-08] MEDS ORDERED: CRESTOR10 MG PO (17:50)
[2022-06-08] MEDS ORDERED: DEXTROSE 50% SYRINGE 50 ML IV PRN (18:15)
[2022-06-08] MEDS ORDERED: HYDRALAZINE HCL 20 MG/ML VIAL IV PRN (18:15)
[2022-06-08] MEDS ORDERED: METOPROLOL SUCCINATE 50 MG TAB XL PO ONE (18:45)
[2022-06-08] MEDS ORDERED: SODIUM CHLORIDE 0.45% 1,000 ML IV ONE (19:00)
[2022-06-08 20:00] VITALS: BP 150/74
[2022-06-08] MEDS: INSULIN LISPRO 100 UNIT/1 ML 3ML VIAL SQ SCH (21:00)
[2022-06-08] MEDS: GABAPENTIN 100 MG CAP PO SCH (21:46)
[2022-06-08] MEDS: SODIUM BICARBONATE 650 MG TAB PO SCH (21:46)
[2022-06-09] VITALS (8 sets, daily range): BP systolic 108–189; BP diastolic 64–89
[2022-06-09 01:51] LABS: CREATINE KINASE MB 7.6 ng/mL (0-5.0)
[2022-06-09 06:34] LABS: BASOPHILS % 0.3 % (0.0-1.0); EOSINOPHILS # (AUTO) 0.8 (0.0-0.4); EOSINOPHILS % 7.4 % (0.0-6.0); HEMATOCRIT 28.5 % (34.2-44.1); HEMOGLOBIN 8.7 g/dL (12.0-16.0); LYMPHOCYTES # (AUTO) 2.3 (1.0-3.2); LYMPHOCYTES % 22.4 % (18.0-39.1); MEAN CORPUSCULAR HGB CONC 30.5 g/dL (31-35); MONOCYTES # (AUTO) 0.7 (0.2-0.8); MONOCYTES % 6.4 % (4.4-11.3); NEUTROPHILS # (AUTO) 6.6 (2.1-6.9); NEUTROPHILS % 62.8 % (38.7-80.0); PLATELET COUNT 334 x10e3/uL (140-360); RED CELL DISTRIBUTION WIDTH 13.9 % (11.7-14.4)
[2022-06-09] MEDS: METOPROLOL SUCCINATE 50 MG TAB XL PO SCH ×2 (06:42→17:48)
[2022-06-09 07:10] LABS: CREATINE KINASE MB 8.3 ng/mL (0-5.0)
[2022-06-09 07:12] LABS: ANION GAP 14.2 mmol/L (8-16); CALCIUM 8.1 mg/dL (8.4-10.2); CREATININE, SERUM 3.34 mg/dL (0.57-1.11); MAGNESIUM 1.6 MG/DL (1.3-2.1); POTASSIUM 4.2 mmol/L (3.5-5.1)
[2022-06-09 07:13] LABS: PHOSPHORUS 5.2 MG/DL (2.3-4.7)
[2022-06-09 07:28] LABS: THYROID STIMULATING HORMONE 3.909 uIU/mL (0.350-4.940)
[2022-06-09] MEDS: GABAPENTIN 100 MG CAP PO SCH ×3 (08:52→20:46)
[2022-06-09] MEDS: PANTOPRAZOLE SOD 40 MG TABEC PO SCH (08:52)
[2022-06-09] MEDS: FENOFIBRATE 145 MG TAB PO SCH (08:52)
[2022-06-09] MEDS: ESCITALOPRAM OXALATE 10 MG TAB PO SCH (08:52)
[2022-06-09] MEDS: SODIUM BICARBONATE 650 MG TAB PO SCH ×2 (08:52→20:46)
[2022-06-09] MEDS: INSULIN LISPRO 100 UNIT/1 ML 3ML VIAL SQ SCH ×4 (08:53→20:53)
[2022-06-09 14:27] LABS: CREATINE KINASE MB 7.5 ng/mL (0-5.0)
[2022-06-09] MEDS ORDERED: CLONIDINE HCL 0.2 MG/24 HR 1 EA PATCH TOP SCH (16:00)
[2022-06-09 20:00] LABS: CLARITY,URINE HAZY (CLEAR); COLOR,URINE YELLOW (YELLOW); KETONES,URINE NEGATIVE (NEGATIVE); LEUKOCYTE ESTERASE ,URINE TRACE (NEGATIVE); NITRITE,URINE NEGATIVE (NEGATIVE); PROTEIN,URINE DIPSTICK >=300 (NEGATIVE); URINE UROBILINOGEN 0.2 mg/dL (0.2 - 1)
[2022-06-09 20:01] LABS: WBC,URINE (MAN) >50 /HPF (0-5)
[2022-06-09 20:02] LABS: AMORPHOUS SEDIMENT,URINE FEW (FEW); BACTERIA,URINE MANY /HPF; EPITHELIAL CELLS,URINE FEW /LPF; MUCUS,URINE MODERATE (RARE); RBC,URINE 21-50 /HPF (0-5)
[2022-06-09] MEDS: SIMVASTATIN 40 MG TAB PO SCH (20:46)
[2022-06-10] VITALS: BP 134/54
[2022-06-10 04:00] VITALS: BP 189/65
[2022-06-10] MEDS: METOPROLOL SUCCINATE 50 MG TAB XL PO SCH ×2 (06:06→17:06)
[2022-06-10 06:32] LABS: BASOPHILS % 0.2 % (0.0-1.0); EOSINOPHILS # (AUTO) 0.5 (0.0-0.4); EOSINOPHILS % 6.1 % (0.0-6.0); HEMOGLOBIN 8.8 g/dL (12.0-16.0); LYMPHOCYTES # (AUTO) 2.3 (1.0-3.2); LYMPHOCYTES % 26.5 % (18.0-39.1); MEAN CORPUSCULAR HEMOGLOBIN 28.9 pg (28-32); MEAN CORPUSCULAR HGB CONC 31.4 g/dL (31-35); MEAN CORPUSCULAR VOLUME 91.8 fL (81-99); MONOCYTES # (AUTO) 0.4 (0.2-0.8); NEUTROPHILS # (AUTO) 5.2 (2.1-6.9); NEUTROPHILS % 61.3 % (38.7-80.0); PLATELET COUNT 345 x10e3/uL (140-360); RED BLOOD COUNT 3.05 x10e6/uL (3.6-5.1); RED CELL DISTRIBUTION WIDTH 13.9 % (11.7-14.4)
[2022-06-10 06:59] LABS: ALBUMIN 1.5 g/dL (3.5-5.0); ALBUMIN/GLOBULIN RATIO 0.4 (0.8-2.0); ALKALINE PHOSPHATASE 36 IU/L (40-150); ANION GAP 12.1 mmol/L (8-16); BLOOD UREA NITROGEN 33 mg/dL (7-26); BUN/CREATININE RATIO 10 (6-25); CALCIUM 7.9 mg/dL (8.4-10.2); CARBON DIOXIDE 18 mmol/L (22-29); CHLORIDE 114 mmol/L (98-107); CREATININE, SERUM 3.47 mg/dL (0.57-1.11); GLUCOSE 156 mg/dL (74-118); POTASSIUM 4.1 mmol/L (3.5-5.1); SODIUM 140 mmol/L (136-145)
[2022-06-10 07:00] LABS: ALANINE AMINOTRANSFERASE < 6 IU/L (0-55)
[2022-06-10] MEDS: INSULIN LISPRO 100 UNIT/1 ML 3ML VIAL SQ SCH ×4 (07:30→21:00)
[2022-06-10 08:00] VITALS: BP 169/80
[2022-06-10] MEDS: PANTOPRAZOLE SOD 40 MG TABEC PO SCH (08:21)
[2022-06-10] MEDS: GABAPENTIN 100 MG CAP PO SCH ×3 (08:21→21:35)
[2022-06-10] MEDS: ESCITALOPRAM OXALATE 10 MG TAB PO SCH (08:21)
[2022-06-10] MEDS: FENOFIBRATE 145 MG TAB PO SCH (08:21)
[2022-06-10] MEDS: SODIUM BICARBONATE 650 MG TAB PO SCH ×3 (08:21→21:35)
[2022-06-10 12:00] VITALS: BP 153/53
[2022-06-10 12:10] LABS: % IRON SATURATION 50 % (15-50); IRON 71 ug/dL (50-170); TOTAL IRON BINDING CAPACITY 143 ug/dL (261-478); TRANSFERRIN 102 mg/dL (180-382)
[2022-06-10 15:57] VITALS: BP 185/66
[2022-06-10 20:00] VITALS: BP 168/69
[2022-06-10 21:21] LABS: CREATININE,URINE RANDOM 39.73 mg/dL (47-110)
[2022-06-10] MEDS: SIMVASTATIN 40 MG TAB PO SCH (21:35)
[2022-06-11] VITALS (8 sets, daily range): BP systolic 168–192; BP diastolic 62–76
[2022-06-11] MEDS: METOPROLOL SUCCINATE 50 MG TAB XL PO SCH ×2 (05:50→17:22)
[2022-06-11 08:00] LABS: ALBUMIN 1.4 g/dL (3.5-5.0); ALBUMIN/GLOBULIN RATIO 0.3 (0.8-2.0); ALKALINE PHOSPHATASE 33 IU/L (40-150); ANION GAP 12.9 mmol/L (8-16); BLOOD UREA NITROGEN 34 mg/dL (7-26); BUN/CREATININE RATIO 10 (6-25); CALCIUM 7.9 mg/dL (8.4-10.2); CARBON DIOXIDE 20 mmol/L (22-29); CHLORIDE 115 mmol/L (98-107); CREATININE, SERUM 3.49 mg/dL (0.57-1.11); GLUCOSE 142 mg/dL (74-118); POTASSIUM 3.9 mmol/L (3.5-5.1); SODIUM 144 mmol/L (136-145)
[2022-06-11 08:01] LABS: ALANINE AMINOTRANSFERASE < 6 IU/L (0-55)
[2022-06-11] MEDS: INSULIN LISPRO 100 UNIT/1 ML 3ML VIAL SQ SCH ×4 (08:22→21:00)
[2022-06-11] MEDS: GABAPENTIN 100 MG CAP PO SCH ×3 (08:24→21:21)
[2022-06-11] MEDS: PANTOPRAZOLE SOD 40 MG TABEC PO SCH (08:24)
[2022-06-11] MEDS: ESCITALOPRAM OXALATE 10 MG TAB PO SCH (08:24)
[2022-06-11] MEDS: SODIUM BICARBONATE 650 MG TAB PO SCH ×3 (08:24→21:21)
[2022-06-11] MEDS: FENOFIBRATE 145 MG TAB PO SCH (08:24)
[2022-06-11] MEDS ORDERED: EPOETIN ALFA-EPBX 10,000 UNIT/ML VIAL SC ONE (11:00)
[2022-06-11] MEDS ORDERED: ONDANSETRON HCL 4 MG ORAL DISINTEGRATING TAB PO PRN (11:00)
[2022-06-11] MEDS: NIFEDIPINE CR 30 MG TAB PO SCH (11:38)
[2022-06-11] MEDS: SIMVASTATIN 40 MG TAB PO SCH (21:21)
[2022-06-12] VITALS (7 sets, daily range): BP systolic 114–161; BP diastolic 49–65
[2022-06-12] MEDS ORDERED: ACETAMINOPHEN 325 MG TAB PO PRN (03:30)
[2022-06-12] MEDS: METOPROLOL SUCCINATE 50 MG TAB XL PO SCH ×2 (05:52→18:31)
[2022-06-12] MEDS: INSULIN LISPRO 100 UNIT/1 ML 3ML VIAL SQ SCH ×4 (08:08→20:35)
[2022-06-12] MEDS: ESCITALOPRAM OXALATE 10 MG TAB PO SCH (08:19)
[2022-06-12] MEDS: PANTOPRAZOLE SOD 40 MG TABEC PO SCH (08:19)
[2022-06-12] MEDS: SODIUM BICARBONATE 650 MG TAB PO SCH ×3 (08:19→20:33)
[2022-06-12] MEDS: GABAPENTIN 100 MG CAP PO SCH ×3 (08:19→20:33)
[2022-06-12] MEDS: FENOFIBRATE 145 MG TAB PO SCH (08:19)
[2022-06-12] MEDS: NIFEDIPINE CR 30 MG TAB PO SCH (08:21)
[2022-06-12] MEDS: SIMVASTATIN 40 MG TAB PO SCH (20:33)
[2022-06-13] VITALS (8 sets, daily range): BP systolic 118–155; BP diastolic 46–63
[2022-06-13] MEDS: METOPROLOL SUCCINATE 50 MG TAB XL PO SCH ×2 (05:39→17:10)
[2022-06-13] MEDS: PANTOPRAZOLE SOD 40 MG TABEC PO SCH (09:07)
[2022-06-13] MEDS: NIFEDIPINE CR 30 MG TAB PO SCH (09:08)
[2022-06-13] MEDS: SODIUM BICARBONATE 650 MG TAB PO SCH ×3 (09:08→21:49)
[2022-06-13] MEDS: ESCITALOPRAM OXALATE 10 MG TAB PO SCH (09:08)
[2022-06-13] MEDS: FENOFIBRATE 145 MG TAB PO SCH (09:08)
[2022-06-13] MEDS: GABAPENTIN 100 MG CAP PO SCH ×3 (09:08→21:49)
[2022-06-13] MEDS: INSULIN LISPRO 100 UNIT/1 ML 3ML VIAL SQ SCH ×4 (09:16→21:55)
[2022-06-13] MEDS: SIMVASTATIN 40 MG TAB PO SCH (21:49)
[2022-06-14] VITALS (7 sets, daily range): BP systolic 126–176; BP diastolic 57–67
[2022-06-14 05:34] LABS: BASOPHILS % 0.3 % (0.0-1.0); EOSINOPHILS # (AUTO) 0.4 (0.0-0.4); EOSINOPHILS % 4.2 % (0.0-6.0); HEMATOCRIT 27.5 % (34.2-44.1); HEMOGLOBIN 8.6 g/dL (12.0-16.0); LYMPHOCYTES # (AUTO) 3.2 (1.0-3.2); LYMPHOCYTES % 32.5 % (18.0-39.1); MEAN CORPUSCULAR HEMOGLOBIN 29.3 pg (28-32); MEAN CORPUSCULAR HGB CONC 31.3 g/dL (31-35); MEAN CORPUSCULAR VOLUME 93.5 fL (81-99); MONOCYTES # (AUTO) 0.6 (0.2-0.8); MONOCYTES % 6.2 % (4.4-11.3); NEUTROPHILS # (AUTO) 5.5 (2.1-6.9); NEUTROPHILS % 55.9 % (38.7-80.0); PLATELET COUNT 294 x10e3/uL (140-360); RED BLOOD COUNT 2.94 x10e6/uL (3.6-5.1); RED CELL DISTRIBUTION WIDTH 13.8 % (11.7-14.4)
[2022-06-14] MEDS: METOPROLOL SUCCINATE 50 MG TAB XL PO SCH ×2 (05:59→16:28)
[2022-06-14 06:03] LABS: ANION GAP 14.7 mmol/L (8-16); CALCIUM 7.1 mg/dL (8.4-10.2); CREATININE, SERUM 3.56 mg/dL (0.57-1.11); POTASSIUM 3.7 mmol/L (3.5-5.1)
[2022-06-14] MEDS: NIFEDIPINE CR 30 MG TAB PO SCH (09:00)
[2022-06-14] MEDS: SODIUM BICARBONATE 650 MG TAB PO SCH ×3 (09:00→22:01)
[2022-06-14] MEDS: FENOFIBRATE 145 MG TAB PO SCH (09:00)
[2022-06-14] MEDS: GABAPENTIN 100 MG CAP PO SCH ×3 (09:01→22:01)
[2022-06-14] MEDS: ESCITALOPRAM OXALATE 10 MG TAB PO SCH (09:01)
[2022-06-14] MEDS: PANTOPRAZOLE SOD 40 MG TABEC PO SCH (09:01)
[2022-06-14] MEDS: INSULIN LISPRO 100 UNIT/1 ML 3ML VIAL SQ SCH ×4 (09:20→22:09)
[2022-06-14] MEDS: SIMVASTATIN 40 MG TAB PO SCH (22:01)
[2022-06-15 01:20] VITALS: BP 159/63
[2022-06-15] MEDS: METOPROLOL SUCCINATE 50 MG TAB XL PO SCH (05:03)
[2022-06-15 06:47] VITALS: BP 143/60
[2022-06-15 08:00] VITALS: BP 145/67
[2022-06-15 08:29] VITALS: BP 145/67
[2022-06-15] MEDS: NIFEDIPINE CR 30 MG TAB PO SCH (10:08)
[2022-06-15] MEDS: PANTOPRAZOLE SOD 40 MG TABEC PO SCH (10:08)
[2022-06-15] MEDS: ESCITALOPRAM OXALATE 10 MG TAB PO SCH (10:08)
[2022-06-15] MEDS: SODIUM BICARBONATE 650 MG TAB PO SCH ×2 (10:09→16:18)
[2022-06-15] MEDS: FENOFIBRATE 145 MG TAB PO SCH (10:09)
[2022-06-15] MEDS: INSULIN LISPRO 100 UNIT/1 ML 3ML VIAL SQ SCH ×2 (10:10→12:20)
[2022-06-15] MEDS: GABAPENTIN 100 MG CAP PO SCH ×2 (10:14→16:17)
[2022-06-15 12:20] VITALS: BP 144/64
[2022-06-15] MEDS ORDERED: VANCOMYCIN HCL500 MG PO (15:26)
[2022-06-15] MEDS ORDERED: QUESTRAN PACKET4 GM PO (15:27)
[2022-06-15] MEDS ORDERED: DIFLUCAN100 MG PO (15:28)
[2022-06-15] MEDS ORDERED: NIFEDIPINE ER30 M1 PO (15:29)
[2022-06-15 15:44] VITALS: BP 136/51
== END 2022-06-15 16:39 | disposition home or self-care (01) | DRG 689 ==
LOC: ER 13:05 → ERHOLD 15:08 → MED/SURG2 15:40
PROVIDERS: ADMIT Internal Medicine; ATTEND Internal Medicine
DX: N39.0 Urinary tract infection, site not specified (principal); N17.0 Acute kidney failure with tubular necrosis; I12.0 Hypertensive chronic kidney disease with stage 5 chronic kidney disease or end stage renal disease; Z16.12 Extended spectrum beta lactamase (ESBL) resistance; N18.5 Chronic kidney disease, stage 5; E11.621 Type 2 diabetes mellitus with foot ulcer; E11.22 Type 2 diabetes mellitus with diabetic chronic kidney disease; Z99.2 Dependence on renal dialysis; Z79.4 Long term (current) use of insulin; E11.51 Type 2 diabetes mellitus with diabetic peripheral angiopathy without gangrene; Z79.899 Other long term (current) drug therapy; Z89.512 Acquired absence of left leg below knee; Z20.822 Contact with and (suspected) exposure to COVID-19; E11.319 Type 2 diabetes mellitus with unspecified diabetic retinopathy without macular edema; Z88.1 Allergy status to other antibiotic agents; R33.9 Retention of urine, unspecified; I16.0 Hypertensive urgency; L97.529 Non-pressure chronic ulcer of other part of left foot with unspecified severity; B96.20 Unspecified Escherichia coli [E. coli] as the cause of diseases classified elsewhere; R19.7 Diarrhea, unspecified; D50.9 Iron deficiency anemia, unspecified; E88.09 Other disorders of plasma-protein metabolism, not elsewhere classified
CPT/HCPCS: 36415; 71045; 76705; 80048; 80053; 81001; 82550; 82553; 82575; 82607; 82728; 82746; 82948; 83036; 83540; 83735; 84100; 84443; 84466; 84484; 85025; 85610; 87086; 87186; 87324; 87449; 93005; 96361; 96372; 99251; 99284; J0360; J0690; J2185

== ENCOUNTER 2022-07-08 04:07 | Inpatient (IN) | payer MEDICARE ==
[~2022-07-08] VITALS: Ht 157.5 cm; Wt 85.0 kg
[~2022-07-08 04:07] MED LIST changes: +CRESTOR10 MG PO; +DIFLUCAN100 MG PO; +QUESTRAN PACKET4 GM PO; +VANCOMYCIN HCL500 MG PO
[2022-07-08] MEDS ORDERED: CLINDAMYCIN PHOS 900MG/ 50ML 50 ML IV SCH (04:28)
[2022-07-08] MEDS ORDERED: SODIUM CHLORIDE 0.9% 1000ML 1,000 ML IV SCH ×2 (04:30→11:00)
[2022-07-08] MEDS ORDERED: ONDANSETRON HCL INJ 2MG/ML 2ML 2 MG/ML VIAL IV STA (04:30)
[2022-07-08] MEDS ORDERED: ACETAMINOPHEN 1000 MG/100 ML IV STA (04:30)
[2022-07-08] MEDS ORDERED: SODIUM CHLORIDE 0.9% 1000ML 1,000 ML ONE (04:38)
[2022-07-08] MEDS ORDERED: ACETAMINOPHEN 1000 MG/100 ML 100 ML IV ONE (04:38)
[2022-07-08] MEDS ORDERED: ONDANSETRON HCL INJ 2MG/ML 2ML 2 MG/ML VIAL ONE (04:39)
[2022-07-08 04:43] LABS: BASOPHILS # (AUTO) 0.1 (0.0-0.1); BASOPHILS % 0.2 % (0.0-1.0); EOSINOPHILS % 0.2 % (0.0-6.0); HEMATOCRIT 31.7 % (34.2-44.1); HEMOGLOBIN 10.1 g/dL (12.0-16.0); LYMPHOCYTES # (AUTO) 0.9 (1.0-3.2); LYMPHOCYTES % 3.2 % (18.0-39.1); MEAN CORPUSCULAR HEMOGLOBIN 29.7 pg (28-32); MEAN CORPUSCULAR HGB CONC 31.9 g/dL (31-35); MEAN CORPUSCULAR VOLUME 93.2 fL (81-99); MONOCYTES # (AUTO) 0.7 (0.2-0.8); MONOCYTES % 2.8 % (4.4-11.3); NEUTROPHILS # (AUTO) 24.6 (2.1-6.9); NEUTROPHILS % 92.3 % (38.7-80.0); PLATELET COUNT 336 x10e3/uL (140-360); RED CELL DISTRIBUTION WIDTH 13.2 % (11.7-14.4)
[2022-07-08 05:01] LABS: ALBUMIN 1.6 g/dL (3.5-5.0); ALBUMIN/GLOBULIN RATIO 0.4 (0.8-2.0); ANION GAP 17.5 mmol/L (8-16); CALCIUM 7.9 mg/dL (8.4-10.2); CREATININE, SERUM 4.24 mg/dL (0.57-1.11); POTASSIUM 4.5 mmol/L (3.5-5.1)
[2022-07-08 05:54] LABS: CLARITY,URINE HAZY (CLEAR); COLOR,URINE YELLOW (YELLOW); LEUKOCYTE ESTERASE ,URINE NEGATIVE (NEGATIVE); NITRITE,URINE NEGATIVE (NEGATIVE); PROTEIN,URINE DIPSTICK >=300 (NEGATIVE)
[2022-07-08 05:55] LABS: KETONES,URINE 1+ (NEGATIVE); URINE UROBILINOGEN 0.2 mg/dL (0.2 - 1); WBC,URINE (MAN) >50 /HPF (0-5)
[2022-07-08 05:56] LABS: BACTERIA,URINE MODERATE /HPF; EPITHELIAL CELLS,URINE MODERATE /LPF; RBC,URINE 0-5 /HPF (0-5)
[2022-07-08 08:33] VITALS: BP 136/59
[2022-07-08] MEDS ORDERED: ACETAMINOPHEN 650 MG SUPP PR PRN (11:00)
[2022-07-08 12:00] VITALS: BP 136/60
[2022-07-08] MEDS ORDERED: DEXTROSE 50% SYRINGE 50 ML IV PRN (12:30)
[2022-07-08] MEDS: SODIUM BICARBONATE 650 MG TAB PO SCH ×2 (13:13→20:50)
[2022-07-08] MEDS: INSULIN LISPRO 100 UNIT/1 ML 3ML VIAL SQ SCH ×3 (13:15→21:00)
[2022-07-08] MEDS ORDERED: FUROSEMIDE INJ 10 MG/ML 4 ML VIAL IV ONE (15:30)
[2022-07-08 16:00] VITALS: BP 131/45
[2022-07-08] MEDS: METOPROLOL SUCCINATE 25 MG TAB XL PO SCH (16:18)
[2022-07-08 20:00] VITALS: BP 137/52
[2022-07-08] MEDS: ONDANSETRON HCL INJ 2MG/ML 2ML 2 MG/ML VIAL IV PRN (21:42)
[2022-07-08] MEDS: ACETAMINOPHEN 325 MG TAB PO PRN (21:42)
[2022-07-09] VITALS (8 sets, daily range): BP systolic 100–157; BP diastolic 51–80
[2022-07-09] MEDS: ONDANSETRON HCL INJ 2MG/ML 2ML 2 MG/ML VIAL IV PRN (00:30)
[2022-07-09 05:17] LABS: BASOPHILS # (AUTO) 0.1 (0.0-0.1); BASOPHILS % 0.2 % (0.0-1.0); EOSINOPHILS % 0.1 % (0.0-6.0); HEMATOCRIT 26.8 % (34.2-44.1); HEMOGLOBIN 8.3 g/dL (12.0-16.0); LYMPHOCYTES # (AUTO) 1.6 (1.0-3.2); LYMPHOCYTES % 7.1 % (18.0-39.1); MEAN CORPUSCULAR HEMOGLOBIN 29.2 pg (28-32); MEAN CORPUSCULAR VOLUME 94.4 fL (81-99); MONOCYTES # (AUTO) 0.7 (0.2-0.8); NEUTROPHILS # (AUTO) 19.4 (2.1-6.9); NEUTROPHILS % 88.6 % (38.7-80.0); PLATELET COUNT 259 x10e3/uL (140-360); RED BLOOD COUNT 2.84 x10e6/uL (3.6-5.1); RED CELL DISTRIBUTION WIDTH 13.5 % (11.7-14.4)
[2022-07-09 05:47] LABS: ALBUMIN 1.2 g/dL (3.5-5.0); ALBUMIN/GLOBULIN RATIO 0.3 (0.8-2.0); ANION GAP 14.6 mmol/L (8-16); CALCIUM 7.7 mg/dL (8.4-10.2); CREATININE, SERUM 4.48 mg/dL (0.57-1.11); POTASSIUM 3.6 mmol/L (3.5-5.1)
[2022-07-09] MEDS: INSULIN LISPRO 100 UNIT/1 ML 3ML VIAL SQ SCH ×4 (07:30→21:41)
[2022-07-09] MEDS: PANTOPRAZOLE SOD 40 MG TABEC PO SCH (07:50)
[2022-07-09 08:09] LABS: LYMPHOCYTES % (MANUAL) 5 % (19-48); MONOCYTES % (MANUAL) 1 % (3.4-9.0); NEUTROPHILS % (MANUAL) 94 % (40-74); PLATELET ESTIMATE ADEQUATE; PLATELET MORPHOLOGY COMMENT NORMAL; RBC MORPHOLOGY COMMENT NORMAL
[2022-07-09] MEDS: HEPARIN SOD (PORCINE) 5,000 UNIT/ML VIAL SC SCH ×2 (09:00→21:41)
[2022-07-09] MEDS ORDERED: FUROSEMIDE INJ 10 MG/ML 4 ML VIAL IV ONE (09:15)
[2022-07-09] MEDS: Doxycycline IV 100 MG in SODIUM CHLORIDE 0.9% 100 ML IV SCH ×2 (09:42→21:16)
[2022-07-09] MEDS: NIFEDIPINE CR 30 MG TAB PO SCH (09:44)
[2022-07-09] MEDS: SODIUM BICARBONATE 650 MG TAB PO SCH ×3 (09:44→21:15)
[2022-07-09] MEDS: METOPROLOL SUCCINATE 25 MG TAB XL PO SCH ×2 (09:45→16:34)
[2022-07-09] MEDS ORDERED: GABAPENTIN 300 MG CAP PO ONE (16:45)
[2022-07-09] MEDS: ACETAMINOPHEN 325 MG TAB PO PRN (19:08)
[2022-07-09] MEDS ORDERED: GABAPENTIN 300 MG CAP ONE (21:45)
[2022-07-10] VITALS (8 sets, daily range): BP systolic 152–176; BP diastolic 59–76
[2022-07-10] MEDS: ACETAMINOPHEN 325 MG TAB PO PRN ×2 (04:44→21:04)
[2022-07-10 04:57] LABS: BASOPHILS % 0.2 % (0.0-1.0); EOSINOPHILS # (AUTO) 0.3 (0.0-0.4); EOSINOPHILS % 1.9 % (0.0-6.0); HEMATOCRIT 24.9 % (34.2-44.1); HEMOGLOBIN 8.1 g/dL (12.0-16.0); LYMPHOCYTES # (AUTO) 2.2 (1.0-3.2); LYMPHOCYTES % 16.9 % (18.0-39.1); MEAN CORPUSCULAR HEMOGLOBIN 29.7 pg (28-32); MEAN CORPUSCULAR HGB CONC 32.5 g/dL (31-35); MEAN CORPUSCULAR VOLUME 91.2 fL (81-99); MONOCYTES # (AUTO) 0.7 (0.2-0.8); MONOCYTES % 5.4 % (4.4-11.3); NEUTROPHILS # (AUTO) 9.6 (2.1-6.9); NEUTROPHILS % 74.7 % (38.7-80.0); PLATELET COUNT 253 x10e3/uL (140-360); RED BLOOD COUNT 2.73 x10e6/uL (3.6-5.1); RED CELL DISTRIBUTION WIDTH 13.3 % (11.7-14.4)
[2022-07-10 05:22] LABS: ALBUMIN 1.1 g/dL (3.5-5.0); ALBUMIN/GLOBULIN RATIO 0.3 (0.8-2.0); ANION GAP 14.1 mmol/L (8-16); CREATININE, SERUM 3.7 mg/dL (0.57-1.11); POTASSIUM 3.1 mmol/L (3.5-5.1)
[2022-07-10] MEDS: INSULIN LISPRO 100 UNIT/1 ML 3ML VIAL SQ SCH ×4 (07:30→21:14)
[2022-07-10] MEDS ORDERED: HEPARIN SOD (PORCINE) 1000 UNIT/ML SDV ONE ×2 (08:49→11:13)
[2022-07-10] MEDS: HEPARIN SOD (PORCINE) 5,000 UNIT/ML VIAL SC SCH ×2 (09:00→21:14)
[2022-07-10] MEDS ORDERED: GABAPENTIN 300 MG CAP PO SCH (09:00)
[2022-07-10] MEDS: METOPROLOL SUCCINATE 25 MG TAB XL PO SCH ×2 (09:59→16:30)
[2022-07-10] MEDS: NIFEDIPINE CR 30 MG TAB PO SCH (10:00)
[2022-07-10] MEDS: SODIUM BICARBONATE 650 MG TAB PO SCH ×3 (10:00→21:03)
[2022-07-10] MEDS: Doxycycline IV 100 MG in SODIUM CHLORIDE 0.9% 100 ML IV SCH ×2 (10:01→20:59)
[2022-07-10] MEDS: PANTOPRAZOLE SOD 40 MG TABEC PO SCH (10:05)
[2022-07-10] MEDS ORDERED: SODIUM CHLORIDE 0.9% 1000ML 2,000 ML ONE (11:13)
[2022-07-10] MEDS: COLLAGENASE 5 GM TUBE TP SCH (16:29)
[2022-07-11] VITALS (8 sets, daily range): BP systolic 124–178; BP diastolic 55–70
[2022-07-11] MEDS: ONDANSETRON HCL 4 MG ORAL DISINTEGRATING TAB PO PRN ×2 (03:50→12:17)
[2022-07-11] MEDS: ACETAMINOPHEN 325 MG TAB PO PRN ×3 (03:50→20:58)
[2022-07-11] MEDS: COLLAGENASE 5 GM TUBE TP SCH ×2 (05:46→21:15)
[2022-07-11] MEDS: INSULIN LISPRO 100 UNIT/1 ML 3ML VIAL SQ SCH ×5 (07:30→21:15)
[2022-07-11] MEDS: Doxycycline IV 100 MG in SODIUM CHLORIDE 0.9% 100 ML IV SCH ×2 (11:51→20:57)
[2022-07-11] MEDS: HEPARIN SOD (PORCINE) 5,000 UNIT/ML VIAL SC SCH ×2 (12:00→21:10)
[2022-07-11] MEDS: METOPROLOL SUCCINATE 25 MG TAB XL PO SCH ×2 (12:00→21:00)
[2022-07-11] MEDS: PANTOPRAZOLE SOD 40 MG TABEC PO SCH (12:00)
[2022-07-11] MEDS: SODIUM BICARBONATE 650 MG TAB PO SCH ×3 (12:00→20:57)
[2022-07-11] MEDS: GABAPENTIN 100 MG CAP PO SCH ×3 (12:00→20:58)
[2022-07-11] MEDS: NIFEDIPINE CR 30 MG TAB PO SCH (12:00)
[2022-07-11] MEDS: KETOROLAC TROMETHAMINE 30 MG/ML VIAL IV PRN ×2 (13:55→22:39)
[2022-07-12] VITALS (7 sets, daily range): BP systolic 126–164; BP diastolic 48–63
[2022-07-12 05:38] LABS: ALBUMIN 1.1 g/dL (3.5-5.0); ALBUMIN/GLOBULIN RATIO 0.3 (0.8-2.0); ANION GAP 13.3 mmol/L (8-16); CALCIUM 7.6 mg/dL (8.4-10.2); POTASSIUM 3.3 mmol/L (3.5-5.1)
[2022-07-12] MEDS: INSULIN LISPRO 100 UNIT/1 ML 3ML VIAL SQ SCH ×4 (07:30→21:23)
[2022-07-12] MEDS: PANTOPRAZOLE SOD 40 MG TABEC PO SCH (07:30)
[2022-07-12 10:04] LABS: BASOPHILS # (AUTO) 0.1 (0.0-0.1); BASOPHILS % 0.4 % (0.0-1.0); EOSINOPHILS # (AUTO) 0.1 (0.0-0.4); EOSINOPHILS % 0.8 % (0.0-6.0); HEMATOCRIT 32.1 % (34.2-44.1); LYMPHOCYTES # (AUTO) 3.1 (1.0-3.2); LYMPHOCYTES % 19.7 % (18.0-39.1); MEAN CORPUSCULAR HEMOGLOBIN 28.9 pg (28-32); MEAN CORPUSCULAR HGB CONC 31.2 g/dL (31-35); MEAN CORPUSCULAR VOLUME 92.8 fL (81-99); MONOCYTES # (AUTO) 1.1 (0.2-0.8); NEUTROPHILS % 71.2 % (38.7-80.0); PLATELET COUNT 285 x10e3/uL (140-360); RED BLOOD COUNT 3.46 x10e6/uL (3.6-5.1); RED CELL DISTRIBUTION WIDTH 13.2 % (11.7-14.4)
[2022-07-12] MEDS: Doxycycline IV 100 MG in SODIUM CHLORIDE 0.9% 100 ML IV SCH (10:30)
[2022-07-12] MEDS ORDERED: POTASSIUM CHLORIDE 20 MEQ TAB CR PO ONE (11:30)
[2022-07-12] MEDS: GABAPENTIN 100 MG CAP PO SCH ×3 (13:00→21:07)
[2022-07-12] MEDS: METOPROLOL SUCCINATE 25 MG TAB XL PO SCH ×2 (13:30→21:07)
[2022-07-12] MEDS: HEPARIN SOD (PORCINE) 5,000 UNIT/ML VIAL SC SCH ×2 (13:30→21:22)
[2022-07-12] MEDS: NIFEDIPINE CR 30 MG TAB PO SCH (13:30)
[2022-07-12] MEDS: SODIUM BICARBONATE 650 MG TAB PO SCH ×3 (13:30→21:06)
[2022-07-12] MEDS: ACETAMINOPHEN 325 MG TAB PO PRN (21:06)
[2022-07-12] MEDS: COLLAGENASE 5 GM TUBE TP SCH (21:08)
[2022-07-13] VITALS (7 sets, daily range): BP systolic 109–152; BP diastolic 52–83
[2022-07-13] MEDS: KETOROLAC TROMETHAMINE 30 MG/ML VIAL IV PRN ×2 (00:05→23:14)
[2022-07-13 06:03] LABS: ALBUMIN 1.2 g/dL (3.5-5.0); ALBUMIN/GLOBULIN RATIO 0.3 (0.8-2.0); ANION GAP 16.7 mmol/L (8-16); CALCIUM 7.9 mg/dL (8.4-10.2); CREATININE, SERUM 3.35 mg/dL (0.57-1.11); POTASSIUM 3.7 mmol/L (3.5-5.1)
[2022-07-13] MEDS: INSULIN LISPRO 100 UNIT/1 ML 3ML VIAL SQ SCH ×4 (08:30→22:48)
[2022-07-13] MEDS: GABAPENTIN 100 MG CAP PO SCH ×3 (08:40→22:40)
[2022-07-13] MEDS: SODIUM BICARBONATE 650 MG TAB PO SCH ×3 (08:40→22:44)
[2022-07-13] MEDS: PANTOPRAZOLE SOD 40 MG TABEC PO SCH (08:40)
[2022-07-13] MEDS: METOPROLOL SUCCINATE 25 MG TAB XL PO SCH ×2 (08:41→22:44)
[2022-07-13] MEDS: NIFEDIPINE CR 30 MG TAB PO SCH (08:43)
[2022-07-13] MEDS: HEPARIN SOD (PORCINE) 5,000 UNIT/ML VIAL SC SCH ×2 (09:00→22:48)
[2022-07-13] MEDS: COLLAGENASE 5 GM TUBE TP SCH (23:14)
[2022-07-14] VITALS (8 sets, daily range): BP systolic 133–172; BP diastolic 59–74
[2022-07-14 06:12] LABS: BASOPHILS % 0.3 % (0.0-1.0); EOSINOPHILS # (AUTO) 0.4 (0.0-0.4); EOSINOPHILS % 2.9 % (0.0-6.0); HEMATOCRIT 26.8 % (34.2-44.1); HEMOGLOBIN 8.8 g/dL (12.0-16.0); LYMPHOCYTES # (AUTO) 4.2 (1.0-3.2); LYMPHOCYTES % 33.1 % (18.0-39.1); MEAN CORPUSCULAR HEMOGLOBIN 29.7 pg (28-32); MEAN CORPUSCULAR HGB CONC 32.8 g/dL (31-35); MEAN CORPUSCULAR VOLUME 90.5 fL (81-99); MONOCYTES # (AUTO) 0.8 (0.2-0.8); MONOCYTES % 6.5 % (4.4-11.3); NEUTROPHILS % 55.6 % (38.7-80.0); PLATELET COUNT 288 x10e3/uL (140-360); RED BLOOD COUNT 2.96 x10e6/uL (3.6-5.1); RED CELL DISTRIBUTION WIDTH 12.9 % (11.7-14.4)
[2022-07-14 06:41] LABS: ALBUMIN 0.9 g/dL (3.5-5.0); ALBUMIN/GLOBULIN RATIO 0.3 (0.8-2.0); ANION GAP 18.9 mmol/L (8-16); CALCIUM 7.1 mg/dL (8.4-10.2); CREATININE, SERUM 3.23 mg/dL (0.57-1.11); POTASSIUM 3.9 mmol/L (3.5-5.1)
[2022-07-14] MEDS: INSULIN LISPRO 100 UNIT/1 ML 3ML VIAL SQ SCH ×4 (08:25→21:49)
[2022-07-14] MEDS: SODIUM BICARBONATE 650 MG TAB PO SCH ×3 (08:39→21:46)
[2022-07-14] MEDS: GABAPENTIN 100 MG CAP PO SCH ×3 (08:39→21:46)
[2022-07-14] MEDS: PANTOPRAZOLE SOD 40 MG TABEC PO SCH (08:39)
[2022-07-14] MEDS: METOPROLOL SUCCINATE 25 MG TAB XL PO SCH ×2 (08:40→21:47)
[2022-07-14] MEDS: NIFEDIPINE CR 30 MG TAB PO SCH (08:40)
[2022-07-14] MEDS: HEPARIN SOD (PORCINE) 5,000 UNIT/ML VIAL SC SCH ×2 (08:41→21:49)
[2022-07-14] MEDS: KETOROLAC TROMETHAMINE 30 MG/ML VIAL IV PRN (10:32)
[2022-07-14] MEDS: CHOLESTYRAMINE 4 GM PACKET PO SCH ×3 (11:24→21:46)
[2022-07-14] MEDS ORDERED: VITAMIN A & D OINT 2 OZ TUBE TOP PRN (11:30)
[2022-07-14] MEDS: VANCOMYCIN HCL 125 MG CAPSULE PO SCH ×2 (11:52→17:55)
[2022-07-15] VITALS (8 sets, daily range): BP systolic 117–175; BP diastolic 45–81
[2022-07-15] MEDS: VANCOMYCIN HCL 125 MG CAPSULE PO SCH ×4 (01:12→16:57)
[2022-07-15 07:37] LABS: ANION GAP 24.2 mmol/L (8-16); CALCIUM 7.4 mg/dL (8.4-10.2); CREATININE, SERUM 2.99 mg/dL (0.57-1.11); POTASSIUM 4.2 mmol/L (3.5-5.1)
[2022-07-15] MEDS: CHOLESTYRAMINE 4 GM PACKET PO SCH ×3 (09:01→21:21)
[2022-07-15] MEDS: PANTOPRAZOLE SOD 40 MG TABEC PO SCH (09:01)
[2022-07-15] MEDS: GABAPENTIN 100 MG CAP PO SCH ×3 (09:01→21:19)
[2022-07-15] MEDS: SODIUM BICARBONATE 650 MG TAB PO SCH ×3 (09:01→21:20)
[2022-07-15] MEDS: METOPROLOL SUCCINATE 25 MG TAB XL PO SCH ×2 (09:01→21:20)
[2022-07-15] MEDS: NIFEDIPINE CR 30 MG TAB PO SCH (09:02)
[2022-07-15] MEDS: HEPARIN SOD (PORCINE) 5,000 UNIT/ML VIAL SC SCH ×2 (09:03→21:28)
[2022-07-15] MEDS: INSULIN LISPRO 100 UNIT/1 ML 3ML VIAL SQ SCH ×4 (09:03→21:30)
[2022-07-15] MEDS: ACETAMINOPHEN/CODEINE 300MG - 30MG TAB PO PRN ×2 (09:10→15:50)
[2022-07-15] MEDS: DIPHENOXYLATE/ATROPINE TAB PO PRN ×2 (10:10→15:52)
[2022-07-15] MEDS: COLLAGENASE 5 GM TUBE TP SCH ×2 (15:50→21:30)
[2022-07-16] VITALS (7 sets, daily range): BP systolic 91–176; BP diastolic 53–82
[2022-07-16] MEDS: VANCOMYCIN HCL 125 MG CAPSULE PO SCH ×4 (05:45→17:33)
[2022-07-16 06:42] LABS: ANION GAP 18.2 mmol/L (8-16); CALCIUM 7.5 mg/dL (8.4-10.2); CREATININE, SERUM 3.07 mg/dL (0.57-1.11); POTASSIUM 4.2 mmol/L (3.5-5.1)
[2022-07-16] MEDS: INSULIN LISPRO 100 UNIT/1 ML 3ML VIAL SQ SCH ×4 (08:42→21:17)
[2022-07-16] MEDS: HEPARIN SOD (PORCINE) 5,000 UNIT/ML VIAL SC SCH (08:42)
[2022-07-16] MEDS: PANTOPRAZOLE SOD 40 MG TABEC PO SCH (08:48)
[2022-07-16] MEDS: NIFEDIPINE CR 30 MG TAB PO SCH (08:48)
[2022-07-16] MEDS: METOPROLOL SUCCINATE 25 MG TAB XL PO SCH ×2 (08:49→21:00)
[2022-07-16] MEDS: SODIUM BICARBONATE 650 MG TAB PO SCH ×3 (08:49→21:20)
[2022-07-16] MEDS: GABAPENTIN 100 MG CAP PO SCH ×3 (08:49→21:20)
[2022-07-16] MEDS: CHOLESTYRAMINE 4 GM PACKET PO SCH (08:50)
[2022-07-16] MEDS ORDERED: CHOLESTYRAMINE 4 GM PACKET PO PRN (09:00)
[2022-07-16] MEDS: HYDRALAZINE HCL 20 MG/ML VIAL IV PRN (12:19)
[2022-07-16] MEDS: ACETAMINOPHEN/CODEINE 300MG - 30MG TAB PO PRN ×2 (16:05→21:39)
[2022-07-16] MEDS: FUROSEMIDE 20 MG TAB PO SCH (17:33)
[2022-07-16] MEDS: COLLAGENASE 5 GM TUBE TP SCH (21:21)
[2022-07-16] MEDS ORDERED: SODIUM CHLORIDE 0.9% 250ML 250 ML ONE (21:49)
[2022-07-17] VITALS (8 sets, daily range): BP systolic 113–164; BP diastolic 54–71
[2022-07-17] MEDS: VANCOMYCIN HCL 125 MG CAPSULE PO SCH ×5 (00:48→23:15)
[2022-07-17] MEDS: FUROSEMIDE 20 MG TAB PO SCH ×2 (06:10→17:20)
[2022-07-17 06:45] LABS: ALBUMIN/GLOBULIN RATIO 0.3 (0.8-2.0); ANION GAP 18.6 mmol/L (8-16); CALCIUM 7.3 mg/dL (8.4-10.2); CREATININE, SERUM 3.23 mg/dL (0.57-1.11); POTASSIUM 4.6 mmol/L (3.5-5.1)
[2022-07-17] MEDS: INSULIN LISPRO 100 UNIT/1 ML 3ML VIAL SQ SCH ×4 (07:30→20:54)
[2022-07-17] MEDS: PANTOPRAZOLE SOD 40 MG TABEC PO SCH (10:49)
[2022-07-17] MEDS: GABAPENTIN 100 MG CAP PO SCH ×3 (10:49→20:53)
[2022-07-17] MEDS: METOPROLOL SUCCINATE 25 MG TAB XL PO SCH ×2 (10:50→20:53)
[2022-07-17] MEDS: NIFEDIPINE CR 30 MG TAB PO SCH (10:50)
[2022-07-17] MEDS: SODIUM BICARBONATE 650 MG TAB PO SCH ×3 (10:50→20:52)
[2022-07-17 14:57] LABS: INR 0.87; PROTHROMBIN TIME 12.6 seconds (11.9-14.5)
[2022-07-17 14:58] LABS: PARTIAL THROMBOPLASTIN TIME 28.8 seconds (23.8-35.5)
[2022-07-17] MEDS: COLLAGENASE 5 GM TUBE TP SCH (20:54)
[2022-07-17] MEDS: ACETAMINOPHEN/CODEINE 300MG - 30MG TAB PO PRN (23:30)
[2022-07-18] VITALS (8 sets, daily range): BP systolic 123–170; BP diastolic 51–80
[2022-07-18] MEDS: VANCOMYCIN HCL 125 MG CAPSULE PO SCH ×4 (05:57→23:55)
[2022-07-18] MEDS: FUROSEMIDE 20 MG TAB PO SCH ×2 (05:57→17:41)
[2022-07-18] MEDS: DIPHENOXYLATE/ATROPINE TAB PO PRN (06:01)
[2022-07-18] MEDS: INSULIN LISPRO 100 UNIT/1 ML 3ML VIAL SQ SCH ×4 (07:30→21:11)
[2022-07-18] MEDS: PANTOPRAZOLE SOD 40 MG TABEC PO SCH (07:30)
[2022-07-18] MEDS: SODIUM BICARBONATE 650 MG TAB PO SCH ×3 (09:00→21:04)
[2022-07-18] MEDS: GABAPENTIN 100 MG CAP PO SCH ×3 (09:00→21:04)
[2022-07-18] MEDS: NIFEDIPINE CR 30 MG TAB PO SCH (09:00)
[2022-07-18] MEDS ORDERED: SODIUM CHLORIDE 0.9% 250ML 250 ML ONE (13:53)
[2022-07-18] MEDS ORDERED: FENTANYL CITRATE/PF 100MCG/2 ML INJ ONE (14:27)
[2022-07-18] MEDS: METOPROLOL SUCCINATE 25 MG TAB XL PO SCH ×2 (15:23→21:00)
[2022-07-18] MEDS: COLLAGENASE 5 GM TUBE TP SCH (21:07)
[2022-07-18] MEDS: ACETAMINOPHEN/CODEINE 300MG - 30MG TAB PO PRN (23:55)
[2022-07-19] VITALS (7 sets, daily range): BP systolic 126–180; BP diastolic 43–65
[2022-07-19] MEDS: HYDRALAZINE HCL 20 MG/ML VIAL IV PRN ×2 (00:16→12:22)
[2022-07-19] MEDS: VANCOMYCIN HCL 125 MG CAPSULE PO SCH ×2 (06:02→11:36)
[2022-07-19] MEDS: FUROSEMIDE 20 MG TAB PO SCH (06:02)
[2022-07-19] MEDS: INSULIN LISPRO 100 UNIT/1 ML 3ML VIAL SQ SCH ×2 (08:30→12:20)
[2022-07-19] MEDS: METOPROLOL SUCCINATE 25 MG TAB XL PO SCH (08:33)
[2022-07-19] MEDS: PANTOPRAZOLE SOD 40 MG TABEC PO SCH (08:33)
[2022-07-19] MEDS: NIFEDIPINE CR 30 MG TAB PO SCH (08:33)
[2022-07-19] MEDS: GABAPENTIN 100 MG CAP PO SCH ×2 (08:33→15:01)
[2022-07-19] MEDS: SODIUM BICARBONATE 650 MG TAB PO SCH ×2 (08:35→15:01)
[2022-07-19] MEDS ORDERED: FUROSEMIDE INJ 10 MG/ML 4 ML VIAL IV ONE (10:30)
[2022-07-19] MEDS: ACETAMINOPHEN 325 MG TAB PO PRN (15:01)
== END 2022-07-19 17:44 | disposition home health service (06) | DRG 314 ==
LOC: ER 04:10 → ERHOLD 07:28 → MED/SURG 08:33 → MED/SURG3 07-13 17:10
PROVIDERS: ADMIT Internal Medicine; ATTEND Internal Medicine
PROC: 3E04329 Introduction of Other Anti-infective into Central Vein, Percutaneous Approach (ICD-10-PCS; 2022-07-08)
PROC: 5A1D70Z Performance of Urinary Filtration, Intermittent, Less than 6 Hours Per Day (ICD-10-PCS; principal; 2022-07-10)
PROC: 02HV33Z Insertion of Infusion Device into Superior Vena Cava, Percutaneous Approach (ICD-10-PCS; 2022-07-10)
PROC: 0JH63XZ Insertion of Tunneled Vascular Access Device into Chest Subcutaneous Tissue and Fascia, Percutaneous Approach (ICD-10-PCS; 2022-07-18)
PROC: 02HV33Z Insertion of Infusion Device into Superior Vena Cava, Percutaneous Approach (ICD-10-PCS; 2022-07-18)
DX: T80.211A Bloodstream infection due to central venous catheter, initial encounter (principal); A41.01 Sepsis due to Methicillin susceptible Staphylococcus aureus; G93.41 Metabolic encephalopathy; N18.6 End stage renal disease; R65.20 Severe sepsis without septic shock; N39.0 Urinary tract infection, site not specified; Z16.12 Extended spectrum beta lactamase (ESBL) resistance; A04.72 Enterocolitis due to Clostridium difficile, not specified as recurrent; I12.0 Hypertensive chronic kidney disease with stage 5 chronic kidney disease or end stage renal disease; N17.9 Acute kidney failure, unspecified; E87.2 Acidosis; B96.20 Unspecified Escherichia coli [E. coli] as the cause of diseases classified elsewhere; Z89.512 Acquired absence of left leg below knee; F41.9 Anxiety disorder, unspecified; Z20.822 Contact with and (suspected) exposure to COVID-19; E66.09 Other obesity due to excess calories; Z68.34 Body mass index [BMI] 34.0-34.9, adult; R32 Unspecified urinary incontinence; E11.621 Type 2 diabetes mellitus with foot ulcer; L97.511 Non-pressure chronic ulcer of other part of right foot limited to breakdown of skin; D63.1 Anemia in chronic kidney disease; Z88.1 Allergy status to other antibiotic agents; Z88.8 Allergy status to other drugs, medicaments and biological substances; E11.319 Type 2 diabetes mellitus with unspecified diabetic retinopathy without macular edema; E11.51 Type 2 diabetes mellitus with diabetic peripheral angiopathy without gangrene
CPT/HCPCS: 36415; 36556; 36558; 71045; 74470; 76937; 77001; 80048; 80053; 81001; 82948; 83605; 84100; 85025; 85610; 85730; 86706; 87040; 87070; 87071; 87086; 87186; 87205; 87350; 93005; 93306; 96372; 99251; 99284; C1751; C1752; C1769; J0360; J0690; J0692; J1644; J1885; J1940; J2185; J2405; J3010; J7030; J7050; Q0162

== ENCOUNTER 2022-10-28 16:55 | Inpatient (IN) | payer MEDICARE ==
[~2022-10-28] VITALS: Ht 157.5 cm; Wt 81.6 kg
[2022-10-28 17:53] LABS: BASOPHILS % 0.4 % (0.0-1.0); EOSINOPHILS # (AUTO) 0.3 (0.0-0.4); EOSINOPHILS % 3.3 % (0.0-6.0); HEMATOCRIT 26.4 % (34.2-44.1); HEMOGLOBIN 7.7 g/dL (12.0-16.0); LYMPHOCYTES # (AUTO) 2.5 (1.0-3.2); LYMPHOCYTES % 32.6 % (18.0-39.1); MEAN CORPUSCULAR HGB CONC 29.2 g/dL (31-35); MEAN CORPUSCULAR VOLUME 102.7 fL (81-99); MONOCYTES # (AUTO) 0.7 (0.2-0.8); MONOCYTES % 9.4 % (4.4-11.3); NEUTROPHILS # (AUTO) 4.1 (2.1-6.9); NEUTROPHILS % 53.3 % (38.7-80.0); PLATELET COUNT 191 x10e3/uL (140-360); RED BLOOD COUNT 2.57 x10e6/uL (3.6-5.1); RED CELL DISTRIBUTION WIDTH 14.8 % (11.7-14.4)
[2022-10-28 17:58] LABS: ALBUMIN 1.3 g/dL (3.5-5.0); ALBUMIN/GLOBULIN RATIO 0.3 (0.8-2.0); ANION GAP 14.8 mmol/L (8-16); CALCIUM 7.3 mg/dL (8.4-10.2); CREATININE, SERUM 4.08 mg/dL (0.57-1.11); POTASSIUM 5.8 mmol/L (3.5-5.1)
[2022-10-28] MEDS ORDERED: DEXTROSE 50% SYRINGE 50 ML IV STA (18:05)
[2022-10-28] MEDS ORDERED: CALCIUM CHLORIDE 10% 1.36 MEQ/ML 10ML SYR IV STA (18:05)
[2022-10-28] MEDS ORDERED: SODIUM BICARBONATE 8.4% INJ 50 ML SYR IV STA (18:05)
[2022-10-28 18:13] LABS: ANISOCYTOSIS SLIGHT; HYPOCHROMASIA SLIGHT; PLATELET ESTIMATE ADEQUATE; PLATELET MORPHOLOGY COMMENT NORMAL; RBC MORPHOLOGY COMMENT NORMAL
[2022-10-28] MEDS ORDERED: SOD POLYSTYRENE SULFONATE SUSP 15 GM/60 ML BTL PO ONE (18:15)
[2022-10-28] MEDS ORDERED: INSULIN REGULAR, HUMAN 100 UNIT/1 ML IV ONE (18:15)
[2022-10-28] MEDS ORDERED: SODIUM BICARBONATE 8.4% SYRING 50 ML ONE (18:27)
[2022-10-28] MEDS ORDERED: INSULIN REGULAR, HUMAN 100 UNIT/1 ML ONE (18:28)
[2022-10-28] MEDS ORDERED: DEXTROSE 50% SYRINGE 50 ML IV PRN (19:30)
[2022-10-28] MEDS ORDERED: ONDANSETRON HCL INJ 2MG/ML 2ML 2 MG/ML VIAL IV PRN (19:30)
[2022-10-28] MEDS: INSULIN REGULAR, HUMAN 100 UNIT/1 ML SQ SCH (21:00)
[2022-10-28 22:06] VITALS: BP 142/54
[2022-10-28 22:35] VITALS: BP 142/54
[2022-10-28 23:00] VITALS: BP 142/54
[2022-10-29] VITALS (7 sets, daily range): BP systolic 114–179; BP diastolic 49–125
[2022-10-29 06:07] LABS: BASOPHILS % 0.3 % (0.0-1.0); EOSINOPHILS # (AUTO) 0.2 (0.0-0.4); EOSINOPHILS % 2.8 % (0.0-6.0); HEMOGLOBIN 7.3 g/dL (12.0-16.0); LYMPHOCYTES # (AUTO) 2.1 (1.0-3.2); MEAN CORPUSCULAR HEMOGLOBIN 30.3 pg (28-32); MEAN CORPUSCULAR HGB CONC 30.4 g/dL (31-35); MEAN CORPUSCULAR VOLUME 99.6 fL (81-99); MONOCYTES # (AUTO) 0.6 (0.2-0.8); MONOCYTES % 8.7 % (4.4-11.3); NEUTROPHILS # (AUTO) 3.9 (2.1-6.9); NEUTROPHILS % 57.2 % (38.7-80.0); PLATELET COUNT 244 x10e3/uL (140-360); RED BLOOD COUNT 2.41 x10e6/uL (3.6-5.1); RED CELL DISTRIBUTION WIDTH 14.6 % (11.7-14.4)
[2022-10-29 06:42] LABS: ALBUMIN 1.3 g/dL (3.5-5.0); ALBUMIN/GLOBULIN RATIO 0.4 (0.8-2.0); ANION GAP 12.7 mmol/L (8-16); CALCIUM 7.3 mg/dL (8.4-10.2); CREATININE, SERUM 4.02 mg/dL (0.57-1.11); POTASSIUM 4.7 mmol/L (3.5-5.1)
[2022-10-29] MEDS: INSULIN REGULAR, HUMAN 100 UNIT/1 ML SQ SCH ×4 (07:30→20:11)
[2022-10-29] MEDS ORDERED: ASCORBIC ACID500 M2 PO (08:41)
[2022-10-29] MEDS ORDERED: ERGOCALCIF200 MCG/1 PO (08:41)
[2022-10-29] MEDS ORDERED: CALCITRIOL0.25 MCG PO (08:41)
[2022-10-29] MEDS ORDERED: ACETAMIN-CODE12.5 ML (08:41)
[2022-10-29] MEDS ORDERED: LEVOTHYROXINE50 MCG PO (08:41)
[2022-10-30] VITALS (7 sets, daily range): BP systolic 111–177; BP diastolic 45–73
[2022-10-30 06:42] LABS: ANION GAP 14.1 mmol/L (8-16); CALCIUM 7.1 mg/dL (8.4-10.2); CREATININE, SERUM 3.97 mg/dL (0.57-1.11); POTASSIUM 5.1 mmol/L (3.5-5.1)
[2022-10-30] MEDS: INSULIN REGULAR, HUMAN 100 UNIT/1 ML SQ SCH ×4 (07:30→21:00)
[2022-10-30] MEDS: FUROSEMIDE 40 MG TAB PO SCH (17:25)
[2022-10-31] VITALS (9 sets, daily range): BP systolic 134–143; BP diastolic 48–69
[2022-10-31] MEDS: FUROSEMIDE 40 MG TAB PO SCH (05:53)
[2022-10-31] MEDS: INSULIN REGULAR, HUMAN 100 UNIT/1 ML SQ SCH ×5 (07:30→21:00)
[2022-10-31] MEDS: COLLAGENASE 5 GM TUBE TP SCH (09:47)
[2022-10-31] MEDS: BALSAM PERU/CASTOR OIL 60 GM OINT...G. TP SCH (09:48)
[2022-10-31] MEDS: FUROSEMIDE INJ 10 MG/ML 4 ML VIAL IV SCH ×2 (10:44→17:09)
[2022-10-31] MEDS ORDERED: EPOETIN ALFA-EPBX 10,000 UNIT/ML VIAL SC ONE (10:45)
[2022-10-31] MEDS: IRON SUCROSE 100 MG in SODIUM CHLORIDE 0.9% 100 ML IV SCH (10:52)
[2022-10-31 11:14] LABS: ALBUMIN 1.3 g/dL (3.5-5.0); ALBUMIN/GLOBULIN RATIO 0.3 (0.8-2.0); ANION GAP 11.9 mmol/L (8-16); CALCIUM 7.4 mg/dL (8.4-10.2); CREATININE, SERUM 3.79 mg/dL (0.57-1.11); POTASSIUM 4.9 mmol/L (3.5-5.1)
[2022-10-31 11:30] LABS: % IRON SATURATION 36 % (15-50); IRON 66 ug/dL (50-170); TOTAL IRON BINDING CAPACITY 181 ug/dL (261-478); TRANSFERRIN 129 mg/dL (180-382)
[2022-11-01] VITALS (7 sets, daily range): BP systolic 131–163; BP diastolic 42–108
[2022-11-01] MEDS: FUROSEMIDE INJ 10 MG/ML 4 ML VIAL IV SCH ×3 (02:11→17:39)
[2022-11-01 06:28] LABS: ALBUMIN 1.4 g/dL (3.5-5.0); ALBUMIN/GLOBULIN RATIO 0.4 (0.8-2.0); ANION GAP 14.5 mmol/L (8-16); CALCIUM 7.6 mg/dL (8.4-10.2); CREATININE, SERUM 3.54 mg/dL (0.57-1.11); POTASSIUM 4.5 mmol/L (3.5-5.1)
[2022-11-01] MEDS: INSULIN REGULAR, HUMAN 100 UNIT/1 ML SQ SCH ×4 (07:30→21:00)
[2022-11-01] MEDS: COLLAGENASE 5 GM TUBE TP SCH ×2 (09:48→21:00)
[2022-11-01] MEDS: BALSAM PERU/CASTOR OIL 60 GM OINT...G. TP SCH ×2 (09:48→21:00)
[2022-11-01] MEDS: IRON SUCROSE 100 MG in SODIUM CHLORIDE 0.9% 100 ML IV SCH (11:00)
[2022-11-01] MEDS ORDERED: SODIUM CHLORIDE 0.9% 250ML 250 ML IV ONE (12:30)
[2022-11-01 14:13] LABS: BASOPHILS % 0.3 % (0.0-1.0); EOSINOPHILS # (AUTO) 0.4 (0.0-0.4); EOSINOPHILS % 5.5 % (0.0-6.0); HEMATOCRIT 27.9 % (34.2-44.1); HEMOGLOBIN 8.2 g/dL (12.0-16.0); LYMPHOCYTES # (AUTO) 1.9 (1.0-3.2); LYMPHOCYTES % 24.8 % (18.0-39.1); MEAN CORPUSCULAR HEMOGLOBIN 30.1 pg (28-32); MEAN CORPUSCULAR HGB CONC 29.4 g/dL (31-35); MEAN CORPUSCULAR VOLUME 102.6 fL (81-99); MONOCYTES # (AUTO) 0.5 (0.2-0.8); MONOCYTES % 7.1 % (4.4-11.3); NEUTROPHILS # (AUTO) 4.6 (2.1-6.9); PLATELET COUNT 310 x10e3/uL (140-360); RED BLOOD COUNT 2.72 x10e6/uL (3.6-5.1); RED CELL DISTRIBUTION WIDTH 14.3 % (11.7-14.4)
[2022-11-01 14:50] LABS: CREATININE,URINE RANDOM 13.97 mg/dL (47-110)
[2022-11-02] VITALS (8 sets, daily range): BP systolic 138–167; BP diastolic 50–84
[2022-11-02] MEDS: FUROSEMIDE INJ 10 MG/ML 4 ML VIAL IV SCH (02:19)
[2022-11-02 06:16] LABS: ALBUMIN 1.5 g/dL (3.5-5.0); ALBUMIN/GLOBULIN RATIO 0.4 (0.8-2.0); ANION GAP 14.2 mmol/L (8-16); CALCIUM 7.7 mg/dL (8.4-10.2); CREATININE, SERUM 3.6 mg/dL (0.57-1.11); POTASSIUM 4.2 mmol/L (3.5-5.1)
[2022-11-02] MEDS: INSULIN REGULAR, HUMAN 100 UNIT/1 ML SQ SCH ×4 (07:30→21:00)
[2022-11-02] MEDS ORDERED: SODIUM CHLORIDE 0.9% 1000ML 2,000 ML ONE ×2 (08:36→15:33)
[2022-11-02] MEDS: COLLAGENASE 5 GM TUBE TP SCH ×2 (09:00→09:32)
[2022-11-02] MEDS ORDERED: BUMETANIDE 1 MG TAB PO SCH (09:00)
[2022-11-02] MEDS: BALSAM PERU/CASTOR OIL 60 GM OINT...G. TP SCH ×2 (09:00→09:32)
[2022-11-02] MEDS ORDERED: SODIUM CHLORIDE 0.9% 250ML 250 ML ONE ×3 (10:08→17:03)
[2022-11-02] MEDS ORDERED: LIDOCAINE 1% 10 ML MULTIDOSE VIAL IJ ONE (10:08)
[2022-11-02] MEDS ORDERED: ONDANSETRON HCL 4 MG ORAL DISINTEGRATING TAB PO PRN (10:15)
[2022-11-02 10:41] LABS: INR 1.16
[2022-11-02] MEDS ORDERED: FENTANYL CITRATE/PF 100MCG/2 ML INJ ONE (11:12)
[2022-11-02] MEDS ORDERED: HEPARIN SOD (PORCINE) 1000 UNIT/ML SDV ONE ×3 (11:12→19:06)
[2022-11-02] MEDS: IRON SUCROSE 100 MG in SODIUM CHLORIDE 0.9% 100 ML IV SCH ×2 (13:05→21:00)
[2022-11-02] MEDS ORDERED: SODIUM CHLORIDE 0.9% 1000ML 2,000 ML IV PRN (16:15)
[2022-11-02] MEDS ORDERED: MANNITOL 25% 12.5GM/50 ML VIAL IV PRN (16:15)
[2022-11-02] MEDS ORDERED: HYDRALAZINE HCL 20 MG/ML VIAL IV ONE (18:45)
[2022-11-02] MEDS ORDERED: ACETAMINOPHEN 325 MG TAB PO PRN (20:45)
[2022-11-02] MEDS: BUMETANIDE 1 MG TAB PO SCH (21:33)
[2022-11-03] MEDS: HYDROCODONE/APAP 5MG-325MG TAB PO PRN ×3 (03:41→21:29)
[2022-11-03 04:00] VITALS: BP 141/69
[2022-11-03 05:48] LABS: BASOPHILS % 0.4 % (0.0-1.0); EOSINOPHILS # (AUTO) 0.2 (0.0-0.4); EOSINOPHILS % 2.4 % (0.0-6.0); HEMATOCRIT 28.2 % (34.2-44.1); HEMOGLOBIN 9.1 g/dL (12.0-16.0); LYMPHOCYTES # (AUTO) 1.8 (1.0-3.2); MEAN CORPUSCULAR HEMOGLOBIN 30.1 pg (28-32); MEAN CORPUSCULAR HGB CONC 32.3 g/dL (31-35); MEAN CORPUSCULAR VOLUME 93.4 fL (81-99); MONOCYTES # (AUTO) 0.8 (0.2-0.8); NEUTROPHILS # (AUTO) 5.4 (2.1-6.9); NEUTROPHILS % 64.9 % (38.7-80.0); PLATELET COUNT 266 x10e3/uL (140-360); RED BLOOD COUNT 3.02 x10e6/uL (3.6-5.1); RED CELL DISTRIBUTION WIDTH 15.6 % (11.7-14.4)
[2022-11-03 06:26] LABS: ALBUMIN 1.5 g/dL (3.5-5.0); ALBUMIN/GLOBULIN RATIO 0.4 (0.8-2.0); ANION GAP 14.7 mmol/L (8-16); CALCIUM 7.6 mg/dL (8.4-10.2); CREATININE, SERUM 2.84 mg/dL (0.57-1.11); POTASSIUM 3.7 mmol/L (3.5-5.1)
[2022-11-03] MEDS: INSULIN REGULAR, HUMAN 100 UNIT/1 ML SQ SCH ×4 (07:30→21:00)
[2022-11-03 07:56] VITALS: BP 134/52
[2022-11-03 08:36] VITALS: BP 134/52
[2022-11-03] MEDS: BUMETANIDE 1 MG TAB PO SCH ×2 (08:42→21:30)
[2022-11-03 12:05] VITALS: BP 139/56
[2022-11-03] MEDS: BALSAM PERU/CASTOR OIL 60 GM OINT...G. TP SCH (13:26)
[2022-11-03] MEDS: COLLAGENASE 5 GM TUBE TP SCH (13:26)
[2022-11-03 15:05] LABS: ANION GAP 13.9 mmol/L (8-16); CALCIUM 7.9 mg/dL (8.4-10.2); CREATININE, SERUM 3.01 mg/dL (0.57-1.11); POTASSIUM 3.9 mmol/L (3.5-5.1)
[2022-11-03 16:02] VITALS: BP 153/52
[2022-11-03] MEDS ORDERED: SODIUM CHLORIDE 0.9% 1000ML 2,000 ML IV PRN (17:45)
[2022-11-03] MEDS ORDERED: HEPARIN SOD (PORCINE) 1000 UNIT/ML SDV IV PRN (17:45)
[2022-11-03] MEDS: IRON SUCROSE 100 MG in SODIUM CHLORIDE 0.9% 100 ML IV SCH (19:39)
[2022-11-03 20:00] VITALS: BP 116/58
[2022-11-04] VITALS (7 sets, daily range): BP systolic 141–168; BP diastolic 42–80
[2022-11-04] MEDS: INSULIN REGULAR, HUMAN 100 UNIT/1 ML SQ SCH ×4 (07:30→20:54)
[2022-11-04] MEDS: BUMETANIDE 1 MG TAB PO SCH ×2 (08:43→20:52)
[2022-11-04] MEDS: BALSAM PERU/CASTOR OIL 60 GM OINT...G. TP SCH (08:52)
[2022-11-04] MEDS: COLLAGENASE 5 GM TUBE TP SCH (08:52)
[2022-11-04] MEDS: IRON SUCROSE 100 MG in SODIUM CHLORIDE 0.9% 100 ML IV SCH (20:48)
[2022-11-05] VITALS (8 sets, daily range): BP systolic 114–182; BP diastolic 41–67
[2022-11-05 06:04] LABS: BASOPHILS % 0.3 % (0.0-1.0); EOSINOPHILS # (AUTO) 0.2 (0.0-0.4); EOSINOPHILS % 2.6 % (0.0-6.0); HEMOGLOBIN 9.5 g/dL (12.0-16.0); LYMPHOCYTES # (AUTO) 2.3 (1.0-3.2); LYMPHOCYTES % 24.7 % (18.0-39.1); MEAN CORPUSCULAR HEMOGLOBIN 30.7 pg (28-32); MEAN CORPUSCULAR HGB CONC 29.7 g/dL (31-35); MEAN CORPUSCULAR VOLUME 103.6 fL (81-99); MONOCYTES # (AUTO) 0.9 (0.2-0.8); MONOCYTES % 9.3 % (4.4-11.3); NEUTROPHILS # (AUTO) 5.7 (2.1-6.9); NEUTROPHILS % 61.9 % (38.7-80.0); PLATELET COUNT 303 x10e3/uL (140-360); RED BLOOD COUNT 3.09 x10e6/uL (3.6-5.1); RED CELL DISTRIBUTION WIDTH 14.8 % (11.7-14.4)
[2022-11-05 06:30] LABS: ANION GAP 14.3 mmol/L (8-16); CALCIUM 7.5 mg/dL (8.4-10.2); CREATININE, SERUM 2.48 mg/dL (0.57-1.11); POTASSIUM 3.3 mmol/L (3.5-5.1)
[2022-11-05] MEDS: INSULIN REGULAR, HUMAN 100 UNIT/1 ML SQ SCH ×4 (07:30→21:00)
[2022-11-05] MEDS: METOPROLOL TARTRATE 25 MG TAB PO SCH ×2 (09:00→16:09)
[2022-11-05] MEDS ORDERED: ALBUTEROL/IPRATROPIUM 3 ML NEB NEB PRN (09:00)
[2022-11-05] MEDS: FLUTICASONE PROPIONATE NASAL SPRAY NS SCH ×2 (10:00→17:53)
[2022-11-05] MEDS: LEVOTHYROXINE SODIUM 50 MCG TAB PO SCH ×2 (10:00→10:20)
[2022-11-05] MEDS: PANTOPRAZOLE SOD 40 MG TABEC PO SCH (10:01)
[2022-11-05] MEDS: AZITHROMYCIN 250 MG TAB PO SCH (10:02)
[2022-11-05] MEDS: LORATADINE/PSEUDOEPHEDRINE 24 HR SR TAB PO SCH (10:02)
[2022-11-05] MEDS: CALCITRIOL 0.25 MCG CAP PO SCH (10:02)
[2022-11-05] MEDS: BENZONATATE 100 MG CAP PO SCH ×2 (10:02→21:34)
[2022-11-05] MEDS: GABAPENTIN 100 MG CAP PO SCH ×3 (10:03→21:35)
[2022-11-05] MEDS: ASCORBIC ACID 500 MG TAB PO SCH (10:03)
[2022-11-05] MEDS: SODIUM BICARBONATE 650 MG TAB PO SCH ×3 (10:03→21:34)
[2022-11-05] MEDS: ESCITALOPRAM OXALATE 10 MG TAB PO SCH (10:04)
[2022-11-05] MEDS: BUMETANIDE 1 MG TAB PO SCH ×2 (10:06→21:34)
[2022-11-05] MEDS: COLLAGENASE 5 GM TUBE TP SCH (16:07)
[2022-11-05] MEDS: BALSAM PERU/CASTOR OIL 60 GM OINT...G. TP SCH (16:07)
[2022-11-05] MEDS: SIMVASTATIN 40 MG TAB PO SCH (21:34)
[2022-11-05] MEDS: FENOFIBRATE 145 MG TAB PO SCH (21:34)
[2022-11-06] VITALS (8 sets, daily range): BP systolic 132–153; BP diastolic 48–59
[2022-11-06] MEDS: LEVOTHYROXINE SODIUM 50 MCG TAB PO SCH (06:03)
[2022-11-06] MEDS: INSULIN REGULAR, HUMAN 100 UNIT/1 ML SQ SCH ×4 (07:30→21:00)
[2022-11-06] MEDS: SODIUM BICARBONATE 650 MG TAB PO SCH ×3 (09:49→21:19)
[2022-11-06] MEDS: CALCITRIOL 0.25 MCG CAP PO SCH (09:49)
[2022-11-06] MEDS: BUMETANIDE 1 MG TAB PO SCH ×2 (09:49→21:19)
[2022-11-06] MEDS: GABAPENTIN 100 MG CAP PO SCH ×3 (09:50→21:19)
[2022-11-06] MEDS: BENZONATATE 100 MG CAP PO SCH ×3 (09:50→21:18)
[2022-11-06] MEDS: METOPROLOL TARTRATE 25 MG TAB PO SCH ×2 (09:50→17:25)
[2022-11-06] MEDS: LORATADINE/PSEUDOEPHEDRINE 24 HR SR TAB PO SCH (09:51)
[2022-11-06] MEDS: ASCORBIC ACID 500 MG TAB PO SCH (09:51)
[2022-11-06] MEDS: AZITHROMYCIN 250 MG TAB PO SCH (09:51)
[2022-11-06] MEDS: PANTOPRAZOLE SOD 40 MG TABEC PO SCH (09:51)
[2022-11-06] MEDS: ESCITALOPRAM OXALATE 10 MG TAB PO SCH (09:51)
[2022-11-06] MEDS: FLUTICASONE PROPIONATE NASAL SPRAY NS SCH ×2 (09:56→17:27)
[2022-11-06] MEDS: BALSAM PERU/CASTOR OIL 60 GM OINT...G. TP SCH (17:23)
[2022-11-06] MEDS: COLLAGENASE 5 GM TUBE TP SCH (17:24)
[2022-11-06] MEDS: SIMVASTATIN 40 MG TAB PO SCH (21:19)
[2022-11-06] MEDS: FENOFIBRATE 145 MG TAB PO SCH (21:19)
[2022-11-07] VITALS (7 sets, daily range): BP systolic 103–155; BP diastolic 45–74
[2022-11-07] MEDS: LEVOTHYROXINE SODIUM 50 MCG TAB PO SCH (06:04)
[2022-11-07] MEDS: INSULIN REGULAR, HUMAN 100 UNIT/1 ML SQ SCH ×4 (07:30→21:23)
[2022-11-07] MEDS: GABAPENTIN 100 MG CAP PO SCH ×3 (09:46→21:17)
[2022-11-07] MEDS: AZITHROMYCIN 250 MG TAB PO SCH (09:46)
[2022-11-07] MEDS: BUMETANIDE 1 MG TAB PO SCH ×2 (09:46→21:17)
[2022-11-07] MEDS: CALCITRIOL 0.25 MCG CAP PO SCH (09:46)
[2022-11-07] MEDS: SODIUM BICARBONATE 650 MG TAB PO SCH ×3 (09:46→21:17)
[2022-11-07] MEDS: COLLAGENASE 5 GM TUBE TP SCH (09:47)
[2022-11-07] MEDS: ESCITALOPRAM OXALATE 10 MG TAB PO SCH (09:47)
[2022-11-07] MEDS: BALSAM PERU/CASTOR OIL 60 GM OINT...G. TP SCH (09:47)
[2022-11-07] MEDS: LORATADINE/PSEUDOEPHEDRINE 24 HR SR TAB PO SCH (09:47)
[2022-11-07] MEDS: ASCORBIC ACID 500 MG TAB PO SCH (09:47)
[2022-11-07] MEDS: BENZONATATE 100 MG CAP PO SCH ×3 (09:47→21:17)
[2022-11-07] MEDS: PANTOPRAZOLE SOD 40 MG TABEC PO SCH (09:47)
[2022-11-07] MEDS: FLUTICASONE PROPIONATE NASAL SPRAY NS SCH ×2 (09:48→17:47)
[2022-11-07] MEDS: METOPROLOL TARTRATE 25 MG TAB PO SCH ×2 (09:55→18:16)
[2022-11-07 10:21] LABS: ANION GAP 11.9 mmol/L (8-16); CALCIUM 7.7 mg/dL (8.4-10.2); CREATININE, SERUM 2.6 mg/dL (0.57-1.11); POTASSIUM 3.9 mmol/L (3.5-5.1)
[2022-11-07] MEDS: FENOFIBRATE 145 MG TAB PO SCH (21:17)
[2022-11-07] MEDS: SIMVASTATIN 40 MG TAB PO SCH (21:17)
[2022-11-08] VITALS (7 sets, daily range): BP systolic 149–176; BP diastolic 37–76
[2022-11-08] MEDS: CLONIDINE HCL 0.1 MG TAB PO PRN ×2 (01:27→11:42)
[2022-11-08] MEDS: LEVOTHYROXINE SODIUM 50 MCG TAB PO SCH (06:18)
[2022-11-08] MEDS: INSULIN REGULAR, HUMAN 100 UNIT/1 ML SQ SCH ×4 (07:30→21:00)
[2022-11-08] MEDS: ASCORBIC ACID 500 MG TAB PO SCH (10:41)
[2022-11-08] MEDS: BENZONATATE 100 MG CAP PO SCH ×3 (10:41→21:30)
[2022-11-08] MEDS: GABAPENTIN 100 MG CAP PO SCH ×3 (10:41→21:31)
[2022-11-08] MEDS: AZITHROMYCIN 250 MG TAB PO SCH (10:41)
[2022-11-08] MEDS: CALCITRIOL 0.25 MCG CAP PO SCH (10:41)
[2022-11-08] MEDS: BUMETANIDE 1 MG TAB PO SCH ×2 (10:41→21:30)
[2022-11-08] MEDS: FLUTICASONE PROPIONATE NASAL SPRAY NS SCH ×2 (10:42→18:11)
[2022-11-08] MEDS: LORATADINE/PSEUDOEPHEDRINE 24 HR SR TAB PO SCH (10:42)
[2022-11-08] MEDS: METOPROLOL TARTRATE 25 MG TAB PO SCH ×2 (10:42→17:00)
[2022-11-08] MEDS: ESCITALOPRAM OXALATE 10 MG TAB PO SCH (10:42)
[2022-11-08] MEDS: PANTOPRAZOLE SOD 40 MG TABEC PO SCH (10:42)
[2022-11-08] MEDS: SODIUM BICARBONATE 650 MG TAB PO SCH ×3 (10:50→21:30)
[2022-11-08] MEDS: COLLAGENASE 5 GM TUBE TP SCH (10:50)
[2022-11-08] MEDS: BALSAM PERU/CASTOR OIL 60 GM OINT...G. TP SCH (10:50)
[2022-11-08] MEDS: FENOFIBRATE 145 MG TAB PO SCH (21:30)
[2022-11-08] MEDS: SIMVASTATIN 40 MG TAB PO SCH (21:31)
[2022-11-09] VITALS: BP 104/73
[2022-11-09 04:00] VITALS: BP 156/60
[2022-11-09] MEDS: LEVOTHYROXINE SODIUM 50 MCG TAB PO SCH (05:25)
[2022-11-09] MEDS: INSULIN REGULAR, HUMAN 100 UNIT/1 ML SQ SCH ×2 (07:30→12:11)
[2022-11-09 07:56] VITALS: BP 168/79
[2022-11-09 08:37] VITALS: BP 168/79
[2022-11-09] MEDS: ASCORBIC ACID 500 MG TAB PO SCH (09:24)
[2022-11-09] MEDS: FLUTICASONE PROPIONATE NASAL SPRAY NS SCH (09:24)
[2022-11-09] MEDS: AZITHROMYCIN 250 MG TAB PO SCH (09:24)
[2022-11-09] MEDS: BENZONATATE 100 MG CAP PO SCH (09:24)
[2022-11-09] MEDS: PANTOPRAZOLE SOD 40 MG TABEC PO SCH (09:25)
[2022-11-09] MEDS: ESCITALOPRAM OXALATE 10 MG TAB PO SCH (09:25)
[2022-11-09] MEDS: BUMETANIDE 1 MG TAB PO SCH (09:25)
[2022-11-09] MEDS: SODIUM BICARBONATE 650 MG TAB PO SCH (09:26)
[2022-11-09] MEDS: CALCITRIOL 0.25 MCG CAP PO SCH (09:26)
[2022-11-09] MEDS: METOPROLOL TARTRATE 25 MG TAB PO SCH (09:26)
[2022-11-09] MEDS: GABAPENTIN 100 MG CAP PO SCH (09:26)
[2022-11-09] MEDS: LORATADINE/PSEUDOEPHEDRINE 24 HR SR TAB PO SCH (09:26)
[2022-11-09] MEDS: BALSAM PERU/CASTOR OIL 60 GM OINT...G. TP SCH (09:28)
[2022-11-09] MEDS ORDERED: FLONASE ALLERG9.9 ML INH (11:00)
[2022-11-09] MEDS ORDERED: MUCINEX600 MG PO (11:01)
[2022-11-09] MEDS ORDERED: NEURONTIN100 MG PO (11:02)
[2022-11-09] MEDS ORDERED: PROAIR DIGIHAL90 MCG INH (11:02)
[2022-11-09] MEDS ORDERED: DIFLUCAN100 MG PO (11:03)
[2022-11-09] MEDS ORDERED: CLARITIN10 MG PO (11:03)
[2022-11-09 11:42] VITALS: BP 165/63
[2022-11-09] MEDS: COLLAGENASE 5 GM TUBE TP SCH (12:11)
== END 2022-11-09 14:30 | disposition home health service (06) | DRG 640 ==
LOC: ER 17:04 → ERHOLD 19:23 → MED/SURG3 20:48 → OBSVTOIN 10-30 15:49
PROVIDERS: ADMIT Internal Medicine; ATTEND Internal Medicine
PROC: 02HV33Z Insertion of Infusion Device into Superior Vena Cava, Percutaneous Approach (ICD-10-PCS; principal; 2022-11-02)
PROC: 0JH63XZ Insertion of Tunneled Vascular Access Device into Chest Subcutaneous Tissue and Fascia, Percutaneous Approach (ICD-10-PCS; 2022-11-02)
PROC: 5A1D70Z Performance of Urinary Filtration, Intermittent, Less than 6 Hours Per Day (ICD-10-PCS; 2022-11-08)
DX: E87.5 Hyperkalemia (principal); N18.6 End stage renal disease; I12.0 Hypertensive chronic kidney disease with stage 5 chronic kidney disease or end stage renal disease; N17.9 Acute kidney failure, unspecified; Z99.2 Dependence on renal dialysis; D63.8 Anemia in other chronic diseases classified elsewhere; E11.22 Type 2 diabetes mellitus with diabetic chronic kidney disease; D63.1 Anemia in chronic kidney disease; E11.51 Type 2 diabetes mellitus with diabetic peripheral angiopathy without gangrene; E11.621 Type 2 diabetes mellitus with foot ulcer; L97.512 Non-pressure chronic ulcer of other part of right foot with fat layer exposed; Z79.4 Long term (current) use of insulin; E87.8 Other disorders of electrolyte and fluid balance, not elsewhere classified; E66.01 Morbid (severe) obesity due to excess calories; Z68.32 Body mass index [BMI] 32.0-32.9, adult; Z89.512 Acquired absence of left leg below knee
CPT/HCPCS: 36415; 36558; 71045; 74470; 76937; 77001; 80048; 80053; 82575; 82728; 82948; 83540; 84466; 85025; 85610; 86704; 86705; 86706; 86850; 86900; 86920; 87340; 90962; 93971; 94799; 99252; 99284; C1769; C1892; G0378; J0360; J0690; J1644; J1756; J1817; J1940; J2150; J3010; J7030; J7050; J7799; P9016

== ENCOUNTER 2023-02-12 13:58 | Emergency (ER) | payer MEDICARE ==
[~2023-02-12] VITALS: Ht 157.5 cm; Wt 81.6 kg
[~2023-02-12 13:58] MED LIST changes: +ACETAMIN-CODE12.5 ML; +ASCORBIC ACID500 M2 PO; +CALCITRIOL0.25 MCG PO; +CLARITIN10 MG PO; +ERGOCALCIF200 MCG/1 PO; +FLONASE ALLERG9.9 ML INH; +LEVOTHYROXINE50 MCG PO; +MUCINEX600 MG PO; +PROAIR DIGIHAL90 MCG INH
[2023-02-12 14:40] LABS: BASOPHILS % 0.3 % (0.0-1.0); EOSINOPHILS # (AUTO) 0.1 (0.0-0.4); EOSINOPHILS % 0.9 % (0.0-6.0); HEMATOCRIT 33.9 % (34.2-44.1); HEMOGLOBIN 10.8 g/dL (12.0-16.0); LYMPHOCYTES # (AUTO) 2.2 (1.0-3.2); LYMPHOCYTES % 19.3 % (18.0-39.1); MEAN CORPUSCULAR HEMOGLOBIN 30.4 pg (28-32); MEAN CORPUSCULAR HGB CONC 31.9 g/dL (31-35); MEAN CORPUSCULAR VOLUME 95.5 fL (81-99); MONOCYTES # (AUTO) 0.8 (0.2-0.8); MONOCYTES % 6.8 % (4.4-11.3); NEUTROPHILS # (AUTO) 8.3 (2.1-6.9); NEUTROPHILS % 72.3 % (38.7-80.0); PLATELET COUNT 222 x10e3/uL (140-360); RED BLOOD COUNT 3.55 x10e6/uL (3.6-5.1)
[2023-02-12 14:57] LABS: ALBUMIN 1.8 g/dL (3.5-5.0); ALBUMIN/GLOBULIN RATIO 0.5 (0.8-2.0); ANION GAP 15.6 mmol/L (8-16); CALCIUM 7.5 mg/dL (8.4-10.2); CREATININE, SERUM 4.69 mg/dL (0.57-1.11); POTASSIUM 4.6 mmol/L (3.5-5.1)
[2023-02-12 16:27] VITALS: BP 158/70
== END 2023-02-12 16:15 | disposition home or self-care (01) ==
LOC: ER 14:03
DX: R19.7 Diarrhea, unspecified (principal); I12.9 Hypertensive chronic kidney disease with stage 1 through stage 4 chronic kidney disease, or unspecified chronic kidney disease; E11.22 Type 2 diabetes mellitus with diabetic chronic kidney disease; E11.65 Type 2 diabetes mellitus with hyperglycemia; N18.9 Chronic kidney disease, unspecified; Z99.2 Dependence on renal dialysis; Z89.512 Acquired absence of left leg below knee; Z20.822 Contact with and (suspected) exposure to COVID-19
CPT/HCPCS: 36415; 71045; 80053; 83690; 84484; 85025; 93005; 99284; U0002

== ENCOUNTER 2023-08-15 09:51 | Emergency (ER) | payer MEDICARE ==
[~2023-08-15] VITALS: Ht 157.5 cm; Wt 68.0 kg
[~2023-08-15 09:51] MED LIST changes: +AMLODIPINE BESY10 MG PO; +FERROUS SULFAT325 MG PO; +FUROSEMIDE80 MG PO; +LOSARTAN POTAS100 MG PO; +POTASSIUM CHLO20 ME1 PO; +RENVELA0.8 GM PO; +TERAZOSIN HCL1 MG PO
[2023-08-15 10:33] LABS: BASOPHILS % 0.2 % (0.0-1.0); EOSINOPHILS # (AUTO) 0.2 (0.0-0.4); EOSINOPHILS % 2.2 % (0.0-6.0); HEMATOCRIT 29.7 % (34.2-44.1); HEMOGLOBIN 9.5 g/dL (12.0-16.0); LYMPHOCYTES # (AUTO) 1.8 (1.0-3.2); LYMPHOCYTES % 17.8 % (18.0-39.1); MEAN CORPUSCULAR HEMOGLOBIN 30.4 pg (28-32); MEAN CORPUSCULAR VOLUME 95.2 fL (81-99); MONOCYTES # (AUTO) 0.6 (0.2-0.8); MONOCYTES % 5.6 % (4.4-11.3); NEUTROPHILS # (AUTO) 7.5 (2.1-6.9); NEUTROPHILS % 73.6 % (38.7-80.0); PLATELET COUNT 263 x10e3/uL (140-360); RED BLOOD COUNT 3.12 x10e6/uL (3.6-5.1); RED CELL DISTRIBUTION WIDTH 15.3 % (11.7-14.4)
[2023-08-15 11:22] LABS: ANION GAP 17.9 mmol/L (8-16); CALCIUM 8.4 mg/dL (8.4-10.2); CREATININE, SERUM 8.46 mg/dL (0.57-1.11); POTASSIUM 4.9 mmol/L (3.5-5.1)
[2023-08-15 11:43] VITALS: BP 151/62; PULSE 61; RESP 17; TEMP 98; O2SAT 100
== END 2023-08-15 11:59 | disposition home or self-care (01) ==
LOC: ER 09:54
DX: K59.00 Constipation, unspecified (principal); I12.0 Hypertensive chronic kidney disease with stage 5 chronic kidney disease or end stage renal disease; E13.22 Other specified diabetes mellitus with diabetic chronic kidney disease; E13.65 Other specified diabetes mellitus with hyperglycemia; N18.6 End stage renal disease; Z99.2 Dependence on renal dialysis; E78.5 Hyperlipidemia, unspecified; D64.9 Anemia, unspecified; F41.9 Anxiety disorder, unspecified; Z89.512 Acquired absence of left leg below knee
CPT/HCPCS: 36415; 80048; 85025; 93005; 99283

== ENCOUNTER 2023-11-14 07:11 | Observation (INO) | payer MEDICARE ==
[~2023-11-14] VITALS: Ht 167.6 cm; Wt 68.0 kg
[~2023-11-14 07:11] MED LIST changes: +DICYCLOMINE HCL20 MG PO
[2023-11-14 08:13] LABS: BASOPHILS % 0.2 % (0.0-1.0); EOSINOPHILS # (AUTO) 0.2 (0.0-0.4); EOSINOPHILS % 1.7 % (0.0-6.0); HEMATOCRIT 27.1 % (34.2-44.1); HEMOGLOBIN 8.3 g/dL (12.0-16.0); LYMPHOCYTES # (AUTO) 1.4 (1.0-3.2); LYMPHOCYTES % 13.8 % (18.0-39.1); MEAN CORPUSCULAR HEMOGLOBIN 31.8 pg (28-32); MEAN CORPUSCULAR HGB CONC 30.6 g/dL (31-35); MEAN CORPUSCULAR VOLUME 103.8 fL (81-99); MONOCYTES # (AUTO) 0.4 (0.2-0.8); MONOCYTES % 3.6 % (4.4-11.3); NEUTROPHILS # (AUTO) 8.1 (2.1-6.9); NEUTROPHILS % 80.4 % (38.7-80.0); PLATELET COUNT 235 x10e3/uL (140-360); RED BLOOD COUNT 2.61 x10e6/uL (3.6-5.1); RED CELL DISTRIBUTION WIDTH 18.3 % (11.7-14.4); WHITE BLOOD COUNT 10.05 x10e3/uL (4.8-10.8)
[2023-11-14 08:25] LABS: INR 1.21; PROTHROMBIN TIME 15.6 seconds (11.9-14.5)
[2023-11-14 08:26] LABS: PARTIAL THROMBOPLASTIN TIME 37.1 seconds (23.8-35.5)
[2023-11-14 09:00] VITALS: PULSE 85; RESP 18; O2SAT 98
[2023-11-14 09:11] LABS: ALBUMIN/GLOBULIN RATIO 0.7 (0.8-2.0); BILIRUBIN,TOTAL 0.8 mg/dL (0.2-1.2); CALCIUM 8.7 mg/dL (8.4-10.2); CREATININE, SERUM 7.74 mg/dL (0.57-1.11); TOTAL PROTEIN 7.4 g/dL (6.5-8.1)
[2023-11-14 09:27] LABS: TROPONIN I 0.034 ng/mL (0-0.300)
[2023-11-14] MEDS ORDERED: FUROSEMIDE PO SCH (10:45)
[2023-11-14] MEDS ORDERED: DICYCLOMINE HCL 20 MG TAB PO PRN (10:45)
[2023-11-14 10:53] VITALS: BP 169/95; PULSE 85; RESP 18; O2SAT 98
[2023-11-14 11:44] LABS: ANION GAP 18.9 mmol/L (8-16); CALCIUM 8.4 mg/dL (8.4-10.2); CREATININE, SERUM 7.5 mg/dL (0.57-1.11); POTASSIUM 4.9 mmol/L (3.5-5.1)
[2023-11-14] MEDS: SEVELAMER CARBONATE 800 MG TAB PO SCH ×2 (11:54→15:23)
[2023-11-14] MEDS: AMLODIPINE BESYLATE 10 MG TAB PO SCH (11:55)
[2023-11-14] MEDS: LOSARTAN POTASSIUM 100 MG TAB PO SCH (11:55)
[2023-11-14] MEDS: METOPROLOL SUCCINATE 50 MG TAB XL PO SCH ×2 (11:55→17:00)
[2023-11-14 12:15] VITALS: BP 200/71; PULSE 80; RESP 19; TEMP 98.1; O2SAT 99
[2023-11-14 14:09] VITALS: PULSE 77; RESP 18; O2SAT 100
[2023-11-14] MEDS ORDERED: ALBUTEROL/IPRATROPIUM 3 ML NEB NEB PRN (14:15)
[2023-11-14] MEDS: SODIUM BICARBONATE 650 MG TAB PO SCH ×2 (15:23→20:39)
[2023-11-14] MEDS: GABAPENTIN 100 MG CAP PO SCH ×2 (15:23→20:40)
[2023-11-14 15:44] VITALS: BP 171/63; PULSE 79; RESP 17; TEMP 98.7; O2SAT 100
[2023-11-14 20:00] VITALS: BP 198/78; PULSE 75; RESP 18; TEMP 97.4; O2SAT 97
[2023-11-14] MEDS: BALSAM PERU/CASTOR OIL 60 GM OINT...G. TP SCH (20:00)
[2023-11-14] MEDS: CRESTOR 10MG PO SCH (20:39)
[2023-11-14] MEDS ORDERED: TERAZOSIN HCL 1 MG CAP PO SCH (21:00)
[2023-11-14] MEDS ORDERED: SIMVASTATIN 40 MG TAB PO SCH (21:00)
[2023-11-15] VITALS (9 sets, daily range): BP systolic 128–199; BP diastolic 61–92; PULSE 59–80; RESP 18–20; TEMP 98–98.4; O2SAT 96–100
[2023-11-15 05:27] LABS: BASOPHILS % 0.1 % (0.0-1.0); EOSINOPHILS # (AUTO) 0.2 (0.0-0.4); EOSINOPHILS % 3.6 % (0.0-6.0); HEMATOCRIT 25.1 % (34.2-44.1); HEMOGLOBIN 7.9 g/dL (12.0-16.0); LYMPHOCYTES # (AUTO) 1.2 (1.0-3.2); LYMPHOCYTES % 18.3 % (18.0-39.1); MEAN CORPUSCULAR HEMOGLOBIN 31.6 pg (28-32); MEAN CORPUSCULAR HGB CONC 31.5 g/dL (31-35); MONOCYTES # (AUTO) 0.4 (0.2-0.8); NEUTROPHILS # (AUTO) 4.8 (2.1-6.9); NEUTROPHILS % 71.4 % (38.7-80.0); RED CELL DISTRIBUTION WIDTH 18.1 % (11.7-14.4); WHITE BLOOD COUNT 6.72 x10e3/uL (4.8-10.8)
[2023-11-15 05:34] LABS: MEAN CORPUSCULAR VOLUME 100.4 fL (81-99); PLATELET COUNT 165 x10e3/uL (140-360)
[2023-11-15 05:46] LABS: ANION GAP 13.5 mmol/L (8-16); CALCIUM 8.5 mg/dL (8.4-10.2); CREATININE, SERUM 4.36 mg/dL (0.57-1.11); POTASSIUM 3.5 mmol/L (3.5-5.1)
[2023-11-15] MEDS: BALSAM PERU/CASTOR OIL 60 GM OINT...G. TP SCH (09:00)
[2023-11-15] MEDS ORDERED: FENOFIBRATE 145 MG TAB PO SCH (09:00)
[2023-11-15] MEDS: GABAPENTIN 100 MG CAP PO SCH ×3 (09:14→21:12)
[2023-11-15] MEDS: PANTOPRAZOLE SOD 40 MG TABEC PO SCH (09:14)
[2023-11-15] MEDS: SEVELAMER CARBONATE 800 MG TAB PO SCH ×3 (09:14→16:57)
[2023-11-15] MEDS: SODIUM BICARBONATE 650 MG TAB PO SCH ×3 (09:14→21:12)
[2023-11-15] MEDS: FERROUS SULFATE 325 MG TAB PO SCH (09:14)
[2023-11-15] MEDS: AMLODIPINE BESYLATE 10 MG TAB PO SCH (09:15)
[2023-11-15] MEDS: METOPROLOL SUCCINATE 50 MG TAB XL PO SCH ×2 (09:15→16:59)
[2023-11-15] MEDS: ESCITALOPRAM OXALATE 10 MG TAB PO SCH (09:15)
[2023-11-15] MEDS: LOSARTAN POTASSIUM 100 MG TAB PO SCH (09:20)
[2023-11-15] MEDS ORDERED: EPOETIN ALFA-EPBX 10,000 UNIT/ML VIAL SC ONE (10:00)
[2023-11-15] MEDS ORDERED: SODIUM CHLORIDE 0.9% 250ML 250 ML IV ONE (10:15)
[2023-11-15] MEDS: NIFEDIPINE CR 30 MG TAB PO SCH ×2 (11:23→21:12)
[2023-11-15] MEDS: IRON SUCROSE 100 MG in SODIUM CHLORIDE 0.9% 100 ML IV SCH (11:49)
[2023-11-15] MEDS: CRESTOR 10MG PO SCH (21:13)
[2023-11-16] VITALS: BP 116/54; PULSE 71; RESP 18; TEMP 98.3; O2SAT 98
[2023-11-16] MEDS ORDERED: ACETAMINOPHEN 325 MG TAB PO PRN (00:45)
[2023-11-16 04:00] VITALS: BP 132/63; PULSE 69; RESP 18; TEMP 97.4; O2SAT 99
[2023-11-16] MEDS: SEVELAMER CARBONATE 800 MG TAB PO SCH ×2 (07:30→12:37)
[2023-11-16] MEDS: PANTOPRAZOLE SOD 40 MG TABEC PO SCH ×2 (07:30→12:38)
[2023-11-16 07:38] LABS: ANION GAP 16.9 mmol/L (8-16); CALCIUM 7.8 mg/dL (8.4-10.2); CREATININE, SERUM 5.7 mg/dL (0.57-1.11); POTASSIUM 3.9 mmol/L (3.5-5.1)
[2023-11-16 08:00] VITALS: BP 132/63; PULSE 74; RESP 18; TEMP 97.4; O2SAT 99
[2023-11-16 08:59] VITALS: BP 116/52; PULSE 57; RESP 18; TEMP 97.2; O2SAT 100
[2023-11-16] MEDS: GABAPENTIN 100 MG CAP PO SCH ×2 (09:00→12:39)
[2023-11-16] MEDS: FERROUS SULFATE 325 MG TAB PO SCH ×2 (09:00→12:39)
[2023-11-16] MEDS: BALSAM PERU/CASTOR OIL 60 GM OINT...G. TP SCH (09:00)
[2023-11-16] MEDS: LOSARTAN POTASSIUM 100 MG TAB PO SCH ×2 (09:00→12:43)
[2023-11-16] MEDS: NIFEDIPINE CR 30 MG TAB PO SCH ×2 (09:00→12:41)
[2023-11-16] MEDS: METOPROLOL SUCCINATE 50 MG TAB XL PO SCH (09:00)
[2023-11-16] MEDS: ESCITALOPRAM OXALATE 10 MG TAB PO SCH ×2 (09:00→12:40)
[2023-11-16] MEDS: SODIUM BICARBONATE 650 MG TAB PO SCH ×2 (09:00→12:38)
[2023-11-16] MEDS: IRON SUCROSE 100 MG in SODIUM CHLORIDE 0.9% 100 ML IV SCH (10:00)
[2023-11-16] MEDS ORDERED: SODIUM CHLORIDE 0.9% 1000ML 2,000 ML IV PRN (10:30)
[2023-11-16] MEDS ORDERED: SODIUM CHLORIDE 0.9% 250ML 500 ML IV PRN (10:30)
[2023-11-16 11:51] VITALS: BP 163/65; PULSE 93; RESP 20; TEMP 97.9; O2SAT 98
[2023-11-16 12:43] VITALS: BP 169/69
[2023-11-19] MEDS ORDERED: NON-FORMULARY MEDICATION (Cholecalciferol (Vitamin D3) (Vitamin D3) 50,000 UNITS) PO SCH (09:00)
== END 2023-11-16 14:49 | disposition home or self-care (01) ==
LOC: ER 07:22 → ERHOLD 08:28 → MED/SURG 09:46
PROVIDERS: ADMIT Internal Medicine; ATTEND Internal Medicine
DX: E11.22 Type 2 diabetes mellitus with diabetic chronic kidney disease (principal); I13.2 Hypertensive heart and chronic kidney disease with heart failure and with stage 5 chronic kidney disease, or end stage renal disease; N18.6 End stage renal disease; Z99.2 Dependence on renal dialysis; Z91.158 Patient's noncompliance with renal dialysis for other reason; E87.70 Fluid overload, unspecified; D63.1 Anemia in chronic kidney disease; I50.9 Heart failure, unspecified; E11.621 Type 2 diabetes mellitus with foot ulcer; E11.43 Type 2 diabetes mellitus with diabetic autonomic (poly)neuropathy; K31.84 Gastroparesis; N25.81 Secondary hyperparathyroidism of renal origin; F41.9 Anxiety disorder, unspecified; E78.5 Hyperlipidemia, unspecified; I73.9 Peripheral vascular disease, unspecified; Z89.512 Acquired absence of left leg below knee; Z89.421 Acquired absence of other right toe(s); Z88.6 Allergy status to analgesic agent; Z88.1 Allergy status to other antibiotic agents; Z88.2 Allergy status to sulfonamides; Z11.52 Encounter for screening for COVID-19; Z79.899 Other long term (current) drug therapy
CPT/HCPCS: 36430; G0257; 36415; 71045; 80048; 80053; 82550; 82948; 83880; 84484; 85025; 85610; 85730; 86850; 86900; 86920; 90962; 93005; 94640; 94799; 99252; 99285; G0378; J1756; J7050; P9016; U0002

== ENCOUNTER 2023-11-23 12:59 | Emergency (ER) | payer MEDICARE ==
[~2023-11-23] VITALS: Ht 167.6 cm; Wt 68.0 kg
[2023-11-23 13:52] LABS: BASOPHILS % 0.3 % (0.0-1.0); EOSINOPHILS # (AUTO) 0.2 (0.0-0.4); EOSINOPHILS % 2.5 % (0.0-6.0); HEMATOCRIT 35.7 % (34.2-44.1); HEMOGLOBIN 11.1 g/dL (12.0-16.0); LYMPHOCYTES # (AUTO) 1.3 (1.0-3.2); LYMPHOCYTES % 14.9 % (18.0-39.1); MEAN CORPUSCULAR HEMOGLOBIN 30.6 pg (28-32); MEAN CORPUSCULAR HGB CONC 31.1 g/dL (31-35); MEAN CORPUSCULAR VOLUME 98.3 fL (81-99); MONOCYTES # (AUTO) 0.5 (0.2-0.8); NEUTROPHILS # (AUTO) 6.8 (2.1-6.9); NEUTROPHILS % 76.7 % (38.7-80.0); PLATELET COUNT 264 x10e3/uL (140-360); RED BLOOD COUNT 3.63 x10e6/uL (3.6-5.1); RED CELL DISTRIBUTION WIDTH 15.9 % (11.7-14.4); WHITE BLOOD COUNT 8.92 x10e3/uL (4.8-10.8)
[2023-11-23 15:53] LABS: ALBUMIN 2.9 g/dL (3.5-5.0); ALBUMIN/GLOBULIN RATIO 0.6 (0.8-2.0); BILIRUBIN,TOTAL 0.8 mg/dL (0.2-1.2); CALCIUM 8.9 mg/dL (8.4-10.2); CREATININE, SERUM 4.86 mg/dL (0.57-1.11); TOTAL PROTEIN 7.4 g/dL (6.5-8.1)
[2023-11-23 17:15] VITALS: O2SAT 100
== END 2023-11-23 17:20 | disposition home or self-care (01) ==
LOC: ER 13:19
DX: R19.7 Diarrhea, unspecified (principal); I12.0 Hypertensive chronic kidney disease with stage 5 chronic kidney disease or end stage renal disease; E11.22 Type 2 diabetes mellitus with diabetic chronic kidney disease; N18.6 End stage renal disease; Z99.2 Dependence on renal dialysis; Z11.52 Encounter for screening for COVID-19; Z89.512 Acquired absence of left leg below knee
CPT/HCPCS: 36415; 74176; 80053; 83690; 85025; 99284; U0002